=== PATIENT | female | born 1990 | race African-American/Black ===

== ENCOUNTER 2016-10-11 14:56 | Emergency (ER) | payer OTHER ==
--- NOTE | 2016-10-11 15:13 | PDOC ---
History of Present Illness - History of Present Illness Initial Comments: 10/11/16 16:39 The patient is a 26 year old female with a significant past medical history of diabetes, CVA, and asthma who presents to the ED complaining of diffuse abdominal pain and nausea. The patient was last seen for DKA, admitted to the ICU and then discharged on 10/03. The patient reports her abdominal pain and nausea have worsened since she was discharged from the hospital. She typically takes zofran for nausea but she ran out. She is also complaining of a dry mouth. The patient endorses having several loose dark watery stools today, denies any bpr, melena. The patient reports she has been measuring her blood sugar daily and her machine reports it is high. She states she is compliant with her insulin. She is concerned she is in DKA. She reports two episodes of diarrhea today. Pt notes the abdominal pain is sharp, diffuse and simialr to what she has felt int he past that was attributed to 'gastric erosions' for which she is on carafate, she states it typically helps but not recently. She denies vomiting, hematochezia, melena. She denies chest pain, palpitations, SOB She denies sore throat, dysuria, vaginal bleeding Allergies: ibuprofen, acetaminophen, morphine Social: No toxic habits reported Surgical: Appendectomy PCP: Dr. Zeng <Nilsa Arrieta - Last Filed: 10/11/16 16:40> - General History Source: Patient Exam Limitations: No Limitations - History of Present Illness Initial Comments: 10/11/16 16:10 10/11/16 16:10 <Margarito Vergara - Last Filed: 10/12/16 08:58> - General Stated Complaint: HIGH Sugar Problem Time Seen by Provider: 10/11/16 15:12 Past History <Nilsa Arrieta - Last Filed: 10/11/16 16:40> - Past Medical History Anemia: Yes Asthma: Yes Cancer: No Cardiac Disorders: Yes (heart murmur) CVA: Yes ("rt side weakness") COPD: No CHF: No Dementia: No Diabetes: Yes (since she was 8 years of age) GI Disorders: Yes (gastritis, H pylori,) Disorders: No HTN: No Hypercholesterolemia: No Liver Disease: No Suicide Attempt (Hx): No (DENIES) Seizures: No Thyroid Disease: No - Surgical History Abdominal Surgery: Yes Appendectomy: Yes (2008) Cardiac Surgery: No Cholecystectomy: No Lung Surgery: No Neurologic Surgery: No Orthopedic Surgery: No - Reproductive History (#): 3 Para: 0 Cervical CA: No Dysfunctional Uterine Bleeding: No Ectopic : No Endometrial CA: No Polycystic Ovaries: No Therapeutic (s) & number: No Tubal Ligation: No Spontaneous : 3 - Immunization History Immunization Up to Date: Yes - Psycho/Social/Smoking Cessation Hx Anxiety: No Suicidal Ideation: No Smoking Status: No Smoking History: Never smoked Have you smoked in the past 12 months: No Number of Cigarettes Smoked Daily: 0 Cigars Per Day: 0 Hx Alcohol Use: No Drug/Substance Use Hx: No Substance Use Type: None Hx Substance Use Treatment: No <Margarito Vergara - Last Filed: 10/12/16 08:58> - Past Medical History Allergies/Adverse Reactions: Allergies Allergy/AdvReac Type Severity Reaction Status Date / Time acetaminophen [From Tylenol] Allergy Swelling Verified 10/11/16 15:22 heparin Allergy Verified 10/11/16 15:22 hydromorphone HCl Allergy Verified 10/11/16 15:22 [From Dilaudid] ibuprofen [From Motrin] Allergy Swelling Verified 10/11/16 15:22 morphine Allergy Verified 10/11/16 15:22 Home Medications: Ambulatory Orders Insulin Lispro [Humalog] 0 unit SQ DAILY 09/28/16 Insulin (Levemir) [Levemir Vial] 14 units SQ BIDI ml 10/02/16 Ondansetron HCl [Zofran] 4 mg PO TID PRN #30 tablet 10/11/16 Review of Systems - Review of Systems Able to Perform ROS?: Yes Comments:: 10/11/16 16:40 CONSTITUTIONAL: No reported: Fever, Chills, Diaphoresis, Generalized Weakness, Malaise, Loss of Appetite HEENT: No reported: Rhinorrhea, Nasal Congestion, Throat Pain, Throat Swelling, Difficulty Swallowing, Mouth Swelling, Ear Pain, Eye Pain, Visual Changes CARDIOVASCULAR: No reported: Chest Pain, Syncope, Palpitations, Irregular Heart Rate, Lightheadedness, Peripheral Edema RESPIRATORY: No reported: Cough, Shortness of Breath, SOB with Exertion, Orthopnea, Wheezing , Stridor, Hemoptysis GASTROINTESTINAL: +Abdominal pain, nausea, diarrhea. No reported: Abdominal Distension, Vomiting, Constipation, Melena, Hematochezia GENITOURINARY: No reported: Dysuria, Frequency, Urgency, Hesitancy, Flank Pain, Genital Pain MUSCULOSKELETAL: No reported: Myalgia, Arthralgia, Joint Swelling, Back pain, Neck Pain SKIN: No reported: Rash, Itching, Pallor HEMATOLOGIC/IMMUNOLOGIC: No reported: Easy Bleeding, Easy Bruising, Lymphadenopathy, Frequent infections ENDOCRINE: No reported: Unexplained Weight Gain, Unexplained Weight Loss, Heat Intolerance , Cold Intolerance NEUROLOGIC: No reported: Headache, Focal Weakness, Paresthesias, Vertigo, Lightheadedness, Unsteady Gait, Seizure, Mental Status Changes, Incontinence PSYCHIATRIC: No reported: Anxiety, Depression <Nilsa Arrieta - Last Filed: 10/11/16 16:40> *Physical Exam - Vital Signs Last Vital Signs Temp Pulse Resp BP Pulse Ox 98.4 F 110 H 18 112/80 98 10/11/16 14:56 10/11/16 14:56 10/11/16 14:56 10/11/16 14:56 10/11/16 15:43 - Physical Exam Comments: 10/11/16 16:40 GENERAL: The patient is awake, alert, and fully oriented, Nontoxic - in no acute distress. HEAD: Normocephalic, atraumatic. EYES: extraocular movements intact, sclera anicteric, conjunctiva clear. ENT: Normal voice, dry mucous membranes. NECK: Normal range of motion, supple LUNGS: Breath sounds equal, clear to auscultation bilaterally. No wheezes, no rhonchi, no rales. HEART: tachycardic ABDOMEN: Soft, mild diffuse tenderness No guarding, no rebound. . No CVA tenderness EXTREMITIES: Normal range of motion, no edema. No clubbing or cyanosis. No cords, erythema, or tenderness. NEUROLOGICAL: No facial assymetry, Normal speech, moving all 4 extremities spontaneously and symmetrically PSYCH: Normal mood, normal affect. SKIN: Warm, Dry, normal turgor, <Nilsa Arrieta - Last Filed: 10/11/16 16:40> ED Treatment Course - LABORATORY CBC & Chemistry Diagram: 10/11/16 15:43 - ADDITIONAL ORDERS Additional order review: Laboratory Results 10/11/16 10/11/16 15:43 15:40 VBG pH 7.36 POC VBG pCO2 40.6 L D POC VBG pO2 46.5 H Phosphorus 4.6 Magnesium 3.1 H D 10/11/16 15:43 RBC 3.99 D MCV 93.3 MCHC 34.5 RDW 13.1 MPV 8.1 Neutrophils % 54.2 D Lymphocytes % 37.7 D Monocytes % 6.7 Eosinophils % 0.8 Basophils % 0.6 - Medications Given in the ED: ED Medications Discontinued Medications Generic Name Dose Route Start Last Admin Trade Name Manishq PRN Reason Stop Dose Admin Al Hydroxide/Mg Hydroxide 30 ml 10/11/16 16:09 10/11/16 16:26 Mylanta Suspension - PO 10/11/16 16:10 30 ml ONCE ONE Administration Sodium Chloride 1,000 mls @ 1,000 mls/hr 10/11/16 15:16 10/11/16 15:47 Normal Saline - IV 10/11/16 16:15 1,000 mls/hr .Q1H ONE Administration Famotidine/Sodium Chloride 20 50 mls @ 100 mls/hr 10/11/16 16:09 10/11/16 16:26 mg/ Miscellaneous IVPB 10/11/16 16:38 100 mls/hr ONCE ONE Administration Ondansetron HCl 4 mg 10/11/16 15:21 10/11/16 15:47 Zofran Injection IVPB 10/11/16 15:22 4 mg ONCE ONE Administration <Nilsa Arrieta - Last Filed: 10/11/16 16:40> - LABORATORY CBC & Chemistry Diagram: 10/11/16 15:43 10/11/16 15:43 <Margarito Vergara - Last Filed: 10/12/16 08:58> Medical Decision Making - Medical Decision Making 10/11/16 16:10 26y F hx of IDDM with ultiple episode of DKA (recently admitted and d/marty 10/02, since discharge pt has been feeling nauseus, and today has been ahving crampy abd pain associated with watery stool w/o fever/chills> pt also notes her BGM was elevated to 500+. on exam pt noted to be slightly tachycardic with HR of 110 , abd is soft but diffuse tenderness, pt states pain is simialr to her prior gastritis/ulcers that she takes carafate for but has not improved like it typically does. suspect possible age vs gastritis vs dka will ck labs, vbg, acetones will ck ua to r.o uti will r/o (s/p miscarrage during recent adission) will give fluids for hydration zofran for nausea, pepcid/maalox for abd pain 10/11/16 18:18 The patient's blood work was reviewed the patient's blood glucose was in the 500s, no suggestion of DKA. We'll control the patient's blood sugar with insulin and fluids. The patient's nausea and abdominal cramping or improved in the patient is currently hungry and requesting food. 10/11/16 19:08 Pt signed out to dr. Aiyana garcia with the pts blood sugar and to disposition the patient. <Margarito Vergara - Last Filed: 10/12/16 08:58> *DC/Admit/Observation/Transfer - Attestations Scribe Attestion: 10/11/16 16:40 Documentation prepared by Nilsa Arrieta, acting as medical registrar for Margarito Vergara MD. <Nilsa Arrieta - Last Filed: 10/11/16 16:40> <Margarito Vergara - Last Filed: 10/12/16 08:58> Diagnosis at time of Disposition: IDDM (insulin dependent diabetes mellitus) - Discharge Dispostion Disposition: HOME Condition at time of disposition: Stable - Prescriptions Prescriptions: Ondansetron HCl [Zofran] 4 mg PO TID PRN #30 tablet PRN Reason: Nausea - Referrals Referrals: Yancy Zeng MD [Primary Care Provider] - - Patient Instructions Printed Discharge Instructions: DI for Diabetes Type 1 -- Adult
[2016-10-11] MEDS ORDERED: SODIUM CHLORIDE 1,000 ML IV ONE (15:16)
[2016-10-11] MEDS ORDERED: ONDANSETRON 4 MG/2 ML VIAL IVPB ONE (15:21)
[2016-10-11 15:22] VITALS: TEMP 98.4; BMI 24.7
[2016-10-11 15:45] LABS: VENOUS PH 7.36 (7.31-7.41)
[2016-10-11 15:46] LABS: VENOUS BLOOD GAS HCO3 22.3 meq/L (22-29)
[2016-10-11] MEDS ORDERED: ONDANSETRON 4 MG/2 ML VIAL ONE (15:48)
[2016-10-11] MEDS ORDERED: MAG HYDROX/AL HYDROX/SIMETH 355 ML ORAL.SUSP PO ONE (16:09)
[2016-10-11] MEDS ORDERED: FAMOTIDINE 20 MG/50 ML IVPB 20 MG in PREMIX 50 IVPB ONE (16:09)
[2016-10-11] MEDS ORDERED: MAG HYDROX/AL HYDROX/SIMETH 30 ML UNIT-DOSE CUP ONE (16:12)
[2016-10-11] MEDS ORDERED: FAMOTIDINE 20 MG/50 ML IVPB 50 ML IVPB ONE (16:12)
[2016-10-11 16:13] LABS: BASOPHIL 0.6 % (0-2.0); EOSINOPHIL 0.8 % (0-4.5); MCH 32.2 pg (25.7-33.7); MCHC 34.5 g/dl (32.0-36.0); MEAN CELL VOLUME 93.3 fl (80-96); MEAN PLT VOLUME 8.1 fl (7.5-11.1); NEUTROPHILS 54.2 % (42.8-82.8); PLATELET COUNT 488 K/MM3 (134-434); RDW 13.1 % (11.6-15.6); WHITE BLOOD COUNT 7.2 K/mm3 (4.0-10.0)
[2016-10-11 16:29] LABS: MAGNESIUM 3.1 mg/dL (1.8-2.4); PHOSPHOROUS 4.6 mg/dL (2.5-4.9)
[2016-10-11 16:38] LABS: INR 0.99 (0.82-1.09); PROTHROMBIN TIME (PATIENT) 10.9 SEC (9.98-11.88)
[2016-10-11] MEDS ORDERED: HYDROmorphone HCL CARPU-JECT 1 MG/1 ML DISP.SYRIN IVPUSH ONE (17:12)
[2016-10-11] MEDS ORDERED: HYDROmorphone HCL CARPU-JECT 1 MG/1 ML DISP.SYRIN ONE (17:14)
[2016-10-11 17:32] LABS: ALBUMIN 3.8 g/dl (3.4-5.0); BILIRUBIN,TOTAL 0.5 mg/dL (0.2-1.0); CALCIUM 9.9 mg/dL (8.5-10.1); CREATININE 1.2 mg/dL (0.55-1.02); TOT PROT 8.1 g/dl (6.4-8.2)
[2016-10-11 17:47] LABS: URINE APPEARANCE CLEAR; URINE BILIRUBIN NEGATIVE (NEGATIVE); URINE BLOOD NEGATIVE (NEGATIVE); URINE COLOR COLORLESS; URINE GLUCOSE (UA) 3+ (NEGATIVE); URINE KETONE 1+ (NEGATIVE); URINE NITRITE NEGATIVE (NEGATIVE); URINE PROTEIN NEGATIVE (NEGATIVE); URINE UROBILINOGEN NEGATIVE E.U./dl (0.2-1.0)
[2016-10-11] MEDS ORDERED: diphenhydrAMINE HCL 25 MG CAPSULE (FP) PO ONE ×3 (17:54→18:17)
[2016-10-11] MEDS ORDERED: INSULIN REGULAR HUMAN 100 UNITS/ML *VIAL SQ ONE (17:55)
[2016-10-11] MEDS ORDERED: INSULIN REGULAR HUMAN 100 UNITS/ML *VIAL ONE (17:57)
[2016-10-11 18:01] LABS: URINE LEUK ESTERASE TRACE (NEGATIVE)
[2016-10-11 18:49] LABS: URINE RBC 1 /hpf (0-3); URINE WBC 2 /hpf (3-5)
[2016-10-11 19:18] VITALS: BP 127/92; PULSE 92
--- NOTE | 2016-10-11 19:46 | PDOC ---
*Physical Exam - Vital Signs Last Vital Signs Temp Pulse Resp BP Pulse Ox 98.4 F 92 H 16 127/92 99 10/11/16 14:56 10/11/16 19:17 10/11/16 19:17 10/11/16 19:17 10/11/16 19:17 ED Treatment Course - LABORATORY CBC & Chemistry Diagram: 10/11/16 15:43 10/11/16 15:43 - ADDITIONAL ORDERS Additional order review: Laboratory Results 10/11/16 10/11/16 10/11/16 19:13 15:43 15:43 INR VBG pH POC VBG pCO2 POC VBG pO2 Sodium Potassium Chloride Carbon Dioxide Anion Gap BUN Creatinine Creat Clearance w eGFR POC Glucometer [phone] Random Glucose Calcium Phosphorus 4.6 Magnesium 3.1 H D Total Bilirubin AST ALT Alkaline Phosphatase Total Protein Albumin Serum , Qual Negative Urine Color Colorless Urine Appearance Clear Urine pH 6.0 Ur Specific [place] 1.032 Urine Protein Negative Urine Glucose (UA) 3+ H Urine Ketones 1+ H Urine Blood Negative Urine Nitrite Negative Urine Bilirubin Negative Urine Urobilinogen Negative Ur Leukocyte Esterase Trace H Urine RBC 1 Urine WBC 2 Ur Epithelial Cells Rare Acetone, Qual 10/11/16 10/11/16 10/11/16 15:43 15:43 15:40 INR 0.99 VBG pH 7.36 POC VBG pCO2 40.6 L D POC VBG pO2 46.5 H Sodium 132 L Potassium 5.1 D Chloride 96 L Carbon Dioxide 21 Anion Gap 15 BUN 10 D Creatinine 1.2 H Creat Clearance w eGFR 55.19 POC Glucometer Random Glucose 581 H* D Calcium 9.9 D Phosphorus Magnesium Total Bilirubin 0.5 D AST 48 H D ALT 41 D Alkaline Phosphatase 185 H D Total Protein 8.1 D Albumin 3.8 D Serum , Qual Urine Color Urine Appearance Urine pH Ur Specific [place] Urine Protein Urine Glucose (UA) Urine Ketones Urine Blood Urine Nitrite Urine Bilirubin Urine Urobilinogen Ur Leukocyte Esterase Urine RBC Urine WBC Ur Epithelial Cells Acetone, Qual 10/11/16 14:58 INR VBG pH POC VBG pCO2 POC VBG pO2 Sodium Potassium Chloride Carbon Dioxide Anion Gap BUN Creatinine Creat Clearance w eGFR POC Glucometer Random Glucose Calcium Phosphorus Magnesium Total Bilirubin AST ALT Alkaline Phosphatase Total Protein Albumin Serum , Qual Urine Color Urine Appearance Urine pH Ur Specific [place] Urine Protein Urine Glucose (UA) Urine Ketones Urine Blood Urine Nitrite Urine Bilirubin Urine Urobilinogen Ur Leukocyte Esterase Urine RBC Urine WBC Ur Epithelial Cells Acetone, Qual Cancelled 10/11/16 10/11/16 19:13 15:43 RBC 3.99 D MCV 93.3 MCHC 34.5 RDW 13.1 MPV 8.1 Neutrophils % 54.2 D Lymphocytes % 37.7 D Monocytes % 6.7 Eosinophils % 0.8 Basophils % 0.6 POC Glucometer [phone] - Medications Given in the ED: ED Medications Discontinued Medications Generic Name Dose Route Start Last Admin Trade Name Freq PRN Reason Stop Dose Admin Al Hydroxide/Mg Hydroxide 30 ml 10/11/16 16:09 10/11/16 16:26 Mylanta Suspension - PO 10/11/16 16:10 30 ml ONCE ONE Administration Diphenhydramine HCl 50 mg 10/11/16 17:54 10/11/16 18:12 Benadryl - PO 10/11/16 17:55 50 mg ONCE ONE Administration Hydromorphone HCl 1 mg 10/11/16 17:12 10/11/16 17:25 Dilaudid Injection - IVPUSH 10/11/16 17:13 1 mg ONCE ONE Administration Sodium Chloride 1,000 mls @ 1,000 mls/hr 10/11/16 15:16 10/11/16 15:47 Normal Saline - IV 10/11/16 16:15 1,000 mls/hr .Q1H ONE Administration Famotidine/Sodium Chloride 20 50 mls @ 100 mls/hr 10/11/16 16:09 10/11/16 16:26 mg/ Miscellaneous IVPB 10/11/16 16:38 100 mls/hr ONCE ONE Administration Insulin Human Regular 6 units 10/11/16 17:55 10/11/16 18:12 Novolin R Vial *Ivpush / Er / Icu Only* SQ 10/11/16 17:56 6 units ONCE ONE Administration Ondansetron HCl 4 mg 10/11/16 15:21 10/11/16 15:47 Zofran Injection IVPB 10/11/16 15:22 4 mg ONCE ONE Administration Medical Decision Making - Medical Decision Making 10/11/16 19:45 pt glucose is now 347. Pt will be discharged. Pt to follow up with her pcp. *DC/Admit/Observation/Transfer Diagnosis at time of Disposition: IDDM (insulin dependent diabetes mellitus) - Discharge Dispostion Disposition: HOME Condition at time of disposition: Stable Admit: No - Referrals Referrals: Yancy Zeng MD [Primary Care Provider] - - Patient Instructions Printed Discharge Instructions: DI for Diabetes Type 1 -- Adult - Post Discharge Activity
--- NOTE | 2016-10-11 23:11 | EKG ---
Test Reason : Blood Pressure : / mmHG Vent. Rate : 108 BPM Atrial Rate : 108 BPM P-R Int : 132 ms QRS Dur : 090 ms QT Int : 352 ms P-R-T Axes : 062 059 024 degrees QTc Int : 471 ms SINUS TACHYCARDIA OTHERWISE NORMAL ECG WHEN COMPARED WITH ECG OF 28-SEP-2016 10:57, NO SIGNIFICANT CHANGE WAS FOUND Confirmed by LATESHA WALLACE MD ([id number]) on 10/11/2016 11:10:41 PM Referred By: Confirmed By:LATESHA WALLACE MD
== END 2016-10-11 20:00 | disposition home or self-care (01) ==
LOC: JER 14:56
PROC: 3E033GC Introduction of Other Therapeutic Substance into Peripheral Vein, Percutaneous Approach (ICD-10-PCS; principal; 2016-10-11)
PROC: 3E033NZ Introduction of Analgesics, Hypnotics, Sedatives into Peripheral Vein, Percutaneous Approach (ICD-10-PCS; 2016-10-11)
PROC: 3E013VG Introduction of Insulin into Subcutaneous Tissue, Percutaneous Approach (ICD-10-PCS; 2016-10-11)
PROC: 3E0337Z Introduction of Electrolytic and Water Balance Substance into Peripheral Vein, Percutaneous Approach (ICD-10-PCS; 2016-10-11)
DX: E10.65 Type 1 diabetes mellitus with hyperglycemia (principal); J45.909 Unspecified asthma, uncomplicated; D64.9 Anemia, unspecified; R01.1 Cardiac murmur, unspecified
CPT/HCPCS: 36415; 80053; 81003; 81015; 82803; 83735; 84100; 84703; 85025; 85610; 93005; 93010; 96361; 96365; 96372; 96375; 99285-25

== ENCOUNTER → 2017-01-27 | Emergency (ER) | payer OTHER ==
[~2017-01-27] MED LIST: HYDROmorphone HCL 2 MG TABLET ONE; HYDROmorphone HCL 2 MG TABLET PO ONE; diphenhydrAMINE HCL 25 MG CAPSULE (FP) PO ONE
--- NOTE | 2017-01-27 13:28 | PDOC ---
History of Present Illness - General History Source: Patient Exam Limitations: No Limitations - History of Present Illness Initial Comments: CHIEF COMPLAINT: 26 y/o afebrile female with PMH anemia, asthma, gastritis, IDDM with frequent admissions for DKA, DM neuropathy c/o left ankle pain. HISTORY OF PRESENT ILLNESS: The patient is currently wheelchair bound secondary to her neuropathy. She was at physical therapy today when she tried to get back into her wheelchair and twisted her left ankle. She states she can' t put any pressure on it secondary to pain. She denies all complaints. Her sugar was 370 prior to coming here and she took 10 unites of insulin. Vital signs on arrival are REVIEW OF SYSTEMS: GENERAL/CONSTITUTIONAL: No fever/chills. No weakness. No weight change. HEAD, EYES, EARS, NOSE AND THROAT: No change in vision. No ear pain or discharge. No sore throat. CARDIOVASCULAR: No chest pain or shortness of breath. RESPIRATORY: No cough, wheezing, or hemoptysis. GASTROINTESTINAL: No abd pain, nausea, vomiting, diarrhea. GENITOURINARY: No dysuria, frequency, or change in urination. MUSCULOSKELETAL:+left ankle swelling and pain. No neck or back pain. SKIN: No rash or easy bruising. NEUROLOGIC: No headache, vertigo, loss of consciousness, or loss of sensation. PHYSICAL EXAM: GENERAL: The patient is awake, alert, and fully oriented, in no acute distress. HEAD: Normal with no signs of trauma. ENT: Pupils equal, round and reactive to light, extraocular movements intact, sclera anicteric, conjunctiva clear. Neck supple. LUNGS: Clear to auscultation bilaterally. Normal excursion. No respiratory distress or use of accessory muscles. CV: RRR, S1/S2, no MRG. Cap refill < 2 sec. ABDOMEN: Soft, non-distended, non-tender even to deep palpation, no hepatomegaly or splenomegaly, no masses. EXTREMITIES: Left ankle with moderate swelling over lateral malleolus with significant TTP. No obvious deformities. No erythema, warmth or pallor to affected extremity. Pt is refusing to move the affected joint secondary to pain. NEUROLOGICAL: Normal speech. Gait not assessed in the ER. CN II-XII grossly intact. PSYCH: Normal mood, normal affect. SKIN: Warm, dry, normal turgor, no rashes or lesions noted. <Wohltman,Gail - Last Filed: 01/27/17 16:07> <Margarito Vergara - Last Filed: 02/07/17 08:47> - General Stated Complaint: INJURY TO ANKLE Time Seen by Provider: 01/27/17 13:27 Past History - Past Medical History Anemia: Yes Asthma: Yes Cancer: No Cardiac Disorders: Yes (heart murmur) CVA: Yes ("rt side weakness") COPD: No CHF: No Dementia: No Diabetes: Yes (since she was 8 years of age) GI Disorders: Yes (gastritis, H pylori,) Disorders: No HTN: No Hypercholesterolemia: No Liver Disease: No Suicide Attempt (Hx): No (DENIES) Seizures: No Thyroid Disease: No - Surgical History Abdominal Surgery: Yes Appendectomy: Yes (2008) Cardiac Surgery: No Cholecystectomy: No Lung Surgery: No Neurologic Surgery: No Orthopedic Surgery: No - Reproductive History (#): 3 Para: 0 Cervical CA: No Dysfunctional Uterine Bleeding: No Ectopic : No Endometrial CA: No Polycystic Ovaries: No Therapeutic (s) & number: No Tubal Ligation: No Spontaneous : 3 - Immunization History Immunization Up to Date: Yes - Psycho/Social/Smoking Cessation Hx Anxiety: No Suicidal Ideation: No Smoking Status: No Smoking History: Never smoked Have you smoked in the past 12 months: No Number of Cigarettes Smoked Daily: 0 Cigars Per Day: 0 Hx Alcohol Use: No Drug/Substance Use Hx: No Substance Use Type: None Hx Substance Use Treatment: No <Gail Mendenhall - Last Filed: 01/27/17 16:07> <Margarito Vergara - Last Filed: 02/07/17 08:47> - Past Medical History Allergies/Adverse Reactions: Allergies Allergy/AdvReac Type Severity Reaction Status Date / Time acetaminophen [From Tylenol] Allergy Swelling Verified 10/14/16 13:04 heparin Allergy Verified 10/14/16 13:04 hydromorphone HCl Allergy Verified 10/14/16 13:04 [From Dilaudid] ibuprofen [From Motrin] Allergy Swelling Verified 10/14/16 13:04 morphine Allergy Verified 10/14/16 13:04 Home Medications: Ambulatory Orders Insulin Lispro [Humalog] 0 unit SQ DAILY 09/28/16 Ondansetron HCl [Zofran] 4 mg PO TID PRN #30 tablet 10/11/16 Insulin Glargine,Hum.rec.anlog [Lantus (nf)] 10 units SQ BID 01/27/17 Oxycodone HCl/Acetaminophen [Percocet 5-325 mg Tablet] 1 tab PO Q6H #8 tablet MDD 4 01/27/17 *Physical Exam - Vital Signs Last Vital Signs Temp Pulse Resp BP Pulse Ox 98.4 F 68 18 108/64 98 01/27/17 14:17 01/27/17 14:17 01/27/17 14:17 01/27/17 14:17 01/27/17 14:17 <Margarito Vergara - Last Filed: 02/07/17 08:47> Procedures - Splinting Splint Location: Left: Ankle Pre-Proc Neuro Vasc Exam: normal Hand-Made Type: orthoglass Splint Type: Yes: Sugar Tong Post-Proc Neuro Vasc Exam: normal Mauricio Bandage: 3" (2) Sling: No Complications: No <Gail Mendenhall - Last Filed: 01/27/17 16:07> ED Treatment Course - ADDITIONAL ORDERS Additional order review: 01/27/17 15:07 POC Glucometer [phone] - Medications Given in the ED: ED Medications Discontinued Medications Generic Name Dose Route Start Last Admin Trade Name Freq PRN Reason Stop Dose Admin Diphenhydramine HCl 50 mg 01/27/17 13:59 01/27/17 14:08 Benadryl - PO 01/27/17 14:00 Not Given ONCE ONE Diphenhydramine HCl 25 mg 01/27/17 15:01 01/27/17 15:13 Benadryl Injection - IM 01/27/17 15:02 25 mg ONCE ONE Administration Hydromorphone HCl 2 mg 01/27/17 16:06 01/27/17 16:20 Dilaudid - PO 01/27/17 16:07 2 mg ONCE ONE Administration <Margarito Vergara - Last Filed: 02/07/17 08:47> Medical Decision Making - Medical Decision Making A/P: 26 y/o female with left ankle injury. Plan is as follows: 1. Xray left ankle/foot Xray left foot/ankle IMPRESSION: (Wet read) Distal fibula fracture. Gave the patient IM benadryl for pain. Splinted her left foot in a sugar tong splint without difficulty. the patient is non weight bearing already at home in a wheelchair. Instructed her to put no pressure on her left foot. Gave her referral to Dr. Robb and suggested she call on Monday. Instructed her to return to the ER with any worsening or concerning symptoms. The patient verbalizes understanding of all instructions, has no further questions and is awaiting discharge. <Gail Mendenhall - Last Filed: 01/27/17 16:07> - Medical Decision Making The patient was seen and evaluated in conjunction with FLORIDALMA Mendenhall under my direct supervision, ancillary studies were reviewed. I independently interviewed and evaluated the patient and I agree with the plan as outlined by FLORIDALMA Mendenhall . <Margarito Vergara - Last Filed: 02/07/17 08:47> *DC/Admit/Observation/Transfer <Gail Mendenhall - Last Filed: 01/27/17 16:07> <Margarito Vergara - Last Filed: 02/07/17 08:47> Diagnosis at time of Disposition: Fracture of distal fibula Qualifiers: Encounter type: initial encounter Fracture type: closed Fracture morphology: unspecified fracture morphology Laterality: left Qualified Code(s): S82.832A - Other fracture of upper and lower end of left fibula, initial encounter for closed fracture - Discharge Dispostion Disposition: HOME Condition at time of disposition: Improved - Prescriptions Prescriptions: Oxycodone HCl/Acetaminophen [Percocet 5-325 mg Tablet] 1 tab PO Q6H #8 tablet MDD 4 - Referrals Referrals: Brendan Robb MD [Staff Physician] - - Patient Instructions Printed Discharge Instructions: DI for Shinbone Fracture Additional Instructions: Discharge Instructions: -Please follow up with Dr. Robb as soon as possible. -Continue to use wheelchair at home; do not put pressure on your casted foot
[2017-01-27 14:20] VITALS: BP 108/64; PULSE 68; TEMP 98.4; BMI 24.0
== END | disposition home or self-care (01) ==
LOC: JER 13:21
PROC: 3E023GC Introduction of Other Therapeutic Substance into Muscle, Percutaneous Approach (ICD-10-PCS; principal; 2017-01-27)
DX: S82.832A Other fracture of upper and lower end of left fibula, initial encounter for closed fracture (principal); X50.1XXA Overexertion from prolonged static or awkward postures, initial encounter; Y93.89 Activity, other specified; Y92.538 Other ambulatory health services establishments as the place of occurrence of the external cause; Y99.8 Other external cause status; E10.42 Type 1 diabetes mellitus with diabetic polyneuropathy; Z79.4 Long term (current) use of insulin; I69.851 Hemiplegia and hemiparesis following other cerebrovascular disease affecting right dominant side; R26.89 Other abnormalities of gait and mobility; Z99.89 Dependence on other enabling machines and devices; Z99.3 Dependence on wheelchair
CPT/HCPCS: 73610-TC-LT; 73630-TC-LT; 96372; 99281-25

== ENCOUNTER 2017-10-29 03:14 | Inpatient (IN) | payer OTHER ==
--- NOTE | 2017-10-29 03:58 | PDOC ---
History of Present Illness - General History Source: Patient, EMS Exam Limitations: No Limitations - History of Present Illness Initial Comments: 10/29/17 04:18 The patient is a 27 year old female, with a significant past medical history of IDDM, peripheral neuropathy, hyponatremia, normocytic anemia, hyperkalemia, who presents to the emergency department via EMS with, elevated blood sugar, fever and diffuse back pain. As per EMS, the patient had an elevated blood sugar of approx. 500. The patient reports she has not been compliant with her insulin. As per the patient, she reports that beginning this morning she has been having diffuse back pain that radiates down to her legs. She reports numbness and tingling in her legs. However, she reports the numbness and tingling in her legs is a chronic issue. The patient also reports a feeling of shakiness beginning this morning. She denies any recent nausea, vomiting, constipation or diarrhea. She denies any recent dysuria, urgency, frequency or hematuria. She denies any recent chest pain, palpitations or shortness of breath. Allergies: See nursing notes. Past surgical history: (October 14) Primary Care Physician: Dr. Yancy Zeng <Devyn Romero - Last Filed: 10/29/17 04:44> <Rocio Martinez - Last Filed: 10/29/17 19:41> - General Chief Complaint: Blood Sugar Problem Stated Complaint: PAIN Time Seen by Provider: 10/29/17 03:24 Past History <Devyn Romero - Last Filed: 10/29/17 04:44> - Past Medical History Anemia: Yes Asthma: Yes Cancer: No Cardiac Disorders: Yes (heart murmur) CVA: Yes ("rt side weakness") COPD: No CHF: No Dementia: No Diabetes: Yes (since she was 8 years of age) GI Disorders: Yes (gastritis, H pylori,) Disorders: No HTN: No Hypercholesterolemia: No Liver Disease: No Seizures: No Thyroid Disease: No - Surgical History Abdominal Surgery: Yes Appendectomy: Yes (2008) Cardiac Surgery: No Cholecystectomy: No Lung Surgery: No Neurologic Surgery: No Orthopedic Surgery: No - Reproductive History (#): 3 Para: 0 Cervical CA: No Dysfunctional Uterine Bleeding: No Ectopic : No Endometrial CA: No Polycystic Ovaries: No Therapeutic (s) & number: No Tubal Ligation: No Spontaneous : 3 - Immunization History Immunization Up to Date: Yes - Suicide/Smoking/Psychosocial Hx Smoking Status: No Smoking History: Unknown if ever smoked Have you smoked in the past 12 months: No Number of Cigarettes Smoked Daily: 0 Cigars Per Day: 0 Information on smoking cessation initiated: No Hx Alcohol Use: No Drug/Substance Use Hx: No Substance Use Type: None Hx Substance Use Treatment: No <Rocio Martinez - Last Filed: 10/29/17 19:41> - Past Medical History Allergies/Adverse Reactions: Allergies Allergy/AdvReac Type Severity Reaction Status Date / Time acetaminophen [From Tylenol] Allergy Swelling Verified 10/29/17 03:33 gentamicin Allergy Verified 10/29/17 18:42 heparin Allergy Verified 10/29/17 03:33 hydromorphone HCl Allergy Verified 10/29/17 03:33 [From Dilaudid] ibuprofen [From Motrin] Allergy Swelling Verified 10/29/17 03:33 morphine Allergy Verified 10/29/17 03:33 Home Medications: Ambulatory Orders Insulin Lispro [Humalog] 0 unit SQ DAILY 09/28/16 Insulin Glargine,Hum.rec.anlog [Lantus (nf)] 10 units SQ BID 01/27/17 Review of Systems - Review of Systems Comments:: 10/29/17 04:18 GENERAL/CONSTITUTIONAL: +Fever. No chills. No weakness. HEAD, EYES, EARS, NOSE AND THROAT: No change in vision. No ear pain or discharge. No sore throat. CARDIOVASCULAR: No chest pain or shortness of breath. RESPIRATORY: No cough, wheezing, or hemoptysis. GASTROINTESTINAL: No nausea, vomiting, diarrhea or constipation. GENITOURINARY: No dysuria, frequency, or change in urination. MUSCULOSKELETAL: +Diffuse back pain. No joint or muscle swelling or pain. No neck pain. SKIN: No rash NEUROLOGIC: No headache, vertigo, loss of consciousness, or change in strength/ sensation. ENDOCRINE: No increased thirst. No abnormal weight change. HEMATOLOGIC/LYMPHATIC: No anemia, easy bleeding, or history of blood clots. ALLERGIC/IMMUNOLOGIC: No hives or skin allergy. <Devyn Romero - Last Filed: 10/29/17 04:44> *Physical Exam - Vital Signs Last Vital Signs Temp Pulse Resp BP Pulse Ox 103.0 F H 140 H 16 141/98 100 10/29/17 03:30 10/29/17 03:30 10/29/17 03:30 10/29/17 03:30 10/29/17 03:30 - Physical Exam Comments: 10/29/17 04:29 GENERAL: +Febrile. Awake, alert, and fully oriented. HEAD: No signs of trauma EYES: PERRLA, EOMI, sclera anicteric, conjunctiva clear ENT: Auricles normal inspection, hearing grossly normal, nares patent, oropharynx clear without exudates. Moist mucosa NECK: Normal ROM, supple, no lymphadenopathy, JVD, or masses LUNGS: Breath sounds equal, clear to auscultation bilaterally. No wheezes, and no crackles HEART: +Tachycardia. Regular rhythm, normal S1 and S2, no murmurs, rubs or gallops ABDOMEN: +Diffusely tender. scar covered by dressing. No erythema around the dressing. Soft, normoactive bowel sounds. No guarding, no rebound. No masses EXTREMITIES: Normal range of motion, no edema. No clubbing or cyanosis. No cords, erythema, or tenderness NEUROLOGICAL: Cranial nerves II through XII grossly intact. Normal speech, normal gait SKIN: Warm, Dry, normal turgor, no rashes or lesions noted. <Devyn Romero - Last Filed: 10/29/17 04:44> - Vital Signs Last Vital Signs Temp Pulse Resp BP Pulse Ox 103.0 F H 140 H 16 141/98 100 10/29/17 03:30 10/29/17 03:30 10/29/17 03:30 10/29/17 03:30 10/29/17 03:30 <Rocio Martinez - Last Filed: 10/29/17 19:41> ED Treatment Course - LABORATORY CBC & Chemistry Diagram: 10/29/17 04:25 10/29/17 04:25 <Devyn Romero - Last Filed: 10/29/17 04:44> - LABORATORY CBC & Chemistry Diagram: 10/29/17 04:25 10/29/17 04:25 <Rocio Martinez - Last Filed: 10/29/17 19:41> Medical Decision Making - Medical Decision Making 10/29/17 19:36 Pt comes with fever and tachycardia. She gave to her premature baby at [facility] a couple weeks back by (baby is still admitted at the nicu at [facility] , EMS would not take her there unfortunately for the patient) Now with complaint of stomach and back pain. Unclear if this is due to csection/ intraabdominal infection, or if this is due to epidural infection, or if this is a normal winter viral syndrome or if this is influenza (we have no rapid flu here) Pt is being worked up for blood cultures and urine cultures. CXR appears normal. Pt will require admission for Fever and body pains. Pt is a narcotic user in the hospital, she is allergic to tylenol and motrin ( itching and throat swelling) and demands dilaudid and benadryl whenever she is admitted. That is what she received here, as I have nothing else to treat her with. Pt is awaiting CT abd/pelvis and other labs are pending. She has been signed out to the day ER team. <Rocio Martinez - Last Filed: 10/29/17 19:41> *DC/Admit/Observation/Transfer - Attestations Scribe Attestion: 10/29/17 04:19 Documentation prepared by Devyn Romero, acting as medical device sales consultant for Rocio Martinez MD. <Devyn Romero - Last Filed: 10/29/17 04:44> <Rocio Martinez - Last Filed: 10/29/17 19:41> Diagnosis at time of Disposition: IDDM (insulin dependent diabetes mellitus), Hyperglycemia, SIRS (systemic inflammatory response syndrome) - Discharge Dispostion Condition at time of disposition: Stable
[2017-10-29] MEDS ORDERED: SODIUM CHLORIDE 0.9% 1000 ML INFUS.BAG IV STA (04:01)
[2017-10-29] MEDS ORDERED: HYDROmorphone HCL CARPU-JECT 2 MG/1 ML DISP.SYRIN IVPUSH ONE ×3 (04:26→14:48)
[2017-10-29 04:36] LABS: BASO % 0.2 % (0-2.0); EOS % 0.6 % (0-4.5); HEMATOCRIT 35.7 % (32.4-45.2); HEMOGLOBIN 12.1 GM/dL (10.7-15.3); LYMPH % 8.6 % (8-40); MCH 32.2 pg (25.7-33.7); MCHC 33.8 g/dl (32.0-36.0); MEAN CELL VOLUME 95.2 fl (80-96); MEAN PLT VOLUME 7.8 fl (7.5-11.1); MONO % 2.8 % (3.8-10.2); NEUT % 87.8 % (42.8-82.8); PLATELET COUNT 317 K/MM3 (134-434); RBC 3.75 M/mm3 (3.60-5.2); RDW 12.6 % (11.6-15.6); WHITE BLOOD COUNT 10.2 K/mm3 (4.0-10.0)
[2017-10-29 05:01] LABS: URINE APPEARANCE SLCLOUDY; URINE BILIRUBIN NEGATIVE (NEGATIVE); URINE BLOOD NEGATIVE (NEGATIVE); URINE COLOR STRAW; URINE GLUCOSE (UA) 3+ (NEGATIVE); URINE KETONE NEGATIVE (NEGATIVE); URINE LEUK ESTERASE TRACE (NEGATIVE); URINE NITRITE NEGATIVE (NEGATIVE); URINE UROBILINOGEN NEGATIVE mg/dL (0.2-1.0)
[2017-10-29] MEDS ORDERED: HYDROmorphone HCl/Pf 2 MG/ML VIAL - FOR OR PYXIS USE ONE ×2 (05:04→08:18)
[2017-10-29 05:34] LABS: URINE PROTEIN 2+ (NEGATIVE)
[2017-10-29 05:35] LABS: EPI CELLS RARE /HPF (FEW); URINE BACTERIA RARE /hpf (NONE SEEN); URINE MUCUS RARE
[2017-10-29 05:40] LABS: INR 1.04 (0.82-1.09); PROTHROMBIN TIME (PATIENT) 11.7 SEC (9.98-11.88)
[2017-10-29 05:42] LABS: ACTIVATED PTT 26.2 SECONDS (26.9-34.4)
[2017-10-29 06:05] LABS: ALBUMIN 3.1 g/dl (3.4-5.0); ALK PHOS 212 U/L (45-117); ANION GAP 13 (8-16); BILIRUBIN,TOTAL 0.2 mg/dL (0.2-1.0); BLOOD UREA NITROGEN 20 mg/dL (7-18); CALCIUM 8.6 mg/dL (8.5-10.1); CHLORIDE 104 mmol/L (98-107); CO2 22 mmol/L (21-32); CREATININE 1.4 mg/dL (0.55-1.02); POTASSIUM 4.3 mmol/L (3.5-5.1); SGOT/AST 11 U/L (15-37); SGPT/ALT 16 U/L (12-78); SODIUM 139 mmol/L (136-145)
[2017-10-29 06:08] LABS: GLUCOSE,RANDOM 372 mg/dL (74-106)
[2017-10-29] MEDS ORDERED: PIPERACILLIN/TAZOB 3.375 GM 50 ML IVPB ONE (07:34)
[2017-10-29] MEDS ORDERED: VANCOMYCIN 1,250 MG in DEXTROSE 5%-WATER - 250 ML IVPB ONE (07:34)
--- NOTE | 2017-10-29 07:49 | PDOC ---
*Physical Exam - Vital Signs Last Vital Signs Temp Pulse Resp BP Pulse Ox 100.8 F H 125 H 16 135/78 100 10/29/17 06:37 10/29/17 06:37 10/29/17 06:37 10/29/17 06:37 10/29/17 06:37 - Physical Exam Comments: 10/29/17 08:33 General Appearance: Nourished. No Apparent Distress HEENT: EOMI, CHRISTI. No Pharyngeal Erythema, Tonsillar Exudate, Tonsillar Erythema Neck: No Cervical Lymphadenopathy Respiratory/Chest: Lungs Clear, Normal Breath Sounds. No Crackles, Rales, Rhonchi, Wheezing Cardiovascular: Regular Rhythm, Regular Rate. No Murmur, Gallops, Rubs Gastrointestinal/Abdominal: Normal Bowel Sounds, Diffuse tenderness to palpation. Well healing surgical wound. No Guarding, Rebound, Musculoskeletal: No CVA Tenderness Extremity: Normal Capillary Refill Integumentary: Normal Color, Dry, Warm Neurologic: Fully Oriented, Alert, Normal Mood/Affect, Normal Response, ED Treatment Course - LABORATORY CBC & Chemistry Diagram: 10/29/17 04:25 10/29/17 04:25 - ADDITIONAL ORDERS Additional order review: Laboratory Results 10/29/17 10/29/17 10/29/17 06:35 04:40 04:25 PT with INR 11.70 INR 1.04 PTT (Actin FS) 26.2 L Sodium Potassium Chloride Carbon Dioxide Anion Gap BUN Creatinine Creat Clearance w eGFR Random Glucose Lactic Acid 0.7 Calcium Total Bilirubin AST ALT Alkaline Phosphatase Total Protein Albumin Urine Color Straw Urine Appearance Slcloudy Urine pH 6.0 Ur Specific [place] 1.025 Urine Protein 2+ H Urine Glucose (UA) 3+ H Urine Ketones Negative Urine Blood Negative Urine Nitrite Negative Urine Bilirubin Negative Urine Urobilinogen Negative Ur Leukocyte Esterase Trace Urine WBC (Auto) 11 Urine RBC (Auto) 2 Ur Epithelial Cells Rare Urine Bacteria Rare Urine Mucus Rare Acetone, Qual 10/29/17 10/29/17 10/29/17 04:25 04:25 04:25 PT with INR INR PTT (Actin FS) Sodium 139 Potassium 4.3 Chloride 104 Carbon Dioxide 22 Anion Gap 13 BUN 20 H Creatinine 1.4 H Creat Clearance w eGFR 45.82 Random Glucose 372 H* Lactic Acid 3.4 H* Calcium 8.6 Total Bilirubin 0.2 D AST 11 L ALT 16 Alkaline Phosphatase 212 H Total Protein 7.0 Albumin 3.1 L Urine Color Urine Appearance Urine pH Ur Specific [place] Urine Protein Urine Glucose (UA) Urine Ketones Urine Blood Urine Nitrite Urine Bilirubin Urine Urobilinogen Ur Leukocyte Esterase Urine WBC (Auto) Urine RBC (Auto) Ur Epithelial Cells Urine Bacteria Urine Mucus Acetone, Qual Negative L 10/29/17 04:25 RBC 3.75 MCV 95.2 MCHC 33.8 RDW 12.6 MPV 7.8 Neutrophils % 87.8 H D Lymphocytes % 8.6 D Monocytes % 2.8 L Eosinophils % 0.6 Basophils % 0.2 - Medications Given in the ED: ED Medications Discontinued Medications Generic Name Dose Route Start Last Admin Trade Name Freq PRN Reason Stop Dose Admin Diphenhydramine HCl 25 mg 10/29/17 04:26 10/29/17 05:15 Benadryl Injection - IVPB 10/29/17 04:27 25 mg ONCE ONE Administration Hydromorphone HCl 2 mg 10/29/17 04:26 10/29/17 05:15 Dilaudid Injection - IVPUSH 10/29/17 04:27 2 mg ONCE ONE Administration Sodium Chloride 2,041 ml 10/29/17 04:01 10/29/17 04:43 Normal Saline - 30 ml/kg (2041 ml) 10/29/17 04:02 2,041 ml IV Administration ONCE STA Progress Note - Progress Note Progress Note: The patient is a 27 year old female with a history of DDM, peripheral neuropathy , hyponatremia, normocytic anemia, hyperkalemia who presented to the ED for evaluation of elevated blood sugars, fevers, back pain, and abdominal pain. The patient had a recent on 10/14/17. Patient is pending a CT abdomen pelvis. Medical Decision Making - Medical Decision Making 10/29/17 10:47 CT abdomen pelvis does not demonstrate any acute intra-abdominal pathology as read by our radiologist. The patient will require admission for further management of her symptoms. We discussed the case with the hospitalist team who accepted the patient for admission. *DC/Admit/Observation/Transfer Diagnosis at time of Disposition: IDDM (insulin dependent diabetes mellitus), Hyperglycemia, SIRS (systemic inflammatory response syndrome) - Discharge Dispostion Condition at time of disposition: Stable Admit: Yes - Referrals Referrals: Yancy Zeng MD [Primary Care Provider] - - Patient Instructions - Post Discharge Activity
[2017-10-29] MEDS ORDERED: PIPERACILLIN/TAZOB 3.375 GM 3.375 GM/50 ML BAG IVPB ONE (08:18)
--- NOTE | 2017-10-29 10:57 | HP ---
CHIEF COMPLAINT: fever, diffuse back pain PCP: Dr. Yancy Zeng HISTORY OF PRESENT ILLNESS: This is a 27 year old female with recent (on 10/14/17 at 31w4d, baby in NICU at [facility]), recently treated for anemia with IV iron (10/15/17), treated for UTI (10/15/17), IDDM (on insulin pump placed 03/30/17), peripheral neuropathy, who presented to the ED with elevated blood sugar, fever, and diffuse back pain which has been going on since her . The patient reports nausea, but no vomiting or diarrhea. She also states that the back pain is diffuse and that nothing takes the pain away. She denies any chest pain, palpitations, dizziness , headache, urinary symptoms, lower extremity edema. The patient reports she has a dressing to her site and was told by her OB at [facility] that it should not be removed until 11/01/17 at her follow-up appointment. Off note, the patient also complains of a vaginal wart stating it is "very uncomfortable". ER course was notable for: (1) Temp 103, pulse 140, BP 141/98, resp 16, O2 100% on RA (2) WBC 10.2 (3) Lactic acid 3.4->0.7 (4) Cr 1.4 (5) Urine and blood cultures pending (6) Received Vancomycin and Zosyn (7) Chest x-ray with weak inspiration, scoliosis, right PICC line. no acute pathology (8) CTAP: no abscess or pathologic bowel dilatation. Mild hepatomegaly noted. 2cm right ovarian cyst. Pericecal surgical clips suggestive of prior appendectomy. Recent Travel: denies PAST MEDICAL HISTORY: as above PAST SURGICAL HISTORY: Appendectomy Social History: Smoking: denies Alcohol: denies Drugs: denies Family History: Allergies acetaminophen [From Tylenol] Allergy (Verified 10/29/17 03:33) Swelling heparin Allergy (Verified 10/29/17 03:33) hydromorphone HCl [From Dilaudid] Allergy (Verified 10/29/17 03:33) ibuprofen [From Motrin] Allergy (Verified 10/29/17 03:33) Swelling morphine Allergy (Verified 10/29/17 03:33) HOME MEDICATIONS: Home Medications Medication Instructions Recorded Insulin Lispro [Humalog] 0 unit SQ DAILY 09/28/16 Insulin Glargine,Hum.rec.anlog 10 units SQ BID 01/27/17 [Lantus (nf)] REVIEW OF SYSTEMS CONSTITUTIONAL: Fever. Absent: chills, diaphoresis, generalized weakness, malaise, loss of appetite, weight change HEENT: Absent: rhinorrhea, nasal congestion, throat pain, throat swelling, difficulty swallowing, mouth swelling, ear pain, eye pain, visual changes CARDIOVASCULAR: Absent: chest pain, syncope, palpitations, irregular heart rate , lightheadedness, peripheral edema RESPIRATORY: Absent: cough, shortness of breath, dyspnea with exertion, orthopnea, wheezing, stridor, hemoptysis GASTROINTESTINAL: +nausea. Absent: abdominal pain, abdominal distension, vomiting, diarrhea, constipation, melena, hematochezia GENITOURINARY: Absent: dysuria, frequency, urgency, hesitancy, hematuria, flank pain, genital pain MUSCULOSKELETAL: Generalized back pain since on 10/14/17. Absent: myalgia, arthralgia, joint swelling, neck pain SKIN: Absent: rash, itching, pallor HEMATOLOGIC/IMMUNOLOGIC: Absent: easy bleeding, easy bruising, lymphadenopathy, frequent infections ENDOCRINE:Absent: unexplained weight gain, unexplained weight loss, heat intolerance, cold intolerance NEUROLOGIC: Absent: headache, dizziness, unsteady gait, seizure, mental status changes, bladder or bowel incontinence PSYCHIATRIC: Absent: anxiety, depression, suicidal or homicidal ideation, hallucinations. PHYSICAL EXAMINATION Vital Signs - 24 hr 10/29/17 10/29/17 10/29/17 03:30 05:35 06:37 Temperature 103.0 F H 100.8 F H Pulse Rate 140 H Pulse Rate [ 130 H 125 H Apical] Respiratory 16 16 Rate Blood Pressure 141/98 Blood Pressure 135/78 [Right Arm] O2 Sat by Pulse 100 100 100 Oximetry (%) 10/29/17 10/29/17 07:00 10:56 Temperature 100.1 F H Pulse Rate Pulse Rate [ 135 H Apical] Respiratory 20 Rate Blood Pressure Blood Pressure 117/77 [Right Arm] O2 Sat by Pulse 99 95 Oximetry (%) GENERAL: Awake, alert, and fully oriented, tearful HEAD: Normal with no signs of trauma. EYES: Pupils equal, round and reactive to light, extraocular movements intact, sclera anicteric, conjunctiva clear. No lid lag. EARS, NOSE, THROAT: Ears normal, nares patent, oropharynx clear without exudates. Moist mucous membranes. NECK: Normal range of motion LUNGS: Breath sounds equal, clear to auscultation bilaterally. No wheezes, and no crackles. No accessory muscle use. HEART: Regular rate and rhythm, normal S1 and S2 ABDOMEN: Transverse suprapubic dressing, c/d/i. Diffuse abdominal tenderness to light touch MUSCULOSKELETAL: Unable to assess ROM, patient refused. No bony deformities UPPER EXTREMITIES: 2+ pulses, warm, well-perfused. No cyanosis. No clubbing. No peripheral edema. LOWER EXTREMITIES: 2+ pulses, warm, well-perfused. No calf tenderness. No peripheral edema. NEUROLOGICAL: Cranial nerves II-XII intact. Normal speech. Gait not observed PSYCHIATRIC: Cooperative. Good eye contact. SKIN: Warm, dry, normal turgor, no rashes or lesions noted, normal capillary refill. Laboratory Results - last 24 hr 10/29/17 10/29/17 10/29/17 04:25 04:25 04:25 WBC 10.2 H D RBC 3.75 Hgb 12.1 D Hct 35.7 D MCV 95.2 MCH 32.2 MCHC 33.8 RDW 12.6 Plt Count 317 MPV 7.8 Neutrophils % 87.8 H D Lymphocytes % 8.6 D Monocytes % 2.8 L Eosinophils % 0.6 Basophils % 0.2 PT with INR INR PTT (Actin FS) Sodium 139 Potassium 4.3 Chloride 104 Carbon Dioxide 22 Anion Gap 13 BUN 20 H Creatinine 1.4 H Creat Clearance w eGFR 45.82 Random Glucose 372 H* Lactic Acid 3.4 H* Calcium 8.6 Total Bilirubin 0.2 D AST 11 L ALT 16 Alkaline Phosphatase 212 H Total Protein 7.0 Albumin 3.1 L Urine Color Urine Appearance Urine pH Ur Specific [place] Urine Protein Urine Glucose (UA) Urine Ketones Urine Blood Urine Nitrite Urine Bilirubin Urine Urobilinogen Ur Leukocyte Esterase Urine WBC (Auto) Urine RBC (Auto) Ur Epithelial Cells Urine Bacteria Urine Mucus Acetone, Qual 10/29/17 10/29/17 10/29/17 04:25 04:25 04:40 WBC RBC Hgb Hct MCV MCH MCHC RDW Plt Count MPV Neutrophils % Lymphocytes % Monocytes % Eosinophils % Basophils % PT with INR 11.70 INR 1.04 PTT (Actin FS) 26.2 L Sodium Potassium Chloride Carbon Dioxide Anion Gap BUN Creatinine Creat Clearance w eGFR Random Glucose Lactic Acid Calcium Total Bilirubin AST ALT Alkaline Phosphatase Total Protein Albumin Urine Color Straw Urine Appearance Slcloudy Urine pH 6.0 Ur Specific [place] 1.025 Urine Protein 2+ H Urine Glucose (UA) 3+ H Urine Ketones Negative Urine Blood Negative Urine Nitrite Negative Urine Bilirubin Negative Urine Urobilinogen Negative Ur Leukocyte Esterase Trace Urine WBC (Auto) 11 Urine RBC (Auto) 2 Ur Epithelial Cells Rare Urine Bacteria Rare Urine Mucus Rare Acetone, Qual Negative L 10/29/17 06:35 WBC RBC Hgb Hct MCV MCH MCHC RDW Plt Count MPV Neutrophils % Lymphocytes % Monocytes % Eosinophils % Basophils % PT with INR INR PTT (Actin FS) Sodium Potassium Chloride Carbon Dioxide Anion Gap BUN Creatinine Creat Clearance w eGFR Random Glucose Lactic Acid 0.7 Calcium Total Bilirubin AST ALT Alkaline Phosphatase Total Protein Albumin Urine Color Urine Appearance Urine pH Ur Specific [place] Urine Protein Urine Glucose (UA) Urine Ketones Urine Blood Urine Nitrite Urine Bilirubin Urine Urobilinogen Ur Leukocyte Esterase Urine WBC (Auto) Urine RBC (Auto) Ur Epithelial Cells Urine Bacteria Urine Mucus Acetone, Qual Assessment: This is a 27 year old female with recent (on 10/14/17 at 31w4d, baby in NICU at [facility]), recently treated for anemia with IV iron (10/15/17 ), treated for UTI (10/15/17), IDDM (on insulin pump placed 03/30/17), peripheral neuropathy, who presented to the ED with elevated blood sugar, fever , and diffuse back pain which has been going on since her Plan: 1) Sepsis 2/2 post endometritis - Tmax 103 - on 10/14, now with abdominal pain and fevers - Received Vancomycin and Zosyn in the ED - F/u blood cultures and urine culture - Chest X-ray and Abd CTAP with no acute pathology - Continue IV fluids - Patient states allergy to gentamycin, will start Unasyn - Awaiting call back to discuss with ID 2) S/p on 10/14/17 - Patient is refusing to remove dressing stating she would like OB to remove it - F/u OB consult 3) IDDM - Patient has own insulin pump that was placed 03/2017. Refusing to shut it off at this time - Will hold off on giving Levemir as the patient is continuing to use her own pump (if patient agrees to turn pump off, will start Levemir 11u sq bid) - BGM ACHS 4) Drug seeking behavior - Patient is demanding dilaudid and IV benadryl stating po benadryl is not absorbed well because she has a GI disorder - No hx of such GI disorder - Continue po benadryl for now (in patient patient reports it has helped her pain) 5) F/E/N: - Diabetic diet - Monitor electrolytes 6) Prophylaxis: - Heparin allergy - SCDs bilaterally - Encourage ambulation 7) Dispo: - Requires continued inpatient care CODE STATUS: FULL CODE Visit type - Emergency Visit Emergency Visit: Yes ED Registration Date: 10/29/17 Care time: The patient presented to the Emergency Department on the above date and was hospitalized for further evaluation of their emergent condition. - New Patient This patient is new to me today: Yes Date on this admission: 10/29/17 - Critical Care Critical Care patient: No
--- NOTE | 2017-10-29 11:07 | EKG ---
Test Reason : Blood Pressure : / mmHG Vent. Rate : 130 BPM Atrial Rate : 130 BPM P-R Int : 134 ms QRS Dur : 078 ms QT Int : 284 ms P-R-T Axes : 044 067 008 degrees QTc Int : 417 ms SINUS TACHYCARDIA POSSIBLE ANTERIOR INFARCT (CITED ON OR BEFORE 14-OCT-2016) ABNORMAL ECG WHEN COMPARED WITH ECG OF 14-OCT-2016 15:55, NONSPECIFIC T WAVE ABNORMALITY NO LONGER EVIDENT IN ANTERIOR LEADS Confirmed by BAO VALVERDE MD ([id number]) on 10/29/2017 11:06:57 AM Referred By: Confirmed By:BAO VALVERDE MD
[2017-10-29] MEDS ORDERED: diphenhydrAMINE HCL 25 MG CAPSULE (FP) PO PRN (11:26)
[2017-10-29] MEDS ORDERED: diphenhydrAMINE HCL 25 MG CAPSULE (FP) PO ONE (14:00)
[2017-10-29] MEDS: INSULIN SLIDING SCALE (NOVOLOG) 1 VIAL SQ SCH ×2 (16:42→22:56)
[2017-10-29] MEDS: SODIUM CHLORIDE 1,000 ML IV SCH (16:48)
[2017-10-29] MEDS ORDERED: GENTAMICIN INJECTION 100 MG in SODIUM CHLORIDE 97.5 ML IVPB SCH (18:00)
[2017-10-29] MEDS ORDERED: INSULIN DETEMIR 100 UNITS/ML MDV SQ SCH ×2 (22:00)
[2017-10-29] MEDS: AMPICILLIN NA/SULBACTAM NA 1.5 GM in SODIUM CHLORIDE 100 ML IVPB SCH (22:56)
[2017-10-30] MEDS: diphenhydrAMINE HCL 25 MG CAPSULE (FP) PO SCH ×5 (01:07→22:28)
[2017-10-30 01:29] VITALS: BMI 31.1
[2017-10-30] MEDS: AMPICILLIN NA/SULBACTAM NA 1.5 GM in SODIUM CHLORIDE 100 ML IVPB SCH ×2 (03:40→09:33)
[2017-10-30] MEDS: INSULIN SLIDING SCALE (NOVOLOG) 1 VIAL SQ SCH ×5 (06:10→22:29)
[2017-10-30] MEDS: LIDOCAINE 5% TOPICAL PATCH TP SCH (08:59)
--- NOTE | 2017-10-30 09:31 | PN ---
Progress Note, Physician Chief Complaint: ID Full note dictated History reviewed C section Oct 13 [facility] spent 5 days in hospital For last week severe back pains chills fever documented here IDDM has been at [facility] previously - Current Medication List Current Medications: Active Medications Diphenhydramine HCl (Benadryl -) 25 mg PO Q6H [facility] Last Admin: 10/30/17 08:59 Dose: Not Given Sodium Chloride (Normal Saline -) 1,000 mls @ 125 mls/hr IV ASDIR [facility] Last Admin: 10/29/17 16:48 Dose: 125 mls/hr Ampicillin Sodium/Sulbactam (Sodium 1.5 gm/ Sodium Chloride) 100 mls @ 200 mls/ hr IVPB Q6H-IV SAYDA Last Admin: 10/30/17 03:40 Dose: 200 mls/hr Insulin Aspart (Novolog Vial Sliding Scale -) 1 vial SQ ACHS [facility] PRN Reason: Protocol Last Admin: 10/30/17 06:10 Dose: Not Given Lidocaine (Lidoderm Patch -) 1 patch TP DAILY [facility] Last Admin: 10/30/17 08:59 Dose: Not Given Miscellaneous (Lidoderm Patch Removal) 1 each MC DAILY@2200 [facility] - Objective Vital Signs: Vital Signs Temperature 103 F H 10/30/17 08:33 Pulse Rate 110 H 10/30/17 08:33 Respiratory Rate 22 10/30/17 08:33 Blood Pressure 140/77 10/30/17 08:33 O2 Sat by Pulse Oximetry (%) 98 10/30/17 02:03 Constitutional: Yes: No Distress Labs: CBC, BMP 10/29/17 04:25 10/29/17 04:25 INR, PTT INR 1.04 (0.82-1.09) 10/29/17 04:25 Problem List - Problems (1) Gram-negative bacteremia Code(s): R78.81 - BACTEREMIA (2) SIRS (systemic inflammatory response syndrome) Code(s): R65.10 - SIRS OF NON-INFECTIOUS ORIGIN W/O ACUTE ORGAN DYSFUNCTION (3) IDDM (insulin dependent diabetes mellitus) Code(s): E11.9 - TYPE 2 DIABETES MELLITUS WITHOUT COMPLICATIONS; Z79.4 - SHELTER (CURRENT) USE OF INSULIN (4) 5 weeks gestation of Code(s): Z3A.01 - LESS THAN 8 WEEKS GESTATION OF Assessment/Plan Microbiology 10/29/17 04:25 Blood - Peripheral Venous Blood Culture - Preliminary NO GROWTH OBTAINED AFTER 24 HOURS, INCUBATION TO CONTINUE FOR 4 DAYS. 10/29/17 04:25 Blood - Peripheral Venous Blood Culture - Preliminary NO GROWTH OBTAINED AFTER 24 HOURS, INCUBATION TO CONTINUE FOR 4 DAYS. Laboratory Tests 10/29/17 10/29/17 10/29/17 04:25 04:25 04:25 WBC 10.2 H D Plt Count 317 BUN 20 H Creatinine 1.4 H Random Glucose 372 H* Lactic Acid 3.4 H* AST 11 L ALT 16 Alkaline Phosphatase 212 H Ur Leukocyte Esterase Urine WBC (Auto) Urine RBC (Auto) Acetone, Qual 10/29/17 10/29/17 04:25 04:40 WBC Plt Count BUN Creatinine Random Glucose Lactic Acid AST ALT Alkaline Phosphatase Ur Leukocyte Esterase Trace Urine WBC (Auto) 11 Urine RBC (Auto) 2 Acetone, Qual Negative L Assessment Severe sepsis with gram negative neville bacteremia source may be urinary tract or pelvic etiology endometritis Recent hospitalization and change of insulin pump. She really would not let me examine her today. Back pain may be pyelonephritis. IF back pain persistant consider spinal infection Wound looks clean though seen with ACTUARIAL ANALYST Plan Jay pending final cultures alone
--- NOTE | 2017-10-30 09:46 | PN ---
Physical Exam: SUBJECTIVE: Patient seen and examined a the bedside. OBJECTIVE: pt allowed us to remove her lower abdominal bandage No redness, no induration, surgical scar well healed 103F Insulin pump left thigh, not allows us to discontinue, will continue same with BGMs monitoring Vital Signs Period Temp Pulse Resp BP Sys/Quinn Pulse Ox Last 24 Hr 100.1 F-103 F 89-135 19-22 117-140/64-84 95-98 GENERAL: The patient is awake, alert, and fully oriented, in no acute distress. HEAD: Normal with no signs of trauma. EYES: PERRL, extraocular movements intact, sclera anicteric, conjunctiva clear. No ptosis. ENT: Ears normal, nares patent, oropharynx clear without exudates, moist mucous membranes. NECK: Trachea midline, full range of motion, supple. LUNGS: Breath sounds equal, clear to auscultation bilaterally HEART: Regular rate and rhythm, S1, S2 without murmur, rub or gallop. ABDOMEN: Soft, nontender, nondistended, EXTREMITIES: 2+ pulses, warm, well-perfused, no edema. NEUROLOGICAL: Normal speech, gait not observed. PSYCH: Normal mood, normal affect. SKIN: left thigh insulin pump Laboratory Results - last 24 hr 10/29/17 10/30/17 22:54 06:01 POC Glucometer [phone] Active Medications Generic Name Dose Route Start Last Admin Trade Name Freq PRN Reason Stop Dose Admin Diphenhydramine HCl 25 mg 10/29/17 21:15 10/30/17 08:59 Benadryl - PO Not Given Q6H SAYDA Sodium Chloride 1,000 mls @ 125 mls/hr 10/29/17 16:45 10/29/17 16:48 Normal Saline - IV 125 mls/hr ASDIR SAYDA Administration Ampicillin Sodium/Sulbactam 100 mls @ 200 mls/hr 10/29/17 21:00 10/30/17 09: 33 Sodium 1.5 gm/ Sodium Chloride IVPB 200 mls/hr Q6H-IV SAYDA Administration Insulin Aspart 1 vial 10/29/17 16:30 10/30/17 06:10 Novolog Vial Sliding Scale - SQ Not Given ACHS SAYDA Protocol Lidocaine 1 patch 10/30/17 10:00 10/30/17 08:59 Lidoderm Patch - TP Not Given DAILY SAYDA Miscellaneous 1 each 10/30/17 22:00 Lidoderm Patch Removal MC DAILY@2200 [facility] ASSESSMENT/PLAN: Patient is a 27 year old female with a significant past medical history of recent via c section on 10/14/2017. She states her infant is currently at [facility] NICU. Her other medical history includes anemia, diabetes mellitus (on insulin pump placed 2016) located on left thigh, peripheral neuropathy. She presented to the ED with hyperglycemia, fevers, diffused back pain. She also has a dressing to her c section site which was removed by telegraphic typewriter operator chief today to evaluate if this was the source of her fever. Her abdominal wound appeared closed, intact, no drainage, well healed. Site cleared with NS and new sterile dressing placed. ID: Severe Sepsis Gram negative neville bacteremia Abdominal site c/d/i surgical c section scar well healed Source of infection may be UTI source vs. pelvic infection due to recent She also has a PICC line: may need to d/c picc if fevers persist Tachycardia, Fevers, Leukocytosis present on admission On Ampicillin 1.5gm (10/29/2017> ) WBC improving director executive communications consulted NS @ 125cc/hr Endocrine Diabetes Insulin pump on admission Will continue same as per patient wishes BGM monitoring Chronic Back Pain Lidoderm patches Patient back pain difficult to treat secondary to multiple allergies Given Dilaudid with benadryl prn Lidoderm patches F.E.N. Fluids: Tolerating PO Electrolytes: monitor,hypomag repleted Nutrition: regular diet Prophylaxis: DVT: ambulatory GI: Protonix
[2017-10-30] MEDS ORDERED: HYDROmorphone HCL CARPU-JECT 4 MG/1 ML DISP.SYRIN IVPB ONE (10:45)
[2017-10-30] MEDS: PIPERACILLIN/TAZOB 4.5 GM 4.5 GM in DEXTROSE 5%-WATER - 100 ML IVPB SCH ×2 (10:45→17:56)
[2017-10-30 10:58] LABS: BASO % 0.5 % (0-2.0); EOS % 0.4 % (0-4.5); HEMOGLOBIN 10.1 GM/dL (10.7-15.3); LYMPH % 11.5 % (8-40); MCH 32.1 pg (25.7-33.7); MCHC 33.7 g/dl (32.0-36.0); MEAN CELL VOLUME 95.3 fl (80-96); MEAN PLT VOLUME 7.8 fl (7.5-11.1); MONO % 4.6 % (3.8-10.2); PLATELET COUNT 181 K/MM3 (134-434); RBC 3.15 M/mm3 (3.60-5.2); RDW 12.8 % (11.6-15.6); WHITE BLOOD COUNT 5.8 K/mm3 (4.0-10.0)
[2017-10-30] MEDS: SODIUM CHLORIDE 1,000 ML IV SCH ×2 (11:34→17:06)
[2017-10-30 11:50] LABS: ALBUMIN 2.3 g/dl (3.4-5.0); ALK PHOS 137 U/L (45-117); ANION GAP 8 (8-16); BILIRUBIN,TOTAL 0.3 mg/dL (0.2-1.0); BLOOD UREA NITROGEN 11 mg/dL (7-18); CALCIUM 8.2 mg/dL (8.5-10.1); CHLORIDE 107 mmol/L (98-107); CO2 24 mmol/L (21-32); GLUCOSE,RANDOM 252 mg/dL (74-106); MAGNESIUM 1.6 mg/dL (1.8-2.4); POTASSIUM 4.1 mmol/L (3.5-5.1); SGOT/AST 30 U/L (15-37); SGPT/ALT 19 U/L (12-78); SODIUM 139 mmol/L (136-145); TOT PROT 5.9 g/dl (6.4-8.2)
[2017-10-30] MEDS ORDERED: INSULIN (NOVOLOG) ASPART 100 UNITS/ML 10ML VIAL ONE (11:51)
--- NOTE | 2017-10-30 16:42 | CONS ---
INFECTIOUS DISEASE CONSULTATION DATE OF CONSULTATION: DATE OF DICTATION: 10/30/2017 HISTORY OF PRESENT ILLNESS: This is a 27-year-old female with a history of severe diabetes and multiple [facility] admissions for DKA, admitted now for evaluation of fever and chills with severe back pain. She has a history of a recent section at [facility] [place] on October 14, a 31 week and 4-day baby in the NICU at [facility] [place]. Her course was complicated by anemia requiring parenteral iron as well as a recent urinary tract infection. She also had an insulin pump placed in March 2017. Complications from diabetes have included peripheral neuropathy. She spent, according to her, about 5 days in the hospital which was unremarkable. A week prior to her admission now she began to have fever, chills and back pain at home. She is a poor historian, noting that she is in severe, generalized body aches requiring narcotic analgesia. Her temperature here was 103. She reports nausea but no diarrhea or vomiting. Her pain is diffuse, but primarily her back. A CT scan of the abdomen and pelvis failed to show any evidence of pelvic pathology, including intrapelvic or intraabdominal abscess. She was empirically treated with vancomycin and Unasyn. PAST MEDICAL HISTORY: As noted above. MEDICATIONS: Insulin. SOCIAL HISTORY: No history of smoking, alcohol. HIV tested negative in the past. REVIEW OF SYSTEMS: All systems reviewed and noncontributory. PHYSICAL EXAMINATION:Vital Signs: The temperature max was 103. Currently her pulse is 110, blood pressure 140/77, respirations 20. Neck: Supple. Lungs: Within the limits of examination and the review of the written history, her lungs were clear. Heart: S1, S2. Regular rhythm. Tachycardic. Abdomen: Soft. Pelvic: Incision was examined, showed no evidence of induration, cellulitis, with minimal wound drainage. The area was tender to touch. Extremities: With diffuse back pain up and down her spine from her neck to sacral area. DIAGNOSTIC DATA: The white count is 10.2, hemoglobin 12.1, platelets 317. BUN 20, creatinine 1.4. Glucose 372. Lactic acid 3.4. Alkaline phosphatase 212. AST 11. Bilirubin 0.2. Urinalysis: Trace leukocyte esterase, 11 WBCs, 2 RBCs. Acetone negative. ASSESSMENT: A 27-year-old female status post section October 13, history of severe diabetes, presents with fever and sepsis syndrome. This morning they report gram-negative bacteria in her blood cultures, 4/4 bottles. Most likely urinary tract source with pyelonephritis. Additional differential diagnosis would include pelvic infection, including endometritis. PLAN: Would treat with broad spectrum gram-negative with piperacillin and tazobactam pending cultures, 4.5 g of Zosyn q.8 hours. Obtain a CRP. Monitor clinical course. Should back pain persist, spinal imaging may be necessary. The case was discussed with her nurse practitioner. 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 DESIRAE CORLEY M.D. ANIYA/[id number]
[2017-10-30] MEDS ORDERED: MAGNESIUM SULF 50% (8.12 MEQ/2 ML-1 GM VIAL) IVPB ONE (22:00)
[2017-10-30] MEDS: LIDOCAINE PATCH REMOVAL MC SCH (22:28)
[2017-10-31] MEDS: PIPERACILLIN/TAZOB 4.5 GM 4.5 GM in DEXTROSE 5%-WATER - 100 ML IVPB SCH ×3 (01:39→17:05)
[2017-10-31] MEDS: diphenhydrAMINE HCL 25 MG CAPSULE (FP) PO SCH ×4 (03:20→22:03)
[2017-10-31] MEDS: SODIUM CHLORIDE 1,000 ML IV SCH ×4 (06:12→22:00)
[2017-10-31] MEDS: INSULIN SLIDING SCALE (NOVOLOG) 1 VIAL SQ SCH ×4 (06:13→22:04)
[2017-10-31 07:35] LABS: BASO % 0.6 % (0-2.0); EOS % 0.5 % (0-4.5); HEMATOCRIT 30.7 % (32.4-45.2); HEMOGLOBIN 10.4 GM/dL (10.7-15.3); LYMPH % 32.1 % (8-40); MCH 32.1 pg (25.7-33.7); MCHC 33.9 g/dl (32.0-36.0); MEAN CELL VOLUME 94.9 fl (80-96); MEAN PLT VOLUME 8.7 fl (7.5-11.1); MONO % 10.7 % (3.8-10.2); NEUT % 56.1 % (42.8-82.8); PLATELET COUNT 179 K/MM3 (134-434); RBC 3.24 M/mm3 (3.60-5.2); RDW 12.5 % (11.6-15.6); WHITE BLOOD COUNT 5.6 K/mm3 (4.0-10.0)
[2017-10-31 07:53] LABS: ALBUMIN 2.3 g/dl (3.4-5.0); ANION GAP 11 (8-16); BLOOD UREA NITROGEN 8 mg/dL (7-18); CALCIUM 8.4 mg/dL (8.5-10.1); CHLORIDE 105 mmol/L (98-107); CO2 24 mmol/L (21-32); GLUCOSE,RANDOM 214 mg/dL (74-106); POTASSIUM 3.8 mmol/L (3.5-5.1); SGOT/AST 23 U/L (15-37); SGPT/ALT 15 U/L (12-78); SODIUM 140 mmol/L (136-145)
[2017-10-31 07:54] LABS: ALK PHOS 125 U/L (45-117); BILIRUBIN,TOTAL 0.3 mg/dL (0.2-1.0); TOT PROT 6.2 g/dl (6.4-8.2)
--- NOTE | 2017-10-31 09:42 | PN ---
Physical Exam: SUBJECTIVE: Patient seen and examined at the bedside. OBJECTIVE: Patient has double lumen picc that was placed at [facility] on her last admission She states Sunol maintains her PICC line patent She states she gets benadryl via IV line at home Vital Signs Period Temp Pulse Resp BP Sys/Quinn Pulse Ox Last 24 Hr 99.5 F-102.4 F 97-115 20-20 118-148/72-93 96-100 GENERAL: The patient is awake, alert, and fully oriented, in no acute distress. HEAD: Normal with no signs of trauma. EYES: PERRL, extraocular movements intact, sclera anicteric, conjunctiva clear. No ptosis. ENT: Ears normal, nares patent, oropharynx clear without exudates, moist mucous membranes. NECK: Trachea midline, full range of motion, supple. LUNGS: Breath sounds equal, clear to auscultation bilaterally HEART: Regular rate and rhythm, S1, S2 without murmur, rub or gallop. ABDOMEN: Soft, nontender, nondistended, no signs of infection on scar , dressing changed EXTREMITIES: 2+ pulses, warm, well-perfused, no edema. NEUROLOGICAL: Normal speech, gait not observed. PSYCH: Normal mood, normal affect. SKIN: left thigh insulin pump, no signs of infection around site Laboratory Results - last 24 hr 10/30/17 10/30/17 10/30/17 10:30 10:30 10:30 WBC 5.8 D RBC 3.15 L Hgb 10.1 L D Hct 30.0 L D MCV 95.3 MCH 32.1 MCHC 33.7 RDW 12.8 Plt Count 181 D MPV 7.8 Neutrophils % 83.0 H Lymphocytes % 11.5 D Monocytes % 4.6 Eosinophils % 0.4 Basophils % 0.5 Sodium 139 Potassium 4.1 Chloride 107 Carbon Dioxide 24 Anion Gap 8 BUN 11 Creatinine 1.0 Creat Clearance w eGFR > 60 POC Glucometer Random Glucose 252 H Calcium 8.2 L Phosphorus 2.0 L Magnesium 1.6 L Total Bilirubin 0.3 D AST 30 ALT 19 Alkaline Phosphatase 137 H C-Reactive Protein 16.5 H Total Protein 5.9 L Albumin 2.3 L 10/30/17 10/30/17 10/30/17 11:33 16:53 22:18 WBC RBC Hgb Hct MCV MCH MCHC RDW Plt Count MPV Neutrophils % Lymphocytes % Monocytes % Eosinophils % Basophils % Sodium Potassium Chloride Carbon Dioxide Anion Gap BUN Creatinine Creat Clearance w eGFR POC Glucometer 266 257 261 Random Glucose Calcium Phosphorus Magnesium Total Bilirubin AST ALT Alkaline Phosphatase C-Reactive Protein Total Protein Albumin 10/31/17 10/31/17 10/31/17 06:00 06:00 06:01 WBC 5.6 RBC 3.24 L Hgb 10.4 L Hct 30.7 L MCV 94.9 MCH 32.1 MCHC 33.9 RDW 12.5 Plt Count 179 MPV 8.7 D Neutrophils % Lymphocytes % Monocytes % Eosinophils % Basophils % Sodium 140 Potassium 3.8 Chloride 105 Carbon Dioxide 24 Anion Gap 11 BUN 8 Creatinine 1.0 Creat Clearance w eGFR > 60 POC Glucometer 209 Random Glucose 214 H Calcium 8.4 L Phosphorus Magnesium 2.0 Total Bilirubin 0.3 AST 23 ALT 15 Alkaline Phosphatase 125 H C-Reactive Protein Total Protein 6.2 L Albumin 2.3 L Active Medications Generic Name Dose Route Start Last Admin Trade Name Freq PRN Reason Stop Dose Admin Diphenhydramine HCl 25 mg 10/29/17 21:15 10/31/17 03:20 Benadryl - PO Not Given Q6H SAYDA Diphenhydramine HCl 25 mg 10/31/17 08:59 Benadryl Injection - IVPUSH 10/31/17 09:00 ONCE ONE Hydromorphone HCl 2 mg 10/31/17 09:21 Dilaudid - PO 10/31/17 09:22 ONCE ONE Sodium Chloride 1,000 mls @ 125 mls/hr 10/29/17 16:45 10/31/17 06:12 Normal Saline - IV 125 mls/hr ASDIR SAYDA Administration Piperacillin Sod/Tazobactam 100 mls @ 200 mls/hr 10/30/17 10:15 10/31/17 01: 39 Sod 4.5 gm/ Dextrose IVPB 200 mls/hr Q8H-IV SAYDA Administration Protocol Insulin Aspart 1 vial 10/29/17 16:30 10/31/17 06:13 Novolog Vial Sliding Scale - SQ Not Given ACHS SAYDA Protocol Lidocaine 1 patch 10/30/17 10:00 10/30/17 08:59 Lidoderm Patch - TP Not Given DAILY SAYDA Miscellaneous 1 each 10/30/17 22:00 10/30/17 22:28 Lidoderm Patch Removal MC Not Given DAILY@2200 [facility] ASSESSMENT/PLAN: Patient is a 27 year old female with a significant past medical history of recent via c section on 10/14/2017. She states her infant is currently at [facility] NICU. Her other medical history includes anemia, diabetes mellitus (on insulin pump placed 2016) located on left thigh, peripheral neuropathy. She presented to the ED with hyperglycemia, fevers, diffused back pain. She also has a dressing to her c section site which was removed by life underwriter today to evaluate if this was the source of her fever. Her abdominal wound appeared closed, intact, no drainage, well healed. Site cleared with NS and new sterile dressing placed. ID: Severe Sepsis Gram negative neville bacteremia Tachycardia, Fevers, Leukocytosis present on admission On Ampicillin 1.5gm (10/29/2017> ) Abdominal site c/d/i surgical c section scar well healed, no signs of infection Source of infection may be UTI source vs. pelvic infection due to recent vs. Central Line (PICC Line-double lumen right arm) Patient states PICC was placed on her last admission at [facility] and maintained by [facility] WBC improving, fever curve improving document analyst consulted NS @ 125cc/hr Endocrine Diabetes Insulin pump on admission (Humalog) Will continue same as per patient wishes BGM monitoring, no signs of infection Chronic Back Pain Lidoderm patches Patient back pain difficult to treat secondary to multiple allergies Given Dilaudid with benadryl prn Lidoderm patches F.E.N. Fluids: Tolerating PO Electrolytes: monitor,hypomag repleted Nutrition: regular diet Prophylaxis: DVT: ambulatory GI: Protonix Visit type - Emergency Visit Emergency Visit: Yes ED Registration Date: 10/29/17 Care time: The patient presented to the Emergency Department on the above date and was hospitalized for further evaluation of their emergent condition. - New Patient This patient is new to me today: No - Critical Care Critical Care patient: No - Discharge Referral Referred to [facility] Med P.C.: No
[2017-10-31] MEDS ORDERED: HYDROmorphone HCL 2 MG TABLET PO ONE (10:00)
[2017-10-31] MEDS ORDERED: INSULIN (NOVOLOG) ASPART 100 UNITS/ML 10ML VIAL ONE (10:01)
[2017-10-31] MEDS: LIDOCAINE 5% TOPICAL PATCH TP SCH (10:17)
--- NOTE | 2017-10-31 12:20 | PN ---
Progress Note (short form) - Note Progress Note: awake and alert continues to complain of myalgias- diffuse body pain started on zosyn yesterday for gram negative bacteremia Vital Signs Period Temp Pulse Resp BP Sys/Quinn Pulse Ox Last 24 Hr 98.3 F-102.4 F 87-115 16-20 118-148/72-93 96-100 cor-rrr lungs clear complains of pain diffuse back and abdomen- refuses exam csection incision is clean and dry CBC, BMP 10/31/17 06:00 10/31/17 06:00 Microbiology 10/30/17 10:30 Nares - Mrsa Screen - Left MRSA Screen - Final Mr S Aureus 10/30/17 10:30 Nares - Mrsa Screen - Right MRSA Screen - Final Mr S Aureus 10/29/17 04:25 Blood - Peripheral Venous Blood Culture - Preliminary Lactose Fermenting Neg Bacilli 10/29/17 04:40 Urine - Urine Clean Catch Urine Culture - Final Contaminated: Please Repeat 10/29/17 04:25 Blood - Peripheral Venous Blood Culture - Preliminary Lactose Fermenting Neg Bacilli a/p gram negative bacteremia- suspect urine source, ct scan no abscess continue zosyn, wbc now normal, fever curve improving s/p csection 2/3- awaiting gynecology evaluation diabetes
[2017-10-31] MEDS: LIDOCAINE PATCH REMOVAL MC SCH (22:03)
[2017-11-01] MEDS: PIPERACILLIN/TAZOB 4.5 GM 4.5 GM in DEXTROSE 5%-WATER - 100 ML IVPB SCH (01:10)
[2017-11-01] MEDS ORDERED: SODIUM CHLORIDE IVPB ONE (02:45)
[2017-11-01] MEDS ORDERED: TIGECYCLINE 100 MG in DEXTROSE 5%-WATER - 100 ML IVPB ONE (02:45)
[2017-11-01] MEDS ORDERED: TIGECYCLINE IVPB ONE (02:45)
[2017-11-01] MEDS: diphenhydrAMINE HCL 25 MG CAPSULE (FP) PO SCH ×4 (03:22→21:58)
[2017-11-01] MEDS: INSULIN SLIDING SCALE (NOVOLOG) 1 VIAL SQ SCH ×4 (06:41→22:02)
[2017-11-01 07:41] LABS: BASO % 1.2 % (0-2.0); EOS % 1.5 % (0-4.5); HEMATOCRIT 31.3 % (32.4-45.2); HEMOGLOBIN 10.3 GM/dL (10.7-15.3); LYMPH % 42.9 % (8-40); MCH 31.2 pg (25.7-33.7); MCHC 33.1 g/dl (32.0-36.0); MEAN CELL VOLUME 94.2 fl (80-96); MEAN PLT VOLUME 8.3 fl (7.5-11.1); MONO % 10.3 % (3.8-10.2); NEUT % 44.1 % (42.8-82.8); PLATELET COUNT 201 K/MM3 (134-434); RBC 3.32 M/mm3 (3.60-5.2); RDW 12.5 % (11.6-15.6); WHITE BLOOD COUNT 5.9 K/mm3 (4.0-10.0)
[2017-11-01 07:56] LABS: ALBUMIN 2.3 g/dl (3.4-5.0); ANION GAP 14 (8-16); BLOOD UREA NITROGEN 13 mg/dL (7-18); CALCIUM 8.5 mg/dL (8.5-10.1); CHLORIDE 102 mmol/L (98-107); CO2 20 mmol/L (21-32); CREATININE 0.8 mg/dL (0.55-1.02); GLUCOSE,RANDOM 229 mg/dL (74-106); MAGNESIUM 1.7 mg/dL (1.8-2.4); POTASSIUM 3.8 mmol/L (3.5-5.1); SGOT/AST 16 U/L (15-37); SGPT/ALT 15 U/L (12-78); SODIUM 136 mmol/L (136-145)
[2017-11-01 07:58] LABS: ALK PHOS 134 U/L (45-117); BILIRUBIN,TOTAL 0.2 mg/dL (0.2-1.0); TOT PROT 6.3 g/dl (6.4-8.2)
[2017-11-01] MEDS: LIDOCAINE 5% TOPICAL PATCH TP SCH (09:12)
--- NOTE | 2017-11-01 10:13 | PN ---
Progress Note (short form) - Note Progress Note: REFUSING EXAM awake and alert continues to complain of myalgias- diffuse body pain started on tygacil this am for CRE hives to Gentamicin Vital Signs Period Temp Pulse Resp BP Sys/Quinn Pulse Ox Last 24 Hr 98 F-99 F 79-102 18-18 119-147/71-88 100 only permitted exam of picc line site- no erythema or tenderness noted NO OTHER EXAM PERMITTED BY PATIENT CBC, BMP 11/01/17 06:30 11/01/17 06:30 Microbiology 10/30/17 15:30 Urine - Urine Clean Catch Urine Culture - Final NO GROWTH OBTAINED 10/29/17 04:25 Blood - Peripheral Venous Blood Culture - Preliminary Klebsiella Pneumoniae - Esbl 10/30/17 10:30 Nares - Mrsa Screen - Left MRSA Screen - Final Mr S Aureus 10/30/17 10:30 Nares - Mrsa Screen - Right MRSA Screen - Final Mr S Aureus 10/29/17 04:25 Blood - Peripheral Venous Blood Culture - Preliminary Lactose Fermenting Neg Bacilli 10/29/17 04:40 Urine - Urine Clean Catch Urine Culture - Final Contaminated: Please Repeat a/p clinically improved- fevers resolved and wbc normal CRE- ct scan no abscess, ?source currently on tygacil given this am, will add avycaz today d/c picc line if other reliable access can be placed d/w pharmacy d/w microbiology blood cultures repeated today s/p 2/3- awaiting gynecology evaluation diabetes gentamicin allergy d/w hospitalist unable to examine patient she is refusing exam
[2017-11-01] MEDS ORDERED: MAGNESIUM OXIDE 400 MG TABLET (FP) PO ONE (10:30)
--- NOTE | 2017-11-01 12:53 | PN ---
Progress Note (short form) - Note Progress Note: Subjective: The patient was seen and examined at the bedside, she has complaints of pain all over and is requesting IV benadryl CRE bacteremia started on Tygacil this AM Current Medications Generic Name Dose Route Start Last Admin Trade Name Freq PRN Reason Stop Dose Admin Diphenhydramine HCl 25 mg 10/29/17 21:15 11/01/17 09:12 Benadryl - PO Not Given Q6H SAYDA Sodium Chloride 1,000 mls @ 125 mls/hr 10/29/17 16:45 10/31/17 22:00 Normal Saline - IV 125 mls/hr ASDIR SAYDA Administration Tigecycline 50 mg/ Sodium 100 mls @ 100 mls/hr 11/01/17 14:00 Chloride IVPB BID SAYDA Ceftazidime/Avibactam 2.5 gm/ 250 mls @ 125 mls/hr 11/01/17 10:15 Dextrose IVPB Q8H-IV SAYDA Protocol Insulin Aspart 1 vial 10/29/17 16:30 11/01/17 11:18 Novolog Vial Sliding Scale - SQ Not Given ACHS SAYDA Protocol Lidocaine 1 patch 10/30/17 10:00 11/01/17 09:12 Lidoderm Patch - TP Not Given DAILY SAYDA Miscellaneous 1 each 10/30/17 22:00 10/31/17 22:03 Lidoderm Patch Removal MC Not Given DAILY@2200 SAYDA Objective: Vital Signs Period Temp Pulse Resp BP Sys/Quinn Pulse Ox Last 24 Hr 98 F-99.9 F 79-103 18-20 119-147/71-88 97-100 Physical Exam: General: NAD, A&Ox3 Lungs: CTA bilaterally Heart: RRR, S1S2 Abd: Refused Ext: Right arm PICC line CBCD WBC 5.9 K/mm3 (4.0-10.0) 11/01/17 06:30 RBC 3.32 M/mm3 (3.60-5.2) L 11/01/17 06:30 Hgb 10.3 GM/dL (10.7-15.3) L 11/01/17 06:30 Hct 31.3 % (32.4-45.2) L 11/01/17 06:30 MCV 94.2 fl (80-96) 11/01/17 06:30 MCHC 33.1 g/dl (32.0-36.0) 11/01/17 06:30 RDW 12.5 % (11.6-15.6) 11/01/17 06:30 Plt Count 201 K/MM3 (134-434) 11/01/17 06:30 MPV 8.3 fl (7.5-11.1) 11/01/17 06:30 CMP Sodium 136 mmol/L (136-145) 11/01/17 06:30 Potassium 3.8 mmol/L (3.5-5.1) 11/01/17 06:30 Chloride 102 mmol/L (98-107) 11/01/17 06:30 Carbon Dioxide 20 mmol/L (21-32) L 11/01/17 06:30 Anion Gap 14 (8-16) 11/01/17 06:30 BUN 13 mg/dL (7-18) 11/01/17 06:30 Creatinine 0.8 mg/dL (0.55-1.02) 11/01/17 06:30 Creat Clearance w eGFR > 60 (>60) 11/01/17 06:30 Random Glucose 229 mg/dL (74-106) H 11/01/17 06:30 Calcium 8.5 mg/dL (8.5-10.1) 11/01/17 06:30 Total Bilirubin 0.2 mg/dL (0.2-1.0) D 11/01/17 06:30 AST 16 U/L (15-37) 11/01/17 06:30 ALT 15 U/L (12-78) 11/01/17 06:30 Alkaline Phosphatase 134 U/L (45-117) H 11/01/17 06:30 Total Protein 6.3 g/dl (6.4-8.2) L 11/01/17 06:30 Albumin 2.3 g/dl (3.4-5.0) L 11/01/17 06:30 Microbiology 10/29/17 04:25 Blood - Peripheral Venous Blood Culture - Preliminary Klebsiella Pneumoniae - Esbl 10/30/17 15:30 Urine - Urine Clean Catch Urine Culture - Final NO GROWTH OBTAINED 10/30/17 10:30 Nares - Mrsa Screen - Left MRSA Screen - Final Mr S Aureus 10/30/17 10:30 Nares - Mrsa Screen - Right MRSA Screen - Final Mr S Aureus 10/29/17 04:25 Blood - Peripheral Venous Blood Culture - Preliminary Lactose Fermenting Neg Bacilli 10/29/17 04:40 Urine - Urine Clean Catch Urine Culture - Final Contaminated: Please Repeat Assessment: This is a 27 year old female with recent (on 10/14/17 at 31w4d, baby in NICU at [facility]), recently treated for anemia with IV iron (10/15/17 ), treated for UTI (10/15/17), IDDM (on insulin pump placed 03/30/17), peripheral neuropathy, who presented to the ED with elevated blood sugar, fever , and diffuse back pain which has been going on since her Plan: 1) Sepsis 2/2 CRE bacteremia - on 10/14 - CTAP with no evidence of abscess - Allergy to Gentamycin - Started on Tigecycline this AM - Will start Avycaz 2.5g q8h - Awaiting call back from IR to discuss removal of PICC line and getting other IV access - Appreciate ID consult 2) S/p on 10/14/17 - Patient refused exam of site today - Dr. Kuhn consulted but unable to come see the patient, will place consult for Dr. Parikh 3) IDDM - Patient has own insulin pump that was placed 03/2017. Refusing to shut it off at this time - Will hold off on giving Levemir as the patient is continuing to use her own pump (if patient agrees to turn pump off, will start Levemir 11u sq bid) - BGM ACHS - F/u endocrinology consult 4) Drug seeking behavior - Continue po benadryl for now (in patient patient reports it has helped her pain) 5) F/E/N: - Diabetic diet - Monitor electrolytes 6) Prophylaxis: - Heparin allergy - Fondaparinux 2.5mg sq daily - SCDs bilaterally - Encourage ambulation 7) Dispo: - Requires continued inpatient care CODE STATUS: FULL CODE Visit type - Emergency Visit Emergency Visit: Yes ED Registration Date: 10/29/17 Care time: The patient presented to the Emergency Department on the above date and was hospitalized for further evaluation of their emergent condition. - New Patient This patient is new to me today: No - Critical Care Critical Care patient: No
[2017-11-01] MEDS ORDERED: TIGECYCLINE IVPB SCH (14:00)
[2017-11-01] MEDS ORDERED: SODIUM CHLORIDE IVPB SCH (14:00)
[2017-11-01] MEDS ORDERED: PT OWN MED DRAWER 7, Y5N ONE ×3 (15:12→20:50)
[2017-11-01] MEDS ORDERED: CEFTAZIDIME/AVIBACTAM 2.5 GM in DEXTROSE 5%-WATER - 250 ML IVPB SCH ×2 (15:15→17:00)
--- NOTE | 2017-11-01 17:18 | CONSULT ---
Consult Consult Specialty:: Endocrinology Referred by:: Bhakti Castillo - History of Present Illness History of Present Illness: Pt wants to be treated by her Liquor Merchant in [facility] and wants to be transferred there. Doesn't want to be seen by anyone else. Will sign off. 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 Right sided weakness), Migraine, Peripheral Neuropathy Cardio/Vascular: Yes: Murmur Pulmonary: Yes: Asthma (well controlled with ventolin) Gastrointestinal: Yes: Gastritis, Other (H PYLORI, h/o cdificile) Hepatobiliary: Yes: Other (FOCAL NODULAR HYPERPLASIA) ...LMP: 08/25/16 Infectious Disease: Yes: STD's (h/o HPV infection . Condyloma ) Endocrine: Yes: Diabetes Mellitus (with frequent admissions for DKA .h/o diabetes since age 8 yrs) - Past Surgical History Past Surgical History: Yes: Appendectomy (2008), Colonoscopy, Upper Endoscopy - Alcohol/Substance Use Hx Alcohol Use: No History of Substance Use: reports: None - Smoking History Smoking history: Unknown if ever smoked Have you smoked in the past 12 months: No Aproximately how many cigarettes per day: 0 - Social History Usual Living Arrangement: Alone ADL: Independent Occupation: unemployed History of Recent Travel: No Home Medications - Allergies Allergies/Adverse Reactions: Allergies Allergy/AdvReac Type Severity Reaction Status Date / Time acetaminophen [From Tylenol] Allergy Swelling Verified 10/29/17 03:33 chlorhexidine Allergy Verified 11/01/17 12:12 [From Hibiclens] gentamicin Allergy Verified 10/29/17 18:42 heparin Allergy Verified 10/29/17 03:33 hydromorphone HCl Allergy Verified 10/29/17 03:33 [From Dilaudid] ibuprofen [From Motrin] Allergy Swelling Verified 10/29/17 03:33 morphine Allergy Verified 10/29/17 03:33 - Home Medications Home Medications: Ambulatory Orders Insulin Lispro [Humalog] 0 unit SQ DAILY 09/28/16 Insulin Glargine,Hum.rec.anlog [Lantus (nf)] 10 units SQ BID 01/27/17 Family Disease History - Family Disease History Family Disease History: Heart Disease: Father (HTN), Other: Mother (asthma, IBS , pancreatitis) Physical Exam Vital Signs: Vital Signs Temperature 97.5 F L 11/01/17 13:55 Pulse Rate 105 H 11/01/17 13:55 Respiratory Rate 20 11/01/17 13:55 Blood Pressure 124/78 11/01/17 13:55 O2 Sat by Pulse Oximetry (%) 97 11/01/17 09:00 Labs: CBC, BMP 11/01/17 06:30 11/01/17 06:30
[2017-11-01] MEDS: SODIUM CHLORIDE 1,000 ML IV SCH ×2 (17:32→22:30)
--- NOTE | 2017-11-01 19:51 | CON.OBG ---
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 Right sided weakness), Migraine, Peripheral Neuropathy Cardio/Vascular: Yes: Murmur Pulmonary: Yes: Asthma (well controlled with ventolin) Gastrointestinal: Yes: Gastritis, Other (H PYLORI, h/o cdificile) Hepatobiliary: Yes: Other (FOCAL NODULAR HYPERPLASIA) ...LMP: 08/25/16 Infectious Disease: Yes: STD's (h/o HPV infection . Condyloma ) Endocrine: Yes: Diabetes Mellitus (with frequent admissions for DKA .h/o diabetes since age 8 yrs) - Past Surgical History Past Surgical History: Yes: Appendectomy (2008), Colonoscopy, Upper Endoscopy - Alcohol/Substance Use Hx Alcohol Use: No History of Substance Use: reports: None - Smoking History Smoking history: Unknown if ever smoked Have you smoked in the past 12 months: No Aproximately how many cigarettes per day: 0 - Social History Usual Living Arrangement: Alone ADL: Independent Occupation: unemployed History of Recent Travel: No Home Medications - Allergies Allergies/Adverse Reactions: Allergies Allergy/AdvReac Type Severity Reaction Status Date / Time acetaminophen [From Tylenol] Allergy Swelling Verified 10/29/17 03:33 chlorhexidine Allergy Verified 11/01/17 12:12 [From Hibiclens] gentamicin Allergy Verified 10/29/17 18:42 heparin Allergy Verified 10/29/17 03:33 hydromorphone HCl Allergy Verified 10/29/17 03:33 [From Dilaudid] ibuprofen [From Motrin] Allergy Swelling Verified 10/29/17 03:33 morphine Allergy Verified 10/29/17 03:33 - Home Medications Home Medications: Ambulatory Orders Insulin Lispro [Humalog] 0 unit SQ DAILY 09/28/16 Insulin Glargine,Hum.rec.anlog [Lantus (nf)] 10 units SQ BID 01/27/17 Family Disease History - Family Disease History Family Disease History: Heart Disease: Father (HTN), Other: Mother (asthma, IBS , pancreatitis) 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
[2017-11-01] MEDS: LIDOCAINE PATCH REMOVAL MC SCH (21:58)
[2017-11-02] MEDS: CEFTAZIDIME/AVIBACTAM 2.5 GM in DEXTROSE 5%-WATER - 250 ML IVPB SCH ×3 (00:24→16:30)
[2017-11-02] MEDS: diphenhydrAMINE HCL 25 MG CAPSULE (FP) PO SCH ×4 (03:05→21:45)
[2017-11-02] MEDS: INSULIN SLIDING SCALE (NOVOLOG) 1 VIAL SQ SCH ×4 (06:35→21:46)
[2017-11-02 07:21] LABS: EOS % 0.9 % (0-4.5); HEMATOCRIT 31.3 % (32.4-45.2); HEMOGLOBIN 10.5 GM/dL (10.7-15.3); LYMPH % 48.1 % (8-40); MCH 31.5 pg (25.7-33.7); MCHC 33.5 g/dl (32.0-36.0); MEAN CELL VOLUME 93.8 fl (80-96); MEAN PLT VOLUME 8.2 fl (7.5-11.1); MONO % 8.4 % (3.8-10.2); NEUT % 41.6 % (42.8-82.8); PLATELET COUNT 244 K/MM3 (134-434); RBC 3.33 M/mm3 (3.60-5.2); RDW 12.5 % (11.6-15.6); WHITE BLOOD COUNT 6.2 K/mm3 (4.0-10.0)
[2017-11-02 07:43] LABS: ALBUMIN 2.3 g/dl (3.4-5.0); ALK PHOS 142 U/L (45-117); ANION GAP 12 (8-16); BILIRUBIN,TOTAL 0.3 mg/dL (0.2-1.0); BLOOD UREA NITROGEN 17 mg/dL (7-18); CALCIUM 8.2 mg/dL (8.5-10.1); CHLORIDE 104 mmol/L (98-107); CO2 22 mmol/L (21-32); CREATININE 0.9 mg/dL (0.55-1.02); GLUCOSE,RANDOM 188 mg/dL (74-106); MAGNESIUM 1.8 mg/dL (1.8-2.4); POTASSIUM 3.7 mmol/L (3.5-5.1); SGOT/AST 14 U/L (15-37); SGPT/ALT 13 U/L (12-78); SODIUM 138 mmol/L (136-145); TOT PROT 6.2 g/dl (6.4-8.2)
[2017-11-02] MEDS: LIDOCAINE 5% TOPICAL PATCH TP SCH (09:13)
[2017-11-02] MEDS: FONDAPARINUX SODIUM 2.5 MG/0.5 ML DISP.SYRIN SQ SCH (09:13)
--- NOTE | 2017-11-02 11:58 | PN ---
Progress Note, Physician Chief Complaint: ID Javicamehreen day 1 for bacteremia - Current Medication List Current Medications: Active Medications Diphenhydramine HCl (Benadryl -) 25 mg PO Q6H [facility] Last Admin: 11/02/17 09:13 Dose: Not Given Fondaparinux (Arixtra (Restricted) -) 2.5 mg SQ DAILY [facility] Last Admin: 11/02/17 09:13 Dose: Not Given Sodium Chloride (Normal Saline -) 1,000 mls @ 125 mls/hr IV ASDIR [facility] Last Admin: 11/01/17 22:30 Dose: 125 mls/hr Ceftazidime/Avibactam 2.5 gm/ (Dextrose) 250 mls @ 125 mls/hr IVPB Q8H [facility] PRN Reason: Protocol Last Admin: 11/02/17 09:00 Dose: 125 mls/hr Insulin Aspart (Novolog Vial Sliding Scale -) 1 vial SQ ACHS [facility] PRN Reason: Protocol Last Admin: 11/02/17 06:35 Dose: Not Given Lidocaine (Lidoderm Patch -) 1 patch TP DAILY [facility] Last Admin: 11/02/17 09:13 Dose: Not Given Miscellaneous (Lidoderm Patch Removal) 1 each MC DAILY@2200 [facility] Last Admin: 11/01/17 21:58 Dose: Not Given - Objective Vital Signs: Vital Signs Temperature 99.3 F 11/02/17 09:00 Pulse Rate 107 H 11/02/17 09:00 Respiratory Rate 20 11/02/17 09:00 Blood Pressure 103/57 11/02/17 09:00 O2 Sat by Pulse Oximetry (%) 97 11/01/17 21:00 Labs: CBC, BMP 11/02/17 06:00 11/02/17 06:00 INR, PTT INR 1.04 (0.82-1.09) 10/29/17 04:25 Problem List - Problems (1) SIRS (systemic inflammatory response syndrome) Code(s): R65.10 - SIRS OF NON-INFECTIOUS ORIGIN W/O ACUTE ORGAN DYSFUNCTION (2) IDDM (insulin dependent diabetes mellitus) Code(s): E11.9 - TYPE 2 DIABETES MELLITUS WITHOUT COMPLICATIONS; Z79.4 - SENIOR CARE (CURRENT) USE OF INSULIN (3) 5 weeks gestation of Code(s): Z3A.01 - LESS THAN 8 WEEKS GESTATION OF Assessment/Plan Microbiology 10/30/17 10:30 Nares - Mrsa Screen - Right MRSA Screen - Final Mr S Aureus 10/30/17 10:30 Nares - Mrsa Screen - Left MRSA Screen - Final Mr S Aureus 11/01/17 06:40 Blood - Picc Line Blood Culture - Preliminary Lactose Fermenting Neg Bacilli 11/01/17 06:30 Blood - Picc Line Blood Culture - Preliminary Lactose Fermenting Neg Bacilli 10/29/17 04:25 Blood - Peripheral Venous Blood Culture - Preliminary Lactose Fermenting Neg Bacilli 10/29/17 04:25 Blood - Peripheral Venous Blood Culture - Preliminary Klebsiella Pneumoniae - Esbl Laboratory Tests 11/02/17 06:00 WBC 6.2 Hgb 10.5 L Hct 31.3 L Plt Count 244 D Assessment MDRO bacteremia [facility] ? Urinary source vs PICC line Plan Continue antibiotics Remove PICC line today Will get CVC plumber pipe fitting pending
[2017-11-02] MEDS: SODIUM CHLORIDE 1,000 ML IV SCH (16:45)
--- NOTE | 2017-11-02 16:45 | PN ---
Progress Note (short form) - Note Progress Note: Subjective: The patient was seen and examined at the bedside, spoke to the patient for about 45 minutes regarding her daughter, Current Medications Generic Name Dose Route Start Last Admin Trade Name Dayanara PRN Reason Stop Dose Admin Diphenhydramine HCl 25 mg 10/29/17 21:15 11/02/17 09:13 Benadryl - PO Not Given Q6H SAYDA Fondaparinux 2.5 mg 11/02/17 10:00 11/02/17 09:13 Arixtra (Restricted) - SQ Not Given DAILY [facility] Sodium Chloride 1,000 mls @ 125 mls/hr 10/29/17 16:45 11/01/17 22:30 Normal Saline - IV 125 mls/hr ASDIR SAYDA Administration Ceftazidime/Avibactam 2.5 gm/ 250 mls @ 125 mls/hr 11/02/17 00:00 11/02/17 09 :00 Dextrose IVPB 125 mls/hr Q8H SAYDA Administration Protocol Insulin Aspart 1 vial 10/29/17 16:30 11/02/17 12:38 Novolog Vial Sliding Scale - SQ Not Given ACHS [facility] Protocol Lidocaine 1 patch 10/30/17 10:00 11/02/17 09:13 Lidoderm Patch - TP Not Given DAILY SAYDA Miscellaneous 1 each 10/30/17 22:00 11/01/17 21:58 Lidoderm Patch Removal MC Not Given DAILY@2200 SAYDA Objective: Vital Signs Period Temp Pulse Resp BP Sys/Quinn Pulse Ox Last 24 Hr 97.8 F-100.4 F 87-107 16-20 103-142/57-91 97-97 Physical Exam: General: NAD, A&Ox3 Lungs: CTA bilaterally Heart: RRR, S1S2 Abd: Mild suprapubic tenderness, healed transverse suprapubic incision Ext: Right arm PICC line CBCD WBC 6.2 K/mm3 (4.0-10.0) 11/02/17 06:00 RBC 3.33 M/mm3 (3.60-5.2) L 11/02/17 06:00 Hgb 10.5 GM/dL (10.7-15.3) L 11/02/17 06:00 Hct 31.3 % (32.4-45.2) L 11/02/17 06:00 MCV 93.8 fl (80-96) 11/02/17 06:00 MCHC 33.5 g/dl (32.0-36.0) 11/02/17 06:00 RDW 12.5 % (11.6-15.6) 11/02/17 06:00 Plt Count 244 K/MM3 (134-434) D 11/02/17 06:00 MPV 8.2 fl (7.5-11.1) 11/02/17 06:00 CMP Sodium 138 mmol/L (136-145) 11/02/17 06:00 Potassium 3.7 mmol/L (3.5-5.1) 11/02/17 06:00 Chloride 104 mmol/L (98-107) 11/02/17 06:00 Carbon Dioxide 22 mmol/L (21-32) 11/02/17 06:00 Anion Gap 12 (8-16) 11/02/17 06:00 BUN 17 mg/dL (7-18) 11/02/17 06:00 Creatinine 0.9 mg/dL (0.55-1.02) 11/02/17 06:00 Creat Clearance w eGFR > 60 (>60) 11/02/17 06:00 Random Glucose 188 mg/dL (74-106) H 11/02/17 06:00 Calcium 8.2 mg/dL (8.5-10.1) L 11/02/17 06:00 Total Bilirubin 0.3 mg/dL (0.2-1.0) D 11/02/17 06:00 AST 14 U/L (15-37) L 11/02/17 06:00 ALT 13 U/L (12-78) 11/02/17 06:00 Alkaline Phosphatase 142 U/L (45-117) H 11/02/17 06:00 Total Protein 6.2 g/dl (6.4-8.2) L 11/02/17 06:00 Albumin 2.3 g/dl (3.4-5.0) L 11/02/17 06:00 Microbiology 11/01/17 06:40 Blood - Picc Line Blood Culture - Preliminary Lactose Fermenting Neg Bacilli 11/01/17 06:30 Blood - Picc Line Blood Culture - Preliminary Lactose Fermenting Neg Bacilli 10/29/17 04:25 Blood - Peripheral Venous Blood Culture - Preliminary Klebsiella Pneumoniae - Esbl 10/30/17 15:30 Urine - Urine Clean Catch Urine Culture - Final NO GROWTH OBTAINED 10/30/17 10:30 Nares - Mrsa Screen - Left MRSA Screen - Final S Aureus 10/30/17 10:30 Nares - Mrsa Screen - Right MRSA Screen - Final Mr Love Aureus 10/29/17 04:25 Blood - Peripheral Venous Blood Culture - Preliminary Lactose Fermenting Neg Bacilli 10/29/17 04:40 Urine - Urine Clean Catch Urine Culture - Final Contaminated: Please Repeat Assessment: This is a 27 year old female with recent (on 10/14/17 at 31w4d, baby in NICU at [facility]), recently treated for anemia with IV iron (10/15/17 ), treated for UTI (10/15/17), IDDM (on insulin pump placed 03/30/17), peripheral neuropathy, who presented to the ED with elevated blood sugar, fever , and diffuse back pain which has been going on since her Plan: 1) 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 Good today. Is now agreeable to speak to him. Will reconsult - Patient has own insulin pump that was placed 03/2017. Refusing to shut it off at this time - Will hold off on giving Levemir as the patient is continuing to use her own pump (if patient agrees to turn pump off, will start Levemir 11u sq bid) - BGM ACHS - Appreciate Endocrinology consult: called back today to come and reevaluate the patient 4) Drug seeking behavior - Continue po benadryl 5) F/E/N: - Diabetic diet - Monitor electrolytes 6) Prophylaxis: - Heparin allergy - Fondaparinux 2.5mg sq daily (patient refusing) - SCDs bilaterally - Encourage ambulation 7) Dispo: - Waiting for medical records from [facility] - Requires continued inpatient care CODE STATUS: FULL CODE Visit type - Emergency Visit Emergency Visit: Yes ED Registration Date: 10/29/17 Care time: The patient presented to the Emergency Department on the above date and was hospitalized for further evaluation of their emergent condition. - New Patient This patient is new to me today: No - Critical Care Critical Care patient: No
[2017-11-02] MEDS: LIDOCAINE PATCH REMOVAL MC SCH (21:45)
[2017-11-03] MEDS: CEFTAZIDIME/AVIBACTAM 2.5 GM in DEXTROSE 5%-WATER - 250 ML IVPB SCH ×3 (00:14→16:16)
[2017-11-03] MEDS: diphenhydrAMINE HCL 25 MG CAPSULE (FP) PO SCH ×4 (03:30→21:35)
[2017-11-03] MEDS: INSULIN SLIDING SCALE (NOVOLOG) 1 VIAL SQ SCH ×4 (06:26→21:36)
[2017-11-03 07:53] LABS: ALBUMIN 2.2 g/dl (3.4-5.0); ANION GAP 7 (8-16); BLOOD UREA NITROGEN 6 mg/dL (7-18); CALCIUM 7.7 mg/dL (8.5-10.1); CHLORIDE 109 mmol/L (98-107); CO2 25 mmol/L (21-32); GLUCOSE,RANDOM 141 mg/dL (74-106); POTASSIUM 3.6 mmol/L (3.5-5.1); SODIUM 141 mmol/L (136-145)
[2017-11-03 07:57] LABS: ALK PHOS 134 U/L (45-117); BILIRUBIN,TOTAL 0.4 mg/dL (0.2-1.0); CREATININE 0.8 mg/dL (0.55-1.02); SGOT/AST 13 U/L (15-37); SGPT/ALT 11 U/L (12-78); TOT PROT 5.8 g/dl (6.4-8.2)
[2017-11-03 08:02] LABS: HEMATOCRIT 29.6 % (32.4-45.2); MCH 31.7 pg (25.7-33.7); MCHC 33.8 g/dl (32.0-36.0); MEAN CELL VOLUME 93.8 fl (80-96); PLATELET COUNT 237 K/MM3 (134-434); RBC 3.15 M/mm3 (3.60-5.2); RDW 12.5 % (11.6-15.6); WHITE BLOOD COUNT 8.2 K/mm3 (4.0-10.0)
--- NOTE | 2017-11-03 09:24 | PN ---
Progress Note (short form) - Note Progress Note: ID Ceftazidime Avibactam day 2 OB note seen Afebrile PICC line out Selected Entries 11/03/17 06:10 Temperature 98.3 F Pulse Rate 84 Respiratory 20 Rate Blood Pressure 122/81 Microbiology 10/30/17 10:30 Nares - Mrsa Screen - Right MRSA Screen - Final S Aureus 10/30/17 10:30 Nares - Mrsa Screen - Left MRSA Screen - Final S Aureus 11/01/17 06:40 Blood - Picc Line Blood Culture - Preliminary Lactose Fermenting Neg Bacilli 11/01/17 06:30 Blood - Picc Line Blood Culture - Preliminary Lactose Fermenting Neg Bacilli 10/29/17 04:25 Blood - Peripheral Venous Blood Culture - Preliminary Lactose Fermenting Neg Bacilli 10/29/17 04:25 Blood - Peripheral Venous Blood Culture - Preliminary Klebsiella Pneumoniae - Esbl Laboratory Tests 11/03/17 11/03/17 06:30 06:30 WBC 8.2 D Hgb 10.0 L Hct 29.6 L Plt Count 237 BUN 6 L Creatinine 0.8 Laboratory Tests 10/30/17 10:30 C-Reactive Protein 16.5 H Assessment Post Cesarian section IDDM CRE bacteremia source PICC line considered Elevated CRP PICC line removed Plan Continue Avitacaz Repeat the blood cultures now that PICC out ECHO rule out vegetation Repeat CRP Zainab BUSH Problem List - Problems (1) SIRS (systemic inflammatory response syndrome) Code(s): R65.10 - SIRS OF NON-INFECTIOUS ORIGIN W/O ACUTE ORGAN DYSFUNCTION (2) IDDM (insulin dependent diabetes mellitus) Code(s): E11.9 - TYPE 2 DIABETES MELLITUS WITHOUT COMPLICATIONS; Z79.4 - OPEN SOURCE DEVELOPER (CURRENT) USE OF INSULIN (3) 5 weeks gestation of Code(s): Z3A.01 - LESS THAN 8 WEEKS GESTATION OF
[2017-11-03] MEDS: LIDOCAINE 5% TOPICAL PATCH TP SCH (10:48)
[2017-11-03] MEDS ORDERED: PT OWN MED DRAWER 7, Y5N ONE ×2 (11:06→15:36)
[2017-11-03] MEDS: FONDAPARINUX SODIUM 2.5 MG/0.5 ML DISP.SYRIN SQ SCH (11:09)
--- NOTE | 2017-11-03 13:24 | PN ---
Physical Exam: SUBJECTIVE: Patient seen and examined OBJECTIVE: Vital Signs Period Temp Pulse Resp BP Sys/Quinn Pulse Ox Last 24 Hr 98.2 F-99.3 F 84-100 20-20 122-133/78-92 97-97 GENERAL: The patient is awake, alert, and fully oriented, in no acute distress. HEAD: Normal with no signs of trauma. EYES: PERRL, extraocular movements intact, sclera anicteric, conjunctiva clear. No ptosis. ENT: Ears normal, nares patent, oropharynx clear without exudates, moist mucous membranes. NECK: Trachea midline, full range of motion, supple. LUNGS: Breath sounds equal, clear to auscultation bilaterally, no wheezes, no crackles, no accessory muscle use. HEART: Regular rate and rhythm, S1, S2 without murmur, rub or gallop. ABDOMEN: Soft, nontender, nondistended, normoactive bowel sounds, no guarding, no rebound, no hepatosplenomegaly, no masses. EXTREMITIES: 2+ pulses, warm, well-perfused, no edema. NEUROLOGICAL: Cranial nerves II through XII grossly intact. Normal speech, gait not observed. PSYCH: Normal mood, normal affect. SKIN: Warm, dry, normal turgor, no rashes or lesions noted Laboratory Results - last 24 hr 11/02/17 11/02/17 11/03/17 16:42 21:39 06:15 WBC RBC Hgb Hct MCV MCH MCHC RDW Plt Count MPV Sodium Potassium Chloride Carbon Dioxide Anion Gap BUN Creatinine Creat Clearance w eGFR POC Glucometer 261 223 129 Random Glucose Calcium Total Bilirubin AST ALT Alkaline Phosphatase Total Protein Albumin 11/03/17 11/03/17 11/03/17 06:30 06:30 11:11 WBC 8.2 D RBC 3.15 L Hgb 10.0 L Hct 29.6 L MCV 93.8 MCH 31.7 MCHC 33.8 RDW 12.5 Plt Count 237 MPV 8.0 Sodium 141 Potassium 3.6 Chloride 109 H Carbon Dioxide 25 Anion Gap 7 L BUN 6 L Creatinine 0.8 Creat Clearance w eGFR > 60 POC Glucometer 233 Random Glucose 141 H Calcium 7.7 L Total Bilirubin 0.4 D AST 13 L ALT 11 L Alkaline Phosphatase 134 H Total Protein 5.8 L Albumin 2.2 L Active Medications Generic Name Dose Route Start Last Admin Trade Name Freq PRN Reason Stop Dose Admin Diphenhydramine HCl 25 mg 10/29/17 21:15 11/03/17 10:47 Benadryl - PO Not Given Q6H SAYDA Diphenhydramine HCl 50 mg 11/03/17 13:23 Benadryl Injection - IVPUSH 11/03/17 13:24 ONCE ONE Fondaparinux 2.5 mg 11/02/17 10:00 11/03/17 11:09 Arixtra (Restricted) - SQ 2.5 mg DAILY SAYDA Administration Sodium Chloride 1,000 mls @ 125 mls/hr 10/29/17 16:45 11/02/17 16:45 Normal Saline - IV Not Given ASDIR SAYDA Ceftazidime/Avibactam 2.5 gm/ 250 mls @ 125 mls/hr 11/02/17 00:00 11/03/17 08 :08 Dextrose IVPB 125 mls/hr Q8H SAYDA Administration Protocol Insulin Aspart 1 vial 10/29/17 16:30 11/03/17 11:14 Novolog Vial Sliding Scale - SQ Not Given ACHS [facility] Protocol Lidocaine 1 patch 10/30/17 10:00 11/03/17 10:48 Lidoderm Patch - TP Not Given DAILY [facility] Miscellaneous 1 each 10/30/17 22:00 11/02/17 21:45 Lidoderm Patch Removal MC Not Given DAILY@2200 [facility] ASSESSMENT/PLAN: Patient is a 27 year old female with a significant past medical history of recent via c section on 10/14/2017. She states her is currently at [facility] NICU. Her other medical history includes anemia, diabetes mellitus (on insulin pump placed 2016) located on left thigh, peripheral neuropathy. She presented to the ED with hyperglycemia, fevers, diffused back pain. She also has a dressing to her c section site which was removed by newswriter today to evaluate if this was the source of her fever. Her abdominal wound appeared closed, intact, no drainage, well healed. Site cleared with NS and new sterile dressing placed. ID: Severe Sepsis Gram negative [place] bacteremia Tachycardia, Fevers, Leukocytosis present on admission Source of infection may be UTI source vs. pelvic infection due to recent vs. 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 Fluids: Tolerating PO Electrolytes: monitor,hypomag repleted Nutrition: regular diet Prophylaxis: DVT: ambulatory GI: Protonix
[2017-11-03] MEDS: SODIUM CHLORIDE 1,000 ML IV SCH ×2 (13:56→17:56)
--- NOTE | 2017-11-03 14:57 | PN ---
Progress Note (short form) - Note Progress Note: Came to see pt because nursing staff called me saying that pt is willing to get Insulin Pump adjusted. Talked to pt. She refuses to do any adjustment.
[2017-11-03] MEDS: LIDOCAINE PATCH REMOVAL MC SCH (21:19)
--- NOTE | 2017-11-03 22:00 | HOSP ---
Subjective - Review of Symptoms Subjective: Pt refusing sliding scale insulin and demanding IV Benadryl. Pt states Novolog "does not work with my pancreas." Pt currently on insulin pump which she refused titration by endo today. Physical Examination Vital Signs: Vital Signs Temperature 97.7 F 11/03/17 15:09 Pulse Rate 93 H 11/03/17 15:09 Respiratory Rate 20 11/03/17 20:12 Blood Pressure 136/84 11/03/17 15:09 O2 Sat by Pulse Oximetry (%) 97 11/03/17 20:12 Findings/Remarks: Patient is refusing exam at this time. Constitutional: Yes: No Distress Respiratory: Yes: Regular. No: Accessory Muscle Use Labs: CBC, BMP 11/03/17 06:30 11/03/17 06:30 Hospitalist Encounter Assessment: A/P: 27yo woman with IDDM with infection with BGM-400's. Refusing ISS. Discussion had with patient regarding need to control her blood sugars. Patient not receptive to teaching. Demanding IV Benadryl at present. Will not attempt to tolerate PO benadryl- stating "It will make me vomit." Patient tolerating sandwich without difficulty. Patient requested that I leave the room. Will report to day team to adjust basal insulin.
[2017-11-04] MEDS: SODIUM CHLORIDE 1,000 ML IV SCH ×4 (00:48→23:55)
[2017-11-04] MEDS: CEFTAZIDIME/AVIBACTAM 2.5 GM in DEXTROSE 5%-WATER - 250 ML IVPB SCH ×3 (00:48→16:00)
[2017-11-04] MEDS: diphenhydrAMINE HCL 25 MG CAPSULE (FP) PO SCH ×4 (03:30→22:05)
[2017-11-04] MEDS: INSULIN SLIDING SCALE (NOVOLOG) 1 VIAL SQ SCH ×4 (06:05→22:06)
[2017-11-04 08:05] LABS: HEMOGLOBIN 10.4 GM/dL (10.7-15.3)
[2017-11-04 08:06] LABS: HEMATOCRIT 31.2 % (32.4-45.2); MCH 31.4 pg (25.7-33.7); MCHC 33.3 g/dl (32.0-36.0); MEAN CELL VOLUME 94.3 fl (80-96); MEAN PLT VOLUME 8.5 fl (7.5-11.1); PLATELET COUNT 305 K/MM3 (134-434); RBC 3.31 M/mm3 (3.60-5.2); RDW 13.1 % (11.6-15.6); WHITE BLOOD COUNT 7.8 K/mm3 (4.0-10.0)
[2017-11-04 09:13] LABS: ALBUMIN 2.4 g/dl (3.4-5.0); ALK PHOS 152 U/L (45-117); ANION GAP 9 (8-16); BILIRUBIN,TOTAL 0.2 mg/dL (0.2-1.0); BLOOD UREA NITROGEN 7 mg/dL (7-18); CALCIUM 7.9 mg/dL (8.5-10.1); CHLORIDE 103 mmol/L (98-107); CO2 25 mmol/L (21-32); CREATININE 0.9 mg/dL (0.55-1.02); POTASSIUM 3.9 mmol/L (3.5-5.1); SGOT/AST 15 U/L (15-37); SGPT/ALT 13 U/L (12-78); SODIUM 137 mmol/L (136-145); TOT PROT 6.3 g/dl (6.4-8.2)
[2017-11-04 09:26] LABS: GLUCOSE,RANDOM 307 mg/dL (74-106)
--- NOTE | 2017-11-04 09:59 | PN ---
Progress Note (short form) - Note Progress Note: ID Ceftazidime Avibactam day 4 therapy Selected Entries 11/04/17 01:16 Temperature 98.1 F Pulse Rate 75 Respiratory 20 Rate Blood Pressure 132/63 Microbiology 11/01/17 06:40 Blood - Picc Line Blood Culture - Final Klebsiella Pneumoniae - Esbl 11/01/17 06:30 Blood - Picc Line Blood Culture - Final Klebsiella Pneumoniae - Esbl 10/29/17 04:25 Blood - Peripheral Venous Blood Culture - Preliminary Lactose Fermenting Neg Bacilli 10/29/17 04:25 Blood - Peripheral Venous Blood Culture - Preliminary Klebsiella Pneumoniae - Esbl Laboratory Tests 11/04/17 11/04/17 06:30 06:30 WBC 7.8 Hgb 10.4 L Hct 31.2 L Plt Count 305 D Creat Clearance w eGFR > 60 Assessment CRE bacteremia PICC line considered and removed Plan She decline ECHO appaently saying done before [facility] See if she will allow blood cultures from the CVC today Zainab BUSH Problem List - Problems (1) SIRS (systemic inflammatory response syndrome) Code(s): R65.10 - SIRS OF NON-INFECTIOUS ORIGIN W/O ACUTE ORGAN DYSFUNCTION (2) IDDM (insulin dependent diabetes mellitus) Code(s): E11.9 - TYPE 2 DIABETES MELLITUS WITHOUT COMPLICATIONS; Z79.4 - LONGTERM (CURRENT) USE OF INSULIN (3) 5 weeks gestation of Code(s): Z3A.01 - LESS THAN 8 WEEKS GESTATION OF
[2017-11-04] MEDS: FONDAPARINUX SODIUM 2.5 MG/0.5 ML DISP.SYRIN SQ SCH (10:00)
[2017-11-04] MEDS: LIDOCAINE 5% TOPICAL PATCH TP SCH (10:45)
[2017-11-04 11:28] LABS: PLATELET ESTIMATE NORMAL
--- NOTE | 2017-11-04 11:31 | PN ---
Physical Exam: SUBJECTIVE: Patient seen and examined at the bedside. Again feels overwhelmed with her hospitalization, wants to be home with her . I reassured her we are helping to get her home. OBJECTIVE: Patient has an insulin pump that she has been using while in the hospital. She has not allowed us to shut it off or remove it. Her insulin pump is now almost empty and she states that no one that can bring her the vial of Humalog that she has at home. She is adamantly stating that she does not want to take Novolog that we use in the hospital, only wants Humalog. I called her pharmacy ([facility]) and confirmed that patient feels her prescription of Humalog there. They provide her with a vial and patient fill the insulin pump with the vial. Pharmacy to provide us with Humalog vials on Monday as they are currently out of stock. I called [facility] pharmacy across the [address] from [place] and they only have 1 vial left for $290 as pt insurance does not cover. Patient is in now agreement to use the Novolog we have in the hospital once her pump is removed. She would have to disconnect her insulin pump before we administer any insulin. Will order Levemir for tonight. Novolog SS. BGMs q4 Vital Signs Period Temp Pulse Resp BP Sys/Quinn Pulse Ox Last 24 Hr 97.7 F-98.3 F 75-93 20-20 132-136/63-90 97 GENERAL: The patient is awake, alert, and fully oriented, in no acute distress. HEAD: Normal with no signs of trauma. EYES: PERRL, extraocular movements intact, sclera anicteric, conjunctiva clear. No ptosis. ENT: Ears normal, nares patent, oropharynx clear without exudates, moist mucous membranes. NECK: Trachea midline, full range of motion, supple. LUNGS: Breath sounds equal, clear to auscultation bilaterally, no wheezes, no crackles, no accessory muscle use. HEART: Regular rate and rhythm, S1, S2 without murmur, rub or gallop. ABDOMEN: Soft, nontender, nondistended, normoactive bowel sounds, no guarding, no rebound, no hepatosplenomegaly, no masses. EXTREMITIES: 2+ pulses, warm, well-perfused, no edema. NEUROLOGICAL: Normal speech, gait not observed. PSYCH: Normal mood, normal affect. SKIN: Warm, dry, normal turgor, no rashes or lesions noted Laboratory Results - last 24 hr 11/03/17 11/04/17 11/04/17 16:46 05:16 06:30 WBC 7.8 RBC 3.31 L Hgb 10.4 L Hct 31.2 L MCV 94.3 MCH 31.4 MCHC 33.3 RDW 13.1 Plt Count 305 D MPV 8.5 Neutrophils % Information Systems Supervisor Neutrophils % (Manual) 55.7 Band Neutrophils % 0.0 Lymphocytes % Information Systems Supervisor Lymphocytes % (Manual) 33.0 Monocytes % Information Systems Supervisor Monocytes % (Manual) 5 Eosinophils % Information Systems Supervisor Eosinophils % (Manual) 2.1 Basophils % Information Systems Supervisor Basophils % (Manual) 0.0 Myelocytes % (Man) 0 Promyelocytes % (Man) 0 Nucleated RBC % 1 H Metamyelocytes 0 Platelet Estimate Normal Sodium Potassium Chloride Carbon Dioxide Anion Gap BUN Creatinine Creat Clearance w eGFR POC Glucometer 271 293 Random Glucose Calcium Total Bilirubin AST ALT Alkaline Phosphatase Total Protein Albumin 11/04/17 06:30 WBC RBC Hgb Hct MCV MCH MCHC RDW Plt Count MPV Neutrophils % Neutrophils % (Manual) Band Neutrophils % Lymphocytes % Lymphocytes % (Manual) Monocytes % Monocytes % (Manual) Eosinophils % Eosinophils % (Manual) Basophils % Basophils % (Manual) Myelocytes % (Man) Promyelocytes % (Man) Nucleated RBC % Metamyelocytes Platelet Estimate Sodium 137 Potassium 3.9 Chloride 103 Carbon Dioxide 25 Anion Gap 9 BUN 7 Creatinine 0.9 Creat Clearance w eGFR > 60 POC Glucometer Random Glucose 307 H* Calcium 7.9 L Total Bilirubin 0.2 D AST 15 ALT 13 Alkaline Phosphatase 152 H Total Protein 6.3 L Albumin 2.4 L Active Medications Generic Name Dose Route Start Last Admin Trade Name Freq PRN Reason Stop Dose Admin Diphenhydramine HCl 25 mg 10/29/17 21:15 11/04/17 10:45 Benadryl - PO Not Given Q6H SAYDA Fondaparinux 2.5 mg 11/02/17 10:00 11/03/17 11:09 Arixtra (Restricted) - SQ 2.5 mg DAILY SAYDA Administration Sodium Chloride 1,000 mls @ 125 mls/hr 10/29/17 16:45 11/04/17 00:48 Normal Saline - IV 125 mls/hr ASDIR SAYDA Administration Ceftazidime/Avibactam 2.5 gm/ 250 mls @ 125 mls/hr 11/02/17 00:00 11/04/17 08 :00 Dextrose IVPB 125 mls/hr Q8H [facility] Administration Protocol Insulin Aspart 1 vial 11/04/17 14:00 Novolog Vial Sliding Scale - SQ Q4HPO [facility] Protocol Lidocaine 1 patch 10/30/17 10:00 11/04/17 10:45 Lidoderm Patch - TP Not Given DAILY [facility] Miscellaneous 1 each 10/30/17 22:00 11/03/17 21:19 Lidoderm Patch Removal MC Not Given DAILY@2200 [facility] ASSESSMENT/PLAN: Patient is a 27 year old female with a significant past medical history of recent via c section on 10/14/2017. She states her infant is currently at [facility] NICU. Her other medical history includes anemia, diabetes mellitus (on insulin pump placed 2016) located on left thigh, peripheral neuropathy. She presented to the ED with hyperglycemia, fevers, diffused back pain. Her abdominal wound s/p c section with no drainage, well healed. ID: Severe Sepsis/Gram negative neville bacteremia Tachycardia, Fevers, Leukocytosis present on admission Source of infection may be UTI source vs. pelvic infection due to recent vs. Central Line (PICC Line-double lumen right arm) Patient states PICC was placed on her last admission at [facility] and maintained by [facility] services, picc removed and replaced by TLC WBC improving, fever curve improving On Ceftazidime/Avibactam 2.5mg maintenance department technician consulted NS @ 125cc/hr Endocrine Diabetes Insulin pump on admission (Humalog), insulin pump now empty Novolog SS q4 and Levemir tonight We are attempting to get patient Humalog vials from [facility] BGM monitoring Chronic Back Pain Lidoderm patches Patient back pain difficult to treat secondary to multiple allergies Will give benadry iv prn once daily Lidoderm patches F.E.N. Fluids: Tolerating PO Electrolytes: monitor,hypomag repleted Nutrition: regular diet Prophylaxis: DVT: ambulatory GI: Protonix Disposition: full code Visit type - Emergency Visit Emergency Visit: Yes ED Registration Date: 10/29/17 Care time: The patient presented to the Emergency Department on the above date and was hospitalized for further evaluation of their emergent condition. - New Patient This patient is new to me today: No - Critical Care Critical Care patient: No - Discharge Referral Referred to [facility] Med P.C.: No
[2017-11-04] MEDS ORDERED: INSULIN (NOVOLOG) ASPART 100 UNITS/ML 10ML VIAL ONE (16:48)
[2017-11-04] MEDS ORDERED: INSULIN DETEMIR 100 UNITS/ML MDV SQ SCH ×2 (22:00)
[2017-11-04] MEDS: LIDOCAINE PATCH REMOVAL MC SCH (22:06)
[2017-11-04] MEDS ORDERED: PT OWN MED DRAWER 7, Y5N ONE (23:53)
[2017-11-04] MEDS: CEFTAZIDIME/AVIBACTAM 2.5 GM in SODIUM CHLORIDE 250 ML IVPB SCH (23:55)
[2017-11-05] MEDS: INSULIN SLIDING SCALE (NOVOLOG) 1 VIAL SQ SCH ×6 (02:03→22:03)
[2017-11-05] MEDS: diphenhydrAMINE HCL 25 MG CAPSULE (FP) PO SCH ×4 (03:15→22:02)
[2017-11-05] MEDS ORDERED: INSULIN (NOVOLOG) ASPART 100 UNITS/ML 10ML VIAL ONE (06:32)
[2017-11-05 07:43] LABS: BASO % 0.7 % (0-2.0); HEMATOCRIT 31.9 % (32.4-45.2); HEMOGLOBIN 10.5 GM/dL (10.7-15.3); MCH 31.2 pg (25.7-33.7); MCHC 32.9 g/dl (32.0-36.0); MEAN CELL VOLUME 94.6 fl (80-96); MEAN PLT VOLUME 7.9 fl (7.5-11.1); MONO % 6.5 % (3.8-10.2); NEUT % 51.8 % (42.8-82.8); PLATELET COUNT 366 K/MM3 (134-434); RBC 3.37 M/mm3 (3.60-5.2); RDW 12.6 % (11.6-15.6); WHITE BLOOD COUNT 8.2 K/mm3 (4.0-10.0)
[2017-11-05] MEDS: CEFTAZIDIME/AVIBACTAM 2.5 GM in SODIUM CHLORIDE 250 ML IVPB SCH ×2 (08:11→15:58)
--- NOTE | 2017-11-05 08:15 | PN ---
Progress Note (short form) - Note Progress Note: ID Ceftrazidime Avibactam actually day 4 therapy Remains afebrile Selected Entries 11/04/17 22:00 Temperature 98 F Pulse Rate 88 Respiratory 18 Rate Blood Pressure 140/94 Microbiology Laboratory Tests 11/05/17 06:00 WBC 8.2 Hgb 10.5 L Hct 31.9 L Plt Count 366 Assessment CRE bacteremia day 4 therapy Thus far blood culture this am neg sohopefully remians so in which case would treat another 72 hours then stop Zainab BUSH Problem List - Problems (1) SIRS (systemic inflammatory response syndrome) Code(s): R65.10 - SIRS OF NON-INFECTIOUS ORIGIN W/O ACUTE ORGAN DYSFUNCTION (2) IDDM (insulin dependent diabetes mellitus) Code(s): E11.9 - TYPE 2 DIABETES MELLITUS WITHOUT COMPLICATIONS; Z79.4 - ORACLE HYPERION CONSULTANT (CURRENT) USE OF INSULIN (3) 5 weeks gestation of Code(s): Z3A.01 - LESS THAN 8 WEEKS GESTATION OF
[2017-11-05 08:17] LABS: ALBUMIN 2.4 g/dl (3.4-5.0); ANION GAP 9 (8-16); BILIRUBIN,TOTAL 0.4 mg/dL (0.2-1.0); BLOOD UREA NITROGEN 8 mg/dL (7-18); CALCIUM 8.1 mg/dL (8.5-10.1); CHLORIDE 99 mmol/L (98-107); CO2 26 mmol/L (21-32); CREATININE 0.9 mg/dL (0.55-1.02); MAGNESIUM 1.7 mg/dL (1.8-2.4); POTASSIUM 4.9 mmol/L (3.5-5.1); SGOT/AST 14 U/L (15-37); SGPT/ALT 11 U/L (12-78); SODIUM 134 mmol/L (136-145); TOT PROT 6.4 g/dl (6.4-8.2)
[2017-11-05 08:18] LABS: ALK PHOS 153 U/L (45-117)
[2017-11-05 08:27] LABS: GLUCOSE,RANDOM 458 mg/dL (74-106)
[2017-11-05] MEDS: LIDOCAINE 5% TOPICAL PATCH TP SCH (10:09)
[2017-11-05] MEDS: FONDAPARINUX SODIUM 2.5 MG/0.5 ML DISP.SYRIN SQ SCH (10:17)
--- NOTE | 2017-11-05 10:50 | PN ---
Physical Exam: SUBJECTIVE: Patient seen and examined. Feels better, in no acute distress. OBJECTIVE: blood sugars elevated in the 400s, refusing levemir will start novolog standing 2 units with each meal with sliding scale use will monitor bgms q4 Patient to use her own insulin pump (pump is currently empty and has been disconnected) humalog vials to retrieved by her pharmacy tomorrow and then she can begin to use her own pump. Vital Signs Period Temp Pulse Resp BP Sys/Quinn Pulse Ox Last 24 Hr 98 F-98.3 F 88-99 18-20 117-140/71-94 99 GENERAL: The patient is awake, alert, and fully oriented, in no acute distress. HEAD: Normal with no signs of trauma. EYES: PERRL, extraocular movements intact, sclera anicteric, conjunctiva clear. No ptosis. ENT: Ears normal, nares patent, oropharynx clear without exudates, moist mucous membranes. NECK: Trachea midline, full range of motion, supple. LUNGS: Breath sounds equal, clear to auscultation bilaterally, no wheezes, no crackles, no accessory muscle use. HEART: Regular rate and rhythm, S1, S2 without murmur, rub or gallop. ABDOMEN: Soft, nontender, nondistended, normoactive bowel sounds, no guarding, no rebound, no hepatosplenomegaly, no masses. EXTREMITIES: 2+ pulses, warm, well-perfused, no edema. NEUROLOGICAL: Normal speech, gait not observed. PSYCH: Normal mood, normal affect. SKIN: Warm, dry, normal turgor, no rashes or lesions noted Laboratory Results - last 24 hr 11/04/17 11/04/17 11/04/17 06:30 12:17 16:54 WBC RBC Hgb Hct MCV MCH MCHC RDW Plt Count MPV Neutrophils % Neutrophils % (Manual) 55.7 Band Neutrophils % 0.0 Lymphocytes % Lymphocytes % (Manual) 33.0 Monocytes % Monocytes % (Manual) 5 Eosinophils % Eosinophils % (Manual) 2.1 Basophils % Basophils % (Manual) 0.0 Myelocytes % (Man) 0 Promyelocytes % (Man) 0 Nucleated RBC % 1 H Metamyelocytes 0 Platelet Estimate Normal Sodium Potassium Chloride Carbon Dioxide Anion Gap BUN Creatinine Creat Clearance w eGFR POC Glucometer 273 306 Random Glucose Calcium Magnesium Total Bilirubin AST ALT Alkaline Phosphatase Total Protein Albumin 11/04/17 11/05/17 11/05/17 22:01 02:02 06:00 WBC 8.2 RBC 3.37 L Hgb 10.5 L Hct 31.9 L MCV 94.6 MCH 31.2 MCHC 32.9 RDW 12.6 Plt Count 366 MPV 7.9 Neutrophils % 51.8 D Neutrophils % (Manual) Band Neutrophils % Lymphocytes % 40.0 Lymphocytes % (Manual) Monocytes % 6.5 Monocytes % (Manual) Eosinophils % 1.0 Eosinophils % (Manual) Basophils % 0.7 Basophils % (Manual) Myelocytes % (Man) Promyelocytes % (Man) Nucleated RBC % Metamyelocytes Platelet Estimate Sodium Potassium Chloride Carbon Dioxide Anion Gap BUN Creatinine Creat Clearance w eGFR POC Glucometer 369 187 Random Glucose Calcium Magnesium Total Bilirubin AST ALT Alkaline Phosphatase Total Protein Albumin 11/05/17 06:00 WBC RBC Hgb Hct MCV MCH MCHC RDW Plt Count MPV Neutrophils % Neutrophils % (Manual) Band Neutrophils % Lymphocytes % Lymphocytes % (Manual) Monocytes % Monocytes % (Manual) Eosinophils % Eosinophils % (Manual) Basophils % Basophils % (Manual) Myelocytes % (Man) Promyelocytes % (Man) Nucleated RBC % Metamyelocytes Platelet Estimate Sodium 134 L Potassium 4.9 Chloride 99 Carbon Dioxide 26 Anion Gap 9 BUN 8 Creatinine 0.9 Creat Clearance w eGFR > 60 POC Glucometer Random Glucose 458 H* Calcium 8.1 L Magnesium 1.7 L Total Bilirubin 0.4 D AST 14 L ALT 11 L Alkaline Phosphatase 153 H Total Protein 6.4 Albumin 2.4 L Active Medications Generic Name Dose Route Start Last Admin Trade Name Freq PRN Reason Stop Dose Admin Diphenhydramine HCl 25 mg 10/29/17 21:15 11/05/17 10:09 Benadryl - PO Not Given Q6H SAYDA Fondaparinux 2.5 mg 11/02/17 10:00 11/05/17 10:17 Arixtra (Restricted) - SQ 2.5 mg DAILY SAYDA Administration Sodium Chloride 1,000 mls @ 125 mls/hr 10/29/17 16:45 11/04/17 23:55 Normal Saline - IV 125 mls/hr ASDIR SAYDA Administration Ceftazidime/Avibactam 2.5 gm/ 250 mls @ 125 mls/hr 11/05/17 00:00 11/05/17 08 :11 Sodium Chloride IVPB 125 mls/hr Q8H [facility] Administration Insulin Aspart 1 vial 11/05/17 10:47 Novolog Vial Sliding Scale - SQ Q4HPO [facility] Protocol Insulin Aspart 4 units 11/05/17 17:00 Novolog SQ BID@0700,1700 [facility] Lidocaine 1 patch 10/30/17 10:00 11/05/17 10:09 Lidoderm Patch - TP Not Given DAILY [facility] Miscellaneous 1 each 10/30/17 22:00 11/04/17 22:06 Lidoderm Patch Removal MC Not Given DAILY@2200 [facility] ASSESSMENT/PLAN: Patient is a 27 year old female with a significant past medical history of recent via c section on 10/14/2017. She states her infant is currently at [facility] NICU. Her other medical history includes anemia, diabetes mellitus (on insulin pump placed 2016), peripheral neuropathy. She presented to the ED with hyperglycemia, fevers, diffused back pain. Her abdominal wound s/p c section with no drainage, well healed. ID: Severe Sepsis/Gram negative neville bacteremia, resolved Tachycardia, Fevers, Leukocytosis present on admission, now resolved Source of infection likely Central Line (PICC Line-double lumen right arm) which has been removed Patient states PICC was placed on her last admission at [facility] and maintained by [facility] services, picc removed and replaced by TLC WBC improving, fever curve improving Blood cultures negative, as per ID, will treat for another 72 hours and likely stop antbx therapy On Ceftazidime/Avibactam 2.5mg jewelry consultant consulted, notes reviewed NS @ 125cc/hr Endocrine Diabetes Insulin pump on admission (Humalog), insulin pump now empty Novolog SS q4 and Levemir tonight We are attempting to get patient Humalog vials from [facility] BGM monitoring q4 Chronic Back Pain Lidoderm patches Patient back pain difficult to treat secondary to multiple allergies Will give benadry iv prn once daily Lidoderm patches refused by patient, will cancel F.E.N. Fluids: Tolerating PO Electrolytes: monitor,hypomag repleted Nutrition: regular diet Prophylaxis: DVT: ambulatory GI: Protonix Disposition: full code. Blood cultures negative, as per ID, will treat for another 72 hours and likely stop antbx therapy Visit type - Emergency Visit Emergency Visit: Yes ED Registration Date: 10/29/17 Care time: The patient presented to the Emergency Department on the above date and was hospitalized for further evaluation of their emergent condition. - New Patient This patient is new to me today: No - Critical Care Critical Care patient: No - Discharge Referral Referred to [facility] Med P.C.: No
[2017-11-05] MEDS ORDERED: Insulin (LOG) Aspart 100 UNITS/ML VIAL SQ SCH ×2 (12:00→17:00)
[2017-11-05] MEDS: SODIUM CHLORIDE 1,000 ML IV SCH (15:00)
[2017-11-05] MEDS: INSULIN (NOVOLOG) ASPART 100 UNITS/ML 10ML VIAL SQ SCH (17:28)
[2017-11-05] MEDS ORDERED: MAGNESIUM SULF 50% (8.12 MEQ/2 ML-1 GM VIAL) IVPB ONE ×2 (19:59→20:15)
[2017-11-05] MEDS ORDERED: MAGNESIUM 1GM/D5W - 1 GM/100 ML IVPB IVPB ONE (20:15)
[2017-11-06] MEDS: CEFTAZIDIME/AVIBACTAM 2.5 GM in SODIUM CHLORIDE 250 ML IVPB SCH ×3 (00:12→15:52)
[2017-11-06] MEDS: INSULIN SLIDING SCALE (NOVOLOG) 1 VIAL SQ SCH ×6 (02:08→22:31)
[2017-11-06] MEDS: diphenhydrAMINE HCL 25 MG CAPSULE (FP) PO SCH ×4 (02:57→22:30)
[2017-11-06] MEDS: INSULIN (NOVOLOG) ASPART 100 UNITS/ML 10ML VIAL SQ SCH ×2 (06:41→16:28)
[2017-11-06] MEDS ORDERED: INSULIN (NOVOLOG) ASPART 100 UNITS/ML 10ML VIAL ONE (06:59)
[2017-11-06 08:02] LABS: BASO % 0.5 % (0-2.0); EOS % 1.2 % (0-4.5); HEMATOCRIT 31.4 % (32.4-45.2); HEMOGLOBIN 10.5 GM/dL (10.7-15.3); LYMPH % 40.5 % (8-40); MCH 31.1 pg (25.7-33.7); MCHC 33.3 g/dl (32.0-36.0); MEAN CELL VOLUME 93.6 fl (80-96); MEAN PLT VOLUME 7.6 fl (7.5-11.1); MONO % 6.7 % (3.8-10.2); NEUT % 51.1 % (42.8-82.8); PLATELET COUNT 462 K/MM3 (134-434); RBC 3.36 M/mm3 (3.60-5.2); RDW 12.8 % (11.6-15.6); WHITE BLOOD COUNT 7.9 K/mm3 (4.0-10.0)
[2017-11-06 08:48] LABS: ALBUMIN 2.4 g/dl (3.4-5.0); ANION GAP 7 (8-16); BLOOD UREA NITROGEN 10 mg/dL (7-18); CALCIUM 8.3 mg/dL (8.5-10.1); CHLORIDE 101 mmol/L (98-107); CO2 27 mmol/L (21-32); MAGNESIUM 1.9 mg/dL (1.8-2.4); POTASSIUM 4.4 mmol/L (3.5-5.1); SODIUM 135 mmol/L (136-145)
[2017-11-06 08:51] LABS: ALK PHOS 159 U/L (45-117); BILIRUBIN,TOTAL 0.3 mg/dL (0.2-1.0); CREATININE 0.9 mg/dL (0.55-1.02); SGOT/AST 10 U/L (15-37); SGPT/ALT 11 U/L (12-78); TOT PROT 6.3 g/dl (6.4-8.2)
[2017-11-06 09:30] LABS: GLUCOSE,RANDOM 323 mg/dL (74-106)
[2017-11-06] MEDS: FONDAPARINUX SODIUM 2.5 MG/0.5 ML DISP.SYRIN SQ SCH (10:30)
--- NOTE | 2017-11-06 10:46 | PN ---
Progress Note, Physician Chief Complaint: ID Avicaz day 5 therapy No fever - Current Medication List Current Medications: Active Medications Diphenhydramine HCl (Benadryl -) 25 mg PO Q6H [facility] Last Admin: 11/06/17 10:30 Dose: Not Given Fondaparinux (Arixtra (Restricted) -) 2.5 mg SQ DAILY [facility] Last Admin: 11/06/17 10:30 Dose: 2.5 mg Ceftazidime/Avibactam 2.5 gm/ (Sodium Chloride) 250 mls @ 125 mls/hr IVPB Q8H [facility] Last Admin: 11/06/17 09:00 Dose: 125 mls/hr Insulin Aspart (Novolog Vial) 2 units SQ 1200 SAYDA Insulin Aspart (Novolog Vial) 2 units SQ BID@0700,1700 [facility] Last Admin: 11/06/17 06:41 Dose: 2 units Insulin Aspart (Novolog Vial Sliding Scale -) 1 vial SQ Q4HPO [facility] PRN Reason: Protocol Last Admin: 11/06/17 10:30 Dose: 4 units - Objective Vital Signs: Vital Signs Temperature 98 F 11/05/17 20:43 Pulse Rate 98 H 11/05/17 20:43 Respiratory Rate 18 11/05/17 21:00 Blood Pressure 140/85 11/05/17 20:43 O2 Sat by Pulse Oximetry (%) 100 11/05/17 21:00 Constitutional: Yes: No Distress Cardiovascular: Yes: S1, S2 Respiratory: Yes: WNL, Regular, CTA Bilaterally Gastrointestinal: Yes: Soft. No: Tenderness Labs: CBC, BMP 11/06/17 06:30 11/06/17 06:30 INR, PTT INR 1.04 (0.82-1.09) 10/29/17 04:25 Problem List - Problems (1) SIRS (systemic inflammatory response syndrome) Code(s): R65.10 - SIRS OF NON-INFECTIOUS ORIGIN W/O ACUTE ORGAN DYSFUNCTION (2) IDDM (insulin dependent diabetes mellitus) Code(s): E11.9 - TYPE 2 DIABETES MELLITUS WITHOUT COMPLICATIONS; Z79.4 - TRAFFIC CONTROL OPERATOR (CURRENT) USE OF INSULIN (3) 5 weeks gestation of Code(s): Z3A.01 - LESS THAN 8 WEEKS GESTATION OF Assessment/Plan Microbiology 11/04/17 12:30 Blood - Central Line Blood Culture - Preliminary NO GROWTH OBTAINED AFTER 24 HOURS, INCUBATION TO CONTINUE FOR 4 DAYS. 11/04/17 10:30 Blood - Central Line Blood Culture - Preliminary NO GROWTH OBTAINED AFTER 24 HOURS, INCUBATION TO CONTINUE FOR 4 DAYS. Laboratory Tests 11/06/17 11/06/17 06:30 06:30 WBC 7.9 Hgb 10.5 L Hct 31.4 L Plt Count 462 H D BUN 10 Assessment CRE bacteremia on therapy Repeat blood cultures no growth [facility]i still pending PLan Would finish another 24-48 hours of treatment antibiotic
[2017-11-06] MEDS ORDERED: INSULIN (NOVOLOG) ASPART 100 UNITS/ML 10ML VIAL SQ SCH (12:00)
--- NOTE | 2017-11-06 12:59 | PN ---
Physical Exam: SUBJECTIVE: Patient seen and examined at the bedside. Asking to go home, in no acute distress. Denies nausea, denies shortness of breath. OBJECTIVE: Received 2 humalog vials from patient's home pharmacy, [facility] Humalog re-filled on her home insulin pump witnessed by primary RN 2 vials are in patient's personal belongings to be given to pt on discharge Vital Signs Period Temp Pulse Resp BP Sys/Quinn Pulse Ox Last 24 Hr 98 F-98.2 F 82-100 18-20 118-147/62-86 100 GENERAL: The patient is awake, alert, and fully oriented, in no acute distress. HEAD: Normal with no signs of trauma. EYES: PERRL, extraocular movements intact, sclera anicteric, conjunctiva clear. No ptosis. ENT: Ears normal, nares patent, oropharynx clear without exudates, moist mucous membranes. NECK: Trachea midline, full range of motion, supple. LUNGS: Breath sounds equal, clear to auscultation bilaterally, no wheezes, no crackles, no accessory muscle use. HEART: Regular rate and rhythm, S1, S2 without murmur, rub or gallop. ABDOMEN: Soft, nontender, nondistended, normoactive bowel sounds, no guarding, no rebound, no hepatosplenomegaly, no masses. EXTREMITIES: 2+ pulses, warm, well-perfused, no edema. NEUROLOGICAL: Normal speech, gait not observed. PSYCH: Normal mood, normal affect. SKIN: Warm, dry, normal turgor, no rashes or lesions noted 11/03/17 11/05/17 11/05/17 21:22 06:13 14:53 WBC RBC Hgb Hct MCV MCH MCHC RDW Plt Count MPV Neutrophils % Lymphocytes % Monocytes % Eosinophils % Basophils % Sodium Potassium Chloride Carbon Dioxide Anion Gap BUN Creatinine Creat Clearance w eGFR POC Glucometer 478 415 47 Random Glucose Calcium Magnesium Total Bilirubin AST ALT Alkaline Phosphatase Total Protein Albumin 11/05/17 11/05/17 11/05/17 15:37 17:47 22:02 WBC RBC Hgb Hct MCV MCH MCHC RDW Plt Count MPV Neutrophils % Lymphocytes % Monocytes % Eosinophils % Basophils % Sodium Potassium Chloride Carbon Dioxide Anion Gap BUN Creatinine Creat Clearance w eGFR POC Glucometer 143 370 331 Random Glucose Calcium Magnesium Total Bilirubin AST ALT Alkaline Phosphatase Total Protein Albumin 0211/06/17 11/06/17 02:07 06:30 06:30 WBC 7.9 RBC 3.36 L Hgb 10.5 L Hct 31.4 L MCV 93.6 MCH 31.1 MCHC 33.3 RDW 12.8 Plt Count 462 H D MPV 7.6 Neutrophils % 51.1 Lymphocytes % 40.5 H Monocytes % 6.7 Eosinophils % 1.2 Basophils % 0.5 Sodium 135 L Potassium 4.4 Chloride 101 Carbon Dioxide 27 Anion Gap 7 L BUN 10 Creatinine 0.9 Creat Clearance w eGFR > 60 POC Glucometer 308 Random Glucose 323 H* Calcium 8.3 L Magnesium 1.9 Total Bilirubin 0.3 D AST 10 L ALT 11 L Alkaline Phosphatase 159 H Total Protein 6.3 L Albumin 2.4 L 11/06/17 11/06/17 06:36 10:24 WBC RBC Hgb Hct MCV MCH MCHC RDW Plt Count MPV Neutrophils % Lymphocytes % Monocytes % Eosinophils % Basophils % Sodium Potassium Chloride Carbon Dioxide Anion Gap BUN Creatinine Creat Clearance w eGFR POC Glucometer 315 215 Random Glucose Calcium Magnesium Total Bilirubin AST ALT Alkaline Phosphatase Total Protein Albumin Active Medications Generic Name Dose Route Start Last Admin Trade Name Freq PRN Reason Stop Dose Admin Diphenhydramine HCl 25 mg 10/29/17 21:15 11/06/17 10:30 Benadryl - PO Not Given Q6H SAYDA Fondaparinux 2.5 mg 11/02/17 10:00 11/06/17 10:30 Arixtra (Restricted) - SQ 2.5 mg DAILY [facility]AYDA Administration Ceftazidime/Avibactam 2.5 gm/ 250 mls @ 125 mls/hr 11/05/17 00:00 11/06/17 09 :00 Sodium Chloride IVPB 125 mls/hr Q8H SAYDA Administration Insulin Aspart 2 units 11/06/17 12:00 Novolog Vial SQ 1200 SAYDA Insulin Aspart 2 units 11/05/17 17:00 11/06/17 06:41 Novolog Vial SQ 2 units BID@0700,1700 SAYDA Administration Insulin Aspart 1 vial 11/06/17 05:02 11/06/17 10:30 Novolog Vial Sliding Scale - SQ 4 units Q4HPO [facility]DA Administration Protocol ASSESSMENT/PLAN: Patient is a 27 year old female with a significant past medical history of recent via c section on 10/14/2017. She states her infant is currently at [facility] NICU. Her other medical history includes anemia, diabetes mellitus (on insulin pump placed 2017), peripheral neuropathy. She presented to the ED with hyperglycemia, fevers, diffused back pain. Her abdominal wound s/p c section with no drainage, well healed. ID: Severe Sepsis/Gram negative neville bacteremia, resolved Tachycardia, Fevers, Leukocytosis present on admission, now resolved Source of infection likely Central Line (PICC Line-double lumen right arm) which has been removed WBC wnl, no fevers Blood cultures negative, as per ID, will treat for another 72 hours and likely stop antbx therapy On Ceftazidime/Avibactam 2.5mg per ID Cleared for discharge today by ID, no further antibiotics Patient to follow up with her PCP Endocrine Diabetes, chronic Insulin pump on admission (Humalog), pump filled today as pt pharmacy delivered humlog, to continue insulin pump Chronic Back Pain, resolved Disposition: full code. Cleared by ID for discharge. Visit type - Emergency Visit Emergency Visit: Yes ED Registration Date: 10/29/17 Care time: The patient presented to the Emergency Department on the above date and was hospitalized for further evaluation of their emergent condition. - New Patient This patient is new to me today: No - Critical Care Critical Care patient: No - Discharge Referral Referred to [facility] Med P.C.: No
[2017-11-06] MEDS: SODIUM CHLORIDE 1,000 ML IV SCH (13:42)
[2017-11-07] MEDS: CEFTAZIDIME/AVIBACTAM 2.5 GM in SODIUM CHLORIDE 250 ML IVPB SCH ×2 (00:36→07:58)
[2017-11-07] MEDS: INSULIN SLIDING SCALE (NOVOLOG) 1 VIAL SQ SCH ×4 (02:10→14:16)
[2017-11-07] MEDS: diphenhydrAMINE HCL 25 MG CAPSULE (FP) PO SCH ×3 (03:20→15:01)
[2017-11-07 07:33] LABS: BASO % 0.4 % (0-2.0); EOS % 1.1 % (0-4.5); HEMATOCRIT 31.9 % (32.4-45.2); HEMOGLOBIN 10.7 GM/dL (10.7-15.3); LYMPH % 42.6 % (8-40); MCH 31.6 pg (25.7-33.7); MCHC 33.7 g/dl (32.0-36.0); MEAN CELL VOLUME 93.8 fl (80-96); MEAN PLT VOLUME 7.2 fl (7.5-11.1); MONO % 6.7 % (3.8-10.2); NEUT % 49.2 % (42.8-82.8); PLATELET COUNT 510 K/MM3 (134-434); RDW 12.7 % (11.6-15.6); WHITE BLOOD COUNT 8.7 K/mm3 (4.0-10.0)
[2017-11-07] MEDS ORDERED: PT OWN MED DRAWER 7, Y5N ONE ×2 (07:56→13:05)
[2017-11-07 08:34] LABS: ALBUMIN 2.5 g/dl (3.4-5.0); ANION GAP 11 (8-16); BILIRUBIN,TOTAL 0.2 mg/dL (0.2-1.0); BLOOD UREA NITROGEN 8 mg/dL (7-18); CALCIUM 9.1 mg/dL (8.5-10.1); CHLORIDE 100 mmol/L (98-107); CO2 27 mmol/L (21-32); CREATININE 0.8 mg/dL (0.55-1.02); GLUCOSE,RANDOM 189 mg/dL (74-106); MAGNESIUM 1.8 mg/dL (1.8-2.4); POTASSIUM 4.2 mmol/L (3.5-5.1); SGOT/AST 14 U/L (15-37); SGPT/ALT 12 U/L (12-78); SODIUM 138 mmol/L (136-145)
[2017-11-07 08:35] LABS: ALK PHOS 158 U/L (45-117); TOT PROT 6.8 g/dl (6.4-8.2)
[2017-11-07] MEDS: FONDAPARINUX SODIUM 2.5 MG/0.5 ML DISP.SYRIN SQ SCH (10:04)
[2017-11-07 11:05] VITALS: TEMP 97.8
--- NOTE | 2017-11-07 12:02 | DS ---
Physical Exam: SUBJECTIVE: Patient seen and examined at the bedside. Feels well, denies any pain or shortness of breath. OBJECTIVE: Received 2 humalog vials from patient's home pharmacy, [facility] Humalog re-filled on her home insulin pump witnessed by primary RN 2 vials are in patient's personal belongings to be given to pt on discharge Vital Signs Period Temp Pulse Resp BP Sys/Quinn Pulse Ox Last 24 Hr 97.8 F-98.8 F 60-100 18-20 124-160/76-94 98-100 PHYSICAL EXAM GENERAL: The patient is awake, alert, and fully oriented, in no acute distress. HEAD: Normal with no signs of trauma. EYES: PERRL, extraocular movements intact, sclera anicteric, conjunctiva clear. No ptosis. ENT: Ears normal, nares patent, oropharynx clear without exudates, moist mucous membranes. NECK: Trachea midline, full range of motion, supple. LUNGS: Breath sounds equal, clear to auscultation bilaterally, no wheezes, no crackles, no accessory muscle use. HEART: Regular rate and rhythm, S1, S2 without murmur, rub or gallop. ABDOMEN: Soft, nontender, nondistended, normoactive bowel sounds, no guarding, no rebound, no hepatosplenomegaly, no masses. EXTREMITIES: 2+ pulses, warm, well-perfused, no edema. NEUROLOGICAL: Normal speech, gait not observed. PSYCH: Normal mood, normal affect. SKIN: Warm, dry, normal turgor, no rashes or lesions noted LABS Laboratory Results - last 24 hr 11/06/17 11/06/17 11/06/17 13:36 16:24 22:07 WBC RBC Hgb Hct MCV MCH MCHC RDW Plt Count MPV Neutrophils % Lymphocytes % Monocytes % Eosinophils % Basophils % Sodium Potassium Chloride Carbon Dioxide Anion Gap BUN Creatinine Creat Clearance w eGFR POC Glucometer 272 217 393 Random Glucose Calcium Magnesium Total Bilirubin AST ALT Alkaline Phosphatase Total Protein Albumin 11/07/17 11/07/17 11/07/17 06:00 06:00 06:03 WBC 8.7 RBC 3.40 L Hgb 10.7 Hct 31.9 L MCV 93.8 MCH 31.6 MCHC 33.7 RDW 12.7 Plt Count 510 H MPV 7.2 L Neutrophils % 49.2 Lymphocytes % 42.6 H Monocytes % 6.7 Eosinophils % 1.1 Basophils % 0.4 Sodium 138 Potassium 4.2 Chloride 100 Carbon Dioxide 27 Anion Gap 11 BUN 8 Creatinine 0.8 Creat Clearance w eGFR > 60 POC Glucometer 194 Random Glucose 189 H Calcium 9.1 Magnesium 1.8 Total Bilirubin 0.2 D AST 14 L ALT 12 Alkaline Phosphatase 158 H Total Protein 6.8 Albumin 2.5 L 11/07/17 10:06 WBC RBC Hgb Hct MCV MCH MCHC RDW Plt Count MPV Neutrophils % Lymphocytes % Monocytes % Eosinophils % Basophils % Sodium Potassium Chloride Carbon Dioxide Anion Gap BUN Creatinine Creat Clearance w eGFR POC Glucometer 434 Random Glucose Calcium Magnesium Total Bilirubin AST ALT Alkaline Phosphatase Total Protein Albumin HOSPITAL COURSE: Date of Admission:10/29/17 Date of Discharge: 11/07/17 ASSESSMENT/PLAN: Patient is a 27 year old female with a significant past medical history of recent via c section on 10/14/2017. She states her is currently at [facility] NICU. Her other medical history includes anemia, diabetes mellitus (on insulin pump placed 2016), peripheral neuropathy. She presented to the ED with hyperglycemia, fevers, diffused back pain. Her abdominal wound s/p c section with no drainage, well healed. ID: Severe Sepsis/Gram negative neville bacteremia, resolved Tachycardia, Fevers, Leukocytosis present on admission, now resolved Source of infection likely Central Line (PICC Line-double lumen right arm) which has been removed WBC wnl, no fevers Blood cultures negative, as per ID, will treat for another 72 hours and likely stop antbx therapy On Ceftazidime/Avibactam 2.5mg per ID Cleared for discharge today by ID, no further antibiotics Patient to follow up with her PCP Endocrine Diabetes, chronic Insulin pump on admission (Humalog), pump filled today as pt pharmacy delivered humlog, to continue insulin pump Chronic Back Pain, resolved Disposition: full code. Cleared by ID for discharge. Minutes to complete discharge: 60 Discharge Summary Reason For Visit: INSULIN DEPENDENT DM/HYPERGLYCEMIA/SIRS Current Active Problems Hyperglycemia (Acute) SIRS (systemic inflammatory response syndrome) (Acute) IDDM (insulin dependent diabetes mellitus) (Chronic) Condition: Stable - Instructions Diet, Activity, Other Instructions: Mrs Cooper: You were admitted to [facility] on 10/29/2017 for an infection and you were treated with a full course of IV antibiotics. No further antibiotics needed. Please see your primary care doctor within 3-5 days after discharge. Please let me know if we can assist you further. Thank you for allowing us to care for you. Good luck with your new daughter. PEPE Lennon Alexi @ [facility] [phone] Referrals: Yancy Zeng MD [Primary Care Provider] - Disposition: HOME - Home Medications Comprehensive Discharge Medication List: Ambulatory Orders Insulin Lispro [Humalog] 0 unit SQ DAILY 09/28/16 Insulin Glargine,Hum.rec.anlog [Lantus (10mL VIAL) -] 10 units SQ BID 01/27/17 Insulin Lispro [Humalog] 100 unit SQ ACHS #1 vial 11/04/17 Insulin Lispro [Humalog] 200 unit SQ ACHS #2 vial 11/04/17 This patient is new to me today: No Emergency Visit: Yes ED Registration Date: 10/29/17 Care time: The patient presented to the Emergency Department on the above date and was hospitalized for further evaluation of their emergent condition. Critical Care patient: No - Discharge Referral Referred to [facility] Med P.C.: No
[2017-11-07 14:11] VITALS: BP 129/91; PULSE 101
== END 2017-11-07 16:34 | disposition home or self-care (01) | DRG 561 ==
LOC: JER 03:14 → JERBED 10:41 → OBSVTOIN 17:43 → J7W 23:50
PROVIDERS: ADMIT Internal Medicine; ATTEND Nurse Practitioner Family
PROC: 02PYX3Z Removal of Infusion Device from Great Vessel, External Approach (ICD-10-PCS; principal; 2017-11-02)
DX: O86.12 Endometritis following delivery (principal); O85 Puerperal sepsis; N17.9 Acute kidney failure, unspecified; E87.2 Acidosis; R00.0 Tachycardia, unspecified; O86.0 Infection of obstetric surgical wound; R65.20 Severe sepsis without septic shock; O86.21 Infection of kidney following delivery; E11.9 Type 2 diabetes mellitus without complications; Z79.4 Long term (current) use of insulin; N83.201 Unspecified ovarian cyst, right side; R16.0 Hepatomegaly, not elsewhere classified; E83.42 Hypomagnesemia
CPT/HCPCS: 36415; 36556; 71045-TC-FY; 74177-TC; 77001-TC-FY; 80053; 81003; 81015; 82009; 82962; 83605; 83735; 84100; 85025; 85027; 85610; 85730; 86140; 87040; 87070; 87075; 87081; 87086; 87186; 87205; 93005; 93010; 93306-TC; 99285-25; C1751; G0378; J3243

== ENCOUNTER 2018-04-05 19:50 | Emergency (ER) | payer OTHER ==
[2018-04-05 19:59] VITALS: BMI 25.7
--- NOTE | 2018-04-05 20:22 | PDOC ---
Attending Attestation - Resident Resident Name: Rocky Walden - ED Attending Attestation I have performed the following: I have examined & evaluated the patient, The case was reviewed & discussed with the resident, I agree w/resident's findings & plan, Exceptions are as noted - HPI HPI: 04/05/18 20:21 Pt c/o leg soreness for one day. Requesting Benadryl - Physicial Exam PE: 04/05/18 20:22 *Physical Exam General Appearance: Yes: Appropriately Dressed. No: Apparent Distress, Intoxicated HEENT: positive: EOMI, CHRISTI, Normal ENT Inspection, Normal Voice, TMs Normal, Pharynx Normal. negative: Pale Conjunctivae, Photophobia, Scleral Icterus (R), Scleral Icterus (L) Neck: positive: Trachea midline, Normal Thyroid, Supple. negative: Tender, Rigid, Carotid bruit, Stridor, Lymphadenopathy (R), Lymphadenopathy (L), Thyromegaly Respiratory/Chest: positive: Lungs Clear, Normal Breath Sounds. negative: Chest Tender, Respiratory Distress, Accessory Muscle Use, Labored Respiration, RES, Crackles, Rales, Rhonchi, Stridor, Wheezing, Dullness Cardiovascular: positive: Regular Rhythm, Regular Rate, S1, S2. negative: Edema , JVD, Murmur, Bradycardia, Tachycardia Vascular Pulses: Dorsalis-Pedis (R): 2+, Doralis-Pedis (L): 2+ Gastrointestinal/Abdominal: positive: Normal Bowel Sounds, Flat, Soft. negative : Tender, Organomegaly, Pulsatile Mass, Increased Bowel Sounds, Decreased BS, Distended, Guarding, Rebound, Hernia, Hepatomegaly, Spleenomegaly Lymphatic: negative: Adenopathy, Tenderness Musculoskeletal: positive: Normal Inspection. negative: CVA Tenderness, Decreased Range of Motion Extremity: positive: Normal Capillary Refill, Normal Inspection, Normal Range of Motion, Pelvis Stable. negative: Tender, Pedal Edema, Swelling, Erythema Integumentary: positive: Normal Color, Dry, Warm. negative: Cyanotic, Erythema , Jaundice, Rash Neurologic: positive: night worker II-XII NML intact, Fully Oriented, Alert, Normal Mood/ Affect, Motor Strength 5/5. negative: EOM Palsy, Facial Droop, Sensory Deficit - Medical Decision Making 04/05/18 20:22 Pt treated and released <Ruddy Barrios - Last Filed: 04/05/18 20:46> - HPI HPI: The patient is a 27 year old female, with a significant past medical history of DMTI (insulin pump in place), peripheral neuropathy (wheelchair bound in the past currently undergoing PT complicated with chronic pain, CVA (a year ago) , and anemia, who presents to the emergency department with, bilateral leg pain after working out. She describes her pain as localized to her hamstring and quadriceps. The patient reports she is allergic to Ibuprofen, Tylenol, Morphine , and Dilaudid. She reports taking Gabapentin in the past, without relief. She states the only thing which works for her pain is Benadryl. She reports that she had a DVT ultrasound at [facility]. Her last negative ultrasound at this facility was 03/16. She denies recent nausea, vomit, diarrhea or constipation. She denies recent chest pain or shortness of breath. Social history: Nonsmoker. Denies EtOH use and recreational drug use. Primary Care Physician: Dr. Zeng <Aries Mcpherson - Last Filed: 04/05/18 21:05> Attestations - Attestations 04/05/18 20:58 Documentation prepared by Aries Mcpherson, acting as biomedical engineering professor for Ruddy Barrios DO. <Aries Mcpherson - Last Filed: 04/05/18 21:05>
--- NOTE | 2018-04-05 20:23 | PDOC ---
History of Present Illness - General Stated Complaint: LEG PAIN Time Seen by Provider: 04/05/18 20:00 History Source: Patient Exam Limitations: No Limitations - History of Present Illness Initial Comments: 04/05/18 20:22 Patient is a 27F with a history of T1DM (on insulin pump), neuropathy, stroke 5 years ago, asthma, and chronic leg pain where she requests benadryl here today complaining of bilateral leg pain that she describes in her quadriceps and posterior leg as a tight. The patient thinks that she has pulled a muscle. The patient states that she's allergic to ibuprofen, tylenol, morphine and dilaudid. She states that she tried gabapentin, but it does not work. The patient states that the only thing that works for her pain is benadryl. Patient states that she's had a negative dvt ultrasound at [facility]. Patient had negative US here at 03/16. Patient states that her sugar has been under control with her pump. Denies chest pain, shortness of breath, fevers and chills. Patient does complain of rhinorrhea and is asking for a prescription for her cold. Past History - Past Medical History Allergies/Adverse Reactions: Allergies Allergy/AdvReac Type Severity Reaction Status Date / Time acetaminophen [From Tylenol] Allergy Swelling Verified 04/05/18 19:58 chlorhexidine Allergy Verified 04/05/18 19:58 [From Hibiclens] gentamicin Allergy Verified 04/05/18 19:58 heparin Allergy Verified 04/05/18 19:58 ibuprofen [From Motrin] Allergy Swelling Verified 04/05/18 19:58 morphine Allergy Verified 04/05/18 19:58 Home Medications: Ambulatory Orders Insulin Lispro [Humalog] 0 unit SQ DAILY 09/28/16 Anemia: Yes Asthma: Yes Cancer: No Cardiac Disorders: Yes (heart murmur) CVA: Yes (2012) COPD: No CHF: No Dementia: No Diabetes: Yes GI Disorders: Yes Disorders: No HTN: Yes Hypercholesterolemia: No Liver Disease: Yes (Hepatomegaly) Seizures: No Thyroid Disease: No - Surgical History Abdominal Surgery: Yes () Appendectomy: Yes (2008) Cardiac Surgery: No Cholecystectomy: No Lung Surgery: No Neurologic Surgery: No Orthopedic Surgery: No - Reproductive History (#): 3 Para: 0 Cervical CA: No Dysfunctional Uterine Bleeding: No Ectopic : No Endometrial CA: No Polycystic Ovaries: No Therapeutic (s) & number: No Tubal Ligation: No Spontaneous : 3 - Immunization History Immunization Up to Date: Yes - Suicide/Smoking/Psychosocial Hx Smoking Status: No Smoking History: Never smoked Have you smoked in the past 12 months: No Number of Cigarettes Smoked Daily: 0 Cigars Per Day: 0 Information on smoking cessation initiated: No Hx Alcohol Use: No Drug/Substance Use Hx: No Substance Use Type: None Hx Substance Use Treatment: No Review of Systems - Review of Systems Comments:: 04/05/18 20:30 GENERAL/CONSTITUTIONAL: No fever or chills. No weakness. HEAD, EYES, EARS, NOSE AND THROAT: No change in vision. No sore throat. CARDIOVASCULAR: No chest pain or shortness of breath RESPIRATORY: No cough, wheezing, or hemoptysis. GASTROINTESTINAL: No nausea, vomiting, diarrhea or constipation. GENITOURINARY: No dysuria, frequency, or change in urination. MUSCULOSKELETAL: No joint pain. +leg muscle pain. No neck or back pain. SKIN: No rash NEUROLOGIC: No headache, vertigo, loss of consciousness, or change in strength/ sensation. ENDOCRINE: No increased thirst. No abnormal weight change HEMATOLOGIC/LYMPHATIC: No anemia, easy bleeding, or history of blood clots. ALLERGIC/IMMUNOLOGIC: No hives or skin allergy. *Physical Exam - Vital Signs Last Vital Signs Temp Pulse Resp BP Pulse Ox 98.8 F 104 H 20 128/86 99 04/05/18 19:58 04/05/18 19:58 04/05/18 19:58 04/05/18 19:58 04/05/18 19:58 - Physical Exam Comments: 04/05/18 20:30 GENERAL: Awake, alert, and fully oriented, in no acute distress HEAD: No signs of trauma, normocephalic, atraumatic EYES: PERRLA, EOMI, sclera anicteric, conjunctiva clear ENT: Auricles normal inspection, hearing grossly normal, nares patent, oropharynx clear without exudates. Moist mucosa NECK: Normal ROM, supple, no lymphadenopathy, JVD, or masses LUNGS: No distress, speaks full sentences, clear to auscultation bilaterally HEART: Regular rate and rhythm, normal S1 and S2, no murmurs, rubs or gallops, peripheral pulses normal and equal bilaterally. ABDOMEN: Soft, nontender, normoactive bowel sounds. No guarding, no rebound. No masses EXTREMITIES: Normal inspection, Normal range of motion, no edema. No clubbing or cyanosis. Tender in thigh and calve muscles. NEUROLOGICAL: Cranial nerves II through XII grossly intact. Normal speech, no focal sensorimotor deficits SKIN: Warm, Dry, normal turgor, no rashes or lesions noted. Medical Decision Making - Medical Decision Making 04/05/18 20:31 Patient is 27F with history of T1DM, neuropathy, stroke, asthma and leg pain here today with leg pain. Exam unremarkable. Patient tachycardic in triage but not during my exam. Legs mildly tender, patient requesting benadryl. Given IM due to patient stating that the patient cannot take PO. Will give benadryl and discharge. 04/05/18 20:55 Leg pain improved, pain around injection site. Will discharge home. *DC/Admit/Observation/Transfer Diagnosis at time of Disposition: Leg pain, bilateral - Discharge Dispostion Disposition: HOME Condition at time of disposition: Good Decision to Admit order: No - Referrals Referrals: Yancy Zeng MD [Primary Care Provider] - - Patient Instructions Printed Discharge Instructions: DI for Leg Pain Additional Instructions: Please return if you have any new, worsening or concerning symptoms. Please follow up with your primary care provider regarding your leg pain. - Post Discharge Activity
[2018-04-05 21:52] VITALS: BP 126/72; PULSE 87; TEMP 98.4
== END 2018-04-05 21:45 | disposition home or self-care (01) ==
LOC: JER 19:50
DX: M79.604 Pain in right leg (principal); M79.605 Pain in left leg; G62.9 Polyneuropathy, unspecified; E10.9 Type 1 diabetes mellitus without complications; Z79.4 Long term (current) use of insulin; Z96.41 Presence of insulin pump (external) (internal); I10 Essential (primary) hypertension; R16.0 Hepatomegaly, not elsewhere classified; Z99.3 Dependence on wheelchair; Z86.73 Personal history of transient ischemic attack (TIA), and cerebral infarction without residual deficits; Z86.2 Personal history of diseases of the blood and blood-forming organs and certain disorders involving the immune mechanism; Z88.8 Allergy status to other drugs, medicaments and biological substances
CPT/HCPCS: 99282-25

== ENCOUNTER 2018-11-06 14:24 | Emergency (ER) | payer OTHER ==
[2018-11-06 14:39] VITALS: BP 170/65; PULSE 78; TEMP 97; BMI 31.1
--- NOTE | 2018-11-06 14:48 | PDOC ---
History of Present Illness - History of Present Illness Initial Comments: 11/06/18 14:47 25 yo F IDDM, DKA, who chest pain. Patient reports 3-4 days of sharp, pleuritic right sided chest pain, occurring intermittently, and resolving spontaneously.Now unremitting x 1 day. Worse with deep inhalation, movement, lifting, and touch. Denies recent repetitive movement, or trauma to right sided chest. Also endorses 2 days of nausea without vomiting. + Dry non productive cough x 2 days. Reports h/o similar pain. Recent sick contacts include spouse with URI type illness. Patient denies CALVILLO, vision change, F,C, Palpitations, leg pain/swelling, urinary complaints, abdominal pain, diarrhea, constipation, BPR, hematuria, lightheadedness, weakness, sensory changes. PMHx: as noted above. Denies h/o ACS/OH, PE/DVT. Does not f/w GI or cardiology ROS: as noted SHx: Denies Etoh, IVDA, tobacco use Allergies: Tylenol, Heparin, Morphine, Ibuprofen <Paul Avina - Last Filed: 11/06/18 19:31> <David Mendez - Last Filed: 11/06/18 20:35> - General Chief Complaint: Chest Pain Stated Complaint: CHEST PAIN Time Seen by Provider: 11/06/18 14:44 Past History - Past Medical History Anemia: Yes Asthma: Yes Cancer: No Cardiac Disorders: Yes (heart murmur) CVA: Yes (2012) COPD: No CHF: No Dementia: No Diabetes: Yes GI Disorders: Yes Disorders: No HTN: Yes Hypercholesterolemia: No Liver Disease: Yes (Hepatomegaly) Seizures: No Thyroid Disease: No - Surgical History Abdominal Surgery: Yes () Appendectomy: Yes (2008) Cardiac Surgery: No Cholecystectomy: No Lung Surgery: No Neurologic Surgery: No Orthopedic Surgery: No - Reproductive History (#): 3 Para: 0 Cervical CA: No Dysfunctional Uterine Bleeding: No Ectopic : No Endometrial CA: No Polycystic Ovaries: No Therapeutic (s) & number: No Tubal Ligation: No Spontaneous : 3 - Immunization History Immunization Up to Date: Yes - Suicide/Smoking/Psychosocial Hx Smoking Status: No Smoking History: Never smoked Have you smoked in the past 12 months: No Number of Cigarettes Smoked Daily: 0 Cigars Per Day: 0 Information on smoking cessation initiated: No Hx Alcohol Use: No Drug/Substance Use Hx: No Substance Use Type: None Hx Substance Use Treatment: No <Paul Avina - Last Filed: 11/06/18 19:31> <David Mendez - Last Filed: 11/06/18 20:35> - Past Medical History Allergies/Adverse Reactions: Allergies Allergy/AdvReac Type Severity Reaction Status Date / Time acetaminophen [From Tylenol] Allergy Swelling Verified 11/06/18 18:50 chlorhexidine Allergy Verified 11/06/18 18:50 [From Hibiclens] gentamicin Allergy Verified 11/06/18 18:50 heparin Allergy Verified 11/06/18 18:50 ibuprofen [From Motrin] Allergy Swelling Verified 11/06/18 18:50 morphine Allergy Verified 11/06/18 18:50 Home Medications: Ambulatory Orders Insulin Lispro [Humalog] 0 unit SQ DAILY 09/28/16 Review of Systems - Review of Systems Comments:: 11/06/18 14:48 GENERAL/CONSTITUTIONAL: No fever or chills. No weakness. HEAD, EYES, EARS, NOSE AND THROAT: No change in vision. No ear pain or discharge. No sore throat. CARDIOVASCULAR: + chest pain. No shortness of breath RESPIRATORY: No cough, wheezing, or hemoptysis. GASTROINTESTINAL: +nausea. No vomiting, diarrhea or constipation. GENITOURINARY: No dysuria, frequency, or change in urination. MUSCULOSKELETAL: No joint or muscle swelling or pain. No neck or back pain. SKIN: No rash NEUROLOGIC: No headache, vertigo, loss of consciousness, or change in strength/ sensation. ENDOCRINE: No increased thirst. No abnormal weight change HEMATOLOGIC/LYMPHATIC: No anemia, easy bleeding, or history of blood clots. ALLERGIC/IMMUNOLOGIC: No hives or skin allergy. <Paul Avina - Last Filed: 11/06/18 19:31> *Physical Exam - Vital Signs Last Vital Signs Temp Pulse Resp BP Pulse Ox 97 F L 78 16 170/65 100 11/06/18 14:25 11/06/18 14:25 11/06/18 14:25 11/06/18 14:25 11/06/18 14:25 - Physical Exam Comments: 11/06/18 14:48 GENERAL: Awake, alert, and fully oriented, in no acute distress HEAD: No signs of trauma, normocephalic, atraumatic EYES: PERRLA, EOMI, sclera anicteric, conjunctiva clear ENT: Auricles normal inspection, hearing grossly normal, nares patent, oropharynx clear without exudates. Moist mucosa NECK: Normal ROM, supple, no lymphadenopathy, JVD, or masses LUNGS: No distress, speaks full sentences, clear to auscultation bilaterally HEART: + Reproducible right sided chest wall ttp. Regular rate and rhythm, normal S1 and S2, no murmurs, rubs or gallops, peripheral pulses normal and equal bilaterally. ABDOMEN: + Epigastria ttp. Soft, NDS, normoactive bowel sounds. No guarding, no rebound. No masses EXTREMITIES : Normal inspection, Normal range of motion, no edema. No clubbing or cyanosis. NEUROLOGICAL: Cranial nerves II through XII grossly intact. Normal speech, normal gait, no focal sensorimotor deficits SKIN: Warm, Dry, normal turgor, no rashes or lesions noted <Paul Avina - Last Filed: 11/06/18 19:31> - Vital Signs Last Vital Signs Temp Pulse Resp BP Pulse Ox 97 F L 78 16 170/65 100 11/06/18 14:25 11/06/18 14:25 11/06/18 14:25 11/06/18 14:25 11/06/18 14:25 <David Mendez - Last Filed: 11/06/18 20:35> Moderate Sedation - Procedure Monitoring Vital Signs: Procedure Monitoring Vital Signs Temperature 97 F L 11/06/18 14:25 Pulse Rate 78 11/06/18 14:25 Respiratory Rate 16 11/06/18 14:25 Blood Pressure 170/65 11/06/18 14:25 O2 Sat by Pulse Oximetry (%) 100 11/06/18 14:25 <Paul Avina - Last Filed: 11/06/18 19:31> - Procedure Monitoring Vital Signs: Procedure Monitoring Vital Signs Temperature 97 F L 11/06/18 14:25 Pulse Rate 78 11/06/18 14:25 Respiratory Rate 16 11/06/18 14:25 Blood Pressure 170/65 11/06/18 14:25 O2 Sat by Pulse Oximetry (%) 100 11/06/18 14:25 <David Mendez - Last Filed: 11/06/18 20:35> ED Treatment Course - LABORATORY CBC & Chemistry Diagram: 11/06/18 15:45 11/06/18 16:43 <Paul Avina - Last Filed: 11/06/18 19:31> - LABORATORY CBC & Chemistry Diagram: 11/06/18 15:45 11/06/18 16:43 - ADDITIONAL ORDERS Additional order review: Laboratory Results 11/06/18 11/06/18 11/06/18 17:23 16:43 16:43 Sodium 138 Potassium 4.1 Chloride 107 Carbon Dioxide 24 Anion Gap 8 BUN 13 Creatinine 1.1 Creat Clearance w eGFR > 60 Random Glucose 198 H Calcium 8.4 L Total Bilirubin 0.2 AST 12 L ALT 18 Alkaline Phosphatase 157 H Creatine Kinase Cancelled 80 Troponin I Cancelled < 0.02 Total Protein 7.7 Albumin 3.6 Lipase 49 L Beta HCG, Quant 3148.2 Serum , Qual 11/06/18 11/06/18 11/06/18 16:43 15:45 15:45 Sodium Cancelled Potassium Cancelled Chloride Cancelled Carbon Dioxide Cancelled Anion Gap Cancelled BUN Cancelled Creatinine Cancelled Creat Clearance w eGFR Cancelled Random Glucose Cancelled Calcium Cancelled Total Bilirubin Cancelled AST Cancelled ALT Cancelled Alkaline Phosphatase Cancelled Creatine Kinase Cancelled Troponin I Cancelled Total Protein Cancelled Albumin Cancelled Lipase Cancelled Cancelled Beta HCG, Quant Serum , Qual Positive 11/06/18 11/06/18 15:45 15:45 Sodium Potassium Chloride Carbon Dioxide Anion Gap BUN Creatinine Creat Clearance w eGFR Random Glucose Calcium Total Bilirubin AST ALT Alkaline Phosphatase Creatine Kinase Cancelled Troponin I Cancelled Total Protein Albumin Lipase Beta HCG, Quant Serum , Qual Cancelled 11/06/18 15:45 RBC 4.36 MCV 92.5 MCHC 35.1 RDW 13.0 MPV 9.4 D Neutrophils % 56.4 Lymphocytes % 35.6 Monocytes % 5.0 Eosinophils % 2.3 D Basophils % 0.7 - Medications Given in the ED: ED Medications Discontinued Medications Generic Name Dose Route Start Last Admin Trade Name Freq PRN Reason Stop Dose Admin Diphenhydramine HCl 25 mg 11/06/18 15:04 11/06/18 16:00 Benadryl Injection - IVPUSH 11/06/18 15:05 25 mg ONCE ONE Administration Ondansetron HCl 4 mg 11/06/18 15:04 11/06/18 16:00 Zofran Injection IVPUSH 11/06/18 15:05 4 mg ONCE ONE Administration Ondansetron HCl 4 mg 11/06/18 18:16 11/06/18 18:53 Zofran Injection IVPB 11/06/18 18:17 4 mg ONCE ONE Administration <David Mendez - Last Filed: 11/06/18 20:35> Medical Decision Making - Medical Decision Making 11/06/18 15:06 25 yo F with no significant pmh who p/w 3-4 days of sharp, pleuritic right sided chest pain. BP 170/65, vitals otherwise wnl, AF, A&Ox3. Epigastria and R sided chest wall ttp. ACS/OH r/o. PERC Neg PE. Will consider URI, PNA. Possible costochondirits. Ddx also includes gastiritis, pacnreatitis, biliary dz., pericardial effusion, pleural effusion. Provide antiemetic and pain control. Reasses Ed Course: Diphenhydramine 25, Zofran 4 11/06/18 17:20 EKG: NSR with absent OTTONIEL, STD. Normal interval duration and axis CBC: Unremarkable 11/06/18 18:14 CMP: Unremarkable Serum preg + 11/06/18 19:31 Patient endorsed to night team Dr. Mendez. Pending TVUS, BHCG, Trop Pain imrpoved. Tolerating PO intake If labs and U/S nml, patient stable for d/c with return precautions <Paul Avina - Last Filed: 11/06/18 19:31> *DC/Admit/Observation/Transfer - Discharge Dispostion Decision to Admit order: No - Attestations Physician Attestion: 11/06/18 14:48 I attest to the information provided in this note. <Paul Avina - Last Filed: 11/06/18 19:31> - Discharge Dispostion Decision to Admit order: No <David Mendez - Last Filed: 11/06/18 20:35> Diagnosis at time of Disposition: Chest pain Qualifiers: Chest pain type: unspecified Qualified Code(s): R07.9 - Chest pain, unspecified - Discharge Dispostion Disposition: HOME Condition at time of disposition: Stable - Referrals Referrals: Narendra Bhat MD [Staff Physician] - - Patient Instructions Printed Discharge Instructions: DI for Atypical Chest Pain Additional Instructions: Please return to the emergency department with any new or worsening symptoms or concerns. Please follow up with your primary care physician within 72 hours. Please follow up with cardiology within one week.
[2018-11-06] MEDS ORDERED: ONDANSETRON 4 MG/2 ML VIAL IVPUSH ONE (15:04)
[2018-11-06] MEDS ORDERED: ONDANSETRON 4 MG/2 ML VIAL ONE ×2 (15:30→18:49)
--- NOTE | 2018-11-06 15:58 | PDOC ---
Attending Attestation - Resident Resident Name: Paul Avina - ED Attending Attestation I have performed the following: I have examined & evaluated the patient, The case was reviewed & discussed with the resident, I agree w/resident's findings & plan - HPI HPI: 11/06/18 15:56 28-year-old female with history of insulin-dependent diabetes on insulin pump, well known to this institution with history of frequent DKA now presents with 2- 3 days of constant chest pain, sharp and right-sided radiating to the back, worse with any positional change or deep breath. Mild associated dry cough without fevers or chills, no other URI or GI symptoms. She has limited exercise tolerance at baseline from long-standing deconditioning, but denies any exacerbation of her chest pain or dyspnea on exertion. Had chest pain admission about a year ago with normal echo, had nuclear stress about 2 years ago that was normal. No recent DVT or PE risk factors. - Physicial Exam PE: 11/06/18 15:58 Afebrile, vital signs normal, O2 sat normal Well-appearing seated comfortably in stretcher speaking full sentences No JVD Heart is regular without murmur, lungs are clear Abdomen benign No edema or calf tenderness - Medical Decision Making 11/06/18 16:12 placed 28-year-old female with history of insulin-dependent diabetes presents with atypical chest pain that has been persistent for 2 days, diabetes as risk factor otherwise no red flags for ACS, clinically not consistent with PE, less likely infectious. Appears mostly musculoskeletal. Check labs including troponin 2 Chest x-ray, EKG Limited options for pain control We'll reassess, has well-established outpatient care and could consider for prompt outpatient stress testing if initial workup negative Heart Score/ECG Review #1 ECG reviewed & interpreted by me at: 14:41 General ECG Interpretation: Sinus Rhythm, Normal Rate (93), Normal Intervals ( qtc 430), No acute ischemic changes Compared to previous ECG there are: No significant change (/ (tachycardia resolved))
[2018-11-06 16:14] LABS: BASO % 0.7 % (0-2.0); EOS % 2.3 % (0-4.5); HEMATOCRIT 40.4 % (32.4-45.2); HEMOGLOBIN 14.2 GM/dL (10.7-15.3); LYMPH % 35.6 % (8-40); MCH 32.5 pg (25.7-33.7); MCHC 35.1 g/dl (32.0-36.0); MEAN CELL VOLUME 92.5 fl (80-96); NEUT % 56.4 % (42.8-82.8); RBC 4.36 M/mm3 (3.60-5.2); WHITE BLOOD COUNT 11.9 K/mm3 (4.0-10.0)
[2018-11-06 17:58] LABS: ALBUMIN 3.6 g/dl (3.4-5.0); ALK PHOS 157 U/L (45-117); ANION GAP 8 MMOL/L (8-16); BILIRUBIN,TOTAL 0.2 mg/dL (0.2-1); BLOOD UREA NITROGEN 13 mg/dL (7-18); CALCIUM 8.4 mg/dL (8.5-10.1); CHLORIDE 107 mmol/L (98-107); CO2 24 mmol/L (21-32); CREATININE 1.1 mg/dL (0.55-1.3); GLUCOSE,RANDOM 198 mg/dL (74-106); POTASSIUM 4.1 mmol/L (3.5-5.1); SGOT/AST 12 U/L (15-37); SGPT/ALT 18 U/L (13-61); SODIUM 138 mmol/L (136-145); TOT PROT 7.7 g/dl (6.4-8.2)
[2018-11-06 18:14] LABS: MEAN PLT VOLUME 9.4 fl (7.5-11.1); PLATELET COUNT 383 K/MM3 (134-434)
[2018-11-06 18:15] LABS: PLATELET ESTIMATE ADEQUATE
[2018-11-06] MEDS ORDERED: ONDANSETRON 4 MG/2 ML VIAL IVPB ONE (18:16)
--- NOTE | 2018-11-06 19:57 | PDOC ---
*Physical Exam - Vital Signs Last Vital Signs Temp Pulse Resp BP Pulse Ox 97 F L 78 16 170/65 100 11/06/18 14:25 11/06/18 14:25 11/06/18 14:25 11/06/18 14:25 11/06/18 14:25 ED Treatment Course - LABORATORY CBC & Chemistry Diagram: 11/06/18 15:45 11/06/18 16:43 - ADDITIONAL ORDERS Additional order review: Laboratory Results 11/06/18 11/06/18 11/06/18 17:23 16:43 16:43 Sodium 138 Potassium 4.1 Chloride 107 Carbon Dioxide 24 Anion Gap 8 BUN 13 Creatinine 1.1 Creat Clearance w eGFR > 60 Random Glucose 198 H Calcium 8.4 L Total Bilirubin 0.2 AST 12 L ALT 18 Alkaline Phosphatase 157 H Creatine Kinase Cancelled 80 Troponin I Cancelled < 0.02 Total Protein 7.7 Albumin 3.6 Lipase 49 L Beta HCG, Quant 3148.2 Serum , Qual 11/06/18 11/06/18 11/06/18 16:43 15:45 15:45 Sodium Cancelled Potassium Cancelled Chloride Cancelled Carbon Dioxide Cancelled Anion Gap Cancelled BUN Cancelled Creatinine Cancelled Creat Clearance w eGFR Cancelled Random Glucose Cancelled Calcium Cancelled Total Bilirubin Cancelled AST Cancelled ALT Cancelled Alkaline Phosphatase Cancelled Creatine Kinase Cancelled Troponin I Cancelled Total Protein Cancelled Albumin Cancelled Lipase Cancelled Cancelled Beta HCG, Quant Serum , Qual Positive 11/06/18 11/06/18 15:45 15:45 Sodium Potassium Chloride Carbon Dioxide Anion Gap BUN Creatinine Creat Clearance w eGFR Random Glucose Calcium Total Bilirubin AST ALT Alkaline Phosphatase Creatine Kinase Cancelled Troponin I Cancelled Total Protein Albumin Lipase Beta HCG, Quant Serum , Qual Cancelled 11/06/18 15:45 RBC 4.36 MCV 92.5 MCHC 35.1 RDW 13.0 MPV 9.4 D Neutrophils % 56.4 Lymphocytes % 35.6 Monocytes % 5.0 Eosinophils % 2.3 D Basophils % 0.7 - Medications Given in the ED: ED Medications Discontinued Medications Generic Name Dose Route Start Last Admin Trade Name Freq PRN Reason Stop Dose Admin Diphenhydramine HCl 25 mg 11/06/18 15:04 11/06/18 16:00 Benadryl Injection - IVPUSH 11/06/18 15:05 25 mg ONCE ONE Administration Ondansetron HCl 4 mg 11/06/18 15:04 11/06/18 16:00 Zofran Injection IVPUSH 11/06/18 15:05 4 mg ONCE ONE Administration Ondansetron HCl 4 mg 11/06/18 18:16 11/06/18 18:53 Zofran Injection IVPB 11/06/18 18:17 4 mg ONCE ONE Administration Medical Decision Making - Medical Decision Making 11/06/18 19:56 positive preg test, bhcg >3000 [id number] troponin is negative *DC/Admit/Observation/Transfer Diagnosis at time of Disposition: Chest pain Qualifiers: Chest pain type: unspecified Qualified Code(s): R07.9 - Chest pain, unspecified - Discharge Dispostion Condition at time of disposition: Stable - Referrals Referrals: Narendra Bhat MD [Staff Physician] - - Patient Instructions Printed Discharge Instructions: DI for Atypical Chest Pain Additional Instructions: Please return to the emergency department with any new or worsening symptoms or concerns. Please follow up with your primary care physician within 72 hours. Please follow up with cardiology within one week. - Post Discharge Activity
--- NOTE | 2018-11-07 10:44 | EKG ---
Test Reason : Blood Pressure : / mmHG Vent. Rate : 093 BPM Atrial Rate : 093 BPM P-R Int : 142 ms QRS Dur : 088 ms QT Int : 346 ms P-R-T Axes : 044 040 015 degrees QTc Int : 430 ms NORMAL SINUS RHYTHM NORMAL ECG WHEN COMPARED WITH ECG OF 29-OCT-2017 05:32, NO SIGNIFICANT CHANGE WAS FOUND Confirmed by PRISCILLA NARVAEZ MD ([id number]) on 11/07/2018 10:43:59 AM Referred By: Confirmed By:PRISCILLA NARVAEZ MD
== END 2018-11-06 21:41 | disposition home or self-care (01) ==
LOC: JER 14:24
DX: O99.89 Other specified diseases and conditions complicating pregnancy, childbirth and the puerperium (principal); R07.9 Chest pain, unspecified; O24.011 Pre-existing type 1 diabetes mellitus, in pregnancy, first trimester; E10.9 Type 1 diabetes mellitus without complications; Z79.4 Long term (current) use of insulin; O10.911 Unspecified pre-existing hypertension complicating pregnancy, first trimester; Z3A.00 Weeks of gestation of pregnancy not specified
CPT/HCPCS: 36415; 76817-TC; 80053; 82550; 83690; 84484; 84702; 84703; 85025; 93005; 93010; 99282-25

== ENCOUNTER 2018-11-08 21:02 | Emergency (ER) | payer OTHER ==
[2018-11-08 21:22] VITALS: BMI 29.2
--- NOTE | 2018-11-08 22:04 | PDOC ---
History of Present Illness - General Chief Complaint: Pain Stated Complaint: ABD PAIN Time Seen by Provider: 11/08/18 21:55 - History of Present Illness Initial Comments: 11/08/18 22:03 25 yo F IDDM, DKA, who p/w epigastria pain and vomitting. Patient reports 2 days of unremitting, worsening, crampy, epigastria pain and 3 episodes of non bilious, non bloody emesis, with no identifiable alleviators ( gely gonzalez, angelika). Pain worse with PO intake. Denies abdominal trauma. Recently evaluated at [facility] (11/06/18) with + serum preg, TVUS with small gestational sac within endomentrial cavity 5w2d. Patient denies CALVILLO, vision change, F/C, Palpitations, leg pain/swelling, urinary complaints, hematuria, vaginal bleeding/, pelvic pain, diarrhea, constipation, BPR, hematuria, lightheadedness, weakness, sensory changes. PMHx: as noted above. Denies h/o ACS/VT, PE/DVT. Denies chronic NSAID use. Does not f/w GI or cardiology Surgical: H/o appendectomy ROS: as noted SHx: Denies Etoh, IVDA, tobacco use Allergies: Tylenol, Heparin, Morphine, Ibuprofen Past History - Past Medical History Allergies/Adverse Reactions: Allergies Allergy/AdvReac Type Severity Reaction Status Date / Time acetaminophen [From Tylenol] Allergy Swelling Verified 11/08/18 21:22 chlorhexidine Allergy Verified 11/08/18 21:22 [From Hibiclens] gentamicin Allergy Verified 11/08/18 21:22 heparin Allergy Verified 11/08/18 21:22 ibuprofen [From Motrin] Allergy Swelling Verified 11/08/18 21:22 morphine Allergy Verified 11/08/18 21:22 Home Medications: Ambulatory Orders Insulin Lispro [Humalog] 0 unit SQ DAILY 09/28/16 Cephalexin [Keflex Suspension] 10 ml PO BID #70 ml MDD 20 ml 11/09/18 Anemia: Yes Asthma: Yes Cancer: No Cardiac Disorders: Yes (heart murmur) CVA: Yes (2012) COPD: No CHF: No Dementia: No Diabetes: Yes GI Disorders: Yes Disorders: No HTN: Yes Hypercholesterolemia: No Liver Disease: Yes (Hepatomegaly) Seizures: No Thyroid Disease: No - Surgical History Abdominal Surgery: Yes () Appendectomy: Yes (2008) Cardiac Surgery: No Cholecystectomy: No Lung Surgery: No Neurologic Surgery: No Orthopedic Surgery: No - Reproductive History (#): 3 Para: 0 Cervical CA: No Dysfunctional Uterine Bleeding: No Ectopic : No Endometrial CA: No Polycystic Ovaries: No Therapeutic (s) & number: No Tubal Ligation: No Spontaneous : 3 - Immunization History Immunization Up to Date: Yes - Suicide/Smoking/Psychosocial Hx Smoking Status: No Smoking History: Never smoked Have you smoked in the past 12 months: No Number of Cigarettes Smoked Daily: 0 Cigars Per Day: 0 Information on smoking cessation initiated: No Hx Alcohol Use: No Drug/Substance Use Hx: No Substance Use Type: None Hx Substance Use Treatment: No Review of Systems - Review of Systems Comments:: 11/08/18 22:05 GENERAL/CONSTITUTIONAL: No fever or chills. No weakness. HEAD, EYES, EARS, NOSE AND THROAT: No change in vision. No ear pain or discharge. No sore throat. CARDIOVASCULAR: No chest pain or shortness of breath RESPIRATORY: No cough, wheezing, or hemoptysis. GASTROINTESTINAL: + Abdominal pain, nausea, vomiting. No diarrhea or constipation. GENITOURINARY: No dysuria, frequency, or change in urination. MUSCULOSKELETAL: No joint or muscle swelling or pain. No neck or back pain. SKIN: No rash NEUROLOGIC: No headache, vertigo, loss of consciousness, or change in strength/ sensation. ENDOCRINE: No increased thirst. No abnormal weight change HEMATOLOGIC/LYMPHATIC: No anemia, easy bleeding, or history of blood clots. ALLERGIC/IMMUNOLOGIC: No hives or skin allergy. *Physical Exam - Vital Signs Last Vital Signs Temp Pulse Resp BP Pulse Ox 98.5 F 105 H 18 132/80 99 11/08/18 21:20 11/08/18 21:20 11/08/18 21:20 11/08/18 21:20 11/08/18 21:20 - Physical Exam Comments: 11/08/18 22:05 GENERAL: Awake, alert, and fully oriented, in no acute distress HEAD: No signs of trauma, normocephalic, atraumatic EYES: PERRLA, EOMI, sclera anicteric, conjunctiva clear ENT: Hearing grossly normal, nares patent, oropharynx clear without exudates. Moist mucosa NECK: Normal ROM, supple, no lymphadenopathy, JVD, or masses LUNGS: No distress, speaks full sentences, clear to auscultation bilaterally HEART: Regular rate and rhythm, normal S1 and S2, no murmurs, rubs or gallops, peripheral pulses normal and equal bilaterally. ABDOMEN: + epigastria ttp. Soft, NDS, normoactive bowel sounds. No guarding, no rebound. No masses. Neg CVA ttp. EXTREMITIES : Normal inspection, Normal range of motion, no edema. No clubbing or cyanosis. NEUROLOGICAL: Cranial nerves II through XII grossly intact. Normal speech, normal gait, no focal sensorimotor deficits SKIN: Warm, Dry, normal turgor, no rashes or lesions noted Moderate Sedation - Procedure Monitoring Vital Signs: Procedure Monitoring Vital Signs Temperature 98.5 F 11/08/18 21:20 Pulse Rate 105 H 11/08/18 21:20 Respiratory Rate 18 11/08/18 21:20 Blood Pressure 132/80 11/08/18 21:20 O2 Sat by Pulse Oximetry (%) 99 11/08/18 21:20 ED Treatment Course - LABORATORY CBC & Chemistry Diagram: 11/08/18 23:20 11/09/18 01:44 - ADDITIONAL ORDERS Additional order review: 11/09/18 02:11 Referring Physician: YURIDIA YEN Comments: Jordan Zimmer MD wrote on Nov 09, 2018 at 01:56 AM: Referring Physician: YURIDIA YEN Patient Name: MICHAEL ARAGON THIS IS A PRELIMINARY REPORT FROM [facility] DATE OF SERVICE: 2018-11-09 00:58:49 IMAGES: 34 EXAM: Ultrasound first trimester and pelvic duplex HISTORY: Abdominal pain COMPARISON: None. FINDINGS: Ultrasound :Uterus is retroverted and measures 8.6centimeters in length. There is a single intrauterine gestational sac a definite sac or pole. There is a 0.5 x 1.1 cm proximal subchorionic bleed. The right ovary measures 2.4centimeters in length and appears normal. The left ovary measures 3.6centimeters in length and contains a 2.1 cm echogenic thick walled cyst, possibly a corpus luteum. There is no significant free fluid. Pelvic duplex: There is normal arterial and venous flow in both ovaries. CONFIDENTIALITY NOTICE: This information is intended only for the use of the recipient(s) named above. If you are not the intended recipient, or a person responsible for delivering it to the intended recipient, you are hereby notified that any disclosure, copying, distribution or use of any of the information contained in or attached to this transmission is STRICTLY PROHIBITED. If you have received this transmission in error, please immediately notify [facility] and destroy the original transmission and its attachments without saving them in any manner [address] [place] [address] Phone: [phone] Fax: Email: [email or web address]: [email or web address] Patient Information: : 1990 Order Type: Preliminary Name: MARGO RODRIGUEZ Sex: F Study Description: US OBSTETRIC LIMITED Modality: US Location: [facility] Referring Physician: YURIDIA YEN IMPRESSION: Intrauterine gestational sac without yolk sac or pole. Small subchorionic bleed. Recommend followup sonography to ensure viability. Probable left ovarian corpus luteum without torsion or free fluid. THIS DOCUMENT HAS BEEN ELECTRONICALLY SIGNED Julio Zimmer MD 11/09/2018 01:55 EST Mason. Please call [facility] [phone] with questions. Jordan Zimmer MD - RADIOLOGY Radiology Studies Ordered: 11/09/18 02:17 Jordan Zimmer MD wrote on Nov 09, 2018 at 01:42 AM: Referring Physician: YURIDIA YEN Patient Name: MICHAEL ARAGON THIS IS A PRELIMINARY REPORT FROM [facility] DATE OF SERVICE: 2018-11-09 01:06:14 IMAGES: 36 EXAM: Ultrasound abdomen limited, right upper quadrant and limited abdominal duplex HISTORY: Right upper quadrant pain COMPARISON: None. FINDINGS: Right upper quadrant ultrasound:The liver is normal, without mass or biliary duct dilation. The gallbladder is normal. The CBD is not dilated and measures4 millimeters in diameter. Right kidney measures 9.9centimeters in length and is unremarkable. The visualized aorta and IVC are normal. Pancreas is partially obscured, but appears grossly normal. Abdominal duplex: The main portal vein demonstrates normal hepatopedal flow. IMPRESSION: Normal exam CONFIDENTIALITY NOTICE: This information is intended only for the use of the recipient(s) named above. If you are not the intended recipient, or a person responsible for delivering it to the intended recipient, you are hereby notified that any disclosure, copying, distribution or use of any of the information contained in or attached to this transmission is STRICTLY PROHIBITED. If you have received this transmission in error, please immediately notify [facility] and destroy the original transmission and its attachments without saving them in any manner [address] [place] [address] Phone: [phone] Fax: Email: [email or web address]: [email or web address] Patient Information: : 1990 Order Type: Preliminary Name: MARGO RODRIGUEZ Sex: F Study Description: US ABDOMEN LIMITED Modality: US Location: [facility] Referring Physician: YURIDIA YEN THIS DOCUMENT HAS BEEN ELECTRONICALLY SIGNED Julio Zimmer MD 11/09/2018 01:40 [facility] [place]. Please call [facility] [phone] with questions. Jordan Zimmer MD Clinicians - Please contact [facility] with further questions at [phone] Patients - Please contact your Ordering Provider with questions. Medical Decision Making - Medical Decision Making 11/08/18 22:06 25 yo F IDDM, DKA, who p/w epigastria pain and vomiting. Vitals wnl, AF, A& Ox3. + epigastria ttp. Will consider gastritis, esophagitis, biliary dz. pancreatitis, gastroenteritis, colitis.Although absent lower abdominal pain, and vaginal bleeding, will consider 1st trimester, related causes of abdominal pain including threatened and assess for viable IUP. Ed course: 11/08/18 22:29 NS, Zofran, Diphenhydramine TVUS, RUQ U/S 11/09/18 00:39 EKG: NSR with absent OTTONIEL, STD. Normal interval axis and duration. HCG 6722 ( 3148 - 11/06/18) RUQ U/S: Unremarkable 11/09/18 02:05 TVUS: Ultrasound :Uterus is retroverted and measures 8.6centimeters in length. There is a single intrauterine gestational sac a definite sac or pole. There is a 0.5 x 1.1 cm proximal subchorionic bleed. The right ovary measures 2.4centimeters in length and appears normal. The left ovary measures 3.6centimeters in length and contains a 2.1 cm echogenic thick walled cyst, possibly a corpus luteum. There is no significant free fluid. IMPRESSION: Intrauterine gestational sac without yolk sac or pole. Small subchorionic bleed. Recommend followup sonography to ensure viability. Probable left ovarian corpus luteum without torsion or free fluid. 11/09/18 02:06 UA: + Nitritie, 11 Wbc CMP: Unremarkable Ceftriaxone Keflex sent to pharmacy Patient advised to f/u with [facility] *DC/Admit/Observation/Transfer Diagnosis at time of Disposition: Epigastric abdominal pain UTI (urinary tract infection) Qualifiers: Urinary tract infection type: acute cystitis Hematuria presence: without hematuria Qualified Code(s): N30.00 - Acute cystitis without hematuria - Discharge Dispostion Condition at time of disposition: Stable Decision to Admit order: No - Prescriptions Prescriptions: Cephalexin [Keflex Suspension] 10 ml PO BID #70 ml MDD 20 ml - Referrals Referrals: Richelle Parikh MD [Staff Physician] - Pily Moore MD [Staff Physician] - - Patient Instructions Printed Discharge Instructions: DI for Epigastric Pain Additional Instructions: Please return to the emergency department with any new or worsening symptoms or concerns. Please follow up with your primary care physician within 72 hours. Please follow up with [facility] physician within 48-72 hours. Please take Keflex two times per day. - Post Discharge Activity - Attestations Physician Attestion: 11/08/18 22:06 I attest to the information provided in this note.
[2018-11-08] MEDS ORDERED: ONDANSETRON 4 MG/2 ML VIAL IVPUSH ONE (22:19)
[2018-11-08] MEDS ORDERED: SODIUM CHLORIDE 0.9% 500 ML INFUS.BAG IV ONE (22:19)
--- NOTE | 2018-11-08 23:07 | PDOC ---
Attending Attestation - Resident Resident Name: Paul Avina - ED Attending Attestation I have performed the following: I have examined & evaluated the patient, The case was reviewed & discussed with the resident, I agree w/resident's findings & plan - HPI HPI: 11/08/18 23:02 28y/o F well known to this institution with history of insulin-dependent diabetes on insulin pump, history of recurring DKA but much better controlled lately, seen here a few days ago for atypical chest pain and discharged, found out during that visit that she was and an ultrasound revealed a gestational sac with a corpus luteal cyst but no IUP, presents now with epigastric pain since discharge from the ED with 3 episodes of nausea/vomiting over the last 3 days. The pain is constant, across her upper abdomen, worse with food, associated with these 3 episodes of nonbloody nonbilious emesis. Chills but no fever, decreased appetite, glucose has been well controlled, presents for evaluation. - Physicial Exam PE: 11/08/18 23:04 Vital signs are within normal limits Well-appearing and ambulating, slight discomfort secondary to abdominal pain No jaundice or pallor Dry mucosa Heart is regular, lungs are clear Abdomen is soft/nondistended, tenderness with some guarding in the epigastric and right upper quadrant region, no rebound. No lower abdominal tenderness, no CVA tenderness - Medical Decision Making 11/08/18 23:05 28-year-old female with insulin-dependent diabetes, first trimester gestation presents with epigastric pain/nausea/vomiting. Rule out biliary versus pancreatic etiology, question nausea/vomiting of , question gastritis, glucose has been well controlled so lower suspicion for diabetic gastroparesis exacerbation. Given inconclusive documentation of intrauterine on last visit, will repeat ultrasound to rule out ectopic. Labs, EKG IV fluids, antacids, pain control Bedside right upper quadrant ultrasound, ultrasound Reassess 11/09/18 02:38 labs wnl, including chem with no evidence of DKA hcg rising appropriately but u/s still with gestational sac and no yolk sac, corpeus luteal cyst and no evidence of ectopic/rupture. gallbladder wnl ua with evidence of UTI, cx sent. received ceftriaxone here, will rx cephalexin. feels better, understands return criteria Heart Score/ECG Review #1 ECG reviewed & interpreted by me at: 00:40 General ECG Interpretation: Sinus Rhythm, Normal Rate (92), Normal Intervals ( qtc 422), No acute ischemic changes
[2018-11-08 23:28] LABS: URINE APPEARANCE CLEAR; URINE BILIRUBIN NEGATIVE (<2.0 mg/dL); URINE COLOR YELLOW; URINE GLUCOSE (UA) 3+ (NEGATIVE); URINE KETONE TRACE (NEGATIVE); URINE LEUK ESTERASE NEGATIVE (NEGATIVE); URINE NITRITE POSITIVE (NEGATIVE); URINE PROTEIN 1+ (NEGATIVE)
[2018-11-08 23:38] LABS: BASO % 0.4 % (0-2.0); EOS % 1.6 % (0-4.5); HEMOGLOBIN 11.7 GM/dL (10.7-15.3); LYMPH % 37.7 % (8-40); MCH 31.9 pg (25.7-33.7); MCHC 34.6 g/dl (32.0-36.0); MEAN CELL VOLUME 92.2 fl (80-96); MONO % 6.2 % (3.8-10.2); NEUT % 54.1 % (42.8-82.8); PLATELET COUNT 342 K/MM3 (134-434); RBC 3.68 M/mm3 (3.60-5.2); RDW 13.7 % (11.6-15.6)
[2018-11-08 23:43] LABS: URINE BACTERIA MANY /hpf (NONE SEEN); URINE MUCUS RARE
[2018-11-09] MEDS ORDERED: ONDANSETRON 4 MG/2 ML VIAL ONE ×2 (00:03→01:58)
[2018-11-09] MEDS ORDERED: CEFTRIAXONE 1 GM/50 ML BAG ONE (01:46)
[2018-11-09] MEDS ORDERED: ONDANSETRON 4 MG/2 ML VIAL IVPUSH ONE (01:48)
[2018-11-09 02:19] LABS: ALBUMIN 3.3 g/dl (3.4-5.0); ALK PHOS 125 U/L (45-117); ANION GAP 6 MMOL/L (8-16); BILIRUBIN,TOTAL 0.2 mg/dL (0.2-1); BLOOD UREA NITROGEN 13 mg/dL (7-18); CALCIUM 8.4 mg/dL (8.5-10.1); CHLORIDE 111 mmol/L (98-107); CO2 21 mmol/L (21-32); CREATININE 0.8 mg/dL (0.55-1.3); GLUCOSE,RANDOM 206 mg/dL (74-106); POTASSIUM 4.1 mmol/L (3.5-5.1); SGOT/AST 10 U/L (15-37); SGPT/ALT 16 U/L (13-61); SODIUM 139 mmol/L (136-145); TOT PROT 7.1 g/dl (6.4-8.2)
[2018-11-09 02:57] VITALS: BP 130/93; PULSE 93; TEMP 98.3
--- NOTE | 2018-11-09 10:18 | EKG ---
Test Reason : Blood Pressure : / mmHG Vent. Rate : 092 BPM Atrial Rate : 092 BPM P-R Int : 146 ms QRS Dur : 086 ms QT Int : 342 ms P-R-T Axes : 043 046 012 degrees QTc Int : 422 ms NORMAL SINUS RHYTHM NONSPECIFIC T WAVE ABNORMALITY ABNORMAL ECG WHEN COMPARED WITH ECG OF 06-NOV-2018 14:41, NO SIGNIFICANT CHANGE WAS FOUND Confirmed by KAILEY IRAHETA MD ([id number]) on 11/09/2018 10:18:15 AM Referred By: Confirmed By:KAILEY IRAHETA MD
== END 2018-11-09 02:58 | disposition home or self-care (01) ==
LOC: JER 21:02
PROC: 3E033GC Introduction of Other Therapeutic Substance into Peripheral Vein, Percutaneous Approach (ICD-10-PCS; principal; 2018-11-08)
PROC: 3E033GC Introduction of Other Therapeutic Substance into Peripheral Vein, Percutaneous Approach (ICD-10-PCS; 2018-11-08)
PROC: 3E033GC Introduction of Other Therapeutic Substance into Peripheral Vein, Percutaneous Approach (ICD-10-PCS; 2018-11-08)
PROC: 3E033GC Introduction of Other Therapeutic Substance into Peripheral Vein, Percutaneous Approach (ICD-10-PCS; 2018-11-08)
PROC: 3E03329 Introduction of Other Anti-infective into Peripheral Vein, Percutaneous Approach (ICD-10-PCS; 2018-11-08)
DX: O26.891 Other specified pregnancy related conditions, first trimester (principal); O23.11 Infections of bladder in pregnancy, first trimester; N30.90 Cystitis, unspecified without hematuria; O34.81 Maternal care for other abnormalities of pelvic organs, first trimester; N83.12 Corpus luteum cyst of left ovary; O99.411 Diseases of the circulatory system complicating pregnancy, first trimester; O24.011 Pre-existing type 1 diabetes mellitus, in pregnancy, first trimester; E10.9 Type 1 diabetes mellitus without complications; O16.1 Unspecified maternal hypertension, first trimester; O99.011 Anemia complicating pregnancy, first trimester; Z79.4 Long term (current) use of insulin; Z86.73 Personal history of transient ischemic attack (TIA), and cerebral infarction without residual deficits; Z3A.01 Less than 8 weeks gestation of pregnancy
CPT/HCPCS: 36415; 76705-TC; 76817-TC; 80053; 81003; 81015; 83690; 84702; 85025; 87086; 87186; 93005; 93010; 99282-25

== ENCOUNTER 2018-12-13 21:25 | Emergency (ER) | payer OTHER ==
[2018-12-13 21:38] VITALS: BP 128/90; PULSE 93; TEMP 98.6; BMI 29.8
--- NOTE | 2018-12-13 21:41 | PDOC ---
Rapid Medical Evaluation Chief Complaint: Nausea Time Seen by Provider: 12/13/18 21:35 Medical Evaluation: Allergies Allergy/AdvReac Type Severity Reaction Status Date / Time acetaminophen [From Tylenol] Allergy Swelling Verified 11/08/18 21:22 chlorhexidine Allergy Verified 11/08/18 21:22 [From Hibiclens] gentamicin Allergy Verified 11/08/18 21:22 heparin Allergy Verified 11/08/18 21:22 ibuprofen [From Motrin] Allergy Swelling Verified 11/08/18 21:22 morphine Allergy Verified 11/08/18 21:22 12/13/18 21:35 I have performed a brief in-person evaluation of this patient. The patient presents with a chief complaint of: pain and nausea- 10 weeks preg/ no vag d/c, no one at home sick., Pertinent physical exam findings: VSS - no fever abd round/ winces with palp. no rebound. I have ordered the following: UA/ Bhcg, CbC,CMP, Amylase/lipase/ ACEtone The patient will proceed to the ED for further evaluation. 12/13/18 21:41 12/13/18 21:42
[2018-12-13 23:03] LABS: PH,URINE 6.5 (5.0-8.0); URINE APPEARANCE CLEAR; URINE BILIRUBIN NEGATIVE (NEGATIVE); URINE COLOR YELLOW; URINE GLUCOSE (UA) 3+ (NEGATIVE); URINE KETONE 1+ (NEGATIVE); URINE LEUK ESTERASE NEGATIVE (NEGATIVE); URINE NITRITE NEGATIVE (NEGATIVE); URINE PROTEIN NEGATIVE (NEGATIVE)
--- NOTE | 2018-12-13 23:21 | PDOC ---
Attending Attestation - HPI HPI: 12/13/18 23:33 The patient is a 28 year old female, currently 10 weeks , with past medical history significant for Type I DM (on Insulin pump), multiple hx of DKA , neuropathy, nephropathy, HTN (not on medication), CVA (w/o residual deficit) presents to the emergency department with myalgia. The patient presents with generalized myalgia, thats constant in severity throughout the body. The patient reports an additional symptom of nausea, which she attributes to the . Denies fever, chills, chest pain, shortness of breath, vaginal bleeding/discharge, urinary symptoms. Allergies: acetaminophen, chlorhexidine, gentamicin, heparin, ibuprofen, morphine - Medical Decision Making 12/13/18 23:33 Documentation prepared by Sara Bach, acting as medical file clerk for Bernard Barlow MD. <Sara Bach - Last Filed: 12/13/18 23:33> - Resident Resident Name: Nannette Frey - ED Attending Attestation I have performed the following: I have examined & evaluated the patient, The case was reviewed & discussed with the resident, I agree w/resident's findings & plan, Exceptions are as noted - Physicial Exam PE: 12/14/18 05:32 Subdued, NAD, AOx3 Neck supple LCTAB Abd soft, nt, nd, no guarding - Medical Decision Making 12/14/18 05:32 28F has had dka several times here with nausea, abd px and diffused body ache will eval for dka f/u labs re-eval labs inconsistent with dka Pt states that her symptoms as she is experiencing them currently resolve with benadryl Pt reports symptom resolution after treatment <Bernard Barlow - Last Filed: 12/14/18 05:35>
[2018-12-13 23:23] LABS: BASO % 0.5 % (0-2.0); HEMATOCRIT 36.4 % (32.4-45.2); HEMOGLOBIN 12.4 GM/dL (10.7-15.3); LYMPH % 30.7 % (8-40); MCH 31.2 pg (25.7-33.7); MCHC 34.1 g/dl (32.0-36.0); MEAN CELL VOLUME 91.6 fl (80-96); MEAN PLT VOLUME 7.6 fl (7.5-11.1); MONO % 4.4 % (3.8-10.2); NEUT % 62.4 % (42.8-82.8); PLATELET COUNT 396 K/MM3 (134-434); RBC 3.98 M/mm3 (3.60-5.2); RDW 12.9 % (11.6-15.6); WHITE BLOOD COUNT 11.5 K/mm3 (4.0-10.0)
[2018-12-14 00:04] LABS: ALBUMIN 3.8 g/dl (3.4-5.0); ALK PHOS 158 U/L (45-117); ANION GAP 6 MMOL/L (8-16); BILIRUBIN,TOTAL 0.2 mg/dL (0.2-1); BLOOD UREA NITROGEN 13 mg/dL (7-18); CALCIUM 9.5 mg/dL (8.5-10.1); CHLORIDE 104 mmol/L (98-107); CO2 23 mmol/L (21-32); CREATININE 0.8 mg/dL (0.55-1.3); GLUCOSE,RANDOM 289 mg/dL (74-106); LIPASE 116 U/L (73-393); POTASSIUM 4.5 mmol/L (3.5-5.1); SGOT/AST 12 U/L (15-37); SGPT/ALT 12 U/L (13-61); SODIUM 133 mmol/L (136-145); TOT PROT 8.5 g/dl (6.4-8.2)
[2018-12-14 00:12] LABS: ACETONE SERUM NEGATIVE (NEGATIVE)
[2018-12-14] MEDS ORDERED: SODIUM CHLORIDE 0.9% 500 ML INFUS.BAG IV ONE (00:26)
[2018-12-14] MEDS ORDERED: FAMOTIDINE 20 MG/50 ML IVPB 20 MG/50 ML MG IVPB ONE ×2 (00:26→00:47)
--- NOTE | 2018-12-14 00:26 | PDOC ---
History of Present Illness - General Chief Complaint: Nausea Stated Complaint: PAIN AND WEAKNESS Time Seen by Provider: 12/13/18 21:35 - History of Present Illness Initial Comments: Jignesh Cooper is a 28yo woman with a PMH of IDDM, several previous episodes of DKA, neuropathy, nephropathy, HTN, prior CVA, asthma, currently 10wks who presents with nausea, epigastric pain, and generalized body aches. She states that she has had the nausea and several episodes of vomiting over the past few weeks. She was seen by OB and prescribed a medication for nausea at [place]. She attributes the nausea to her and states that it has been fairly mild. She additionally reports full body aches. She states that it feels like a muscle ache but is located over her entire body. There is no part of the body that is worse than any other, and there is no part that does not hurt. She says that she mentioned it to her OB at her last appoitnment and was told to monitor the pain. She states that she was told if the pain worsened that she needed to go to whatever ED was closest. Ms Cooper has not tried any medication at home because she says that she is allergic to every pain medication, which she reports all cause throat swelling. She additionally says that she is unable to take either liquid or tablet medications as they all make her immediately vomit. In addition to the pain and nausea, Ms Cooper has not had any symptoms including no fevers, chills, change in bowel habits, rash, headache, cough, or recent asthma symptoms. Past History - Past Medical History Allergies/Adverse Reactions: Allergies Allergy/AdvReac Type Severity Reaction Status Date / Time hydromorphone [From Dilaudid] Allergy Unknown Verified 12/13/18 23:51 acetaminophen [From Tylenol] Allergy Swelling Verified 12/13/18 21:38 chlorhexidine Allergy Verified 12/13/18 21:38 [From Hibiclens] gentamicin Allergy Verified 12/13/18 21:38 heparin Allergy Verified 12/13/18 21:38 ibuprofen [From Motrin] Allergy Swelling Verified 12/13/18 21:38 morphine Allergy Verified 12/13/18 21:38 Home Medications: Ambulatory Orders Insulin Lispro [Humalog] 0 unit SQ DAILY 09/28/16 Anemia: Yes Asthma: Yes Cancer: No Cardiac Disorders: Yes (heart murmur) CVA: Yes (2012) COPD: No CHF: No Dementia: No Diabetes: Yes GI Disorders: Yes Disorders: No HTN: Yes Hypercholesterolemia: No Liver Disease: Yes (Hepatomegaly) Seizures: No Thyroid Disease: No - Surgical History Abdominal Surgery: Yes () Appendectomy: Yes (2008) Cardiac Surgery: No Cholecystectomy: No Lung Surgery: No Neurologic Surgery: No Orthopedic Surgery: No - Reproductive History (#): 3 Para: 0 Cervical CA: No Dysfunctional Uterine Bleeding: No Ectopic : No Endometrial CA: No Polycystic Ovaries: No Therapeutic (s) & number: No Tubal Ligation: No Spontaneous : 3 - Immunization History Td Vaccination: Yes TDAP Vaccination: Yes Immunization Up to Date: Yes - Suicide/Smoking/Psychosocial Hx Smoking Status: No Smoking History: Never smoked Have you smoked in the past 12 months: No Number of Cigarettes Smoked Daily: 0 Cigars Per Day: 0 Information on smoking cessation initiated: No Hx Alcohol Use: No Drug/Substance Use Hx: No Substance Use Type: None Hx Substance Use Treatment: No Review of Systems - Review of Systems Comments:: General: No fevers, no chills, no weight or appetite change, no malaise HEENT: No changes in vision, no changes in hearing, no congestion, no sore throat CV: No chest pain, no palpitations, no LE edema Pulm: No SOB, no cough, no wheezing GI:+nausea/vomiting, no change in bowel habits, no melena : No frequency, no urgency, no dysuria Musc: No back pain, no joint swelling, no recent injury. See HPI Skin: No rash, no lesions, no erythema Endo: No excessive thirst, no heat/cold intolerance Heme: No unusual bruising or bleeding, no swollen glands Neuro: No syncope, no numbness/tingling, no focal weakness Vasc: No claudication Psych: No recent change in mood, no SI or HI *Physical Exam - Vital Signs Last Vital Signs Temp Pulse Resp BP Pulse Ox 98.6 F 93 H 18 128/90 100 12/13/18 21:35 12/13/18 21:35 12/13/18 21:35 12/13/18 21:35 12/13/18 21:35 - Physical Exam Comments: General: Comfortable, no acute distress HEENT: PERRL, EOMI, MMM, voice normal Cards: RRR, no murmur appreciated Pulm: Comfortable on room air, clear to auscultation bilaterally Abd: Soft, nondistended. Mild epigastric discomfort Back: Generalized TTP, no focal tenderness : No CVA tenderness Ext: Atraumatic. No LE edema. ROM intact. TTP over entire BLE and BUE. No obvious injury. Insulin pump in place on L upper arm Vasc: Extremities WWP. Skin: Normal color, no rashes or lesions Neuro: A&Ox3, CN grossly intact, normal speech, motor/sensory grossly intact and symmetric Psych: Mood appropriate to situation ED Treatment Course - LABORATORY CBC & Chemistry Diagram: 12/13/18 23:13 12/13/18 23:13 - ADDITIONAL ORDERS Additional order review: Laboratory Results 12/13/18 12/13/18 12/13/18 23:13 23:13 22:30 Sodium 133 L Potassium 4.5 Chloride 104 Carbon Dioxide 23 Anion Gap 6 L BUN 13 Creatinine 0.8 Creat Clearance w eGFR 86.70 Random Glucose 289 H Calcium 9.5 Total Bilirubin 0.2 AST 12 L ALT 12 L Alkaline Phosphatase 158 H Total Protein 8.5 H Albumin 3.8 Lipase 116 Urine Color Yellow Urine Appearance Clear Urine pH 6.5 Ur Specific [place] 1.020 Urine Protein Negative Urine Glucose (UA) 3+ H Urine Ketones 1+ H Urine Blood Negative Urine Nitrite Negative Urine Bilirubin Negative Urine Urobilinogen 1.0 Ur Leukocyte Esterase Negative Acetone, Qual Negative L 12/13/18 23:13 RBC 3.98 MCV 91.6 MCHC 34.1 RDW 12.9 MPV 7.6 Neutrophils % 62.4 Lymphocytes % 30.7 Monocytes % 4.4 Eosinophils % 2.0 Basophils % 0.5 Medical Decision Making - Medical Decision Making 12/13/18 11:41 Jignesh Cooper is a 28yo woman with a PMH of IDDM, several previous episodes of DKA, neuropathy, nephropathy, HTN, prior CVA, currently 10wks who presents with mild nausea and epigastric pain that she attributes to the as well as generalized body aches over her entire body that have worsened over the past 2 weeks. - Ddx for generalized body aches includes flu-like illness, dehydration, discomforts associated with . No focal symptoms, fever/chills, or other indication of any specific illness - Seen in RME. CBC, chemistry, UA, acetone, bHCG ordered for evaluation. - Will give IVF, famotidine, reassess 12/14/18 00:27 - Labs reviewed. No concerning abnormalities - Acetone negative - Will sign out to Dr Mata for remainder of ED care. Discussed with Dr Barlow. Nannette Frey PGY1 *DC/Admit/Observation/Transfer Diagnosis at time of Disposition: Generalized body aches - Referrals - Patient Instructions - Post Discharge Activity
[2018-12-14 01:17] LABS: AMYLASE 87 U/L (25-115)
--- NOTE | 2018-12-14 03:38 | PDOC ---
*Physical Exam - Vital Signs Last Vital Signs Temp Pulse Resp BP Pulse Ox 98.6 F 93 H 18 128/90 100 12/13/18 21:35 12/13/18 21:35 12/13/18 21:35 12/13/18 21:35 12/13/18 21:35 - Physical Exam Comments: 12/14/18 00:05 Patient's care endorsed to me by Dr. Frey at the end of her shift. Patient is a 28 YOF with h/o IDDM on insulin pump, with multiple prior complications, who p/ w head-to-toe body aches, nausea, 10 wks . States cannot take any pills , DAVON Crawford has never worked for her. Pending remaining w/u and re-assessment. ED Treatment Course - LABORATORY CBC & Chemistry Diagram: 12/13/18 23:13 12/13/18 23:13 - ADDITIONAL ORDERS Additional order review: Laboratory Results 12/13/18 12/13/18 12/13/18 23:13 23:13 22:30 Sodium 133 L Potassium 4.5 Chloride 104 Carbon Dioxide 23 Anion Gap 6 L BUN 13 Creatinine 0.8 Creat Clearance w eGFR 86.70 Random Glucose 289 H Calcium 9.5 Total Bilirubin 0.2 AST 12 L ALT 12 L Alkaline Phosphatase 158 H Total Protein 8.5 H Albumin 3.8 Total Amylase 87 Lipase 116 Beta HCG, Quant 975425.9 Urine Color Yellow Urine Appearance Clear Urine pH 6.5 Ur Specific [place] 1.020 Urine Protein Negative Urine Glucose (UA) 3+ H Urine Ketones 1+ H Urine Blood Negative Urine Nitrite Negative Urine Bilirubin Negative Urine Urobilinogen 1.0 Ur Leukocyte Esterase Negative Acetone, Qual Negative L 12/13/18 23:13 RBC 3.98 MCV 91.6 MCHC 34.1 RDW 12.9 MPV 7.6 Neutrophils % 62.4 Lymphocytes % 30.7 Monocytes % 4.4 Eosinophils % 2.0 Basophils % 0.5 - Medications Given in the ED: ED Medications Discontinued Medications Generic Name Dose Route Start Last Admin Trade Name Freq PRN Reason Stop Dose Admin Diphenhydramine HCl 25 mg 12/14/18 00:26 12/14/18 01:05 Benadryl Injection - IVPUSH 12/14/18 00:27 25 mg ONCE ONE Administration Famotidine/Sodium Chloride 20 mg in 50 mls @ 100 mls/hr 12/14/18 00:26 01:06 Pepcid 20 Mg Premixed Ivpb - IVPB 12/14/18 00:55 100 mls/hr ONCE ONE Administration Sodium Chloride 1,000 ml 12/14/18 00:26 12/14/18 01:05 Normal Saline - IV 12/14/18 00:27 1,000 ml ONCE ONE Administration Medical Decision Making - Medical Decision Making 12/14/18 03:39 Patient states feels mostly better, requests one more dose Benadryl. She notes she usually takes medical transport home after ED visits. I have placed order for second 25 mg dose Benadryl IVPB. Repeat exam is benign. This patient has gotten significant relief of symptoms while in the ED. Workup is not concerning for emergency-level pathology at this time. This patient is appropriate for discharge with close outpatient follow up. She has an PUBLIC [facility] appointment later today and will discuss the ED visit with them. They agree to return to the ED with any new/worsening symptoms. Specific return precautions are discussed and they will come back to the ER if necessary. *DC/Admit/Observation/Transfer Diagnosis at time of Disposition: Generalized body aches, Nausea Qualifiers: Weeks of gestation: 10 weeks Qualified Code(s): Z3A.10 - 10 weeks gestation of - Discharge Dispostion Disposition: HOME Condition at time of disposition: Stable Decision to Admit order: No - Referrals Referrals: [facility] [place] [Provider Group] - Patient Instructions Additional Instructions: You were seen in the ER for body aches and nausea. We did an exam, and laboratories, and there were no new concerning abnormalities. We gave you medications and fluids in the department which did seem to help. After our assessment, we do not believe you are having a medical emergency at this time, and we believe you are safe to go home. Please follow up with your primary care provider in 1-3 days. Call their clinic, tell them you were seen in the ER, and tell them you need a follow-up. If you have any new or worsening symptoms, please come back to the ER at any time (24 hours a day). If you are having severe or life threatening symptoms, or symptoms that make it unsafe to drive or have someone drive you, please call 911. - Post Discharge Activity
== END 2018-12-14 04:52 | disposition home or self-care (01) ==
LOC: JER 21:25
DX: E10.10 Type 1 diabetes mellitus with ketoacidosis without coma (principal); O24.011 Pre-existing type 1 diabetes mellitus, in pregnancy, first trimester; O26.831 Pregnancy related renal disease, first trimester; N28.9 Disorder of kidney and ureter, unspecified; O99.351 Diseases of the nervous system complicating pregnancy, first trimester; Z79.4 Long term (current) use of insulin; Z96.41 Presence of insulin pump (external) (internal); Z3A.10 10 weeks gestation of pregnancy; O16.1 Unspecified maternal hypertension, first trimester; Z86.73 Personal history of transient ischemic attack (TIA), and cerebral infarction without residual deficits
CPT/HCPCS: 36415; 80053; 81003; 82009; 82150; 83690; 84702; 85025; 99282-25

== ENCOUNTER 2019-01-07 21:48 | Observation (INO) | payer OTHER ==
[2019-01-07 22:18] VITALS: BMI 28.7
--- NOTE | 2019-01-08 00:03 | PDOC ---
History of Present Illness - General Chief Complaint: Nausea/Vomiting Stated Complaint: 13 WEEKS ABD PAIN Time Seen by Provider: 01/07/19 23:52 History Source: Patient Exam Limitations: No Limitations - History of Present Illness Initial Comments: 28 yo F w a pmh of IDDM on an insulin pump and frequent admissions for DKA , gastroparesis, peripheral neuropathy, nephropathy, CVA with left arm residual weakness and asthma who presents to the ER 14 weeks with nausea and 14 episodes of green vomiting which isn't bloody. She states she is simply not able to keep anything down. She did not experience hyperemesis gravidarum during her first viable . The patient states she was seen at [facility] on Monday, diagnosed with a UTI and is currently receiving Macrobid. PCP: Dr. Yancy Jackson PSH: multiple D&Cs, appendectomy. Social Hx: Denies current smoking, drinking, or other substance usage. Allergies: Hydromorphone, acetaminophen, chlorhexidine, gentamycin, heparin, ibuprofen, morphine Past History - Past Medical History Allergies/Adverse Reactions: Allergies Allergy/AdvReac Type Severity Reaction Status Date / Time hydromorphone [From Dilaudid] Allergy Unknown Verified 01/07/19 22:18 acetaminophen [From Tylenol] Allergy Swelling Verified 01/07/19 22:18 chlorhexidine Allergy Verified 01/07/19 22:18 [From Hibiclens] gentamicin Allergy Verified 01/07/19 22:18 heparin Allergy Verified 01/07/19 22:18 ibuprofen [From Motrin] Allergy Swelling Verified 01/07/19 22:18 morphine Allergy Verified 01/07/19 22:18 Home Medications: Ambulatory Orders Insulin Lispro [Humalog] 0 unit SQ DAILY 09/28/16 Anemia: Yes Asthma: Yes Cancer: No Cardiac Disorders: Yes (heart murmur) CVA: Yes (2012) COPD: No CHF: No Dementia: No Diabetes: Yes GI Disorders: Yes Disorders: No HTN: Yes Hypercholesterolemia: No Liver Disease: Yes (Hepatomegaly) Seizures: No Thyroid Disease: No - Surgical History Abdominal Surgery: Yes () Appendectomy: Yes (2008) Cardiac Surgery: No Cholecystectomy: No Lung Surgery: No Neurologic Surgery: No Orthopedic Surgery: No - Reproductive History (#): 3 Para: 0 Cervical CA: No Dysfunctional Uterine Bleeding: No Ectopic : No Endometrial CA: No Polycystic Ovaries: No Therapeutic (s) & number: No Tubal Ligation: No Spontaneous : 3 - Immunization History Td Vaccination: Yes TDAP Vaccination: Yes Immunization Up to Date: Yes - Suicide/Smoking/Psychosocial Hx Smoking Status: No Smoking History: Never smoked Have you smoked in the past 12 months: No Number of Cigarettes Smoked Daily: 0 Cigars Per Day: 0 Information on smoking cessation initiated: No Hx Alcohol Use: No Drug/Substance Use Hx: No Substance Use Type: None Hx Substance Use Treatment: No Review of Systems - Review of Systems Comments:: CONSTITUTIONAL: Present: chills, fatigue Absent: fever EYES: Absent: visual changes ENT: Absent: ear pain, no sore throat CARDIOVASCULAR: Absent: chest pain, no palpitations RESPIRATORY: Absent: cough, no SOB GI: Present: Abdominal pain, nausea, vomiting Absent: no constipation, no diarrhea GENITOURINARY: Present: frequency Absent: dysuria, no hematuria MUSKULOSKELETAL: Absent: back pain, no arthralgia, no myalgia SKIN: Absent: rash NEURO: Absent: headache *Physical Exam - Vital Signs Last Vital Signs Temp Pulse Resp BP Pulse Ox 98.1 F 99 H 18 109/79 100 01/07/19 22:15 01/07/19 22:15 01/07/19 22:15 01/07/19 22:15 01/07/19 22:15 - Physical Exam Comments: GENERAL: Well-appearing, well-nourished. Mild distress. HEENT: Normocephalic, atraumatic. PERRL, EOM intact. CARDIOVASCULAR: Tachycardic rate. Normal S1, S2. Regular rhythm. PULMONARY: No evidence of respiratory distress. Lungs clear to auscultation bilaterally. No wheezing, rales or rhonchi. ABDOMEN: There is TTP in the epigastric region. The patient has discomfort with palpation all over her abdomen. The abdomen is still soft and non-distended with normal bowel sounds. EXTREMITIES: Normal ROM in all four extremities. No gross deformities. SKIN: Warm, dry. No rash NEUROLOGICAL: Left arm weakness from prior CVA. ED Treatment Course - LABORATORY CBC & Chemistry Diagram: 01/08/19 00:43 01/08/19 00:43 Medical Decision Making - Medical Decision Making 28 yo F w a pmh of IDDM on an insulin pump and frequent admissions for DKA , gastroparesis, peripheral neuropathy, nephropathy, CVA with left arm residual weakness and asthma who presents to the ER 14 weeks with nausea and 14 episodes of green vomiting which isn't bloody. She states she is simply not able to keep anything down. She did not experience hyperemesis gravidarum during her first viable . Patient had a normal bowel movement 1 hour prior to arrival. VS: Tachycardic, otherwise WNL - POC glusoce - 50 at bedside. - Giving patient shot of D50 and some juice. DDx IBNLT: Hyperemesis gravidarum, gastric reflux, SBO, DKA, electrolyte/ metabolic disturbance Plan: Labs, Urine, IV hydration, supportive treatment, re-assess. Urine shows ketonuria and small UTI. She is already receiving treatment with Macrobid. - This is likely hyperemesis gravidarum but patient might require an MRI to r/o other abdominal pathology including obstruction despite it's unlikelihood given patient had a normal bowel movement 1 hour prior to arrival. - Will admit patient for hyperemesis, fluids and anti-emetics. *DC/Admit/Observation/Transfer Diagnosis at time of Disposition: IDDM (insulin dependent diabetes mellitus), Leukocytosis, Epigastric pain, , Cystitis, UTI (urinary tract infection), Nausea, Vomiting, 13 weeks gestation of - Discharge Dispostion Condition at time of disposition: Stable Decision to Admit order: Yes - Referrals - Patient Instructions - Post Discharge Activity
[2019-01-08] MEDS ORDERED: SODIUM CHLORIDE 1,000 ML IV STA (00:04)
[2019-01-08] MEDS ORDERED: ONDANSETRON 4 MG/2 ML VIAL IVPUSH ONE (00:05)
[2019-01-08] MEDS ORDERED: ONDANSETRON 4 MG/2 ML VIAL ONE (00:25)
[2019-01-08] MEDS ORDERED: DEXTROSE 50%-WATER - 25 GM/50 ML VIAL IVPUSH ONE (00:51)
[2019-01-08] MEDS ORDERED: DEXTROSE 50%-WATER - 25 GM/50 ML VIAL ONE (00:59)
--- NOTE | 2019-01-08 01:03 | PDOC ---
Attending Attestation - Resident Resident Name: Devyn Mcnair - ED Attending Attestation I have performed the following: I have examined & evaluated the patient, The case was reviewed & discussed with the resident, I agree w/resident's findings & plan, Exceptions are as noted - HPI HPI: 01/08/19 01:00 this 28 yo female reports being 13 weeks 3 days last Monday when she saw her sanitation truck driver at [facility] -she has had nausea and vomiting daily for weeks with this - Physicial Exam PE: 01/08/19 01:05 wnwd 28 yo female reports being almost 14 weeks with nausea and vomiting head ncat neck supple lungs cta b/l cvs [id number] abd no rebound skin warm and dry no cva tenderness neuro axox3,ambulatory - Medical Decision Making 01/08/19 01:32 pt is IDDM but she is NOT in dka ,her acetone is negative diff diag includes hyperemesis,gastritis.sbo pt receiving IVf, will reassess
[2019-01-08 01:05] LABS: BASO % 0.6 % (0-2.0); EOS % 2.3 % (0-4.5); HEMATOCRIT 34.5 % (32.4-45.2); HEMOGLOBIN 11.9 GM/dL (10.7-15.3); MCH 31.3 pg (25.7-33.7); MCHC 34.4 g/dl (32.0-36.0); MEAN CELL VOLUME 90.7 fl (80-96); MEAN PLT VOLUME 7.5 fl (7.5-11.1); MONO % 4.8 % (3.8-10.2); NEUT % 57.3 % (42.8-82.8); PLATELET COUNT 466 K/MM3 (134-434); RDW 12.7 % (11.6-15.6); WHITE BLOOD COUNT 14.5 K/mm3 (4.0-10.0)
[2019-01-08 01:17] LABS: EPI CELLS 9.8 /HPF (0-5/HPF); URINE APPEARANCE CLOUDY; URINE BACTERIA 321.5 /hpf (NEGATIVE); URINE BILIRUBIN NEGATIVE (NEGATIVE); URINE CASTS 18 /lpf (0-8); URINE COLOR YELLOW; URINE GLUCOSE (UA) TRACE (NEGATIVE); URINE KETONE TRACE (NEGATIVE); URINE LEUK ESTERASE TRACE (NEGATIVE); URINE NITRITE NEGATIVE (NEGATIVE); URINE PROTEIN 2+ (NEGATIVE); URINE RBC 3 /hpf (0-4); URINE WBC 28 /hpf (0-5)
[2019-01-08 01:21] LABS: INR 1.06 (0.83-1.09); PROTHROMBIN TIME (PATIENT) 12.5 SEC (9.7-13.0)
[2019-01-08] MEDS ORDERED: FAMOTIDINE 20 MG/50 ML IVPB 20 MG/50 ML MG IVPB ONE ×2 (01:29→01:49)
[2019-01-08 01:36] LABS: ALBUMIN 3.5 g/dl (3.4-5.0); ALK PHOS 110 U/L (45-117); ANION GAP 8 MMOL/L (8-16); BILIRUBIN,TOTAL 0.4 mg/dL (0.2-1); BLOOD UREA NITROGEN 12 mg/dL (7-18); CALCIUM 9.5 mg/dL (8.5-10.1); CHLORIDE 105 mmol/L (98-107); CO2 23 mmol/L (21-32); CREATININE 0.7 mg/dL (0.55-1.3); LIPASE 47 U/L (73-393); POTASSIUM 3.8 mmol/L (3.5-5.1); SGOT/AST 14 U/L (15-37); SGPT/ALT 13 U/L (13-61); SODIUM 136 mmol/L (136-145); TOT PROT 8.5 g/dl (6.4-8.2)
[2019-01-08 01:37] LABS: GLUCOSE,RANDOM 46 mg/dL (74-106)
[2019-01-08] MEDS ORDERED: SODIUM CHLORIDE 0.9% 500 ML INFUS.BAG IV ONE (03:15)
[2019-01-08] MEDS ORDERED: METOCLOPRAMIDE HCL INJECTION 10 MG/2 ML VIAL IVPUSH ONE (03:15)
[2019-01-08] MEDS ORDERED: METOCLOPRAMIDE HCL INJECTION 10 MG/2 ML VIAL ONE (03:38)
[2019-01-08] MEDS ORDERED: SODIUM CHLORIDE 1,000 ML IV SCH (05:15)
--- NOTE | 2019-01-08 05:26 | HP ---
CHIEF COMPLAINT: nausea, vomiting x 1 day PCP: HISTORY OF PRESENT ILLNESS: 28 y/o F with (w/abortions, 3 d+c), IDDM on pump, freq DKA, gastroparesis, CVA with residual L sided weakness, who presents to the ED d/t nausea, vomiting x 1 day. States that she vomited 11 times, all times were NBNB. Has been unable to tolerate PO intake. No exacerbating fx. States that she feels better after receiving benadryl in the ED; currently not vomiting. Pt is 14 weeks , with generalized epigastric abdominal discomfort. Follows with Dr. Caldwell (greeting card editor ) at [facility]. Recently, also endorses migraines. Has been taking prenatals and has had adequate greeting card editor f/u. Denies [place], fever, chills, SOB, chest pain or pressure, or changes in urinary or bowel function. Denies alcohol, cigarette or drug use currently or before . Of note, pt was seen at [facility] recently for the same sx and discharged. However, this time her sx recurred. ER course was notable for: (1) d50 d/t hypoglycemia (2) ivf, benadryl (3) zofran, reglan Recent Travel: denies PAST MEDICAL HISTORY: as above PAST SURGICAL HISTORY: appendectomy, 3 d+c's Social History: lives with fiancee Smoking: denies Alcohol: denies Drugs: denies Family History: denies Allergies hydromorphone [From Dilaudid] Allergy (Unknown, Verified 01/07/19 22:18) acetaminophen [From Tylenol] Allergy (Verified 01/07/19 22:18) Swelling chlorhexidine [From Hibiclens] Allergy (Verified 01/07/19 22:18) gentamicin Allergy (Verified 01/07/19 22:18) heparin Allergy (Verified 01/07/19 22:18) ibuprofen [From Motrin] Allergy (Verified 01/07/19 22:18) Swelling morphine Allergy (Verified 01/07/19 22:18) HOME MEDICATIONS: Home Medications on insulin pump takes prenatals REVIEW OF SYSTEMS CONSTITUTIONAL: Absent: fever, chills, diaphoresis, generalized weakness, malaise, loss of appetite, weight change HEENT: Absent: rhinorrhea, nasal congestion, throat pain, throat swelling, difficulty swallowing, mouth swelling, ear pain, eye pain, visual changes CARDIOVASCULAR: Absent: chest pain, syncope, palpitations, irregular heart rate, lightheadedness , peripheral edema RESPIRATORY: Absent: cough, shortness of breath, dyspnea with exertion, orthopnea, wheezing, stridor, hemoptysis GASTROINTESTINAL: +abdominal pain, nausea, vomiting Absent: abdominal pain, abdominal distension, nausea, vomiting, diarrhea, constipation, melena, hematochezia GENITOURINARY: Absent: dysuria, frequency, urgency, hesitancy, hematuria, flank pain, genital pain MUSCULOSKELETAL: Absent: myalgia, arthralgia, joint swelling, back pain, neck pain SKIN: Absent: rash, itching, pallor HEMATOLOGIC/IMMUNOLOGIC: Absent: easy bleeding, easy bruising, lymphadenopathy, frequent infections ENDOCRINE: Absent: unexplained weight gain, unexplained weight loss, heat intolerance, cold intolerance NEUROLOGIC: Absent: headache, focal weakness or paresthesias, dizziness, unsteady gait, seizure, mental status changes, bladder or bowel incontinence PSYCHIATRIC: Absent: anxiety, depression, suicidal or homicidal ideation, hallucinations. PHYSICAL EXAMINATION Vital Signs - 24 hr 01/07/19 22:15 Temperature 98.1 F Pulse Rate 99 H Respiratory 18 Rate Blood Pressure 109/79 O2 Sat by Pulse 100 Oximetry (%) GENERAL: Awake, alert, and fully oriented, in no acute distress. HEAD: Normal with no signs of trauma. EYES: Pupils equal, round and reactive to light, extraocular movements intact, sclera anicteric, conjunctiva clear. No lid lag. EARS, NOSE, THROAT: Ears normal, nares patent, oropharynx clear without exudates. Moist mucous membranes. NECK: Normal range of motion, supple without lymphadenopathy, JVD, or masses. LUNGS: Breath sounds equal, clear to auscultation bilaterally. No wheezes, and no crackles. No accessory muscle use. HEART: Regular rate and rhythm, normal S1 and S2 without murmur, rub or gallop. ABDOMEN: Soft, +mild epigastric discomfort, not distended, normoactive bowel sounds, no guarding LOWER EXTREMITIES: 2+ pt pulses, warm, well-perfused. No calf tenderness. No peripheral edema. NEUROLOGICAL: Cranial nerves II-XII intact. PSYCHIATRIC: Cooperative. Good eye contact. Laboratory Results - last 24 hr 01/08/19 01/08/19 01/08/19 00:43 00:43 00:43 WBC 14.5 H RBC 3.80 Hgb 11.9 Hct 34.5 MCV 90.7 MCH 31.3 MCHC 34.4 RDW 12.7 Plt Count 466 H MPV 7.5 Absolute Neuts (auto) 8.3 H Neutrophils % 57.3 Lymphocytes % 35.0 Monocytes % 4.8 Eosinophils % 2.3 Basophils % 0.6 Nucleated RBC % 0 PT with INR INR Sodium 136 Potassium 3.8 Chloride 105 Carbon Dioxide 23 Anion Gap 8 BUN 12 Creatinine 0.7 Creat Clearance w eGFR 101.15 POC Glucometer Random Glucose 46 L* Calcium 9.5 Total Bilirubin 0.4 AST 14 L ALT 13 Alkaline Phosphatase 110 Total Protein 8.5 H Albumin 3.5 Lipase 47 L Beta HCG, Quant Urine Color Yellow Urine Appearance Cloudy Urine pH 6.0 Ur Specific [place] 1.029 Urine Protein 2+ H Urine Glucose (UA) Trace Urine Ketones Trace H Urine Blood Negative Urine Nitrite Negative Urine Bilirubin Negative Urine Urobilinogen 1.0 Ur Leukocyte Esterase Trace Urine WBC (Auto) 28 Urine RBC (Auto) 3 Urine Casts (Auto) 18 U Epithel Cells (Auto) 9.8 Urine Bacteria (Auto) 321.5 Urine HCG, Qual Acetone, Qual Blood Type Antibody Screen ASSESSMENT/PLAN: 28 y/o F with , IDDM on pump, freq DKA, gastroparesis, CVA with residual L sided weakness, who presents to the ED d/t nausea, vomiting x 1 day. #Hyperemesis gravidarum -pt 14 weeks gestation, follow with greeting card editor as outpt -cont w/ivf hydration -slowly advance diet; will start on clears -responded well to benadryl. will give IV b6 to aid -if vomiting continues, can start meclizine, reglan, or phenergan as per pharmacy -c/w prenatals #UTI -w/ abdominal discomfort -will tx with rocephin 1g IVPB qd. d/w pt, expressed verbal understanding category B -f/u ucx #IDDM -c/w insulin pump #F/E/N IV NS 100 cc/hr continue to follow lytes clear liquid diet. advance as tolerated #ppx SCD's, early ambulation #dispo med-surg obs anticipate d/c if tolerates PO today and vom subsides can change to PO abx as well then Visit type - Emergency Visit Emergency Visit: Yes ED Registration Date: 01/08/19 Care time: The patient presented to the Emergency Department on the above date and was hospitalized for further evaluation of their emergent condition. - New Patient This patient is new to me today: Yes Date on this admission: 01/08/19 - Critical Care Critical Care patient: No
[2019-01-08] MEDS ORDERED: CEFTRIAXONE 1 GM in DEXTROSE 5%-WATER - 50 ML IVPB SCH (05:45)
[2019-01-08] MEDS ORDERED: CEFTRIAXONE 1 GM/50 ML BAG ONE (06:00)
[2019-01-08] MEDS: PYRIDOXINE HCL 100 MG/1 ML VIAL IM SCH ×2 (06:31→09:44)
--- NOTE | 2019-01-08 06:36 | PN ---
Teaching Attending Note Name of Resident: Olivia Atkins ATTENDING PHYSICIAN STATEMENT I saw and evaluated the patient. I reviewed the resident's note and discussed the case with the resident. I agree with the resident's findings and plan as documented. SUBJECTIVE: Seen and examined; please refer to resident note for further historical information. Briefly, this is a 28 y/o female presenting to the ER with a CC of nausea and vomitting; she was seen at [facility] last week for similar sx and was dicharged after getting a dose of macrobid and she tells me she wasn't sent home with abx. No cx results, etc. available from that stay. Nausea returned last night and had several episodes of NBNB vomiting. She does have urinary frequency. She is 13 weeks and plans to carry to term. Never had hyperemesis, etc. +UA in the ER with some ketones in urine; hypoglycemia noted. She remains on her insulin pump. ER events noted and she is not nauseous at this juncture when I saw her 10 sys ROS done and negative aside from HPI PMH, PSH, FH, SH reviewed Home Medications Medication Instructions Recorded Insulin Lispro [Humalog] 0 unit SQ DAILY 09/28/16 OBJECTIVE: VS, labs, imaging reviewed NAD, AAO, resting comfortably in bed NC AT EOMI PERRLA RRR s1/2 no mgr Lungs CTAB, w/ sym exp NT ND +BS CN2-12 wnl, no fnd Normal mood, appropriate behavior ASSESSMENT AND PLAN: Patient presents with nausea and nbnb vomiting. She is 13 weeks and has a vaguely +UA and was told she had a UTI tomorrow 1) Nausea/Vomiting -Ddx appears to be hyperemesis from her vs. referred sx from her UTI -Will treat hyperemesis (thiamine, phenergan if needed) and consult OBGYN for final management should this be the case -Treat underlying UTI -Advance diet as tolerated; isotonic fluids for maintenance. 2) Acute Cystitis -Would be helpful to obtain old cultures -Confirmed drug safety with patient; IV empiric ceftriaxone and monitor for culture. Not septic 3) Type 1 DM -Continue insulin pump; I spoke with her about adjusting the basal insulin on her pump. She agreed she will allow for SSI coverage should hyper/hypo- glycemic episodes happen. Will check q4h fsg 4) Hypoglycemia -Asymptomatic now; due to insulin pump use in a Type 1 diabetic who was unable to tolerate PO
[2019-01-08 08:50] LABS: BASO % 0.2 % (0-2.0); EOS % 2.3 % (0-4.5); HEMATOCRIT 27.3 % (32.4-45.2); HEMOGLOBIN 9.5 GM/dL (10.7-15.3); LYMPH % 37.5 % (8-40); MCH 31.3 pg (25.7-33.7); MCHC 34.8 g/dl (32.0-36.0); MEAN CELL VOLUME 90.1 fl (80-96); MEAN PLT VOLUME 7.3 fl (7.5-11.1); MONO % 5.7 % (3.8-10.2); NEUT % 54.3 % (42.8-82.8); PLATELET COUNT 349 K/MM3 (134-434); RBC 3.03 M/mm3 (3.60-5.2); RDW 12.3 % (11.6-15.6); WHITE BLOOD COUNT 10.7 K/mm3 (4.0-10.0)
[2019-01-08 09:29] LABS: ALBUMIN 2.4 g/dl (3.4-5.0); ALK PHOS 79 U/L (45-117); ANION GAP 8 MMOL/L (8-16); BILIRUBIN,TOTAL 0.2 mg/dL (0.2-1); BLOOD UREA NITROGEN 8 mg/dL (7-18); CALCIUM 7.7 mg/dL (8.5-10.1); CHLORIDE 111 mmol/L (98-107); CO2 19 mmol/L (21-32); CREATININE 0.5 mg/dL (0.55-1.3); GLUCOSE,RANDOM 77 mg/dL (74-106); MAGNESIUM 1.9 mg/dL (1.8-2.4); PHOSPHOROUS 2.7 mg/dL (2.5-4.9); POTASSIUM 3.7 mmol/L (3.5-5.1); SGOT/AST 9 U/L (15-37); SGPT/ALT 8 U/L (13-61); SODIUM 138 mmol/L (136-145); TOT PROT 6.1 g/dl (6.4-8.2)
[2019-01-08] MEDS ORDERED: PRENATAL VITAMINS W/ FOLIC ACID TABLET (FP) PO SCH (10:00)
--- NOTE | 2019-01-08 13:24 | DS ---
Physical Exam: SUBJECTIVE: Patient seen and examined at bedside. She endorses improving abdominal pain, and is tolerating clear liquids, with an egg sandwich. She denies subjective fevers, chills, shortness of breath, chest pain, palpitations. OBJECTIVE: Vital Signs Period Temp Pulse Resp BP Sys/Quinn Pulse Ox Last 24 Hr 98.1 F-98.6 F 82-99 18-18 109-122/79-82 99-100 PHYSICAL EXAM GENERAL: The patient is awake, alert, and fully oriented, in no acute distress. HEAD: Normal with no signs of trauma. EYES: PERRL, extraocular movements intact, sclera anicteric, conjunctiva clear. ENT: Ears normal, nares patent, oropharynx clear without exudates, moist mucous membranes. NECK: Trachea midline, full range of motion, supple. LUNGS: Breath sounds equal, clear to auscultation bilaterally, no wheezes, no crackles, no accessory muscle use. HEART: Regular rate and rhythm, S1, S2 without murmur, rub or gallop. ABDOMEN: Soft, nontender, nondistended, normoactive bowel sounds, no guarding, no rebound, no hepatosplenomegaly, no masses. EXTREMITIES: 2+ pulses, warm, well-perfused, no edema. NEUROLOGICAL: Cranial nerves II through XII grossly intact. Normal speech, gait not observed. PSYCH: Normal mood, normal affect. SKIN: Warm, dry, normal turgor, no rashes or lesions noted. LABS Laboratory Results - last 24 hr 01/08/19 01/08/19 01/08/19 00:43 00:43 00:43 WBC 14.5 H RBC 3.80 Hgb 11.9 Hct 34.5 MCV 90.7 MCH 31.3 MCHC 34.4 RDW 12.7 Plt Count 466 H MPV 7.5 Absolute Neuts (auto) 8.3 H Neutrophils % 57.3 Lymphocytes % 35.0 Monocytes % 4.8 Eosinophils % 2.3 Basophils % 0.6 Nucleated RBC % 0 PT with INR INR Sodium 136 Potassium 3.8 Chloride 105 Carbon Dioxide 23 Anion Gap 8 BUN 12 Creatinine 0.7 Creat Clearance w eGFR 101.15 POC Glucometer Random Glucose 46 L* Calcium 9.5 Phosphorus Magnesium Total Bilirubin 0.4 AST 14 L ALT 13 Alkaline Phosphatase 110 Total Protein 8.5 H Albumin 3.5 Lipase 47 L Beta HCG, Quant Urine Color Yellow Urine Appearance Cloudy Urine pH 6.0 Ur Specific [place] 1.029 Urine Protein 2+ H Urine Glucose (UA) Trace Urine Ketones Trace H Urine Blood Negative Urine Nitrite Negative Urine Bilirubin Negative Urine Urobilinogen 1.0 Ur Leukocyte Esterase Trace Urine WBC (Auto) 28 Urine RBC (Auto) 3 Urine Casts (Auto) 18 U Epithel Cells (Auto) 9.8 Urine Bacteria (Auto) 321.5 Urine HCG, Qual Acetone, Qual Blood Type Antibody Screen 01/08/19 01/08/19 01/08/19 00:43 00:43 00:43 WBC RBC Hgb Hct MCV MCH MCHC RDW Plt Count MPV Absolute Neuts (auto) Neutrophils % Lymphocytes % Monocytes % Eosinophils % Basophils % Nucleated RBC % PT with INR INR Sodium Potassium Chloride Carbon Dioxide Anion Gap BUN Creatinine Creat Clearance w eGFR POC Glucometer Random Glucose Calcium Phosphorus Magnesium Total Bilirubin AST ALT Alkaline Phosphatase Total Protein Albumin Lipase Beta HCG, Quant > 028450.0 Urine Color Urine Appearance Urine pH Ur Specific [place] Urine Protein Urine Glucose (UA) Urine Ketones Urine Blood Urine Nitrite Urine Bilirubin Urine Urobilinogen Ur Leukocyte Esterase Urine WBC (Auto) Urine RBC (Auto) Urine Casts (Auto) U Epithel Cells (Auto) Urine Bacteria (Auto) Urine HCG, Qual Positive Acetone, Qual Negative L Blood Type Antibody Screen 01/08/19 01/08/19 01/08/19 00:43 00:43 01:55 WBC RBC Hgb Hct MCV MCH MCHC RDW Plt Count MPV Absolute Neuts (auto) Neutrophils % Lymphocytes % Monocytes % Eosinophils % Basophils % Nucleated RBC % PT with INR 12.50 INR 1.06 Sodium Potassium Chloride Carbon Dioxide Anion Gap BUN Creatinine Creat Clearance w eGFR POC Glucometer 145 Random Glucose Calcium Phosphorus Magnesium Total Bilirubin AST ALT Alkaline Phosphatase Total Protein Albumin Lipase Beta HCG, Quant Urine Color Urine Appearance Urine pH Ur Specific [place] Urine Protein Urine Glucose (UA) Urine Ketones Urine Blood Urine Nitrite Urine Bilirubin Urine Urobilinogen Ur Leukocyte Esterase Urine WBC (Auto) Urine RBC (Auto) Urine Casts (Auto) U Epithel Cells (Auto) Urine Bacteria (Auto) Urine HCG, Qual Acetone, Qual Blood Type O POSITIVE Antibody Screen Negative 01/08/19 01/08/19 01/08/19 08:15 08:25 08:25 WBC 10.7 H RBC 3.03 L Hgb 9.5 L Hct 27.3 L D MCV 90.1 MCH 31.3 MCHC 34.8 RDW 12.3 Plt Count 349 D MPV 7.3 L Absolute Neuts (auto) 5.8 Neutrophils % 54.3 Lymphocytes % 37.5 Monocytes % 5.7 Eosinophils % 2.3 Basophils % 0.2 Nucleated RBC % 0 PT with INR INR Sodium 138 Potassium 3.7 Chloride 111 H Carbon Dioxide 19 L Anion Gap 8 BUN 8 Creatinine 0.5 L Creat Clearance w eGFR 149.14 POC Glucometer 72 Random Glucose 77 Calcium 7.7 L Phosphorus 2.7 Magnesium 1.9 Total Bilirubin 0.2 AST 9 L ALT 8 L Alkaline Phosphatase 79 Total Protein 6.1 L Albumin 2.4 L Lipase Beta HCG, Quant Urine Color Urine Appearance Urine pH Ur Specific [place] Urine Protein Urine Glucose (UA) Urine Ketones Urine Blood Urine Nitrite Urine Bilirubin Urine Urobilinogen Ur Leukocyte Esterase Urine WBC (Auto) Urine RBC (Auto) Urine Casts (Auto) U Epithel Cells (Auto) Urine Bacteria (Auto) Urine HCG, Qual Acetone, Qual Blood Type Antibody Screen HOSPITAL COURSE: Date of Admission:01/08/19 Date of Discharge: 01/08/19 Patient is a 28 year old female at 13 weeks , with history of insulin dependent diabetes mellitus, frequent diabetic ketoacidosis, gastroparesis, prior CVA with residual left sided weakness, presented with complain of abdominal pain, recurrent nausea, and vomiting. Patient was placed NPO, and hydrated with IV fluids. In the ED she was given Diphenhydramine, with palliative effect. Patient was noted to have urinary tract infection on UA. She was treated with IV Ceftriaxone. Patient tolerated clear liquids, full breakfast and lunch without abdominal pain, nausea, vomiting. She was discharged home with Cefpodoxime for three days for UTI. To follow up with primary care physician, and OBGYN within two- three days after discharge. She was counselled to eat smaller frequent meals, and remain well hydrated to diminish worsening nausea. Minutes to complete discharge: 35 Discharge Summary Reason For Visit: INSULIN DEPENDENT DIABETES MELLITUS/13WKS GESTATIO Current Active Problems 13 weeks gestation of (Acute) Cystitis (Acute) Epigastric pain (Acute) Leukocytosis (Acute) Nausea (Acute) (Acute) UTI (urinary tract infection) (Acute) Vomiting (Acute) IDDM (insulin dependent diabetes mellitus) (Chronic) Condition: Stable - Instructions Diet, Activity, Other Instructions: You were admitted to the hospital with recurrent nausea, and vomiting. You were placed on bowel rest, given IV fluids. You tolerated re-introduction of clear liquids, and solid food and are being discharged home. We recommend that you eat smaller, frequent meals, and remain hydrated with plenty of water. You were found to have a urinary tract infection. You will take antibiotic Cefpodoxime 100mg twice daily (every 12 hours) for three days. Continue taking your home medications, as directed. Follow up with your primary care physician within two- three days of discharge. Follow up with your OB-[facility] within two- three days of discharge. Return to the nearest Emergency Department if you experience any worsening symptoms, subjective fevers, chills, shortness of breath, chest pain, palpitations, abdominal pain, nausea, vomiting, pain or bleeding with urination. Referrals: Jeannine Wiggins [Non Staff, Medical] - Disposition: HOME - Home Medications Comprehensive Discharge Medication List: Ambulatory Orders Insulin Lispro [Humalog] 0 unit SQ DAILY 09/28/16 Cefpodoxime Proxetil [Vantin -] 100 mg PO BID 3 Days #6 tablet 01/08/19 This patient is new to me today: Yes Date on this admission: 01/08/19 Emergency Visit: Yes ED Registration Date: 01/08/19 Care time: The patient presented to the Emergency Department on the above date and was hospitalized for further evaluation of their emergent condition. Critical Care patient: No - Discharge Referral Referred to [facility] No
--- NOTE | 2019-01-08 13:33 | PN ---
Teaching Attending Note Name of Resident: Mckinley Greer ATTENDING PHYSICIAN STATEMENT I saw and evaluated the patient. I reviewed the resident's note and discussed the case with the resident. I agree with the resident's findings and plan as documented. SUBJECTIVE:continues to have intermittent nausea but was able to tolerate a large breakfast after not eating for several days. denies Cp, SOB, fever, chills , V/C/D. sugars have been controlled with insulin pump in 70-80's OBJECTIVE: Last Vital Signs Temp Pulse Resp BP Pulse Ox 98.6 F 82 18 122/82 99 01/08/19 07:35 01/08/19 07:35 01/08/19 07:35 01/08/19 07:35 01/08/19 07:35 General NAD CV S1 S2 RRR no wheezing/rales/rhonchi Abdomen soft NT/ND Extremities no pedal edema ASSESSMENT AND PLAN: 28yo F wtih PMH DM1 currently 13 weeks with persistent nausea and vomiting and found to have UTI 1. Hyperemesis gravidarium- tolerated large breakfast and lunch. encouraged pt to eat small more frequent meals, not to anything high in fat, spicy or fried. to drink plenty of fluids and to monitor sugars closely during this time. 2. Hypoglycemia- possibly due to low po intake during this time. has resolved. 3. UTI-was supposedly given macrobid x1 dose. and not given anything on discharge. received ceftraxone x1. will transition to cefpodixime x3 days as safe in . expressed concern about swallowing pills. told her it can be crushed and taken. refused liquid antibiotics as well. stressed importance of taking medication 4. 13weeks - has appt with OB on 01/11. encouraged to keep appt. vitamins 5. d/c home
[2019-01-08 13:38] VITALS: BP 125/82; PULSE 83; TEMP 98.1
== END 2019-01-08 14:30 | disposition home or self-care (01) ==
LOC: JER 21:48 → JERBED 01-08 04:31
PROVIDERS: ADMIT Internal Medicine; ATTEND Internal Medicine
PROC: 3E03329 Introduction of Other Anti-infective into Peripheral Vein, Percutaneous Approach (ICD-10-PCS; principal; 2019-01-08)
PROC: 3E033GC Introduction of Other Therapeutic Substance into Peripheral Vein, Percutaneous Approach (ICD-10-PCS; 2019-01-08)
PROC: 3E0337Z Introduction of Electrolytic and Water Balance Substance into Peripheral Vein, Percutaneous Approach (ICD-10-PCS; 2019-01-08)
PROC: 3E023GC Introduction of Other Therapeutic Substance into Muscle, Percutaneous Approach (ICD-10-PCS; 2019-01-08)
DX: O21.0 Mild hyperemesis gravidarum (principal); O24.111 Pre-existing type 2 diabetes mellitus, in pregnancy, first trimester; O23.11 Infections of bladder in pregnancy, first trimester; O99.011 Anemia complicating pregnancy, first trimester; Z3A.13 13 weeks gestation of pregnancy; E10.65 Type 1 diabetes mellitus with hyperglycemia; Z96.41 Presence of insulin pump (external) (internal); D72.829 Elevated white blood cell count, unspecified; I69.334 Monoplegia of upper limb following cerebral infarction affecting left non-dominant side; R16.0 Hepatomegaly, not elsewhere classified; I10 Essential (primary) hypertension
CPT/HCPCS: 36415; 80053; 81003; 82009; 82962; 83690; 83735; 84100; 84702; 84703; 85025; 85610; 86850; 86900; 86901; 87086; 96361; 96365; 96372; 96375; 96376; 99284-25; G0378; J7030

== ENCOUNTER 2019-04-02 09:54 | Emergency (ER) | payer OTHER ==
[2019-04-02 10:04] VITALS: BMI 29.8
[2019-04-02] MEDS ORDERED: SODIUM CHLORIDE 1,000 ML IV STA (10:30)
--- NOTE | 2019-04-02 10:45 | PDOC ---
History of Present Illness - General Chief Complaint: Back Pain Stated Complaint: LOWER BACK PAIN Time Seen by Provider: 04/02/19 10:16 - History of Present Illness Initial Comments: 04/02/19 10:39 28f hx IDDM on insulin pump, diabetic neuropathy, prior CVA in 2012, migraines, @ 20 weeks presents with back pain and headache x 1 week. Pt states she has had back pain throughout her entire back beginning last week, intense shooting pains throughout her entire back and then developed a headache 3 days ago, generalized intense pressure like, similar in distribution but more intense than her prior headaches, photophobia, nausea. No vomiting. No fevers, dysuria, polyuria. No rashes. No recent changes to her insulin pump. Has not tried anything for the pain because she has trouble taking pills. She is requesting IV benadryl for her pain as she says this usually helps. No vaginal bleeding or fluid, follows @ [facility] was seen there yesterday for the pain, states she had an ultrasound there to check on the baby and he was fine. Unremarkable course of to date. Real time glucose monitor that pt wears states current FSG is 157. 04/02/19 10:46 04/02/19 12:21 Past History - Past Medical History Allergies/Adverse Reactions: Allergies Allergy/AdvReac Type Severity Reaction Status Date / Time hydromorphone [From Dilaudid] Allergy Unknown Verified 04/02/19 10:02 acetaminophen [From Tylenol] Allergy Swelling Verified 04/02/19 10:02 chlorhexidine Allergy Verified 04/02/19 10:02 [From Hibiclens] gentamicin Allergy Verified 04/02/19 10:02 heparin Allergy Verified 04/02/19 10:02 ibuprofen [From Motrin] Allergy Swelling Verified 04/02/19 10:02 morphine Allergy Verified 04/02/19 10:02 Home Medications: Ambulatory Orders Insulin Lispro [Humalog] 0 unit SQ DAILY 09/28/16 Cefpodoxime Proxetil [Vantin -] 100 mg PO BID 3 Days #6 tablet 01/08/19 Anemia: Yes Asthma: Yes Cancer: No Cardiac Disorders: Yes (heart murmur) CVA: Yes (2012) COPD: No CHF: No Dementia: No Diabetes: Yes GI Disorders: Yes Disorders: No HTN: Yes Hypercholesterolemia: No Liver Disease: Yes (Hepatomegaly) Seizures: No Thyroid Disease: No - Surgical History Abdominal Surgery: Yes () Appendectomy: Yes (2008) Cardiac Surgery: No Cholecystectomy: No Lung Surgery: No Neurologic Surgery: No Orthopedic Surgery: No - Reproductive History (#): 8 Para: 1 Cervical CA: No Dysfunctional Uterine Bleeding: No Ectopic : No Endometrial CA: No Polycystic Ovaries: No Therapeutic (s) & number: No Tubal Ligation: No Spontaneous : 3 - Immunization History Td Vaccination: Yes TDAP Vaccination: Yes Immunization Up to Date: Yes - Suicide/Smoking/Psychosocial Hx Smoking Status: No Smoking History: Never smoked Have you smoked in the past 12 months: No Number of Cigarettes Smoked Daily: 0 Cigars Per Day: 0 Hx Alcohol Use: No Drug/Substance Use Hx: No Substance Use Type: None Hx Substance Use Treatment: No *Physical Exam - Vital Signs Last Vital Signs Temp Pulse Resp BP Pulse Ox 98.4 F 94 H 22 H 115/86 99 04/02/19 10:02 04/02/19 10:02 04/02/19 10:02 04/02/19 10:02 04/02/19 10:02 - Physical Exam Comments: 04/02/19 10:43 Gen: Sitting in wheelchair, extremely uncomfortable, crying during exam, not diaphoretic, able to speak in full sentences HEENT: Atraumatic perrl supple neck no midline c spine tenderness moist mucous membranes CV: RRR s1 s2 no mrg Lung: CTAB Abd: Soft non tender gravid, no CVAT 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 Benadryl given 25mg IVP. Pt states she feels better, tolerating PO. Pt able to urinate. Labs unremarkable, awaiting UA. However since pt states no dysuria, polyuria, no WBC and afebrile will put culture to f/u. Pt will f/u with PMD, [employer]. Stable for discharge. *DC/Admit/Observation/Transfer Diagnosis at time of Disposition: Headache, Back pain - Discharge Dispostion Disposition: HOME Condition at time of disposition: Good Decision to Admit order: No - Referrals Referrals: Yancy Zeng MD [Primary Care Provider] - - Patient Instructions Printed Discharge Instructions: DI for Headache Additional Instructions: You were seen in the ED For a headache and back pain. Return to the ED if your symptoms worsen. Follow up with your primary care physician and your OB-[employer]. - Post Discharge Activity
[2019-04-02 11:31] VITALS: BP 121/93; PULSE 95; TEMP 98.2
[2019-04-02 11:38] LABS: VENOUS PH 7.34 (7.31-7.41); VENOUS PO2 33.6 mmHg (30-40)
[2019-04-02] MEDS ORDERED: ONDANSETRON 4 MG/2 ML VIAL IVPB ONE (12:04)
[2019-04-02 12:20] LABS: BILIRUBIN,TOTAL 0.3 mg/dL (0.2-1); BLOOD UREA NITROGEN 13.5 mg/dL (7-18); CREATININE 0.8 mg/dL (0.55-1.3); POTASSIUM 4.5 mmol/L (3.5-5.1); TOT PROT 7.8 g/dl (6.4-8.2)
[2019-04-02] MEDS ORDERED: ONDANSETRON 4 MG/2 ML VIAL ONE (12:24)
[2019-04-02 12:52] LABS: BASO % 0.5 % (0-2.0); EOS % 1.3 % (0-4.5); HEMATOCRIT 32.8 % (32.4-45.2); HEMOGLOBIN 11.4 GM/dL (10.7-15.3); LYMPH % 27.9 % (8-40); MCH 32.5 pg (25.7-33.7); MCHC 34.6 g/dl (32.0-36.0); MEAN CELL VOLUME 93.8 fl (80-96); MONO % 5.8 % (3.8-10.2); NEUT % 64.5 % (42.8-82.8); PLATELET COUNT 328 K/MM3 (134-434); RDW 13.4 % (11.6-15.6); WHITE BLOOD COUNT 9.7 K/mm3 (4.0-10.0)
[2019-04-02 14:48] LABS: EPI CELLS 4.2 /HPF (0-5/HPF); HYALINE CASTS 2 /lpf (0-8); PH,URINE 6.5 (5.0-8.0); URINE APPEARANCE CLEAR; URINE BACTERIA 107.9 /hpf (NEGATIVE); URINE BILIRUBIN NEGATIVE (NEGATIVE); URINE COLOR YELLOW; URINE GLUCOSE (UA) TRACE (NEGATIVE); URINE KETONE 1+ (NEGATIVE); URINE LEUK ESTERASE TRACE (NEGATIVE); URINE NITRITE NEGATIVE (NEGATIVE); URINE PROTEIN 1+ (NEGATIVE); URINE RBC 0 /hpf (0-4); URINE UROBILINOGEN 0.2 mg/dL (0.2-1.0); URINE WBC 7 /hpf (0-5)
== END 2019-04-02 15:05 | disposition home or self-care (01) ==
LOC: JER 09:54 → JERFT 09:54 → JER 15:05
PROC: 3E033GC Introduction of Other Therapeutic Substance into Peripheral Vein, Percutaneous Approach (ICD-10-PCS; principal; 2019-04-02)
PROC: 3E0337Z Introduction of Electrolytic and Water Balance Substance into Peripheral Vein, Percutaneous Approach (ICD-10-PCS; 2019-04-02)
DX: O26.892 Other specified pregnancy related conditions, second trimester (principal); Z3A.20 20 weeks gestation of pregnancy; R51 Headache; M54.9 Dorsalgia, unspecified; I10 Essential (primary) hypertension; E11.42 Type 2 diabetes mellitus with diabetic polyneuropathy; Z96.41 Presence of insulin pump (external) (internal); J45.909 Unspecified asthma, uncomplicated; R16.0 Hepatomegaly, not elsewhere classified; Z86.73 Personal history of transient ischemic attack (TIA), and cerebral infarction without residual deficits; Z88.8 Allergy status to other drugs, medicaments and biological substances
CPT/HCPCS: 36415; 80048; 80053; 81003; 82550; 82803; 82962; 84703; 85025; 87077; 87086; 96361; 96374; 96375; 96376; 99283-25; J7030

== ENCOUNTER 2019-06-09 05:45 | Emergency (ER) | payer OTHER ==
[2019-06-09 05:50] VITALS: TEMP 98.3; BMI 29.6
--- NOTE | 2019-06-09 07:29 | PDOC ---
Attending Attestation - Resident Resident Name: Ellie Mata - HPI HPI: 06/09/19 08:10 Pt presents to the ED complaining of a two week history of constant L shoulder pain. Patient states that she has seen her PMD for this complaint and been given lidocaine patches without relief. Denies trauma. Denies chest pain or shortness of breath. Pain is worse with movement of her arm or shoulder. Denies fever. - Physicial Exam PE: 06/09/19 08:14 Agree with resident exam. patient has diffuse tenderness and pain limited ROM of her shoulder without bony deformity. No erythema or swelling. - Medical Decision Making 06/09/19 08:16 Pt presents to the ED complaining of a two week history of constant L shoulder pain. Symptoms are consistent with tendonitis. Patient offered PO pain medication, which she refused because "I'm allergic to everything". Requested dilaudid and benadryl by name. Offered lidocaine patch, which she refused. Will check EKG to screen for cardiac disease, discharge home if negative.
--- NOTE | 2019-06-09 08:05 | PDOC ---
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 She cannot trace this back to any injury or heavy lifting. She notes the pain is all around the top, front, back, and deltoid portions of the left shoulder. It also shoots up to her left neck occasionally for the past few days. She notes limited ROM to the shoulder d/t the pain. She denies n/t/w focally, chest pain, back pain, abdominal pain, new CALVILLO, or any other new symptoms. States her LTCS scar is healing well. Past History - Past Medical History Allergies/Adverse Reactions: Allergies Allergy/AdvReac Type Severity Reaction Status Date / Time hydromorphone [From Dilaudid] Allergy Unknown Verified 06/09/19 05:46 acetaminophen [From Tylenol] Allergy Swelling Verified 06/09/19 05:46 chlorhexidine Allergy Verified 06/09/19 05:46 [From Hibiclens] gentamicin Allergy Verified 06/09/19 05:46 heparin Allergy Verified 06/09/19 05:46 ibuprofen [From Motrin] Allergy Swelling Verified 06/09/19 05:46 morphine Allergy Verified 06/09/19 05:46 Home Medications: Ambulatory Orders Insulin Lispro [Humalog] SQ ASDIR 04/02/19 Anemia: Yes Asthma: Yes Cancer: No Cardiac Disorders: Yes (heart murmur) CVA: Yes (2012) COPD: No CHF: No Dementia: No Diabetes: Yes GI Disorders: Yes Disorders: No HTN: Yes Hypercholesterolemia: No Liver Disease: Yes (Hepatomegaly) Seizures: No Thyroid Disease: No - Surgical History Abdominal Surgery: Yes () Appendectomy: Yes (2008) Cardiac Surgery: No Cholecystectomy: No Lung Surgery: No Neurologic Surgery: No Orthopedic Surgery: No - Reproductive History (#): 8 Para: 1 Cervical CA: No Dysfunctional Uterine Bleeding: No Ectopic : No Endometrial CA: No Polycystic Ovaries: No Therapeutic (s) & number: No Tubal Ligation: No Spontaneous : 3 - Immunization History Td Vaccination: Yes TDAP Vaccination: Yes Immunization Up to Date: Yes - Psycho Social/Smoking Cessation Hx Smoking Status: No Smoking History: Never smoked Have you smoked in the past 12 months: No Number of Cigarettes Smoked Daily: 0 Cigars Per Day: 0 Information on smoking cessation initiated: No Hx Alcohol Use: No Drug/Substance Use Hx: No Substance Use Type: None Hx Substance Use Treatment: No Review of Systems - Review of Systems Able to Perform ROS?: Yes Comments:: GEN: no fever, chills, malaise, generalized weakness, or weight change HEENT: no ear pain, sore throat, vision change, or eye pain CV: no chest pain, palpitations, lightheadedness, syncope, or edema RESP: no cough, wheezing, or SOB GI: no abdominal pain, nausea, vomiting, diarrhea, constipation, or white/black/ bloody stool : no dysuria, hematuria, incontinence, retention, bleeding, or discharge MSK: left shoulder pain NEURO: no headache, seizure, vertigo, numbness, tingling, or focal weakness PSYCH: no substance use, no behavior change SKIN: no jaundice, no rash ROS otherwise negative except as noted in HPI *Physical Exam - Vital Signs Last Vital Signs Temp Pulse Resp BP Pulse Ox 98.3 F 89 20 135/89 99 06/09/19 05:46 06/09/19 05:46 06/09/19 05:46 06/09/19 05:46 06/09/19 05:46 - Physical Exam Comments: GENERAL: well-appearing, nontoxic, A/Ox4, no distress, answers questions appropriately, sitting up on hospital bed HEENT: PERRLA, EOMI, moist mucous membranes NECK/BACK: no midline ttp, no paraspinous ttp, no spinal stepoff or deformity, no hematoma, full ROM, neck supple CARDIOVASCULAR: regular rate/rhythm, normal S1S2, no MGR, strong peripheral pulses, capillary refill <2 seconds, extremities wwp, no edema LUNGS/RESPIRATORY: no respiratory distress, CTAB GI/ABDOMEN: symmetric [id number], normoactive BS, soft, no ttp, no midline pulsatile masses : no CVA tenderness EXTREMITIES: left superior mild trapezius tenderness, mild diffuse anterior> posterior shoulder and deltoid tenderness, neurovascularly intact distally, able to range LUE normally at shoulder but this exacerbated pain, otherwise no muscle atrophy, no acute deformity SKIN: warm and dry, no pallor, no jaundice, no rash, no bruising, no skin breakdown, no cuts, no lesions NEUROLOGICAL: GCS 15, CN II-XII grossly intact, 5/5 strength proximally and distally, no facial droop Heart Score/ECG Review #1 Sinus rhythm, rate of 96, normal axis and intervals, no ischemic ST-T changes Medical Decision Making - Medical Decision Making 06/09/19 08:10 29YOF with complex medical history and recent LTCS p/w left shoulder pain and tenderness. Initial Vital Signs Temp Pulse Resp BP Pulse Ox 98.3 F 89 20 135/89 99 06/09/19 05:46 06/09/19 05:46 06/09/19 05:46 06/09/19 05:46 06/09/19 05:46 Exam consistent with musculoskeletal pain, she appears comfortable in general with intermittent periods of discomfort. DDX IBNLT tendinitis, adhesive capsulitis, muscle strain/sprain, etc. Very unlikely to by any bony injury without mechanism for injury. Very unlikely to be referred pain or any other more serious etiology. EKG: WNL The patient has many medication allergies and this limits our ability to offer analgesia. We do offer Toradol, which she states she has had before and is not allergic to but it did not work at all. She is offered a lidocaine patch, which she states she tried using at home and which did not work. She notes significant allergy to Tylenol and Motrin. She requests IV Dilaudid and Benadryl push, which I tell her we cannot offer to her for shoulder pain. She states that she wants to leave at this time and I offer her orthopedist followup. She is given referral information is given and she will follow up this week. She will do light stretching exercises and ROM exercises to avoid adhesive capsulitis. On last reassessment, vitals are wnl, pain is reasonably controlled, and exam is benign. Workup is not concerning for emergency-level pathology at this time. This patient is appropriate for discharge with close outpatient follow up. The family is comfortable with this plan and will follow up with their PCP and Ortho in 1-3 days. They agree to return to the ED with any new/worsening symptoms. Specific return precautions are discussed and they will come back to the ER if necessary. Discharge - Discharge Information Problems reviewed: Yes Clinical Impression/Diagnosis: Shoulder pain Qualifiers: Chronicity: unspecified Laterality: left Qualified Code(s): M25.512 - Pain in left shoulder Condition: Stable Disposition: HOME - Admission No - Follow up/Referral Referrals: Yancy Zeng MD [Primary Care Provider] - Thai Clayton MD [Staff Physician] - - Patient Discharge Instructions Patient Printed Discharge Instructions: DI for Shoulder Pain Additional Instructions: You were seen in the ER for shoulder pain for two weeks. We offered you a lidocaine patch but you did not want this. Please take your normal over-the- counter pain medications or other regimens. Do light stretching of the shoulder so that you don't develop "frozen shoulder" and be sure to follow up with the orthopedist group. We are giving you referral information, and you should call them and your primary care provider tomorrow to make appointments. Please return to the ER for any chest pain, passing out, strange headaches that are not the same as your normal headaches, or new numbness/tingling/weakness. - Post Discharge Activity
[2019-06-09 08:28] VITALS: BP 137/98; PULSE 100
--- NOTE | 2019-06-09 16:47 | EKG ---
Test Reason : Blood Pressure : / mmHG Vent. Rate : 096 BPM Atrial Rate : 096 BPM P-R Int : 134 ms QRS Dur : 084 ms QT Int : 338 ms P-R-T Axes : 049 038 014 degrees QTc Int : 427 ms NORMAL SINUS RHYTHM NORMAL ECG WHEN COMPARED WITH ECG OF 09-NOV-2018 00:40, T WAVE VARIATION Confirmed by LATESHA WALLACE MD ([id number]) on 06/09/2019 4:46:47 PM Referred By: Confirmed By:LATESHA WALLACE MD
== END 2019-06-09 08:28 | disposition home or self-care (01) ==
LOC: JER 05:45
DX: M25.512 Pain in left shoulder (principal); I10 Essential (primary) hypertension; E10.9 Type 1 diabetes mellitus without complications; Z79.4 Long term (current) use of insulin; Z96.41 Presence of insulin pump (external) (internal); D64.9 Anemia, unspecified; J45.909 Unspecified asthma, uncomplicated; R16.0 Hepatomegaly, not elsewhere classified; I69.851 Hemiplegia and hemiparesis following other cerebrovascular disease affecting right dominant side; R01.1 Cardiac murmur, unspecified; Z88.0 Allergy status to penicillin; Z88.5 Allergy status to narcotic agent
CPT/HCPCS: 93005; 93010; 99282-25

== ENCOUNTER 2020-05-17 09:51 | Inpatient (IN) | payer OTHER ==
[2020-05-17] MEDS ORDERED: SODIUM CHLORIDE 1,000 ML IV STA ×2 (10:25→11:32)
[2020-05-17 11:13] LABS: ALK PHOS 179 U/L (45-117); BILIRUBIN,TOTAL 0.6 mg/dL (0.2-1); BLOOD UREA NITROGEN 36.6 mg/dL (7-18); CALCIUM 8.9 mg/dL (8.5-10.1); CHLORIDE 104 mmol/L (98-107); CO2 3 mmol/L (21-32); SGOT/AST 31 U/L (15-37); SGPT/ALT 21 U/L (13-61); SODIUM 135 mmol/L (136-145); TOT PROT 8.8 g/dl (6.4-8.2)
[2020-05-17 11:16] LABS: ANION GAP 28 MMOL/L (8-16)
--- NOTE | 2020-05-17 11:16 | PDOC ---
History of Present Illness - General Chief Complaint: Blood Sugar Problem Stated Complaint: BLOOD SUGAR PROBLEM Time Seen by Provider: 05/17/20 10:22 History Source: Patient, EMS Exam Limitations: No Limitations - History of Present Illness Initial Comments: 05/17/20 11:14 30F with PMH of T1DM, CVA (residual right-sided weakness), multiple admissions for DKA, and peripheral neuropathy brought to ED by EMS. Pt was not able to provide much history, only states that she "ran out" of her insulin. She requested IV Benadryl multiple times and pain control medication for pain that is "all over". PMH: as in HPI SH: see below Meds: see med list Allergies: acetaminophen, NSAIDs, morphine Tob/Etoh/Rec drugs: denies ROS GENERAL/CONSTITUTIONAL: No fever or chills. No weakness. HEENT: No change in vision. No ear pain or discharge. No sore throat. CARDIOVASCULAR: No chest pain or shortness of breath RESPIRATORY: No cough, wheezing, or hemoptysis. GASTROINTESTINAL: +nausea, vomiting; no diarrhea or constipation. GENITOURINARY: No dysuria, frequency, or change in urination. MUSCULOSKELETAL: No joint or muscle swelling or pain. No neck or back pain. SKIN: No rash NEUROLOGIC: No headache, vertigo, loss of consciousness, or change in strength/sensation. ENDOCRINE: No increased thirst. No abnormal weight change HEMATOLOGIC/LYMPHATIC: No anemia, easy bleeding, or history of blood clots. ALLERGIC/IMMUNOLOGIC: No hives or skin allergy. PE GENERAL: Awake, alert, and fully oriented; pt appears fatigued and in respiratory distress HEAD: No signs of trauma, normocephalic, atraumatic EYES: PERRLA, EOMI, sclera anicteric, conjunctiva clear ENT: Auricles normal inspection, hearing grossly normal, nares patent, moist mucosa, oropharynx clear without exudates. NECK: Normal ROM, supple, no LAD, JVD, or masses HEART: Tachycardia, regular rhythm, normal S1/S2, no murmurs, rubs or gallops, peripheral pulses normal and equal bilaterally. LUNGS: Tachypnic, Kussmaul breathing ABDOMEN: Soft, nontender. No guarding, no rebound. No masses EXTREMITIES: Normal inspection, Normal range of motion, no edema. No clubbing or cyanosis. NEUROLOGICAL: Normal speech, no focal sensorimotor deficits SKIN: Warm, Dry, normal turgor, no rashes or lesions noted Assessment and Plan 1. MARISSA Valencia, PGY1 Emergency Medicine Past History - Medical History Allergies/Adverse Reactions: Allergies Allergy/AdvReac Type Severity Reaction Status Date / Time hydromorphone [From Dilaudid] Allergy Unknown Verified 05/17/20 09:53 acetaminophen [From Tylenol] Allergy Swelling Verified 05/17/20 09:53 chlorhexidine Allergy Verified 05/17/20 09:53 [From Hibiclens] gentamicin Allergy Verified 05/17/20 09:53 heparin Allergy Verified 05/17/20 09:53 ibuprofen [From Motrin] Allergy Swelling Verified 05/17/20 09:53 morphine Allergy Verified 05/17/20 09:53 Home Medications: Ambulatory Orders Lancets 1 each MC DAILY #1 box 11/20/19 Amlodipine Besylate [Norvasc -] 5 mg PO DAILY #30 tablet 01/10/20 Insulin Pump [Insulin Pump - (Nf)] 0 units SQ ASDIR 01/10/20 Insulin Lispro [Humalog] 100 unit SQ DAILY #1 ml 01/11/20 Anemia: Yes Asthma: Yes Cancer: No Cardiac Disorders: Yes (heart murmur) CVA: Yes (2012) COPD: No CHF: No Dementia: No Diabetes: Yes GI Disorders: Yes Disorders: No HTN: Yes Hypercholesterolemia: No Liver Disease: Yes (Hepatomegaly) Seizures: No Thyroid Disease: No - Surgical History Abdominal Surgery: Yes () Appendectomy: Yes (2008) Cardiac Surgery: No Cholecystectomy: No Lung Surgery: No Neurologic Surgery: No Orthopedic Surgery: No - Reproductive History Is Patient Now?: No (#): 8 Para: 1 Cervical CA: No Dysfunctional Uterine Bleeding: No Ectopic : No Endometrial CA: No Polycystic Ovaries: No Therapeutic (s) & number: No Tubal Ligation: No Spontaneous : 3 - Immunization History Td Vaccination: Yes TDAP Vaccination: Yes Immunization Up to Date: Yes - Psycho-Social/Smoking History Smoking Status: No Smoking History: Never smoked Have you smoked in the past 12 months: No Number of Cigarettes Smoked Daily: 0 Cigars Per Day: 0 - Substance Abuse Hx (Audit-C & DAST Scrn) How often the patient has a drink containing alcohol: Never Score: In Men: 4 or > Positive; In Women: 3 or > Positive: 0 Screen Result (Pos requires Nsg. Audit-10AR): Negative In the last yr the pt used illegal drug/Rx for NonMed reason: No Score: Yes response is considered Positive: 0 Screen Result (Positive result requires Nsg. DAST-10): Negative *Physical Exam - Vital Signs Last Vital Signs Temp Pulse Resp BP Pulse Ox 98.9 F 140 H 20 147/51 L 100 05/17/20 09:53 05/17/20 09:53 05/17/20 09:53 05/17/20 09:53 05/17/20 09:53 ED Treatment Course - LABORATORY CBC & Chemistry Diagram: 05/17/20 13:04 05/17/20 13:04 - ADDITIONAL ORDERS Additional order review: Laboratory Results 05/17/20 05/17/20 10:40 10:40 Sodium 135 L Chloride 104 Carbon Dioxide 3 L BUN 36.6 H Creatinine 3.0 H Est GFR (CKD-EPI)AfAm 23.52 Est GFR (CKD-EPI)NonAf 20.30 Calcium 8.9 Total Bilirubin 0.6 AST 31 ALT 21 Alkaline Phosphatase 179 H Total Protein 8.8 H Albumin 4.0 Serum , Qual Negative Medical Decision Making - Medical Decision Making 05/17/20 13:48 30F with PMH of T1DM, CVA (residual right-sided weakness), multiple admissions for DKA, and peripheral neuropathy brought to ED by EMS. Pt was not able to provide much history, only states that she "ran out" of her insulin. She requested IV Benadryl multiple times and pain control medication for pain that is "all over". - Given IV NS x2 and pepcid 20mg IV. -Labs notable for: - ABG 6.77, ABG CO2 16.7 - CMP: Na 135, K 2.6, CO2 3, 28 Anion gap, BUN 36.6, Creatinine 3.0 -- repeat K 6.3 - fingerstick glucose >600 - Lactate 5.6 - Repeat glucose 867 - beta-hydroxybutyrate 122 - Given 5 units regular insulin IV, 150mEq sodium bicarb in D5W - Difficult to get IV access on pt after multiple attempts - Requires admission for management of DKA
[2020-05-17 11:21] LABS: ARTERIAL BLOOD GAS PCO2 < 16.70 mmHg (35-45); ARTERIAL BLOOD GAS PO2 104.2 mmHg (80-100)
[2020-05-17] MEDS ORDERED: FAMOTIDINE 20 MG/50 ML IVPB 20 MG/50 ML MG IVPB ONE ×2 (11:25→11:28)
[2020-05-17 11:35] LABS: ARTERIAL BLOOD GAS pH 6.775 (7.350-7.450)
--- NOTE | 2020-05-17 11:48 | PDOC ---
Documentation entered by Ramos Fry SCRIBE, acting as scribe for Germaine Abdalla MD. Germaine Abdalla MD: This documentation has been prepared by the rafyibe, Ramos Fry SCRIBE, under my direction and personally reviewed by me in its entirety. I confirm that the documentation accurately reflects all work, treatment, procedures, and medical decision making performed by me. Attending Attestation - Resident Resident Name: Arvind Valencia - ED Attending Attestation I have performed the following: I have examined & evaluated the patient, The case was reviewed & discussed with the resident, I agree w/resident's findings & plan, Exceptions are as noted - HPI HPI: 05/17/20 10:22 The patient is a 30 year old female with a significant past medical history of heart murmur, CVA 2012, HTN, hepatomegaly, poorly controlled DM, multiple admissions for DKA, and previously drug seeking (prior requests for IV pain medications and IV Benadryl) who presents to the emergency department, [facility], for evaluation of shortness of breath that began last night. The patient reports associated cough, nausea, and vomiting that began last night. EMS reports one episode of vomiting last night and another episode this morning. The patient denies chest/abdominal/back pain,fever, chills, and/or any other GI symptoms. Denies any symptoms. Denies any other symptoms. Allergies: hydromorphone, acetaminophen, chlorhexidine, gentamicin, heparin, ibuprofen, morphine Social Hx: None reported Surgical Hx: appendectomy, - Physicial Exam PE: 05/17/20 11:43 General: non-toxic appearing Chest: CTAB, good air entry, no wheezes rales or rhonchi, +tachypnea, +kussmaul breathing CVS: + s1 s2, tachy - Medical Decision Making 05/17/20 11:44 30 yo F well known to this hospital and provider, multiple episodes of DKA here with likely DKA likely 2/2 running out of insulin (pt reports she has been using her pump but she ran out of insulin). Plan: -labs -urine -EKG -IVF -cxr -anticipate insulin drip once labs resulted and replete k as indicated -critical care consult for possible ICU admission for DKA This clinical encounter is taking place during a federal and state health care emergency attributable to the novel [place] Virus pandemic. The [employer] of the Department of Health and Human Services has declared, pursuant to the Public Health Service Act 319F-3 (42 U.S.C. 247d-6d), that a covered persons activities related to medical countermeasures against COVID-19 will be immune from liability under Federal and State law. Discharge - Discharge Information Problems reviewed: Yes Clinical Impression/Diagnosis: DKA (diabetic ketoacidoses) Qualifiers: Diabetes mellitus type: type 1 Diabetes mellitus complication detail: without coma Qualified Code(s): E10.10 - Type 1 diabetes mellitus with ketoacidosis without coma - Follow up/Referral - Patient Discharge Instructions - Post Discharge Activity
[2020-05-17 11:49] LABS: POTASSIUM 7.6 mmol/L (3.5-5.1)
[2020-05-17] MEDS ORDERED: INSULIN REGULAR HUMAN 100 UNITS/ML *VIAL* (FOR IVP) IVPUSH ONE (12:20)
[2020-05-17] MEDS ORDERED: INSULIN REGULAR 100 UNITS in SODIUM CHLORIDE 99 ML IVPB SCH (12:30)
--- NOTE | 2020-05-17 12:40 | EKG ---
Test Reason : Blood Pressure : / mmHG Vent. Rate : 135 BPM Atrial Rate : 135 BPM P-R Int : 132 ms QRS Dur : 082 ms QT Int : 314 ms P-R-T Axes : 071 082 027 degrees QTc Int : 471 ms SINUS TACHYCARDIA POSSIBLE LEFT ATRIAL ENLARGEMENT BORDERLINE ECG WHEN COMPARED WITH ECG OF 06-JAN-2020 10:34, T WAVE AMPLITUDE HAS INCREASED IN LATERAL LEADS Confirmed by Alexis Camacho ([id number]) on 05/17/2020 12:39:58 PM Referred By: Confirmed By:Alexis Camacho
[2020-05-17] MEDS ORDERED: SODIUM BICARBONATE IV SCH (13:00)
[2020-05-17] MEDS ORDERED: DEXTROSE IV SCH (13:00)
[2020-05-17] MEDS ORDERED: WATER IV SCH (13:00)
[2020-05-17 13:26] LABS: BASO % 0.7 % (0-2.0); HEMATOCRIT 46.9 % (32.4-45.2); HEMOGLOBIN 13.7 GM/dL (10.7-15.3); LYMPH % 13.8 % (8-40); MCH 31.6 pg (25.7-33.7); MCHC 29.1 g/dl (32.0-36.0); MEAN CELL VOLUME 108.6 fl (80-96); MEAN PLT VOLUME 9.2 fl (7.5-11.1); MONO % 3.4 % (3.8-10.2); NEUT % 82.1 % (42.8-82.8); PLATELET COUNT 534 K/MM3 (134-434); RBC 4.32 M/mm3 (3.60-5.2)
[2020-05-17 13:33] LABS: INR 0.91 (0.83-1.09); PROTHROMBIN TIME (PATIENT) 10.7 SEC (9.7-13.0)
[2020-05-17 13:36] LABS: ACTIVATED PTT 33.8 SECONDS (25.2-36.5)
[2020-05-17 13:42] LABS: CALCIUM 8.8 mg/dL (8.5-10.1); CHLORIDE 108 mmol/L (98-107); CO2 4 mmol/L (21-32); CREATININE 2.9 mg/dL (0.55-1.3); SODIUM 140 mmol/L (136-145); WHITE BLOOD COUNT 30.9 K/mm3 (4.0-10.0)
[2020-05-17] MEDS ORDERED: DEXTROSE 5%-WATER - 1,000 ML with SODIUM BICARBONATE 8.4% - 150 MEQ IV SCH (13:45)
[2020-05-17] MEDS ORDERED: SODIUM BICARBONATE 8.4% - 150 MEQ in DEXTROSE 5%-WATER - 1,000 ML IV SCH (13:45)
[2020-05-17 13:51] LABS: ANION GAP 28 MMOL/L (8-16)
[2020-05-17 13:52] LABS: GLUCOSE,RANDOM 867 mg/dL (74-106); POTASSIUM 6.3 mmol/L (3.5-5.1)
[2020-05-17 14:52] LABS: EPI CELLS 28 /uL (0-25.1); HYALINE CASTS 0 /uL (0-3.1); URINE APPEARANCE CLEAR; URINE BACTERIA 662 /uL (0-1359); URINE BILIRUBIN NEGATIVE (NEGATIVE); URINE COLOR YELLOW; URINE GLUCOSE (UA) 3+ (NEGATIVE); URINE KETONE 3+ (NEGATIVE); URINE LEUK ESTERASE NEGATIVE (NEGATIVE); URINE NITRITE NEGATIVE (NEGATIVE); URINE PROTEIN 2+ (NEGATIVE); URINE RBC 4 /uL (0-23.9); URINE UROBILINOGEN 0.2 mg/dL (0.2-1.0); URINE WBC 38 /uL (0-25.8)
[2020-05-17 14:56] LABS: ANISOCYTOSIS 1+; MACROCYTOSIS 0; OVALOCYTE 1+; PLATELET ESTIMATE INCREASED
[2020-05-17] MEDS ORDERED: LACTATED RINGERS SOLUTION 1,000 ML/1,000 ML INFUS.BAG IV STA ×4 (16:18→23:52)
--- NOTE | 2020-05-17 16:44 | CONSULT ---
Consult Consult Specialty:: PULM/CCM Referred by:: Dr. Germaine Abdalla Reason for Consultation:: DKA - History of Present Illness Chief Complaint: N/V History of Present Illness: Ms. Cooper is a 30 y/o woman w/ poorly controlled DM c/b recurrent admits for DKA, HTN, CVA (2012), hx/o heart murmur, & hepatomegaly BIBA for SOB. The patient reports N/V that began last night. The patient denies chest/abdominal/back pain,fever, chills, and/or any other GI symptoms. Denies any symptoms. Denies any other symptoms. W/u in ED reveals a BGL > 600mg/dl, an AGAP of 28, & a beta-hydroxybutyrate @ 122 --> all most c/w DKA. Pt endorses running out of insulin. 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 Right sided weakness), Migraine, Peripheral Neuropathy Cardio/Vascular: Yes: HTN (has been on meds in past, not currently), Murmur Pulmonary: Yes: Asthma (well controlled with ventolin) Gastrointestinal: Yes: Gastritis, Other (H PYLORI, h/o c difficile) Hepatobiliary: Yes: Other (FOCAL NODULAR HYPERPLASIA) Renal/: Yes: UTI ...LMP: 04/30/20 ...: No Infectious Disease: Yes: STD's (h/o HPV infection . Condyloma ) Musculoskeletal: Yes: Other (scoliosis) Endocrine: Yes: Diabetes Mellitus (type 1 with frequent admissions for DKA .h/o diabetes since age 8 yrs) - Past Surgical History Past Surgical History: Yes: Appendectomy (2009 laparoscopic), Colonoscopy, (x2, last 6 months ago), Upper Endoscopy - Alcohol/Substance Use Hx Alcohol Use: No History of Substance Use: reports: None - Smoking History Smoking history: Never smoked Have you smoked in the past 12 months: No Aproximately how many cigarettes per day: 0 - Social History Usual Living Arrangement: Alone ADL: Independent Occupation: unemployed History of Recent Travel: No Home Medications - Allergies Allergies/Adverse Reactions: Allergies Allergy/AdvReac Type Severity Reaction Status Date / Time hydromorphone [From Dilaudid] Allergy Unknown Verified 05/17/20 09:53 acetaminophen [From Tylenol] Allergy Swelling Verified 05/17/20 09:53 chlorhexidine Allergy Verified 05/17/20 09:53 [From Hibiclens] gentamicin Allergy Verified 05/17/20 09:53 heparin Allergy Verified 05/17/20 09:53 ibuprofen [From Motrin] Allergy Swelling Verified 05/17/20 09:53 morphine Allergy Verified 05/17/20 09:53 - Home Medications Home Medications: Ambulatory Orders Lancets 1 each MC DAILY #1 box 11/20/19 Amlodipine Besylate [Norvasc -] 5 mg PO DAILY #30 tablet 01/10/20 Insulin Pump [Insulin Pump - (Nf)] 0 units SQ ASDIR 01/10/20 Insulin Lispro [Humalog] 100 unit SQ DAILY #1 ml 01/11/20 Family Medical History Family Hx Respiratory Disorders: Mother (asthma), Brother (asthma/bronchitis) Review of Systems - Review of Systems Constitutional: reports: Weakness Eyes: reports: No Symptoms HENT: reports: No Symptoms Neck: reports: No Symptoms Cardiovascular: denies: Chest Pain Respiratory: reports: Cough Gastrointestinal: reports: Nausea, Vomiting Genitourinary: denies: Burning, Discharge, Dysuria, Flank Pain, Frequency, Hematuria, Incontinence Breasts: reports: No Symptoms Reported Musculoskeletal: reports: No Symptoms Integumentary: reports: No Symptoms Neurological: reports: No Symptoms Endocrine: reports: No Symptoms Hematology/Lymphatic: reports: No Symptoms Psychiatric: reports: No Symptoms Pain Intensity: 10 Physical Exam Vital Signs: Vital Signs Temperature 98.9 F 05/17/20 09:53 Pulse Rate 140 H 05/17/20 15:00 Respiratory Rate 42 H 05/17/20 15:00 Blood Pressure 140/104 H 05/17/20 15:00 O2 Sat by Pulse Oximetry (%) 100 05/17/20 15:00 Constitutional: Yes: Well Nourished, Anxious Eyes: Yes: WNL, Conjunctiva Clear, EOM Intact HENT: Yes: WNL, Atraumatic, Normocephalic Neck: Yes: WNL, Supple, Trachea Midline Cardiovascular: Yes: Regular Rate and Rhythm, Tachycardia Respiratory: Yes: Kussmaul, Tachypnea Renal/: No: CVA Tenderness - Left, CVA Tenderness - Right Breast(s): Yes: WNL Musculoskeletal: Yes: Muscle Pain Extremities: Yes: WNL Edema: No Peripheral Pulses WNL: Yes Neurological: Yes: WNL, Alert, Oriented ...Motor Strength: WNL Psychiatric: Yes: WNL, Alert, Oriented Labs: CBC, BMP 05/17/20 13:04 05/17/20 13:04 Imaging - Results Chest X-ray: Report Reviewed (05/17: Single view the chest reveals no significant change since 01/06/2020. There is a weak inspiration with clear lungs, sharp angles, normal mediastinum and intact soft tissues. There is a slight scoliosis with convexity to the left. Impression: No acute chest pathology. No change of an adverse nature since 01/06/2020.) EKG: Image Reviewed (S-Tach @ 135 w/o ectopy, possible L atrial enlargement, no ST or T-wave aberration, QTc = 471ms, no acute process (My Read).) Problem List - Problems (1) DKA (diabetic ketoacidosis) Code(s): E13.10 - OTH DIABETES MELLITUS WITH KETOACIDOSIS WITHOUT COMA Qualifiers: Diabetes mellitus type: type 1 Diabetes mellitus complication detail: without coma Qualified Code(s): E10.10 - Type 1 diabetes mellitus with ketoacidosis without coma Assessment/Plan ASSESS: -DKA PLAN: (DKA PROTOCOL) -NPO -IVFs -Insulin gtt -BGL qhr -Strict I's & O's -Replet e-ltyes prn -Endo Consult -SQH -SCDs -GI PPX KARLA Cedeno-[facility] PULM/CCM [id number]
[2020-05-17 16:50] LABS: YEAST PRESENT (NEGATIVE)
[2020-05-17 17:35] VITALS: BMI 21.6
[2020-05-18] MEDS ORDERED: POTASSIUM CHLORIDE 10 MEQ in DEXTROSE 5%-NORMAL SALINE 1,000 ML IVPB SCH ×2 (05:30→08:30)
[2020-05-18 07:53] LABS: BLOOD UREA NITROGEN 14.9 mg/dL (7-18); CALCIUM 7.9 mg/dL (8.5-10.1); CREATININE 1.2 mg/dL (0.55-1.3); POTASSIUM 3.5 mmol/L (3.5-5.1)
[2020-05-18 09:38] LABS: BASO % 0.7 % (0-2.0); EOS % 0.1 % (0-4.5); HEMATOCRIT 31.3 % (32.4-45.2); HEMOGLOBIN 10.7 GM/dL (10.7-15.3); LYMPH % 20.9 % (8-40); MCH 31.5 pg (25.7-33.7); MCHC 34.2 g/dl (32.0-36.0); MEAN CELL VOLUME 92.1 fl (80-96); MEAN PLT VOLUME 8.2 fl (7.5-11.1); MONO % 7.2 % (3.8-10.2); NEUT % 71.1 % (42.8-82.8); PLATELET COUNT 295 K/MM3 (134-434); RDW 13.4 % (11.6-15.6); WHITE BLOOD COUNT 13.5 K/mm3 (4.0-10.0)
[2020-05-18 11:03] LABS: BLOOD UREA NITROGEN 16.9 mg/dL (7-18); CALCIUM 8.1 mg/dL (8.5-10.1); CREATININE 1.6 mg/dL (0.55-1.3); POTASSIUM 3.6 mmol/L (3.5-5.1)
[2020-05-18] MEDS ORDERED: INSULIN REGULAR HUMAN 100 UNITS/ML *VIAL IVPUSH ONE (11:50)
[2020-05-18] MEDS ORDERED: POTASSIUM CHLORIDE ORAL LIQUID 20 MEQ/15 ML PO ONE (11:50)
[2020-05-18] MEDS ORDERED: LACTATED RINGERS SOLUTION 1000 ML INFUS.BAG IV ONE (11:51)
--- NOTE | 2020-05-18 11:56 | PN ---
Physical Exam: SUBJECTIVE: Patient seen and examined OBJECTIVE: Vital Signs Period Temp Pulse Resp BP Sys/Quinn Pulse Ox Last 24 Hr 97.5 F-98.2 F 99-145 20-50 111-156/71-111 93-100 GENERAL: The patient is awake, alert, and fully oriented, in no acute distress. HEAD: Normal with no signs of trauma. EYES: PERRL, extraocular movements intact, sclera anicteric, conjunctiva clear. No ptosis. ENT: Ears normal, nares patent, oropharynx clear without exudates, moist mucous membranes. NECK: Trachea midline, full range of motion, supple. LUNGS: Breath sounds equal, clear to auscultation bilaterally, no wheezes, no crackles, no accessory muscle use. HEART: Regular rate and rhythm, S1, S2 without murmur, rub or gallop. ABDOMEN: Soft, nontender, nondistended, normoactive bowel sounds, no guarding, no rebound, no hepatosplenomegaly, no masses. EXTREMITIES: 2+ pulses, warm, well-perfused, no edema. NEUROLOGICAL: Cranial nerves II through XII grossly intact. Normal speech, gait not observed. PSYCH: Normal mood, normal affect. SKIN: Warm, dry, normal turgor, no rashes or lesions noted Laboratory Results - last 24 hr 05/17/20 05/17/20 05/17/20 11:05 13:04 13:04 WBC Cancelled 30.9 H* Corrected WBC (auto) Cancelled RBC Cancelled 4.32 Hgb Cancelled 13.7 Hct Cancelled 46.9 H D MCV Cancelled 108.6 H MCH Cancelled 31.6 MCHC Cancelled 29.1 L RDW Cancelled 15.0 Plt Count Cancelled 534 H D MPV Cancelled 9.2 D Absolute Neuts (auto) Cancelled 25.4 H Neutrophils % Cancelled 82.1 D Neutrophils % (Manual) 80.8 Band Neutrophils % 3.2 Lymphocytes % Cancelled 13.8 D Lymphocytes % (Manual) 9.6 Monocytes % Cancelled 3.4 L Monocytes % (Manual) 5 Eosinophils % Cancelled 0.0 D Eosinophils % (Manual) 0.0 Basophils % Cancelled 0.7 Basophils % (Manual) 0.0 Myelocytes % (Man) 0 Promyelocytes % (Man) 0 Blast Cells % (Manual) 0 Nucleated RBC % Cancelled 0 Metamyelocytes 0 Hypochromia 0 Platelet Estimate Cancelled Increased Platelet Comment Cancelled Polychromasia 1+ Poikilocytosis 1+ Anisocytosis 1+ Microcytosis 1+ Macrocytosis 0 Ovalocytes 1+ [place] Cells 1+ PT with INR 10.70 INR 0.91 PTT (Actin FS) 33.8 Sodium Potassium Chloride Carbon Dioxide Anion Gap BUN Creatinine Est GFR (CKD-EPI)AfAm Est GFR (CKD-EPI)NonAf POC Glucometer Random Glucose Lactic Acid Calcium Troponin I Beta-Hydroxybutyrate Urine Color Urine Appearance Urine pH Ur Specific [place] Urine Protein Urine Glucose (UA) Urine Ketones Urine Blood Urine Nitrite Urine Bilirubin Urine Urobilinogen Ur Leukocyte Esterase Urine WBC (Auto) Urine RBC (Auto) Urine Casts (Auto) U Epithel Cells (Auto) Urine Bacteria (Auto) Urine Yeast (Auto) 05/17/20 05/17/20 05/17/20 13:04 13:04 14:14 WBC Corrected WBC (auto) RBC Hgb Hct MCV MCH MCHC RDW Plt Count MPV Absolute Neuts (auto) Neutrophils % Neutrophils % (Manual) Band Neutrophils % Lymphocytes % Lymphocytes % (Manual) Monocytes % Monocytes % (Manual) Eosinophils % Eosinophils % (Manual) Basophils % Basophils % (Manual) Myelocytes % (Man) Promyelocytes % (Man) Blast Cells % (Manual) Nucleated RBC % Metamyelocytes Hypochromia Platelet Estimate Platelet Comment Polychromasia Poikilocytosis Anisocytosis Microcytosis Macrocytosis Ovalocytes [place] Cells PT with INR INR PTT (Actin FS) Sodium 140 Potassium 6.3 H* Chloride 108 H Carbon Dioxide 4 L Anion Gap 28 H BUN 36.0 H Creatinine 2.9 H Est GFR (CKD-EPI)AfAm 24.51 Est GFR (CKD-EPI)NonAf 21.15 POC Glucometer > 600 Random Glucose 867 H* Lactic Acid 5.6 H* Calcium 8.8 Troponin I < 0.02 Beta-Hydroxybutyrate 122.9 H Urine Color Urine Appearance Urine pH Ur Specific [place] Urine Protein Urine Glucose (UA) Urine Ketones Urine Blood Urine Nitrite Urine Bilirubin Urine Urobilinogen Ur Leukocyte Esterase Urine WBC (Auto) Urine RBC (Auto) Urine Casts (Auto) U Epithel Cells (Auto) Urine Bacteria (Auto) Urine Yeast (Auto) 05/17/20 05/17/20 05/17/20 14:20 16:07 17:03 WBC Corrected WBC (auto) RBC Hgb Hct MCV MCH MCHC RDW Plt Count MPV Absolute Neuts (auto) Neutrophils % Neutrophils % (Manual) Band Neutrophils % Lymphocytes % Lymphocytes % (Manual) Monocytes % Monocytes % (Manual) Eosinophils % Eosinophils % (Manual) Basophils % Basophils % (Manual) Myelocytes % (Man) Promyelocytes % (Man) Blast Cells % (Manual) Nucleated RBC % Metamyelocytes Hypochromia Platelet Estimate Platelet Comment Polychromasia Poikilocytosis Anisocytosis Microcytosis Macrocytosis Ovalocytes [place] Cells PT with INR INR PTT (Actin FS) Sodium Potassium Chloride Carbon Dioxide Anion Gap BUN Creatinine Est GFR (CKD-EPI)AfAm Est GFR (CKD-EPI)NonAf POC Glucometer 568 498 Random Glucose Lactic Acid Calcium Troponin I Beta-Hydroxybutyrate Urine Color Yellow Urine Appearance Clear Urine pH 5.0 Ur Specific [place] 1.024 Urine Protein 2+ H Urine Glucose (UA) 3+ H Urine Ketones 3+ H Urine Blood 3+ H Urine Nitrite Negative Urine Bilirubin Negative Urine Urobilinogen 0.2 Ur Leukocyte Esterase Negative Urine WBC (Auto) 38 Urine RBC (Auto) 4 Urine Casts (Auto) 0 U Epithel Cells (Auto) 28 Urine Bacteria (Auto) 662 Urine Yeast (Auto) Present 05/17/20 05/17/20 05/17/20 18:21 20:04 21:50 WBC Corrected WBC (auto) RBC Hgb Hct MCV MCH MCHC RDW Plt Count MPV Absolute Neuts (auto) Neutrophils % Neutrophils % (Manual) Band Neutrophils % Lymphocytes % Lymphocytes % (Manual) Monocytes % Monocytes % (Manual) Eosinophils % Eosinophils % (Manual) Basophils % Basophils % (Manual) Myelocytes % (Man) Promyelocytes % (Man) Blast Cells % (Manual) Nucleated RBC % Metamyelocytes Hypochromia Platelet Estimate Platelet Comment Polychromasia Poikilocytosis Anisocytosis Microcytosis Macrocytosis Ovalocytes [place] Cells PT with INR INR PTT (Actin FS) Sodium Potassium Chloride Carbon Dioxide Anion Gap BUN Creatinine Est GFR (CKD-EPI)AfAm Est GFR (CKD-EPI)NonAf POC Glucometer 369 236 144 Random Glucose Lactic Acid Calcium Troponin I Beta-Hydroxybutyrate Urine Color Urine Appearance Urine pH Ur Specific [place] Urine Protein Urine Glucose (UA) Urine Ketones Urine Blood Urine Nitrite Urine Bilirubin Urine Urobilinogen Ur Leukocyte Esterase Urine WBC (Auto) Urine RBC (Auto) Urine Casts (Auto) U Epithel Cells (Auto) Urine Bacteria (Auto) Urine Yeast (Auto) 05/18/20 05/18/20 05/18/20 00:04 01:38 02:37 WBC Corrected WBC (auto) RBC Hgb Hct MCV MCH MCHC RDW Plt Count MPV Absolute Neuts (auto) Neutrophils % Neutrophils % (Manual) Band Neutrophils % Lymphocytes % Lymphocytes % (Manual) Monocytes % Monocytes % (Manual) Eosinophils % Eosinophils % (Manual) Basophils % Basophils % (Manual) Myelocytes % (Man) Promyelocytes % (Man) Blast Cells % (Manual) Nucleated RBC % Metamyelocytes Hypochromia Platelet Estimate Platelet Comment Polychromasia Poikilocytosis Anisocytosis Microcytosis Macrocytosis Ovalocytes [place] Cells PT with INR INR PTT (Actin FS) Sodium Potassium Chloride Carbon Dioxide Anion Gap BUN Creatinine Est GFR (CKD-EPI)AfAm Est GFR (CKD-EPI)NonAf POC Glucometer 133 127 137 Random Glucose Lactic Acid Calcium Troponin I Beta-Hydroxybutyrate Urine Color Urine Appearance Urine pH Ur Specific [place] Urine Protein Urine Glucose (UA) Urine Ketones Urine Blood Urine Nitrite Urine Bilirubin Urine Urobilinogen Ur Leukocyte Esterase Urine WBC (Auto) Urine RBC (Auto) Urine Casts (Auto) U Epithel Cells (Auto) Urine Bacteria (Auto) Urine Yeast (Auto) 05/18/20 05/18/20 05/18/20 04:07 05:00 05:00 WBC 13.5 H Corrected WBC (auto) RBC 3.40 L Hgb 10.7 Hct 31.3 L D MCV 92.1 D MCH 31.5 MCHC 34.2 RDW 13.4 D Plt Count 295 D MPV 8.2 D Absolute Neuts (auto) 9.6 H Neutrophils % 71.1 Neutrophils % (Manual) Band Neutrophils % Lymphocytes % 20.9 D Lymphocytes % (Manual) Monocytes % 7.2 D Monocytes % (Manual) Eosinophils % 0.1 D Eosinophils % (Manual) Basophils % 0.7 Basophils % (Manual) Myelocytes % (Man) Promyelocytes % (Man) Blast Cells % (Manual) Nucleated RBC % 0 Metamyelocytes Hypochromia Platelet Estimate Platelet Comment Polychromasia Poikilocytosis Anisocytosis Microcytosis Macrocytosis Ovalocytes [place] Cells PT with INR INR PTT (Actin FS) Sodium 147 H Potassium 3.5 Chloride 116 H Carbon Dioxide 18 L Anion Gap 13 BUN 14.9 Creatinine 1.2 Est GFR (CKD-EPI)AfAm 71.22 Est GFR (CKD-EPI)NonAf 61.45 POC Glucometer 120 Random Glucose 60 L Lactic Acid Calcium 7.9 L Troponin I Beta-Hydroxybutyrate 15.0 H Urine Color Urine Appearance Urine pH Ur Specific [place] Urine Protein Urine Glucose (UA) Urine Ketones Urine Blood Urine Nitrite Urine Bilirubin Urine Urobilinogen Ur Leukocyte Esterase Urine WBC (Auto) Urine RBC (Auto) Urine Casts (Auto) U Epithel Cells (Auto) Urine Bacteria (Auto) Urine Yeast (Auto) 05/18/20 05/18/20 05/18/20 06:34 08:44 09:21 WBC Corrected WBC (auto) RBC Hgb Hct MCV MCH MCHC RDW Plt Count MPV Absolute Neuts (auto) Neutrophils % Neutrophils % (Manual) Band Neutrophils % Lymphocytes % Lymphocytes % (Manual) Monocytes % Monocytes % (Manual) Eosinophils % Eosinophils % (Manual) Basophils % Basophils % (Manual) Myelocytes % (Man) Promyelocytes % (Man) Blast Cells % (Manual) Nucleated RBC % Metamyelocytes Hypochromia Platelet Estimate Platelet Comment Polychromasia Poikilocytosis Anisocytosis Microcytosis Macrocytosis Ovalocytes [place] Cells PT with INR INR PTT (Actin FS) Sodium 145 Potassium 3.6 Chloride 115 H Carbon Dioxide 17 L Anion Gap 14 BUN 16.9 Creatinine 1.6 H Est GFR (CKD-EPI)AfAm 50.30 Est GFR (CKD-EPI)NonAf 43.40 POC Glucometer 52 251 Random Glucose 306 H Lactic Acid Calcium 8.1 L Troponin I Beta-Hydroxybutyrate Urine Color Urine Appearance Urine pH Ur Specific [place] Urine Protein Urine Glucose (UA) Urine Ketones Urine Blood Urine Nitrite Urine Bilirubin Urine Urobilinogen Ur Leukocyte Esterase Urine WBC (Auto) Urine RBC (Auto) Urine Casts (Auto) U Epithel Cells (Auto) Urine Bacteria (Auto) Urine Yeast (Auto) 05/18/20 11:09 WBC Corrected WBC (auto) RBC Hgb Hct MCV MCH MCHC RDW Plt Count MPV Absolute Neuts (auto) Neutrophils % Neutrophils % (Manual) Band Neutrophils % Lymphocytes % Lymphocytes % (Manual) Monocytes % Monocytes % (Manual) Eosinophils % Eosinophils % (Manual) Basophils % Basophils % (Manual) Myelocytes % (Man) Promyelocytes % (Man) Blast Cells % (Manual) Nucleated RBC % Metamyelocytes Hypochromia Platelet Estimate Platelet Comment Polychromasia Poikilocytosis Anisocytosis Microcytosis Macrocytosis Ovalocytes [place] Cells PT with INR INR PTT (Actin FS) Sodium Potassium Chloride Carbon Dioxide Anion Gap BUN Creatinine Est GFR (CKD-EPI)AfAm Est GFR (CKD-EPI)NonAf POC Glucometer 342 Random Glucose Lactic Acid Calcium Troponin I Beta-Hydroxybutyrate Urine Color Urine Appearance Urine pH Ur Specific [place] Urine Protein Urine Glucose (UA) Urine Ketones Urine Blood Urine Nitrite Urine Bilirubin Urine Urobilinogen Ur Leukocyte Esterase Urine WBC (Auto) Urine RBC (Auto) Urine Casts (Auto) U Epithel Cells (Auto) Urine Bacteria (Auto) Urine Yeast (Auto) Active Medications Generic Name Dose Route Start Last Admin Trade Name Freq PRN Reason Stop Dose Admin Potassium Chloride 10 meq/ 1,005 mls @ 75 mls/hr 05/18/20 08:30 05/18/20 09:30 Dextrose/Sodium Chloride IVPB 75 mls/hr Q13H SAYDA Administration Insulin Human Regular 5 units 05/18/20 11:50 Novolin R Vial *For Ivpush Or Iv Drip Only* IVPUSH 05/18/20 11:51 ONCE ONE Lactated Ringer's 1,000 ml 05/18/20 11:51 Lactated Ringers Solution IV 05/18/20 11:52 ONCE ONE Potassium Chloride 40 meq 05/18/20 11:50 Potassium Chloride Oral Liquid PO 05/18/20 11:51 ONCE ONE ASSESSMENT/PLAN: dka patient's gap closed will need insulin adjustment: 10 units of lantus BID with sliding scale diabetic order will downgrade to tele Visit type - Emergency Visit Emergency Visit: Yes ED Registration Date: 05/17/20 Care time: The patient presented to the Emergency Department on the above date and was hospitalized for further evaluation of their emergent condition. - New Patient This patient is new to me today: Yes Date on this admission: 05/18/20 - Critical Care Critical Care patient: Yes Total Critical Care Time (in minutes): 36 Critical Care Statement: The care of this patient involved high complexity decision making to prevent further life threatening deterioration of the patient's condition and/or to evaluate & treat vital organ system(s) failure or risk of failure. ATTENDING PHYSICIAN STATEMENT I saw and evaluated the patient. I reviewed the resident's note and discussed the case with the resident. I agree with the resident's findings and plan as documented. SUBJECTIVE: OBJECTIVE: ASSESSMENT AND PLAN:
--- NOTE | 2020-05-18 12:13 | PN ---
Teaching Attending Note Name of Resident: Amandeep Brown ATTENDING PHYSICIAN STATEMENT I saw and evaluated the patient. I reviewed the resident's note and discussed the case with the resident. I agree with the resident's findings and plan as documented. SUBJECTIVE: Patient seen and examined in the ICU. Awake and alert. Generalized pain. Nausea and vomiting. AG closed. Intake & Output 05/15/20 05/16/20 05/17/20 05/18/20 23:59 23:59 23:59 23:59 Intake Total 2410 Output Total 2350 Balance 60 Weight 122 lb Last Vital Signs Temp Pulse Resp BP Pulse Ox 98.2 F 117 H 26 H 118/87 100 05/18/20 10:00 05/18/20 10:00 05/18/20 10:00 05/18/20 10:00 05/18/20 10:00 Active Medications Potassium Chloride 10 meq/ (Dextrose/Sodium Chloride) 1,005 mls @ 75 mls/hr IVPB Q13H SAYDA Last Admin: 05/18/20 09:30 Dose: 75 mls/hr Documented by: Insulin Aspart (Novolog Vial Sliding Scale -) 1 vial SQ ACHS [facility]; Protocol Insulin Detemir (Levemir Vial) 10 units SQ BID@0700,2200 SAYDA Insulin Human Regular (Novolin R Vial *For Ivpush Or Iv Drip Only*) 5 units IVPUSH ONCE ONE Stop: 05/18/20 11:51 Constitutional: Yes: Well Nourished, Anxious Eyes: Yes: WNL, Conjunctiva Clear, EOM Intact HENT: Yes: WNL, Atraumatic, Normocephalic Neck: Yes: WNL, Supple, Trachea Midline Cardiovascular: Yes: Regular Rate and Rhythm, Tachycardia Respiratory: Yes: Clear Renal/: No: CVA Tenderness - Left, CVA Tenderness - Right Breast(s): Yes: WNL Musculoskeletal: Yes: Muscle Pain Extremities: Yes: WNL Edema: No Peripheral Pulses WNL: Yes Neurological: Yes: WNL, Alert, Oriented ...Motor Strength: WNL Psychiatric: Yes: WNL, Alert, Oriented Labs: Laboratory Results - last 24 hr 05/17/20 05/17/20 05/17/20 13:04 13:04 13:04 WBC 30.9 H* RBC 4.32 Hgb 13.7 Hct 46.9 H D MCV 108.6 H MCH 31.6 MCHC 29.1 L RDW 15.0 Plt Count 534 H D MPV 9.2 D Absolute Neuts (auto) 25.4 H Neutrophils % 82.1 D Neutrophils % (Manual) 80.8 Band Neutrophils % 3.2 Lymphocytes % 13.8 D Lymphocytes % (Manual) 9.6 Monocytes % 3.4 L Monocytes % (Manual) 5 Eosinophils % 0.0 D Eosinophils % (Manual) 0.0 Basophils % 0.7 Basophils % (Manual) 0.0 Myelocytes % (Man) 0 Promyelocytes % (Man) 0 Blast Cells % (Manual) 0 Nucleated RBC % 0 Metamyelocytes 0 Hypochromia 0 Platelet Estimate Increased Polychromasia 1+ Poikilocytosis 1+ Anisocytosis 1+ Microcytosis 1+ Macrocytosis 0 Ovalocytes 1+ [place] Cells 1+ PT with INR 10.70 INR 0.91 PTT (Actin FS) 33.8 Sodium 140 Potassium 6.3 H* Chloride 108 H Carbon Dioxide 4 L Anion Gap 28 H BUN 36.0 H Creatinine 2.9 H Est GFR (CKD-EPI)AfAm 24.51 Est GFR (CKD-EPI)NonAf 21.15 POC Glucometer Random Glucose 867 H* Lactic Acid Calcium 8.8 Troponin I < 0.02 Beta-Hydroxybutyrate 122.9 H Urine Color Urine Appearance Urine pH Ur Specific [place] Urine Protein Urine Glucose (UA) Urine Ketones Urine Blood Urine Nitrite Urine Bilirubin Urine Urobilinogen Ur Leukocyte Esterase Urine WBC (Auto) Urine RBC (Auto) Urine Casts (Auto) U Epithel Cells (Auto) Urine Bacteria (Auto) Urine Yeast (Auto) 05/17/20 05/17/20 05/17/20 13:04 14:14 14:20 WBC RBC Hgb Hct MCV MCH MCHC RDW Plt Count MPV Absolute Neuts (auto) Neutrophils % Neutrophils % (Manual) Band Neutrophils % Lymphocytes % Lymphocytes % (Manual) Monocytes % Monocytes % (Manual) Eosinophils % Eosinophils % (Manual) Basophils % Basophils % (Manual) Myelocytes % (Man) Promyelocytes % (Man) Blast Cells % (Manual) Nucleated RBC % Metamyelocytes Hypochromia Platelet Estimate Polychromasia Poikilocytosis Anisocytosis Microcytosis Macrocytosis Ovalocytes [place] Cells PT with INR INR PTT (Actin FS) Sodium Potassium Chloride Carbon Dioxide Anion Gap BUN Creatinine Est GFR (CKD-EPI)AfAm Est GFR (CKD-EPI)NonAf POC Glucometer > 600 Random Glucose Lactic Acid 5.6 H* Calcium Troponin I Beta-Hydroxybutyrate Urine Color Yellow Urine Appearance Clear Urine pH 5.0 Ur Specific [place] 1.024 Urine Protein 2+ H Urine Glucose (UA) 3+ H Urine Ketones 3+ H Urine Blood 3+ H Urine Nitrite Negative Urine Bilirubin Negative Urine Urobilinogen 0.2 Ur Leukocyte Esterase Negative Urine WBC (Auto) 38 Urine RBC (Auto) 4 Urine Casts (Auto) 0 U Epithel Cells (Auto) 28 Urine Bacteria (Auto) 662 Urine Yeast (Auto) Present 05/17/20 05/17/20 05/17/20 16:07 17:03 18:21 WBC RBC Hgb Hct MCV MCH MCHC RDW Plt Count MPV Absolute Neuts (auto) Neutrophils % Neutrophils % (Manual) Band Neutrophils % Lymphocytes % Lymphocytes % (Manual) Monocytes % Monocytes % (Manual) Eosinophils % Eosinophils % (Manual) Basophils % Basophils % (Manual) Myelocytes % (Man) Promyelocytes % (Man) Blast Cells % (Manual) Nucleated RBC % Metamyelocytes Hypochromia Platelet Estimate Polychromasia Poikilocytosis Anisocytosis Microcytosis Macrocytosis Ovalocytes [place] Cells PT with INR INR PTT (Actin FS) Sodium Potassium Chloride Carbon Dioxide Anion Gap BUN Creatinine Est GFR (CKD-EPI)AfAm Est GFR (CKD-EPI)NonAf POC Glucometer [phone] Random Glucose Lactic Acid Calcium Troponin I Beta-Hydroxybutyrate Urine Color Urine Appearance Urine pH Ur Specific [place] Urine Protein Urine Glucose (UA) Urine Ketones Urine Blood Urine Nitrite Urine Bilirubin Urine Urobilinogen Ur Leukocyte Esterase Urine WBC (Auto) Urine RBC (Auto) Urine Casts (Auto) U Epithel Cells (Auto) Urine Bacteria (Auto) Urine Yeast (Auto) 05/17/20 05/17/20 05/18/20 20:04 21:50 00:04 WBC RBC Hgb Hct MCV MCH MCHC RDW Plt Count MPV Absolute Neuts (auto) Neutrophils % Neutrophils % (Manual) Band Neutrophils % Lymphocytes % Lymphocytes % (Manual) Monocytes % Monocytes % (Manual) Eosinophils % Eosinophils % (Manual) Basophils % Basophils % (Manual) Myelocytes % (Man) Promyelocytes % (Man) Blast Cells % (Manual) Nucleated RBC % Metamyelocytes Hypochromia Platelet Estimate Polychromasia Poikilocytosis Anisocytosis Microcytosis Macrocytosis Ovalocytes [place] Cells PT with INR INR PTT (Actin FS) Sodium Potassium Chloride Carbon Dioxide Anion Gap BUN Creatinine Est GFR (CKD-EPI)AfAm Est GFR (CKD-EPI)NonAf POC Glucometer 236 144 133 Random Glucose Lactic Acid Calcium Troponin I Beta-Hydroxybutyrate Urine Color Urine Appearance Urine pH Ur Specific [place] Urine Protein Urine Glucose (UA) Urine Ketones Urine Blood Urine Nitrite Urine Bilirubin Urine Urobilinogen Ur Leukocyte Esterase Urine WBC (Auto) Urine RBC (Auto) Urine Casts (Auto) U Epithel Cells (Auto) Urine Bacteria (Auto) Urine Yeast (Auto) 05/18/20 05/18/20 05/18/20 01:38 02:37 04:07 WBC RBC Hgb Hct MCV MCH MCHC RDW Plt Count MPV Absolute Neuts (auto) Neutrophils % Neutrophils % (Manual) Band Neutrophils % Lymphocytes % Lymphocytes % (Manual) Monocytes % Monocytes % (Manual) Eosinophils % Eosinophils % (Manual) Basophils % Basophils % (Manual) Myelocytes % (Man) Promyelocytes % (Man) Blast Cells % (Manual) Nucleated RBC % Metamyelocytes Hypochromia Platelet Estimate Polychromasia Poikilocytosis Anisocytosis Microcytosis Macrocytosis Ovalocytes [place] Cells PT with INR INR PTT (Actin FS) Sodium Potassium Chloride Carbon Dioxide Anion Gap BUN Creatinine Est GFR (CKD-EPI)AfAm Est GFR (CKD-EPI)NonAf POC Glucometer 127 137 120 Random Glucose Lactic Acid Calcium Troponin I Beta-Hydroxybutyrate Urine Color Urine Appearance Urine pH Ur Specific [place] Urine Protein Urine Glucose (UA) Urine Ketones Urine Blood Urine Nitrite Urine Bilirubin Urine Urobilinogen Ur Leukocyte Esterase Urine WBC (Auto) Urine RBC (Auto) Urine Casts (Auto) U Epithel Cells (Auto) Urine Bacteria (Auto) Urine Yeast (Auto) 05/18/20 05/18/20 05/18/20 05:00 05:00 06:34 WBC 13.5 H RBC 3.40 L Hgb 10.7 Hct 31.3 L D MCV 92.1 D MCH 31.5 MCHC 34.2 RDW 13.4 D Plt Count 295 D MPV 8.2 D Absolute Neuts (auto) 9.6 H Neutrophils % 71.1 Neutrophils % (Manual) Band Neutrophils % Lymphocytes % 20.9 D Lymphocytes % (Manual) Monocytes % 7.2 D Monocytes % (Manual) Eosinophils % 0.1 D Eosinophils % (Manual) Basophils % 0.7 Basophils % (Manual) Myelocytes % (Man) Promyelocytes % (Man) Blast Cells % (Manual) Nucleated RBC % 0 Metamyelocytes Hypochromia Platelet Estimate Polychromasia Poikilocytosis Anisocytosis Microcytosis Macrocytosis Ovalocytes [place] Cells PT with INR INR PTT (Actin FS) Sodium 147 H Potassium 3.5 Chloride 116 H Carbon Dioxide 18 L Anion Gap 13 BUN 14.9 Creatinine 1.2 Est GFR (CKD-EPI)AfAm 71.22 Est GFR (CKD-EPI)NonAf 61.45 POC Glucometer 52 Random Glucose 60 L Lactic Acid Calcium 7.9 L Troponin I Beta-Hydroxybutyrate 15.0 H Urine Color Urine Appearance Urine pH Ur Specific [place] Urine Protein Urine Glucose (UA) Urine Ketones Urine Blood Urine Nitrite Urine Bilirubin Urine Urobilinogen Ur Leukocyte Esterase Urine WBC (Auto) Urine RBC (Auto) Urine Casts (Auto) U Epithel Cells (Auto) Urine Bacteria (Auto) Urine Yeast (Auto) 05/18/20 05/18/20 05/18/20 08:44 09:21 11:09 WBC RBC Hgb Hct MCV MCH MCHC RDW Plt Count MPV Absolute Neuts (auto) Neutrophils % Neutrophils % (Manual) Band Neutrophils % Lymphocytes % Lymphocytes % (Manual) Monocytes % Monocytes % (Manual) Eosinophils % Eosinophils % (Manual) Basophils % Basophils % (Manual) Myelocytes % (Man) Promyelocytes % (Man) Blast Cells % (Manual) Nucleated RBC % Metamyelocytes Hypochromia Platelet Estimate Polychromasia Poikilocytosis Anisocytosis Microcytosis Macrocytosis Ovalocytes [place] Cells PT with INR INR PTT (Actin FS) Sodium 145 Potassium 3.6 Chloride 115 H Carbon Dioxide 17 L Anion Gap 14 BUN 16.9 Creatinine 1.6 H Est GFR (CKD-EPI)AfAm 50.30 Est GFR (CKD-EPI)NonAf 43.40 POC Glucometer 251 342 Random Glucose 306 H Lactic Acid Calcium 8.1 L Troponin I Beta-Hydroxybutyrate Urine Color Urine Appearance Urine pH Ur Specific [place] Urine Protein Urine Glucose (UA) Urine Ketones Urine Blood Urine Nitrite Urine Bilirubin Urine Urobilinogen Ur Leukocyte Esterase Urine WBC (Auto) Urine RBC (Auto) Urine Casts (Auto) U Epithel Cells (Auto) Urine Bacteria (Auto) Urine Yeast (Auto) Problem List - Problems (1) DKA (diabetic ketoacidosis) Code(s): E13.10 - OTH DIABETES MELLITUS WITH KETOACIDOSIS WITHOUT COMA Qualifiers: Diabetes mellitus type: type 1 Diabetes mellitus complication detail: without coma Qualified Code(s): E10.10 - Type 1 diabetes mellitus with ketoacidosis without coma Assessment/Plan ASSESS: -DKA PLAN: -IVF -SQ Insulin : Long acting coverage and sliding scale -Follow BGM -Strict I's & O's -Replet e-ltyes -Endo Consult -SQH -SCDs -GI PPX -Floor Dr Stock
[2020-05-18] MEDS ORDERED: INSULIN REGULAR HUMAN 100 UNITS/ML *VIAL SQ ONE (14:11)
--- NOTE | 2020-05-18 15:02 | PN ---
Physical Exam: SUBJECTIVE: Patient seen and examined at bedside, admitted for DKA 2/2 med-non adherence, gap closed x2, bridged w/ Levemir, for transfer to [facility]. OBJECTIVE: GA tired appearance, lethargic, AAox3 HEENT NC/AT, no oral thrush, dry MM, neck supple Chest CTAB CVs s1, S2+, Sinus tachycardia Abd Soft, mildly tender in epigastrum, no guarding, BS+ Ext no LE edema Vital Signs Period Temp Pulse Resp BP Sys/Quinn Pulse Ox Last 24 Hr 97.5 F-98.2 F 99-145 20-50 111-150/71-104 93-100 Laboratory Results - last 24 hr 05/17/20 05/17/20 05/17/20 13:04 14:20 16:07 WBC RBC Hgb Hct MCV MCH MCHC RDW Plt Count MPV Absolute Neuts (auto) Neutrophils % Lymphocytes % Monocytes % Eosinophils % Basophils % Nucleated RBC % Sodium 140 Potassium 6.3 H* Chloride 108 H Carbon Dioxide 4 L Anion Gap 28 H BUN 36.0 H Creatinine 2.9 H Est GFR (CKD-EPI)AfAm 24.51 Est GFR (CKD-EPI)NonAf 21.15 POC Glucometer 568 Random Glucose 867 H* Calcium 8.8 Troponin I < 0.02 Beta-Hydroxybutyrate 122.9 H Urine Yeast (Auto) Present 05/17/20 05/17/20 05/17/20 17:03 18:21 20:04 WBC RBC Hgb Hct MCV MCH MCHC RDW Plt Count MPV Absolute Neuts (auto) Neutrophils % Lymphocytes % Monocytes % Eosinophils % Basophils % Nucleated RBC % Sodium Potassium Chloride Carbon Dioxide Anion Gap BUN Creatinine Est GFR (CKD-EPI)AfAm Est GFR (CKD-EPI)NonAf POC Glucometer 498 369 236 Random Glucose Calcium Troponin I Beta-Hydroxybutyrate Urine Yeast (Auto) 05/17/20 05/18/20 05/18/20 21:50 00:04 01:38 WBC RBC Hgb Hct MCV MCH MCHC RDW Plt Count MPV Absolute Neuts (auto) Neutrophils % Lymphocytes % Monocytes % Eosinophils % Basophils % Nucleated RBC % Sodium Potassium Chloride Carbon Dioxide Anion Gap BUN Creatinine Est GFR (CKD-EPI)AfAm Est GFR (CKD-EPI)NonAf POC Glucometer 144 133 127 Random Glucose Calcium Troponin I Beta-Hydroxybutyrate Urine Yeast (Auto) 05/18/20 05/18/20 05/18/20 02:37 04:07 05:00 WBC RBC Hgb Hct MCV MCH MCHC RDW Plt Count MPV Absolute Neuts (auto) Neutrophils % Lymphocytes % Monocytes % Eosinophils % Basophils % Nucleated RBC % Sodium 147 H Potassium 3.5 Chloride 116 H Carbon Dioxide 18 L Anion Gap 13 BUN 14.9 Creatinine 1.2 Est GFR (CKD-EPI)AfAm 71.22 Est GFR (CKD-EPI)NonAf 61.45 POC Glucometer 137 120 Random Glucose 60 L Calcium 7.9 L Troponin I Beta-Hydroxybutyrate 15.0 H Urine Yeast (Auto) 05/18/20 05/18/20 05/18/20 05:00 06:34 08:44 WBC 13.5 H RBC 3.40 L Hgb 10.7 Hct 31.3 L D MCV 92.1 D MCH 31.5 MCHC 34.2 RDW 13.4 D Plt Count 295 D MPV 8.2 D Absolute Neuts (auto) 9.6 H Neutrophils % 71.1 Lymphocytes % 20.9 D Monocytes % 7.2 D Eosinophils % 0.1 D Basophils % 0.7 Nucleated RBC % 0 Sodium Potassium Chloride Carbon Dioxide Anion Gap BUN Creatinine Est GFR (CKD-EPI)AfAm Est GFR (CKD-EPI)NonAf POC Glucometer 52 251 Random Glucose Calcium Troponin I Beta-Hydroxybutyrate Urine Yeast (Auto) 05/18/20 05/18/20 05/18/20 09:21 11:09 13:41 WBC RBC Hgb Hct MCV MCH MCHC RDW Plt Count MPV Absolute Neuts (auto) Neutrophils % Lymphocytes % Monocytes % Eosinophils % Basophils % Nucleated RBC % Sodium 145 Potassium 3.6 Chloride 115 H Carbon Dioxide 17 L Anion Gap 14 BUN 16.9 Creatinine 1.6 H Est GFR (CKD-EPI)AfAm 50.30 Est GFR (CKD-EPI)NonAf 43.40 POC Glucometer 342 227 Random Glucose 306 H Calcium 8.1 L Troponin I Beta-Hydroxybutyrate Urine Yeast (Auto) Active Medications Generic Name Dose Route Start Last Admin Trade Name Freq PRN Reason Stop Dose Admin Amlodipine Besylate 5 mg 05/19/20 10:00 Norvasc - PO DAILY SAYDA Potassium Chloride 10 meq/ 1,005 mls @ 75 mls/hr 05/18/20 08:30 05/18/20 09:30 Dextrose/Sodium Chloride IVPB 75 mls/hr Q13H SAYDA Administration Lactated Ringer's 1,000 ml in 1,000 mls @ 100 mls/hr 05/18/20 15:00 Lactated Ringers Solution IV ASDIR SAYDA Insulin Aspart 1 vial 05/18/20 16:30 Novolog Vial Sliding Scale - SQ ACHS SAYDA Protocol Insulin Detemir 10 units 05/18/20 22:00 Levemir Vial SQ BID@0700,2200 SAYDA Pantoprazole Sodium 40 mg 05/19/20 10:00 Protonix Iv IVPUSH DAILY SAYDA ASSESSMENT/PLAN: 30 F T1DM with DKA Tachycardia HTN DM nephropathy Multiple allergies Bipolar disorder H/o medication non-adherence Plan: GAP closed x2, electrolytes stable, patient bridged with Levemir SQ Monitor CMP BID, patient low threshold for DKA (sometimes within just hours of not receiving insulin) Re-inforce compliance in medications Endo evaluation Very high WBC count, no focal areas of infection, trending down w/ fluids, if WBC count not continually dropping send fever workup and start Zosyn Transfer to telemetry unless tachycardia resolves DVT ppx: allergic to Heparin products, SCD Visit type - Emergency Visit Emergency Visit: No - New Patient This patient is new to me today: Yes Date on this admission: 05/18/20 - Critical Care Critical Care patient: No - Discharge Referral Referred to [facility] Med P.C.: No
[2020-05-18] MEDS: LACTATED RINGERS SOLUTION 1,000 ML/1,000 ML INFUS.BAG IV SCH (16:32)
[2020-05-18] MEDS: INSULIN SLIDING SCALE (NOVOLOG) 1 VIAL SQ SCH ×2 (16:33→22:13)
[2020-05-18 17:05] LABS: BLOOD UREA NITROGEN 13.6 mg/dL (7-18); CREATININE 1.5 mg/dL (0.55-1.3); POTASSIUM 4.2 mmol/L (3.5-5.1)
[2020-05-18] MEDS ORDERED: Insulin (LOG) Aspart 100 UNITS/ML VIAL SQ ONE (17:15)
[2020-05-18 20:53] LABS: METHADONE, UR NEGATIVE ng/ml (CUTOFF=300); OPIATES, URI NEGATIVE ng/ml (CUTOFF=300); PHENCYCLIDINE,URINE NEGATIVE ng/ml (CUTOFF=25); URINE BARBITURATES NEGATIVE ng/ml (CUTOFF=200); URINE BENZODIAZEPINES NEGATIVE ng/ml (CUTOFF=200)
[2020-05-18 21:03] LABS: COCAINE, UR NEGATIVE ng/ml (CUTOFF=300); URINE AMPHETAMINES NEGATIVE ng/ml (CUTOFF=500)
[2020-05-18] MEDS: INSULIN (LEVEMIR) 100 UNITS/ML UNITS SQ SCH (22:42)
[2020-05-19] MEDS: INSULIN SLIDING SCALE (NOVOLOG) 1 VIAL SQ SCH ×4 (06:43→22:10)
[2020-05-19] MEDS ORDERED: SODIUM CHLORIDE 0.9% 500 ML INFUS.BAG IV ONE ×2 (07:43)
[2020-05-19 09:08] LABS: ARTERIAL BLOOD GAS PCO2 < 16.70 mmHg (35-45); ARTERIAL BLOOD GAS PO2 121.3 mmHg (80-100)
[2020-05-19 09:17] LABS: BASO % 0.6 % (0-2.0); EOS % 0.1 % (0-4.5); HEMATOCRIT 35.9 % (32.4-45.2); HEMOGLOBIN 11.4 GM/dL (10.7-15.3); LYMPH % 8.8 % (8-40); MCH 30.7 pg (25.7-33.7); MCHC 31.7 g/dl (32.0-36.0); MEAN CELL VOLUME 96.6 fl (80-96); MEAN PLT VOLUME 9.6 fl (7.5-11.1); MONO % 2.9 % (3.8-10.2); NEUT % 87.6 % (42.8-82.8); PLATELET COUNT 313 K/MM3 (134-434); RBC 3.71 M/mm3 (3.60-5.2); RDW 15.2 % (11.6-15.6); WHITE BLOOD COUNT 14.4 K/mm3 (4.0-10.0)
[2020-05-19 09:21] LABS: ARTERIAL BLOOD GAS pH 7.107 (7.350-7.450)
[2020-05-19 09:34] LABS: CHOLESTEROL 242 mg/dL (50-200); HDL CHOLESTEROL 55 mg/dL (40-60); LDL CHOLESTEROL (ONLY SJRH) 161 mg/dL (5-100); TRIGLYCERIDES 149 mg/dL (0-150)
[2020-05-19 09:39] LABS: ALBUMIN 3.1 g/dl (3.4-5.0); BILIRUBIN,TOTAL 0.6 mg/dL (0.2-1); BLOOD UREA NITROGEN 16.7 mg/dL (7-18); CALCIUM 8.4 mg/dL (8.5-10.1); POTASSIUM 5.2 mmol/L (3.5-5.1)
[2020-05-19] MEDS: amLODIPine BESYLATE 5 MG TABLET (FP) PO SCH ×2 (09:42→09:49)
[2020-05-19] MEDS: PANTOPRAZOLE SODIUM 40 MG VIAL IVPUSH SCH (09:42)
[2020-05-19 09:53] LABS: TOT PROT 6.7 g/dl (6.4-8.2)
[2020-05-19] MEDS ORDERED: INSULIN DRIP - PLEASE ORDER UNDER SETS NR ONE (10:33)
[2020-05-19] MEDS ORDERED: LACTATED RINGERS SOLUTION 1000 ML INFUS.BAG IV ONE (10:36)
[2020-05-19] MEDS ORDERED: DEXTROSE 5%-LACTATED RINGERS 1,000 ML IV SCH ×2 (11:30→14:45)
[2020-05-19] MEDS: INSULIN REGULAR 100 UNITS in SODIUM CHLORIDE 99 ML IVPB SCH (11:34)
--- NOTE | 2020-05-19 14:54 | PN ---
Teaching Attending Note Name of Resident: Andrews Sanders ATTENDING PHYSICIAN STATEMENT I saw and evaluated the patient. I reviewed the resident's note and discussed the case with the resident. I agree with the resident's findings and plan as documented. SUBJECTIVE: Patient seen and examined in the ICU. Awake and alert. Still with generalized pain. Nausea and vomiting. Unable to tolerate PO intake. Labs indicate DKA: apparently she refused IV insulin and IVF last night (?). Insulin drip restarted. Intake & Output 05/16/20 05/17/20 05/18/20 05/19/20 23:59 23:59 23:59 23:59 Intake Total 2410 1500 Output Total 2350 2700 Balance 60 -1200 Weight 122 lb Last Vital Signs Temp Pulse Resp BP Pulse Ox 98.3 F 113 H 32 H 112/93 100 05/19/20 11:37 05/19/20 13:00 05/19/20 13:00 05/19/20 13:00 05/19/20 13:00 Active Medications Amlodipine Besylate (Norvasc -) 5 mg PO DAILY [facility] Last Admin: 05/19/20 09:49 Dose: Not Given Documented by: Lactated Ringer's (Lactated Ringers Solution) 1,000 ml in 1,000 mls @ 100 mls/hr IV ASDIR [facility] Last Admin: 05/18/20 16:32 Dose: 100 mls/hr Documented by: Insulin Human Regular 100 (units/ Sodium Chloride) 100 mls @ 5.534 mls/hr IVPB TITR [facility]; Protocol Last Titration: 05/19/20 14:37 Dose: 0.05 units/kg/hr, 2.767 mls/hr Documented by: Dextrose/Lactated Ringer's (D5-Lr -) 1,000 mls @ 150 mls/hr IV ASDIR SAYDA Insulin Aspart (Novolog Vial Sliding Scale -) 1 vial SQ ACHS [facility]; Protocol Last Admin: 05/19/20 11:06 Dose: Not Given Documented by: Insulin Detemir (Levemir Vial) 10 units SQ BID@0700,2200 [facility] Last Admin: 05/18/20 22:42 Dose: Not Given Documented by: Pantoprazole Sodium (Protonix Iv) 40 mg IVPUSH DAILY [facility] Last Admin: 05/19/20 09:42 Dose: 40 mg Documented by: Constitutional: Yes: Well Nourished, Anxious Eyes: Yes: WNL, Conjunctiva Clear, EOM Intact HENT: Yes: WNL, Atraumatic, Normocephalic Neck: Yes: WNL, Supple, Trachea Midline Cardiovascular: Yes: Regular Rate and Rhythm, Tachycardia Respiratory: Yes: Clear Renal/: No: CVA Tenderness - Left, CVA Tenderness - Right Breast(s): Yes: WNL Musculoskeletal: Yes: Muscle Pain Extremities: Yes: WNL Edema: No Peripheral Pulses WNL: Yes Neurological: Yes: WNL, Alert, Oriented ...Motor Strength: WNL Psychiatric: Yes: WNL, Alert, Oriented Labs: Laboratory Results - last 24 hr 05/17/20 05/18/20 05/18/20 15:50 14:00 15:44 WBC RBC Hgb Hct MCV MCH MCHC RDW Plt Count MPV Absolute Neuts (auto) Neutrophils % Lymphocytes % Monocytes % Eosinophils % Basophils % Nucleated RBC % Anticoagulation Therapy Puncture Site Patient Temperature ABG pH ABG pCO2 ABG pO2 ABG HCO3 ABG O2 Sat (Measured) ABG O2 Content ABG Base Excess Ronny Test Patient On Oxygen O2 Delivery Device Oxygen Flow Rate Vent Mode Vent Rate Mechanical Rate PEEP Pressure Support Vent Sodium 144 Potassium 4.2 Chloride 115 H Carbon Dioxide 16 L Anion Gap 12 BUN 13.6 Creatinine 1.5 H Est GFR (CKD-EPI)AfAm 54.38 Est GFR (CKD-EPI)NonAf 46.92 POC Glucometer Random Glucose 259 H Calcium 8.0 L Total Bilirubin AST ALT Alkaline Phosphatase Total Protein Albumin Triglycerides Cholesterol Total LDL Cholesterol HDL Cholesterol Beta-Hydroxybutyrate TSH Opiates Screen Negative Methadone Screen Negative Barbiturate Screen Negative Phencyclidine Screen Negative Ur Amphetamines Screen Negative MDMA (Ecstasy) Screen Negative Benzodiazepines Screen Negative Cocaine Screen Negative U Marijuana (THC) Screen Negative COVID-19 (SHAD) Not detected 05/18/20 05/18/20 05/19/20 16:16 21:49 06:39 WBC RBC Hgb Hct MCV MCH MCHC RDW Plt Count MPV Absolute Neuts (auto) Neutrophils % Lymphocytes % Monocytes % Eosinophils % Basophils % Nucleated RBC % Anticoagulation Therapy Puncture Site Patient Temperature ABG pH ABG pCO2 ABG pO2 ABG HCO3 ABG O2 Sat (Measured) ABG O2 Content ABG Base Excess Ronny Test Patient On Oxygen O2 Delivery Device Oxygen Flow Rate Vent Mode Vent Rate Mechanical Rate PEEP Pressure Support Vent Sodium Potassium Chloride Carbon Dioxide Anion Gap BUN Creatinine Est GFR (CKD-EPI)AfAm Est GFR (CKD-EPI)NonAf POC Glucometer 280 132 502 Random Glucose Calcium Total Bilirubin AST ALT Alkaline Phosphatase Total Protein Albumin Triglycerides Cholesterol Total LDL Cholesterol HDL Cholesterol Beta-Hydroxybutyrate TSH Opiates Screen Methadone Screen Barbiturate Screen Phencyclidine Screen Ur Amphetamines Screen MDMA (Ecstasy) Screen Benzodiazepines Screen Cocaine Screen U Marijuana (THC) Screen COVID-19 (SHAD) 05/19/20 05/19/20 05/19/20 07:30 07:30 07:30 WBC RBC Hgb Hct MCV MCH MCHC RDW Plt Count MPV Absolute Neuts (auto) Neutrophils % Lymphocytes % Monocytes % Eosinophils % Basophils % Nucleated RBC % Anticoagulation Therapy No Result Required. Puncture Site No Result Required. Patient Temperature No Result Required. ABG pH 7.107 L* ABG pCO2 < 16.70 L ABG pO2 121.3 H ABG HCO3 No Result Required. ABG O2 Sat (Measured) No Result Required. ABG O2 Content No Result Required. ABG Base Excess No Result Required. Ronny Test No Result Required. Patient On Oxygen No Result Required. O2 Delivery Device No Result Required. Oxygen Flow Rate No Result Required. Vent Mode No Result Required. Vent Rate No Result Required. Mechanical Rate No Result Required. PEEP No Result Required. Pressure Support Vent No Result Required. Sodium 138 Potassium 5.2 H Chloride 107 Carbon Dioxide 5 L Anion Gap 26 H BUN 16.7 Creatinine 2.0 H Est GFR (CKD-EPI)AfAm 38.41 Est GFR (CKD-EPI)NonAf 33.14 POC Glucometer Random Glucose 513 H* Calcium 8.4 L Total Bilirubin 0.6 AST 37 ALT 18 Alkaline Phosphatase 133 H Total Protein 6.7 Albumin 3.1 L Triglycerides 149 Cholesterol 242 H Total LDL Cholesterol 161 H HDL Cholesterol 55 Beta-Hydroxybutyrate 126.6 H TSH 0.77 Opiates Screen Methadone Screen Barbiturate Screen Phencyclidine Screen Ur Amphetamines Screen MDMA (Ecstasy) Screen Benzodiazepines Screen Cocaine Screen U Marijuana (THC) Screen COVID-19 (SHAD) 05/19/20 05/19/20 05/19/20 07:30 10:30 11:09 WBC 14.4 H RBC 3.71 Hgb 11.4 Hct 35.9 MCV 96.6 H MCH 30.7 MCHC 31.7 L RDW 15.2 D Plt Count 313 MPV 9.6 D Absolute Neuts (auto) 12.6 H Neutrophils % 87.6 H D Lymphocytes % 8.8 D Monocytes % 2.9 L Eosinophils % 0.1 Basophils % 0.6 Nucleated RBC % 0 Anticoagulation Therapy Puncture Site Patient Temperature ABG pH ABG pCO2 ABG pO2 ABG HCO3 ABG O2 Sat (Measured) ABG O2 Content ABG Base Excess Ronny Test Patient On Oxygen O2 Delivery Device Oxygen Flow Rate Vent Mode Vent Rate Mechanical Rate PEEP Pressure Support Vent Sodium Potassium Chloride Carbon Dioxide Anion Gap BUN Creatinine Est GFR (CKD-EPI)AfAm Est GFR (CKD-EPI)NonAf POC Glucometer 254 217 Random Glucose Calcium Total Bilirubin AST ALT Alkaline Phosphatase Total Protein Albumin Triglycerides Cholesterol Total LDL Cholesterol HDL Cholesterol Beta-Hydroxybutyrate TSH Opiates Screen Methadone Screen Barbiturate Screen Phencyclidine Screen Ur Amphetamines Screen MDMA (Ecstasy) Screen Benzodiazepines Screen Cocaine Screen U Marijuana (THC) Screen COVID-19 (SHAD) 05/19/20 05/19/20 05/19/20 12:03 13:01 14:06 WBC RBC Hgb Hct MCV MCH MCHC RDW Plt Count MPV Absolute Neuts (auto) Neutrophils % Lymphocytes % Monocytes % Eosinophils % Basophils % Nucleated RBC % Anticoagulation Therapy Puncture Site Patient Temperature ABG pH ABG pCO2 ABG pO2 ABG HCO3 ABG O2 Sat (Measured) ABG O2 Content ABG Base Excess Ronny Test Patient On Oxygen O2 Delivery Device Oxygen Flow Rate Vent Mode Vent Rate Mechanical Rate PEEP Pressure Support Vent Sodium Potassium Chloride Carbon Dioxide Anion Gap BUN Creatinine Est GFR (CKD-EPI)AfAm Est GFR (CKD-EPI)NonAf POC Glucometer 232 256 213 Random Glucose Calcium Total Bilirubin AST ALT Alkaline Phosphatase Total Protein Albumin Triglycerides Cholesterol Total LDL Cholesterol HDL Cholesterol Beta-Hydroxybutyrate TSH Opiates Screen Methadone Screen Barbiturate Screen Phencyclidine Screen Ur Amphetamines Screen MDMA (Ecstasy) Screen Benzodiazepines Screen Cocaine Screen U Marijuana (THC) Screen COVID-19 (SHAD) Problem List - Problems (1) DKA (diabetic ketoacidosis) Code(s): E13.10 - OTH DIABETES MELLITUS WITH KETOACIDOSIS WITHOUT COMA Qualifiers: Diabetes mellitus type: type 1 Diabetes mellitus complication detail: without coma Qualified Code(s): E10.10 - Type 1 diabetes mellitus with ketoacidosis without coma Assessment/Plan ASSESS: -DKA -JOSE ANGEL PLAN: -Increase IVF resuscitation -IV Insulin per protocol -Follow BGM -Strict I's & O's -SQH -SCDs -GI PPX -Requires ICU monitoring Dr Stock Critical care time spent in reviewing chart, evaluating patient and formulating plan - 36 minutes.
--- NOTE | 2020-05-19 15:19 | CONSULT ---
Consult Consult Specialty:: Nephrology Reason for Consultation:: jose angel - History of Present Illness Chief Complaint: shortness of breath History of Present Illness: Pt is a 30 year old female with pmhx of uncontrolled DM, DKA, htn, cva, valvular heart disease, and non compliance who was brought in for shortness of breath. She was found to be in jose angel and I was called to evaluate her. She is known to me from previous admissions. She was also found to be in dka. She is admitted to the ICU and is on an insulin drip. She feels that her breathing is improved however she complains of generalized pain. She says that she ran out of her insulin. SHe denies fevers or chills. She denies dysuria. SHe denies nsaid use. - History Source History Provided By: Patient - Past Medical History [employer]MENT[employer]: Yes: CVA (last year as per pt, but not on any anticoagulants. Right sided weakness), Migraine, Peripheral Neuropathy Cardio/Vascular: Yes: HTN (has been on meds in past, not currently), Murmur Pulmonary: Yes: Asthma (well controlled with ventolin) Gastrointestinal: Yes: Gastritis, Other (H PYLORI, h/o c difficile) Hepatobiliary: Yes: Other (FOCAL NODULAR HYPERPLASIA) Renal/: Yes: UTI ...LMP: 04/30/20 ...: No Infectious Disease: Yes: STD's (h/o HPV infection . Condyloma ) Musculoskeletal: Yes: Other (scoliosis) Endocrine: Yes: Diabetes Mellitus (type 1 with frequent admissions for DKA .h/o diabetes since age 8 yrs) - Past Surgical History Past Surgical History: Yes: Appendectomy (2009 laparoscopic), Colonoscopy, C- Section (x2, last 6 months ago), Upper Endoscopy - Alcohol/Substance Use Hx Alcohol Use: No History of Substance Use: reports: None - Smoking History Smoking history: Never smoked Have you smoked in the past 12 months: No Aproximately how many cigarettes per day: 0 - Social History Usual Living Arrangement: Alone ADL: Independent Occupation: unemployed History of Recent Travel: No Home Medications - Allergies Allergies/Adverse Reactions: Allergies Allergy/AdvReac Type Severity Reaction Status Date / Time hydromorphone [From Dilaudid] Allergy Unknown Verified 05/17/20 09:53 acetaminophen [From Tylenol] Allergy Swelling Verified 05/17/20 09:53 chlorhexidine Allergy Verified 05/17/20 09:53 [From Hibiclens] gentamicin Allergy Verified 05/17/20 09:53 heparin Allergy Verified 05/17/20 09:53 ibuprofen [From Motrin] Allergy Swelling Verified 05/17/20 09:53 morphine Allergy Verified 05/17/20 09:53 - Home Medications Home Medications: Ambulatory Orders Lancets 1 each MC DAILY #1 box 11/20/19 Amlodipine Besylate [Norvasc -] 5 mg PO DAILY #30 tablet 01/10/20 Insulin Pump [Insulin Pump - (Nf)] 0 units SQ ASDIR 01/10/20 Insulin Lispro [Humalog] 100 unit SQ DAILY #1 ml 01/11/20 Family Medical History Family History: Denies Family Hx Respiratory Disorders: Mother (asthma), Brother (asthma/bronchitis) Review of Systems - Review of Systems Constitutional: reports: Loss of Appetite, Malaise, Weakness Eyes: reports: No Symptoms HENT: reports: No Symptoms Neck: reports: No Symptoms Cardiovascular: reports: No Symptoms Respiratory: reports: No Symptoms Gastrointestinal: reports: Nausea, Vomiting Genitourinary: reports: No Symptoms Musculoskeletal: reports: No Symptoms Integumentary: reports: No Symptoms Neurological: reports: No Symptoms Endocrine: reports: No Symptoms Hematology/Lymphatic: reports: No Symptoms Psychiatric: reports: No Symptoms Physical Exam Vital Signs: Vital Signs Temperature 98.3 F 05/19/20 11:37 Pulse Rate 113 H 05/19/20 13:00 Respiratory Rate 32 H 05/19/20 13:00 Blood Pressure 112/93 05/19/20 13:00 O2 Sat by Pulse Oximetry (%) 100 05/19/20 13:00 Constitutional: Yes: Calm Eyes: Yes: Conjunctiva Clear Cardiovascular: Yes: S1, S2 Respiratory: Yes: CTA Bilaterally, On Nasal O2 Gastrointestinal: Yes: Soft Renal/: Yes: Escobar Present Musculoskeletal: Yes: WNL Edema: No Integumentary: Yes: WNL Neurological: Yes: Oriented Psychiatric: Yes: Oriented Labs: CBC, BMP 05/19/20 07:30 05/19/20 07:30 Laboratory Tests 05/17/20 05/17/20 05/17/20 10:40 13:04 13:04 WBC 30.9 H* Sodium Potassium Chloride Carbon Dioxide 3 L 4 L Creatinine 3.0 H 2.9 H Random Glucose 05/18/20 05/18/20 05/18/20 05:00 05:00 09:21 WBC 13.5 H Sodium Potassium Chloride Carbon Dioxide 18 L 17 L Creatinine 1.2 1.6 H Random Glucose 05/18/20 05/19/20 05/19/20 15:44 07:30 07:30 WBC 14.4 H Sodium 138 Potassium 5.2 H Chloride 107 Carbon Dioxide 16 L 5 L Creatinine 1.5 H 2.0 H Random Glucose 513 H* Imaging - Results Chest X-ray: Report Reviewed Problem List - Problems (1) DKA (diabetic ketoacidosis) Code(s): E13.10 - OTH DIABETES MELLITUS WITH KETOACIDOSIS WITHOUT COMA Qualifiers: Diabetes mellitus type: type 1 Diabetes mellitus complication detail: without coma Qualified Code(s): E10.10 - Type 1 diabetes mellitus with ketoacidosis without coma (2) JOSE ANGEL (acute kidney injury) Code(s): N17.9 - ACUTE KIDNEY FAILURE, UNSPECIFIED Assessment/Plan Current Medications Generic Name Dose Route Start Last Admin Trade Name Manishq PRN Reason Stop Dose Admin Amlodipine Besylate 5 mg 05/19/20 10:00 05/19/20 09:49 Norvasc - PO Not Given DAILY SAYDA Lactated Ringer's 1,000 ml in 1,000 mls @ 100 mls/hr 05/18/20 15:00 05/18/20 16:32 Lactated Ringers Solution IV 100 mls/hr ASDIR SAYDA Administration Insulin Human Regular 100 100 mls @ 5.534 mls/hr 05/19/20 10:45 05/19/20 14:37 units/ Sodium Chloride IVPB 0.05 units/kg/hr TITR SAYDA 2.767 mls/hr Titration Protocol 0.1 UNITS/KG/HR Dextrose/Lactated Ringer's 1,000 mls @ 150 mls/hr 05/19/20 14:45 D5-Lr - IV ASDIR SAYDA Insulin Aspart 1 vial 05/18/20 16:30 05/19/20 11:06 Novolog Vial Sliding Scale - SQ Not Given ACHS [facility] Protocol Insulin Detemir 10 units 05/18/20 22:00 05/18/20 22:42 Levemir Vial SQ Not Given BID@0700,2200 [facility] Pantoprazole Sodium 40 mg 05/19/20 10:00 05/19/20 09:42 Protonix Iv IVPUSH 40 mg DAILY SAYDA Administration Impression 1. JOSE ANGEL 2. DM uncontrolled 3. DKA 4. jose angel 5. metabolic acidosis secondary to dka 6. non compliance 7. cva 8. htn 9. hyperkalemia Plan - cont insulin drip - monitor cmp and AG - monitor bicarb levels - cont fluids - cont ICU monitoring - jose angel likely secondary to dehydration caused by dka - monitor output - discussed with ICU team - repeat bicarb levels, should improve with insulin - monitor potassium, should improve with insulin
[2020-05-19] MEDS: LACTATED RINGERS SOLUTION 1,000 ML/1,000 ML INFUS.BAG IV SCH (15:34)
[2020-05-19 17:18] LABS: ALBUMIN 2.6 g/dl (3.4-5.0); BILIRUBIN,TOTAL 0.3 mg/dL (0.2-1); BLOOD UREA NITROGEN 10.2 mg/dL (7-18); CALCIUM 7.9 mg/dL (8.5-10.1); CREATININE 1.6 mg/dL (0.55-1.3); POTASSIUM 3.6 mmol/L (3.5-5.1); TOT PROT 5.7 g/dl (6.4-8.2)
[2020-05-19] MEDS: INSULIN (LEVEMIR) 100 UNITS/ML UNITS SQ SCH ×2 (17:49→17:50)
--- NOTE | 2020-05-19 18:26 | PN ---
Physical Exam: SUBJECTIVE: 30 yo female with pmh w/ poorly controlled DM c/b recurrent admits for DKA, HTN, CVA (2013), hx/o heart murmur, & hepatomegaly who was in ICU transferred to telemetry. Nurses made us aware that pt glucose was elevated and was denying over night medication. Pt was found to be tachycardic and nauseous and suspected DKA. Pt DKA labs were drawn and found glucose to be >500 and pt was back in DKA. Will continue to monitor until gap closes and transfer back to telemetry. OBJECTIVE: GENERAL: The patient is awake, alert, and fully oriented, in distress. HEAD: Normal with no signs of trauma. EYES: PERRL, extraocular movements intact, sclera anicteric, conjunctiva clear. No ptosis. ENT: Ears normal, nares patent, oropharynx clear without exudates, NECK: Trachea midline, full range of motion, supple. LUNGS: Breath sounds equal, clear to auscultation bilaterally, no wheezes, no crackles, no accessory muscle use. HEART: Tachycardic regular rhythm, S1, S2 without murmur, rub or gallop. ABDOMEN: Tender to palpation diffusely in all four quadrants EXTREMITIES: 2+ pulses, warm, well-perfused, no edema. NEUROLOGICAL: Normal speech, gait not observed. PSYCH: Normal mood, normal affect. Vital Signs Period Temp Pulse Resp BP Sys/Quinn Pulse Ox Last 24 Hr 98.2 F-98.3 F 106-144 17-345 112-162/72-93 100-106 Laboratory Results - last 24 hr 05/17/20 05/18/20 05/18/20 15:50 14:00 21:49 WBC RBC Hgb Hct MCV MCH MCHC RDW Plt Count MPV Absolute Neuts (auto) Neutrophils % Lymphocytes % Monocytes % Eosinophils % Basophils % Nucleated RBC % Anticoagulation Therapy Puncture Site Patient Temperature ABG pH ABG pCO2 ABG pO2 ABG HCO3 ABG O2 Sat (Measured) ABG O2 Content ABG Base Excess Ronny Test Patient On Oxygen O2 Delivery Device Oxygen Flow Rate Vent Mode Vent Rate Mechanical Rate PEEP Pressure Support Vent Sodium Potassium Chloride Carbon Dioxide Anion Gap BUN Creatinine Est GFR (CKD-EPI)AfAm Est GFR (CKD-EPI)NonAf POC Glucometer 132 Random Glucose Calcium Total Bilirubin AST ALT Alkaline Phosphatase Total Protein Albumin Triglycerides Cholesterol Total LDL Cholesterol HDL Cholesterol Beta-Hydroxybutyrate TSH Opiates Screen Negative Methadone Screen Negative Barbiturate Screen Negative Phencyclidine Screen Negative Ur Amphetamines Screen Negative MDMA (Ecstasy) Screen Negative Benzodiazepines Screen Negative Cocaine Screen Negative U Marijuana (THC) Screen Negative COVID-19 (SHAD) Not detected 05/19/20 05/19/20 05/19/20 06:39 07:30 07:30 WBC RBC Hgb Hct MCV MCH MCHC RDW Plt Count MPV Absolute Neuts (auto) Neutrophils % Lymphocytes % Monocytes % Eosinophils % Basophils % Nucleated RBC % Anticoagulation Therapy No Result Required. Puncture Site No Result Required. Patient Temperature No Result Required. ABG pH 7.107 L* ABG pCO2 < 16.70 L ABG pO2 121.3 H ABG HCO3 No Result Required. ABG O2 Sat (Measured) No Result Required. ABG O2 Content No Result Required. ABG Base Excess No Result Required. Ronny Test No Result Required. Patient On Oxygen No Result Required. O2 Delivery Device No Result Required. Oxygen Flow Rate No Result Required. Vent Mode No Result Required. Vent Rate No Result Required. Mechanical Rate No Result Required. PEEP No Result Required. Pressure Support Vent No Result Required. Sodium Potassium Chloride Carbon Dioxide Anion Gap BUN Creatinine Est GFR (CKD-EPI)AfAm Est GFR (CKD-EPI)NonAf POC Glucometer 502 Random Glucose Calcium Total Bilirubin AST ALT Alkaline Phosphatase Total Protein Albumin Triglycerides 149 Cholesterol 242 H Total LDL Cholesterol 161 H HDL Cholesterol 55 Beta-Hydroxybutyrate TSH Opiates Screen Methadone Screen Barbiturate Screen Phencyclidine Screen Ur Amphetamines Screen MDMA (Ecstasy) Screen Benzodiazepines Screen Cocaine Screen U Marijuana (THC) Screen COVID-19 (SHAD) 05/19/20 05/19/20 05/19/20 07:30 07:30 10:30 WBC 14.4 H RBC 3.71 Hgb 11.4 Hct 35.9 MCV 96.6 H MCH 30.7 MCHC 31.7 L RDW 15.2 D Plt Count 313 MPV 9.6 D Absolute Neuts (auto) 12.6 H Neutrophils % 87.6 H D Lymphocytes % 8.8 D Monocytes % 2.9 L Eosinophils % 0.1 Basophils % 0.6 Nucleated RBC % 0 Anticoagulation Therapy Puncture Site Patient Temperature ABG pH ABG pCO2 ABG pO2 ABG HCO3 ABG O2 Sat (Measured) ABG O2 Content ABG Base Excess Ronny Test Patient On Oxygen O2 Delivery Device Oxygen Flow Rate Vent Mode Vent Rate Mechanical Rate PEEP Pressure Support Vent Sodium 138 Potassium 5.2 H Chloride 107 Carbon Dioxide 5 L Anion Gap 26 H BUN 16.7 Creatinine 2.0 H Est GFR (CKD-EPI)AfAm 38.41 Est GFR (CKD-EPI)NonAf 33.14 POC Glucometer 254 Random Glucose 513 H* Calcium 8.4 L Total Bilirubin 0.6 AST 37 ALT 18 Alkaline Phosphatase 133 H Total Protein 6.7 Albumin 3.1 L Triglycerides Cholesterol Total LDL Cholesterol HDL Cholesterol Beta-Hydroxybutyrate 126.6 H TSH 0.77 Opiates Screen Methadone Screen Barbiturate Screen Phencyclidine Screen Ur Amphetamines Screen MDMA (Ecstasy) Screen Benzodiazepines Screen Cocaine Screen U Marijuana (THC) Screen COVID-19 (SHAD) 05/19/20 05/19/20 05/19/20 11:09 12:03 13:01 WBC RBC Hgb Hct MCV MCH MCHC RDW Plt Count MPV Absolute Neuts (auto) Neutrophils % Lymphocytes % Monocytes % Eosinophils % Basophils % Nucleated RBC % Anticoagulation Therapy Puncture Site Patient Temperature ABG pH ABG pCO2 ABG pO2 ABG HCO3 ABG O2 Sat (Measured) ABG O2 Content ABG Base Excess Ronny Test Patient On Oxygen O2 Delivery Device Oxygen Flow Rate Vent Mode Vent Rate Mechanical Rate PEEP Pressure Support Vent Sodium Potassium Chloride Carbon Dioxide Anion Gap BUN Creatinine Est GFR (CKD-EPI)AfAm Est GFR (CKD-EPI)NonAf POC Glucometer 217 232 256 Random Glucose Calcium Total Bilirubin AST ALT Alkaline Phosphatase Total Protein Albumin Triglycerides Cholesterol Total LDL Cholesterol HDL Cholesterol Beta-Hydroxybutyrate TSH Opiates Screen Methadone Screen Barbiturate Screen Phencyclidine Screen Ur Amphetamines Screen MDMA (Ecstasy) Screen Benzodiazepines Screen Cocaine Screen U Marijuana (THC) Screen COVID-19 (SHAD) 05/19/20 05/19/20 05/19/20 14:06 14:54 15:50 WBC RBC Hgb Hct MCV MCH MCHC RDW Plt Count MPV Absolute Neuts (auto) Neutrophils % Lymphocytes % Monocytes % Eosinophils % Basophils % Nucleated RBC % Anticoagulation Therapy Puncture Site Patient Temperature ABG pH ABG pCO2 ABG pO2 ABG HCO3 ABG O2 Sat (Measured) ABG O2 Content ABG Base Excess Ronny Test Patient On Oxygen O2 Delivery Device Oxygen Flow Rate Vent Mode Vent Rate Mechanical Rate PEEP Pressure Support Vent Sodium 145 Potassium 3.6 Chloride 118 H Carbon Dioxide 17 L Anion Gap 10 BUN 10.2 Creatinine 1.6 H Est GFR (CKD-EPI)AfAm 50.30 Est GFR (CKD-EPI)NonAf 43.40 POC Glucometer 213 182 Random Glucose 187 H Calcium 7.9 L Total Bilirubin 0.3 AST 11 L ALT 13 Alkaline Phosphatase 116 Total Protein 5.7 L Albumin 2.6 L Triglycerides Cholesterol Total LDL Cholesterol HDL Cholesterol Beta-Hydroxybutyrate TSH Opiates Screen Methadone Screen Barbiturate Screen Phencyclidine Screen Ur Amphetamines Screen MDMA (Ecstasy) Screen Benzodiazepines Screen Cocaine Screen U Marijuana (THC) Screen COVID-19 (SHAD) 05/19/20 05/19/20 05/19/20 15:52 16:58 18:02 WBC RBC Hgb Hct MCV MCH MCHC RDW Plt Count MPV Absolute Neuts (auto) Neutrophils % Lymphocytes % Monocytes % Eosinophils % Basophils % Nucleated RBC % Anticoagulation Therapy Puncture Site Patient Temperature ABG pH ABG pCO2 ABG pO2 ABG HCO3 ABG O2 Sat (Measured) ABG O2 Content ABG Base Excess Ronny Test Patient On Oxygen O2 Delivery Device Oxygen Flow Rate Vent Mode Vent Rate Mechanical Rate PEEP Pressure Support Vent Sodium Potassium Chloride Carbon Dioxide Anion Gap BUN Creatinine Est GFR (CKD-EPI)AfAm Est GFR (CKD-EPI)NonAf POC Glucometer 168 136 122 Random Glucose Calcium Total Bilirubin AST ALT Alkaline Phosphatase Total Protein Albumin Triglycerides Cholesterol Total LDL Cholesterol HDL Cholesterol Beta-Hydroxybutyrate TSH Opiates Screen Methadone Screen Barbiturate Screen Phencyclidine Screen Ur Amphetamines Screen MDMA (Ecstasy) Screen Benzodiazepines Screen Cocaine Screen U Marijuana (THC) Screen COVID-19 (SHAD) Active Medications Generic Name Dose Route Start Last Admin Trade Name Freq PRN Reason Stop Dose Admin Amlodipine Besylate 5 mg 05/19/20 10:00 05/19/20 09:49 Norvasc - PO Not Given DAILY SAYDA Lactated Ringer's 1,000 ml in 1,000 mls @ 100 mls/hr 05/18/20 15:00 05/19/20 15:34 Lactated Ringers Solution IV Not Given ASDIR SAYDA Insulin Human Regular 100 100 mls @ 5.534 mls/hr 05/19/20 10:45 05/19/20 14:37 units/ Sodium Chloride IVPB 0.05 units/kg/hr TITR SAYDA 2.767 mls/hr Titration Protocol 0.1 UNITS/KG/HR Dextrose/Lactated Ringer's 1,000 mls @ 150 mls/hr 05/19/20 14:45 05/19/20 15:33 D5-Lr - IV 150 mls/hr ASDIR SAYDA Administration Insulin Aspart 1 vial 05/18/20 16:30 05/19/20 16:49 Novolog Vial Sliding Scale - SQ Not Given ACHS SAYDA Protocol Insulin Detemir 10 units 05/19/20 18:00 Levemir Vial SQ BID@0700,1800 SAYDA Pantoprazole Sodium 40 mg 05/19/20 10:00 05/19/20 09:42 Protonix Iv IVPUSH 40 mg DAILY SAYDA Administration ASSESSMENT/PLAN: 30 yo female with multiple DKA history presenting to ICU for recurring DKA. Cardiac: Htn- will maintain amlodipine Endocrine -insulin drip to close gap -montoring K -will switch to SQ insulin once gap closed -D5 LR when glucose is <200 - will transfer to tele when gap closes - According to pharmacy pt at home uses novolog pump titrates use no long acting. ID - will monitor wbc - most likely not an infectious source PPX - DVT: allergic to heparin products so will continue SCDs Visit type - Emergency Visit Emergency Visit: Yes ED Registration Date: 05/17/20 Care time: The patient presented to the Emergency Department on the above date and was hospitalized for further evaluation of their emergent condition. - New Patient This patient is new to me today: No - Critical Care Critical Care patient: Yes Total Critical Care Time (in minutes): 36 Critical Care Statement: The care of this patient involved high complexity decision making to prevent further life threatening deterioration of the patient's condition and/or to evaluate & treat vital organ system(s) failure or risk of failure. ATTENDING PHYSICIAN STATEMENT I saw and evaluated the patient. I reviewed the resident's note and discussed the case with the resident. I agree with the resident's findings and plan as documented. SUBJECTIVE: OBJECTIVE: ASSESSMENT AND PLAN:
[2020-05-19] MEDS ORDERED: INSULIN (LEVEMIR) 100 UNITS/ML UNITS SQ SCH (19:00)
--- NOTE | 2020-05-19 22:15 | CONSULT ---
Consult Consult Specialty:: Endocrine Reason for Consultation:: dka - History of Present Illness Chief Complaint: nausea vomiting History of Present Illness: 30 year old female with pmhx of uncontrolled DM, DKA, htn, cva, valvular heart disease, and non compliance who was brought in for shortness of breath. She was found to be in jose angel hyperglycemia weak,lethargic,has not been taking insulin sates she ran out of insulin,deies fever cough or chills. 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 Right sided weakness), Migraine, Peripheral Neuropathy Cardio/Vascular: Yes: HTN (has been on meds in past, not currently), Murmur Pulmonary: Yes: Asthma (well controlled with ventolin) Gastrointestinal: Yes: Gastritis, Other (H PYLORI, h/o c difficile) Hepatobiliary: Yes: Other (FOCAL NODULAR HYPERPLASIA) Renal/: Yes: UTI ...LMP: 04/30/20 ...: No Infectious Disease: Yes: STD's (h/o HPV infection . Condyloma ) Musculoskeletal: Yes: Other (scoliosis) Endocrine: Yes: Diabetes Mellitus (type 1 with frequent admissions for DKA .h/o diabetes since age 8 yrs) - Past Surgical History Past Surgical History: Yes: Appendectomy (2009 laparoscopic), Colonoscopy, C- Section (x2, last 6 months ago), Upper Endoscopy - Alcohol/Substance Use Hx Alcohol Use: No History of Substance Use: reports: None - Smoking History Smoking history: Never smoked Have you smoked in the past 12 months: No Aproximately how many cigarettes per day: 0 - Social History Usual Living Arrangement: Alone ADL: Independent Occupation: unemployed History of Recent Travel: No Home Medications - Allergies Allergies/Adverse Reactions: Allergies Allergy/AdvReac Type Severity Reaction Status Date / Time hydromorphone [From Dilaudid] Allergy Unknown Verified 05/17/20 09:53 acetaminophen [From Tylenol] Allergy Swelling Verified 05/17/20 09:53 chlorhexidine Allergy Verified 05/17/20 09:53 [From Hibiclens] gentamicin Allergy Verified 05/17/20 09:53 heparin Allergy Verified 05/17/20 09:53 ibuprofen [From Motrin] Allergy Swelling Verified 05/17/20 09:53 morphine Allergy Verified 05/17/20 09:53 - Home Medications Home Medications: Ambulatory Orders Lancets 1 each MC DAILY #1 box 11/20/19 Amlodipine Besylate [Norvasc -] 5 mg PO DAILY #30 tablet 01/10/20 Insulin Pump [Insulin Pump - (Nf)] 0 units SQ ASDIR 01/10/20 Insulin Lispro [Humalog] 100 unit SQ DAILY #1 ml 01/11/20 Family Medical History Family History: Denies Family Hx Respiratory Disorders: Mother (asthma), Brother (asthma/bronchitis) Review of Systems - Review of Systems Constitutional: reports: Lethargy, Malaise, Unintentional Wgt. Loss Eyes: reports: No Symptoms HENT: reports: No Symptoms Neck: reports: No Symptoms Cardiovascular: reports: Shortness of Breath Respiratory: reports: Exercise Intolerance, SOB, SOB on Exertion Gastrointestinal: reports: Abdominal Pain, Bloating, Nausea Genitourinary: reports: No Symptoms Breasts: reports: No Symptoms Reported Musculoskeletal: reports: Muscle Cramps, Muscle Weakness Integumentary: reports: No Symptoms Neurological: reports: Numbness, Pre-Existing Deficit, Weakness Endocrine: reports: Unexplained Weight Loss Physical Exam Vital Signs: Vital Signs Temperature 98.6 F 05/19/20 17:00 Pulse Rate 111 H 05/19/20 17:00 Respiratory Rate 17 05/19/20 17:00 Blood Pressure 122/73 05/19/20 17:00 O2 Sat by Pulse Oximetry (%) 100 05/19/20 17:00 Labs: CBC, BMP 05/19/20 07:30 05/19/20 15:50 Problem List - Problems (1) DKA (diabetic ketoacidosis) Problems reviewed: Yes Code(s): E13.10 - OTH DIABETES MELLITUS WITH KETOACIDOSIS WITHOUT COMA Qualifiers: Diabetes mellitus type: type 1 Diabetes mellitus complication detail: without coma Qualified Code(s): E10.10 - Type 1 diabetes mellitus with ketoacidosis without coma (2) JOSE ANGEL (acute kidney injury) Code(s): N17.9 - ACUTE KIDNEY FAILURE, UNSPECIFIED (3) Abscess of perineum Code(s): L02.215 - CUTANEOUS ABSCESS OF PERINEUM (4) Aftercare following surgery of the skin or subcutaneous tissue Code(s): Z48.817 - ENCNTR FOR SURGICAL AFTCR FOL SURGERY ON THE SKIN, SUBCU Assessment/Plan Current Active Problems DKA (diabetic ketoacidosis) (Acute) Laboratory Results - last 24 hr 05/17/20 05/19/20 05/19/20 15:50 06:39 07:30 WBC RBC Hgb Hct MCV MCH MCHC RDW Plt Count MPV Absolute Neuts (auto) Neutrophils % Lymphocytes % Monocytes % Eosinophils % Basophils % Nucleated RBC % Anticoagulation Therapy Puncture Site Patient Temperature ABG pH ABG pCO2 ABG pO2 ABG HCO3 ABG O2 Sat (Measured) ABG O2 Content ABG Base Excess Ronny Test Patient On Oxygen O2 Delivery Device Oxygen Flow Rate Vent Mode Vent Rate Mechanical Rate PEEP Pressure Support Vent Sodium Potassium Chloride Carbon Dioxide Anion Gap BUN Creatinine Est GFR (CKD-EPI)AfAm Est GFR (CKD-EPI)NonAf POC Glucometer 502 Random Glucose Calcium Total Bilirubin AST ALT Alkaline Phosphatase Total Protein Albumin Triglycerides 149 Cholesterol 242 H Total LDL Cholesterol 161 H HDL Cholesterol 55 Beta-Hydroxybutyrate TSH COVID-19 (SHAD) Not detected 05/19/20 05/19/20 05/19/20 07:30 07:30 07:30 WBC 14.4 H RBC 3.71 Hgb 11.4 Hct 35.9 MCV 96.6 H MCH 30.7 MCHC 31.7 L RDW 15.2 D Plt Count 313 MPV 9.6 D Absolute Neuts (auto) 12.6 H Neutrophils % 87.6 H D Lymphocytes % 8.8 D Monocytes % 2.9 L Eosinophils % 0.1 Basophils % 0.6 Nucleated RBC % 0 Anticoagulation Therapy No Result Required. Puncture Site No Result Required. Patient Temperature No Result Required. ABG pH 7.107 L* ABG pCO2 < 16.70 L ABG pO2 121.3 H ABG HCO3 No Result Required. ABG O2 Sat (Measured) No Result Required. ABG O2 Content No Result Required. ABG Base Excess No Result Required. Ronny Test No Result Required. Patient On Oxygen No Result Required. O2 Delivery Device No Result Required. Oxygen Flow Rate No Result Required. Vent Mode No Result Required. Vent Rate No Result Required. Mechanical Rate No Result Required. PEEP No Result Required. Pressure Support Vent No Result Required. Sodium 138 Potassium 5.2 H Chloride 107 Carbon Dioxide 5 L Anion Gap 26 H BUN 16.7 Creatinine 2.0 H Est GFR (CKD-EPI)AfAm 38.41 Est GFR (CKD-EPI)NonAf 33.14 POC Glucometer Random Glucose 513 H* Calcium 8.4 L Total Bilirubin 0.6 AST 37 ALT 18 Alkaline Phosphatase 133 H Total Protein 6.7 Albumin 3.1 L Triglycerides Cholesterol Total LDL Cholesterol HDL Cholesterol Beta-Hydroxybutyrate 126.6 H TSH 0.77 COVID-19 (SHAD) 05/19/20 05/19/20 05/19/20 10:30 11:09 12:03 WBC RBC Hgb Hct MCV MCH MCHC RDW Plt Count MPV Absolute Neuts (auto) Neutrophils % Lymphocytes % Monocytes % Eosinophils % Basophils % Nucleated RBC % Anticoagulation Therapy Puncture Site Patient Temperature ABG pH ABG pCO2 ABG pO2 ABG HCO3 ABG O2 Sat (Measured) ABG O2 Content ABG Base Excess Ronny Test Patient On Oxygen O2 Delivery Device Oxygen Flow Rate Vent Mode Vent Rate Mechanical Rate PEEP Pressure Support Vent Sodium Potassium Chloride Carbon Dioxide Anion Gap BUN Creatinine Est GFR (CKD-EPI)AfAm Est GFR (CKD-EPI)NonAf POC Glucometer 254 217 232 Random Glucose Calcium Total Bilirubin AST ALT Alkaline Phosphatase Total Protein Albumin Triglycerides Cholesterol Total LDL Cholesterol HDL Cholesterol Beta-Hydroxybutyrate TSH COVID-19 (SHAD) 05/19/20 05/19/20 05/19/20 13:01 14:06 14:54 WBC RBC Hgb Hct MCV MCH MCHC RDW Plt Count MPV Absolute Neuts (auto) Neutrophils % Lymphocytes % Monocytes % Eosinophils % Basophils % Nucleated RBC % Anticoagulation Therapy Puncture Site Patient Temperature ABG pH ABG pCO2 ABG pO2 ABG HCO3 ABG O2 Sat (Measured) ABG O2 Content ABG Base Excess Ronny Test Patient On Oxygen O2 Delivery Device Oxygen Flow Rate Vent Mode Vent Rate Mechanical Rate PEEP Pressure Support Vent Sodium Potassium Chloride Carbon Dioxide Anion Gap BUN Creatinine Est GFR (CKD-EPI)AfAm Est GFR (CKD-EPI)NonAf POC Glucometer 256 213 182 Random Glucose Calcium Total Bilirubin AST ALT Alkaline Phosphatase Total Protein Albumin Triglycerides Cholesterol Total LDL Cholesterol HDL Cholesterol Beta-Hydroxybutyrate TSH COVID-19 (SHAD) 05/19/20 05/19/20 05/19/20 15:50 15:52 16:58 WBC RBC Hgb Hct MCV MCH MCHC RDW Plt Count MPV Absolute Neuts (auto) Neutrophils % Lymphocytes % Monocytes % Eosinophils % Basophils % Nucleated RBC % Anticoagulation Therapy Puncture Site Patient Temperature ABG pH ABG pCO2 ABG pO2 ABG HCO3 ABG O2 Sat (Measured) ABG O2 Content ABG Base Excess Ronny Test Patient On Oxygen O2 Delivery Device Oxygen Flow Rate Vent Mode Vent Rate Mechanical Rate PEEP Pressure Support Vent Sodium 145 Potassium 3.6 Chloride 118 H Carbon Dioxide 17 L Anion Gap 10 BUN 10.2 Creatinine 1.6 H Est GFR (CKD-EPI)AfAm 50.30 Est GFR (CKD-EPI)NonAf 43.40 POC Glucometer 168 136 Random Glucose 187 H Calcium 7.9 L Total Bilirubin 0.3 AST 11 L ALT 13 Alkaline Phosphatase 116 Total Protein 5.7 L Albumin 2.6 L Triglycerides Cholesterol Total LDL Cholesterol HDL Cholesterol Beta-Hydroxybutyrate TSH COVID-19 (SHAD) 05/19/20 05/19/20 05/19/20 18:02 20:09 22:06 WBC RBC Hgb Hct MCV MCH MCHC RDW Plt Count MPV Absolute Neuts (auto) Neutrophils % Lymphocytes % Monocytes % Eosinophils % Basophils % Nucleated RBC % Anticoagulation Therapy Puncture Site Patient Temperature ABG pH ABG pCO2 ABG pO2 ABG HCO3 ABG O2 Sat (Measured) ABG O2 Content ABG Base Excess Ronny Test Patient On Oxygen O2 Delivery Device Oxygen Flow Rate Vent Mode Vent Rate Mechanical Rate PEEP Pressure Support Vent Sodium Potassium Chloride Carbon Dioxide Anion Gap BUN Creatinine Est GFR (CKD-EPI)AfAm Est GFR (CKD-EPI)NonAf POC Glucometer 122 192 236 Random Glucose Calcium Total Bilirubin AST ALT Alkaline Phosphatase Total Protein Albumin Triglycerides Cholesterol Total LDL Cholesterol HDL Cholesterol Beta-Hydroxybutyrate TSH COVID-19 (SHAD) plan:bgm q1hr then once cleared dka bgm qid novolog scale levemir 12 units daily follow up nutrition consult
[2020-05-20] MEDS: INSULIN SLIDING SCALE (NOVOLOG) 1 VIAL SQ SCH ×4 (06:53→22:28)
[2020-05-20] MEDS: INSULIN (LEVEMIR) 100 UNITS/ML UNITS SQ SCH (06:56)
[2020-05-20] MEDS: amLODIPine BESYLATE 5 MG TABLET (FP) PO SCH (09:10)
[2020-05-20] MEDS: PANTOPRAZOLE SODIUM 40 MG VIAL IVPUSH SCH (09:15)
[2020-05-20 11:25] LABS: BASO % 0.3 % (0-2.0); EOS % 1.4 % (0-4.5); HEMATOCRIT 28.6 % (32.4-45.2); HEMOGLOBIN 9.9 GM/dL (10.7-15.3); LYMPH % 41.4 % (8-40); MCH 31.9 pg (25.7-33.7); MCHC 34.6 g/dl (32.0-36.0); MEAN CELL VOLUME 92.1 fl (80-96); MEAN PLT VOLUME 7.9 fl (7.5-11.1); MONO % 5.2 % (3.8-10.2); NEUT % 51.7 % (42.8-82.8); PLATELET COUNT 240 K/MM3 (134-434); RDW 13.7 % (11.6-15.6); WHITE BLOOD COUNT 7.8 K/mm3 (4.0-10.0)
[2020-05-20 12:17] LABS: ALBUMIN 2.5 g/dl (3.4-5.0); BILIRUBIN,TOTAL 0.5 mg/dL (0.2-1); BLOOD UREA NITROGEN 7.2 mg/dL (7-18); CALCIUM 7.8 mg/dL (8.5-10.1); CREATININE 1.1 mg/dL (0.55-1.3); MAGNESIUM 1.2 mg/dL (1.8-2.4); PHOSPHOROUS 1.8 mg/dL (2.5-4.9); POTASSIUM 3.1 mmol/L (3.5-5.1); TOT PROT 5.3 g/dl (6.4-8.2)
--- NOTE | 2020-05-20 12:30 | PN ---
Teaching Attending Note Name of Resident: Andrews Sanders ATTENDING PHYSICIAN STATEMENT I saw and evaluated the patient. I reviewed the resident's note and discussed the case with the resident. I agree with the resident's findings and plan as documented. SUBJECTIVE: Pt seen and examined in the ICU. Anion gap closed. Reports chronic abdominal pain. Did not eat breakfast this AM. OBJECTIVE: Vital Signs Period Temp Pulse Resp BP Sys/Quinn Pulse Ox Last 24 Hr 98.2 F-98.6 F 87-116 14-32 112-162/73-109 100-100 Intake & Output 05/17/20 05/18/20 05/19/20 05/20/20 23:59 23:59 23:59 23:59 Intake Total 2410 1500 1700 Output Total 2350 2700 3440 Balance 60 -1200 -1740 Weight 55.338 kg 55.338 kg Gen: NAD at rest Heart: RRR Lung: decreased breath sounds at the bases Abd: soft, nontender Ext: no edema CBC, BMP 05/20/20 06:00 05/20/20 11:00 Active Medications Amlodipine Besylate (Norvasc -) 5 mg PO DAILY [facility] Last Admin: 05/20/20 09:10 Dose: Not Given Documented by: Lactated Ringer's (Lactated Ringers Solution) 1,000 ml in 1,000 mls @ 100 mls/hr IV ASDIR [facility] Last Admin: 05/19/20 15:34 Dose: Not Given Documented by: Insulin Human Regular 100 (units/ Sodium Chloride) 100 mls @ 5.534 mls/hr IVPB TITR [facility]; Protocol Last Titration: 05/19/20 14:37 Dose: 0.05 units/kg/hr, 2.767 mls/hr Documented by: Dextrose/Lactated Ringer's (D5-Lr -) 1,000 mls @ 150 mls/hr IV ASDIR SAYDA Last Admin: 05/19/20 15:33 Dose: 150 mls/hr Documented by: Insulin Aspart (Novolog Vial Sliding Scale -) 1 vial SQ ACHS [facility]; Protocol Last Admin: 05/20/20 12:27 Dose: 4 units Documented by: Insulin Detemir (Levemir Vial) 10 units SQ BID@0700,1800 [facility] Last Admin: 05/20/20 06:56 Dose: Not Given Documented by: Pantoprazole Sodium (Protonix Iv) 40 mg IVPUSH DAILY SAYDA Last Admin: 05/20/20 09:15 Dose: 40 mg Documented by: ASSESSMENT AND PLAN: Diabetic Ketoacidosis resolved Lactic Acidosis Acute Kidney injury h/o CVA HTN Noncompliance - continue levemir - PO as tolerated - antiemetics - decrease IVF rate - replete lytes - DVT prophylaxis - can monitor on floor
[2020-05-20] MEDS ORDERED: METOCLOPRAMIDE HCL INJECTION 10 MG/2 ML VIAL IM ONE (12:57)
[2020-05-20] MEDS ORDERED: INSULIN (LEVEMIR) 100 UNITS/ML UNITS SQ ONE (13:01)
[2020-05-20] MEDS: INSULIN REGULAR 100 UNITS in SODIUM CHLORIDE 99 ML IVPB SCH (13:23)
[2020-05-20] MEDS ORDERED: POTASSIUM CHLORIDE ORAL LIQUID 20 MEQ/15 ML PO ONE (14:32)
[2020-05-20] MEDS ORDERED: NAPH,MB-DB/K PH,MBDB POWDER PACKET PO ONE (14:33)
[2020-05-20] MEDS ORDERED: MAGNESIUM 2GM/50ML STERILE WATER IVPB IVPB ONE (14:33)
--- NOTE | 2020-05-20 14:43 | PN ---
Progress Note (short form) - Note Progress Note: 30 year old female with pmhx of uncontrolled DM, DKA, htn, cva, valvular heart disease, and non compliance who was brought in for shortness of breath was found to be in DKA with JOSE ANGEL as well. patient started on insulin gtt then gap closed however it re-opened and patient needed to be placed back on gtt- patient has now been off insulin gtt since last night. 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
--- NOTE | 2020-05-20 18:14 | PN ---
Progress Note, Physician History of Present Illness: Pt seen and examined at bedside. She is awake and alert. She denies shortness of breath. - Current Medication List Current Medications: Active Medications Amlodipine Besylate (Norvasc -) 5 mg PO DAILY [facility] Last Admin: 05/20/20 09:10 Dose: Not Given Documented by: Lactated Ringer's (Lactated Ringers Solution) 1,000 ml in 1,000 mls @ 100 mls/hr IV ASDIR [facility] Last Admin: 05/19/20 15:34 Dose: Not Given Documented by: Dextrose/Lactated Ringer's (D5-Lr -) 1,000 mls @ 150 mls/hr IV ASDIR [facility] Last Admin: 05/19/20 15:33 Dose: 150 mls/hr Documented by: Insulin Aspart (Novolog Vial Sliding Scale -) 1 vial SQ [facility]; Protocol Last Admin: 05/20/20 18:02 Dose: 2 units Documented by: Insulin Detemir (Levemir Vial) 12 units SQ HS [facility] Pantoprazole Sodium (Protonix Iv) 40 mg IVPUSH DAILY [facility] Last Admin: 05/20/20 09:15 Dose: 40 mg Documented by: - Objective Vital Signs: Vital Signs Temperature 98.3 F 05/20/20 13:00 Pulse Rate 91 H 05/20/20 13:00 Respiratory Rate 19 05/20/20 13:00 Blood Pressure 150/96 05/20/20 13:00 O2 Sat by Pulse Oximetry (%) 100 05/20/20 09:00 Constitutional: Yes: Calm Eyes: Yes: Conjunctiva Clear Cardiovascular: Yes: S1, S2 Respiratory: Yes: CTA Bilaterally Gastrointestinal: Yes: Soft Genitourinary: Yes: WNL Musculoskeletal: Yes: WNL Edema: No Neurological: Yes: Oriented Psychiatric: Yes: Oriented Labs: CBC, BMP 05/20/20 06:00 05/20/20 11:00 INR, PTT INR 0.91 (0.83-1.09) 05/17/20 13:04 Problem List - Problems (1) DKA (diabetic ketoacidosis) Code(s): E13.10 - OTH DIABETES MELLITUS WITH KETOACIDOSIS WITHOUT COMA Qualifiers: Diabetes mellitus type: type 1 Diabetes mellitus complication detail: without coma Qualified Code(s): E10.10 - Type 1 diabetes mellitus with ketoacidosis without coma (2) MICHELLE (acute kidney injury) Code(s): N17.9 - ACUTE KIDNEY FAILURE, UNSPECIFIED Assessment/Plan Current Medications Generic Name Dose Route Start Last Admin Trade Name Dayanara PRN Reason Stop Dose Admin Amlodipine Besylate 5 mg 05/19/20 10:00 05/20/20 09:10 Norvasc - PO Not Given DAILY SAYDA Lactated Ringer's 1,000 ml in 1,000 mls @ 100 mls/hr 05/18/20 15:00 05/19/20 15:34 Lactated Ringers Solution IV Not Given ASDIR SAYDA Dextrose/Lactated Ringer's 1,000 mls @ 150 mls/hr 05/19/20 14:45 05/19/20 15:33 D5-Lr - IV 150 mls/hr ASDIR SAYDA Administration Insulin Aspart 1 vial 05/18/20 16:30 05/20/20 18:02 Novolog Vial Sliding Scale - SQ 2 units ACHS SAYDA Administration Protocol Insulin Detemir 12 units 05/20/20 22:00 Levemir Vial SQ HS SAYDA Pantoprazole Sodium 40 mg 05/19/20 10:00 05/20/20 09:15 Protonix Iv IVPUSH 40 mg DAILY SAYDA Administration Impression 1. MICHELLE 2. DM uncontrolled 3. DKA 4. michelle 5. metabolic acidosis secondary to dka 6. non compliance 7. cva 8. htn 9. hyperkalemia Plan - renal function improved - acidosis improved - replace lytes - michelle likely from dka - monitor renal function
[2020-05-20] MEDS ORDERED: DEXTROSE 5%-LACTATED RINGERS 1,000 ML IV SCH (18:32)
--- NOTE | 2020-05-20 19:46 | PN ---
Progress Note (short form) - Note Progress Note: 30 yo female with pmh w/ poorly controlled DM c/b recurrent admits for DKA, HTN, CVA (2012), hx/o heart murmur, & hepatomegaly who was in ICU for DKA. In the ICU pt was given fluid insulin and K supplementation. Pt gap has closed, drip has stopped and started on SQ insulin. Pt has no emesis today, is able to eat, and now taking long acting levemir. Pt is stable for telemetry PE: GENERAL: The patient is awake, alert, and fully oriented HEAD: Normal with no signs of trauma. EYES: PERRL, ENT: Ears normal, nares patent, oropharynx clear without exudates, NECK: Trachea midline, full range of motion, supple. LUNGS: Breath sounds equal, clear to auscultation bilaterally, no wheezes, no crackles, no accessory muscle use. HEART: regular rate rhythm, S1, S2 without murmur, rub or gallop. EXTREMITIES: 2+ pulses, warm, well-perfused, no edema. NEUROLOGICAL: Normal speech, gait not observed. PSYCH: Normal mood, normal affect.
[2020-05-20] MEDS ORDERED: INSULIN (LEVEMIR) 100 UNITS/ML UNITS SQ SCH (22:00)
[2020-05-20 22:11] LABS: BLOOD UREA NITROGEN 9.3 mg/dL (7-18); CALCIUM 8.5 mg/dL (8.5-10.1); CREATININE 1.3 mg/dL (0.55-1.3); POTASSIUM 3.9 mmol/L (3.5-5.1)
--- NOTE | 2020-05-20 22:25 | PN ---
Teaching Attending Note Name of Resident: Christina Feldman ATTENDING PHYSICIAN STATEMENT I saw and evaluated the patient. I reviewed the resident's note and discussed the case with the resident. I agree with the resident's findings and plan as documented. SUBJECTIVE: Patient seen and examined at bedside, admitted for DKA 2/2 med-non adherence, was downgraded days prior then gap re-opened, now closed, has extensive h/o bipolar, med noncompliance,malingering/factitious disorder w/ multiple DKA episodes. OBJECTIVE: GA tired appearance, lethargic, AAox3 HEENT NC/AT, no oral thrush, dry MM, neck supple Chest CTAB, poor inspiratory effort CVs s1, S2+, Sinus tachycardia Abd Soft, mildly tender in epigastrum, no guarding, BS+ Ext no LE edema PSych flat affect, intermittingly crying Vital Signs (72 hours) 05/18/20 05/18/20 05/18/20 00:00 02:00 04:00 Temperature Pulse Rate 122 H 119 H 114 H Respiratory 20 20 20 Rate Blood Pressure 112/73 129/88 132/88 O2 Sat by Pulse 100 100 100 Oximetry (%) 05/18/20 05/18/20 05/18/20 06:00 08:00 09:00 Temperature Pulse Rate 120 H 120 H Respiratory 23 H 35 H 22 H Rate Blood Pressure 129/84 127/94 O2 Sat by Pulse 100 100 Oximetry (%) 05/18/20 05/18/20 05/18/20 10:00 12:00 14:00 Temperature 98.2 F 98.3 F Pulse Rate 117 H 107 H 107 H Respiratory 26 H 23 H 24 H Rate Blood Pressure 118/87 118/83 121/92 O2 Sat by Pulse 100 100 Oximetry (%) 05/18/20 05/18/20 05/18/20 16:00 18:00 18:50 Temperature 98.3 F Pulse Rate 122 H 117 H Respiratory 26 H 26 H Rate Blood Pressure 112/76 117/80 O2 Sat by Pulse 100 Oximetry (%) 05/18/20 05/18/20 05/19/20 20:00 20:32 00:00 Temperature Pulse Rate 106 H 112 H Respiratory 21 H 21 H Rate Blood Pressure 116/81 123/84 O2 Sat by Pulse 100 106 H 100 Oximetry (%) 09/04/3005/19/20 05/19/20 02:00 04:00 06:00 Temperature 98.2 F Pulse Rate 117 H 120 H 140 H Respiratory 25 H 25 H 345 H Rate Blood Pressure 127/87 120/74 119/72 O2 Sat by Pulse 100 100 100 Oximetry (%) 05/19/20 05/19/20 05/19/20 08:00 08:20 08:23 Temperature Pulse Rate 144 H 138 H Respiratory 24 H 24 H 24 H Rate Blood Pressure 149/89 162/88 O2 Sat by Pulse 100 100 100 Oximetry (%) 05/19/20 05/19/20 05/19/20 11:37 13:00 15:00 Temperature 98.3 F Pulse Rate 117 H 113 H 116 H Respiratory 20 32 H 18 Rate Blood Pressure 125/84 112/93 126/75 O2 Sat by Pulse 100 100 100 Oximetry (%) 05/19/20 05/19/20 05/19/20 17:00 19:25 21:00 Temperature 98.6 F 98.2 F Pulse Rate 111 H 106 H 96 H Respiratory 17 14 24 H Rate Blood Pressure 122/73 162/84 150/88 O2 Sat by Pulse 100 100 100 Oximetry (%) 05/20/20 05/20/20 05/20/20 01:00 03:00 05:00 Temperature 98.4 F Pulse Rate 97 H 96 H 97 H Respiratory 22 H 24 H 17 Rate Blood Pressure 161/92 162/86 160/109 H O2 Sat by Pulse 100 100 100 Oximetry (%) 05/20/20 05/20/20 05/20/20 07:00 09:00 11:00 Temperature Pulse Rate 87 94 H 88 Respiratory 22 H 20 22 H Rate Blood Pressure 155/98 151/77 158/89 O2 Sat by Pulse 100 100 Oximetry (%) 05/20/20 05/20/20 05/20/20 13:00 19:00 21:00 Temperature 98.3 F 98.1 F Pulse Rate 91 H 90 Respiratory 19 20 Rate Blood Pressure 150/96 132/80 O2 Sat by Pulse 100 100 Oximetry (%) Microbiology 05/17/20 14:20 Urine - Urine Clean Catch Urine Culture - Final Normal Urogenital Em Laboratory Results - last 24 hr 05/19/20 05/20/20 05/20/20 06:00 00:20 03:28 WBC RBC Hgb Hct MCV MCH MCHC RDW Plt Count MPV Absolute Neuts (auto) Neutrophils % Lymphocytes % Monocytes % Eosinophils % Basophils % Nucleated RBC % Sodium Potassium Chloride Carbon Dioxide Anion Gap BUN Creatinine Est GFR (CKD-EPI)AfAm Est GFR (CKD-EPI)NonAf POC Glucometer 161 129 Random Glucose Hemoglobin A1c % 11.8 H Calcium Phosphorus Magnesium Total Bilirubin AST ALT Alkaline Phosphatase Total Protein Albumin 05/20/20 05/20/20 05/20/20 05:27 06:00 06:36 WBC 7.8 RBC 3.10 L Hgb 9.9 L Hct 28.6 L D MCV 92.1 MCH 31.9 MCHC 34.6 RDW 13.7 Plt Count 240 D MPV 7.9 D Absolute Neuts (auto) 4.0 Neutrophils % 51.7 D Lymphocytes % 41.4 H D Monocytes % 5.2 Eosinophils % 1.4 D Basophils % 0.3 Nucleated RBC % 0 Sodium Potassium Chloride Carbon Dioxide Anion Gap BUN Creatinine Est GFR (CKD-EPI)AfAm Est GFR (CKD-EPI)NonAf POC Glucometer 134 124 Random Glucose Hemoglobin A1c % Calcium Phosphorus Magnesium Total Bilirubin AST ALT Alkaline Phosphatase Total Protein Albumin 05/20/20 05/20/20 05/20/20 09:18 11:00 12:21 WBC RBC Hgb Hct MCV MCH MCHC RDW Plt Count MPV Absolute Neuts (auto) Neutrophils % Lymphocytes % Monocytes % Eosinophils % Basophils % Nucleated RBC % Sodium 141 Potassium 3.1 L Chloride 111 H Carbon Dioxide 22 Anion Gap 8 BUN 7.2 Creatinine 1.1 Est GFR (CKD-EPI)AfAm 79.12 Est GFR (CKD-EPI)NonAf 68.27 POC Glucometer 169 214 Random Glucose 222 H Hemoglobin A1c % Calcium 7.8 L Phosphorus 1.8 L Magnesium 1.2 L Total Bilirubin 0.5 AST 15 ALT 12 L Alkaline Phosphatase 102 Total Protein 5.3 L Albumin 2.5 L 05/20/20 05/20/20 05/20/20 16:50 19:58 21:20 WBC RBC Hgb Hct MCV MCH MCHC RDW Plt Count MPV Absolute Neuts (auto) Neutrophils % Lymphocytes % Monocytes % Eosinophils % Basophils % Nucleated RBC % Sodium 141 Potassium 3.9 Chloride 110 H Carbon Dioxide 25 Anion Gap 6 L BUN 9.3 Creatinine 1.3 Est GFR (CKD-EPI)AfAm 64.65 Est GFR (CKD-EPI)NonAf 55.78 POC Glucometer 184 239 Random Glucose 296 H Hemoglobin A1c % Calcium 8.5 Phosphorus Magnesium Total Bilirubin AST ALT Alkaline Phosphatase Total Protein Albumin Home Medications Medication Instructions Recorded Lancets 1 each MC DAILY #1 box 11/20/19 Amlodipine Besylate [Norvasc -] 5 mg PO DAILY #30 tablet 01/10/20 Insulin Pump [Insulin Pump - (Nf)] 0 units SQ ASDIR 01/10/20 Insulin Lispro [Humalog] 100 unit SQ DAILY #1 ml 01/11/20 Current Medications Generic Name Dose Route Start Last Admin Trade Name Manishq PRN Reason Stop Dose Admin Amlodipine Besylate 5 mg 05/19/20 10:00 05/20/20 09:10 Norvasc - PO Not Given DAILY SAYDA Lactated Ringer's 1,000 ml in 1,000 mls @ 75 mls/hr 05/20/20 18:45 Lactated Ringers Solution IV ASDIR SAYDA Insulin Aspart 1 vial 05/18/20 16:30 05/20/20 18:02 Novolog Vial Sliding Scale - SQ 2 units ACHS SAYDA Administration Protocol Insulin Detemir 12 units 05/20/20 22:00 Levemir Vial SQ HS SAYDA Pantoprazole Sodium 40 mg 05/19/20 10:00 05/20/20 09:15 Protonix Iv IVPUSH 40 mg DAILY SAYDA Administration ASSESSMENT/PLAN: 30 F T1DM with DKA Tachycardia HTN DM nephropathy Multiple allergies Bipolar disorder H/o medication non-adherence Plan: GAP closed x2, electrolytes stable, patient bridged with Levemir SQ Monitor CMP BID, patient low threshold for DKA (sometimes within just hours of not receiving insulin) Re-inforce compliance in medications Endo evaluation needs Psych evaluation Medsurg DVT ppx: allergic to Heparin products, SCD
[2020-05-20] MEDS: LACTATED RINGERS SOLUTION 1,000 ML/1,000 ML INFUS.BAG IV SCH (22:27)
[2020-05-21] MEDS: INSULIN SLIDING SCALE (NOVOLOG) 1 VIAL SQ SCH ×5 (06:29→23:30)
[2020-05-21] MEDS: amLODIPine BESYLATE 5 MG TABLET (FP) PO SCH (11:04)
[2020-05-21] MEDS: PANTOPRAZOLE SODIUM 40 MG VIAL IVPUSH SCH (11:07)
--- NOTE | 2020-05-21 11:36 | PN ---
Physical Exam: SUBJECTIVE: Patient seen and examined at bedside. Endorses diffuse body pain. OBJECTIVE: Vital Signs Period Temp Pulse Resp BP Sys/Quinn Pulse Ox Last 24 Hr 97.8 F-98.3 F 86-96 16-22 132-170/66-124 100-126 GENERAL: The patient is awake, alert, and fully oriented, in mild distress. HEAD: Normocephalic, atraumatic. EYES: PERRL, extraocular movements intact, sclera anicteric. ENT: Oropharynx clear, without erythema or exudates. Dry mucous membranes. NECK: Trachea midline, full range of motion. Supple without lymphadenopathy. LUNGS: Breath sounds equal, clear to auscultation bilaterally. No wheezes, no crackles. No accessory muscle use. HEART: Regular rate and rhythm. S1, S2 without murmur, rub or gallop. ABDOMEN: Soft, nondistended, tender to light and deep palpation x4 quadrants. No rebound tenderness, no guarding. Normoactive bowel sounds x4 quadrants. No hepatosplenomegaly, no masses appreciated. EXTREMITIES: 2+ radial, dorsalis pedis pulses bilaterally. Warm, well-perfused. No lower extremity edema bilaterally. NEUROLOGICAL: Cranial nerves II through XII grossly intact. Normal speech. No gross focal deficits. PSYCH: Normal mood, normal affect upon my encounter. SKIN: Warm, dry. Laboratory Results - last 24 hr 05/20/20 05/20/20 05/20/20 11:00 12:21 16:50 Sodium 141 Potassium 3.1 L Chloride 111 H Carbon Dioxide 22 Anion Gap 8 BUN 7.2 Creatinine 1.1 Est GFR (CKD-EPI)AfAm 79.12 Est GFR (CKD-EPI)NonAf 68.27 POC Glucometer 214 184 Random Glucose 222 H Calcium 7.8 L Phosphorus 1.8 L Magnesium 1.2 L Total Bilirubin 0.5 AST 15 ALT 12 L Alkaline Phosphatase 102 Total Protein 5.3 L Albumin 2.5 L 05/20/20 05/20/20 05/20/20 19:58 21:20 22:25 Sodium 141 Potassium 3.9 Chloride 110 H Carbon Dioxide 25 Anion Gap 6 L BUN 9.3 Creatinine 1.3 Est GFR (CKD-EPI)AfAm 64.65 Est GFR (CKD-EPI)NonAf 55.78 POC Glucometer 239 349 Random Glucose 296 H Calcium 8.5 Phosphorus Magnesium Total Bilirubin AST ALT Alkaline Phosphatase Total Protein Albumin 05/21/20 05/21/20 05/21/20 02:57 04:55 06:25 Sodium Potassium Chloride Carbon Dioxide Anion Gap BUN Creatinine Est GFR (CKD-EPI)AfAm Est GFR (CKD-EPI)NonAf POC Glucometer 123 141 149 Random Glucose Calcium Phosphorus Magnesium Total Bilirubin AST ALT Alkaline Phosphatase Total Protein Albumin 05/21/20 05/21/20 08:22 10:43 Sodium Potassium Chloride Carbon Dioxide Anion Gap BUN Creatinine Est GFR (CKD-EPI)AfAm Est GFR (CKD-EPI)NonAf POC Glucometer 113 132 Random Glucose Calcium Phosphorus Magnesium Total Bilirubin AST ALT Alkaline Phosphatase Total Protein Albumin Active Medications Generic Name Dose Route Start Last Admin Trade Name Freq PRN Reason Stop Dose Admin Amlodipine Besylate 5 mg 05/19/20 10:00 05/21/20 11:04 Norvasc - PO Not Given DAILY SAYDA Diphenhydramine HCl 25 mg 05/20/20 23:41 05/21/20 00:05 Benadryl Injection - IVPUSH 05/21/20 23:40 25 mg ONCE PRN Administration INSOMNIA Lactated Ringer's 1,000 ml in 1,000 mls @ 75 mls/hr 05/20/20 18:45 05/20/20 22:27 Lactated Ringers Solution IV 75 mls/hr ASDIR SAYDA Administration Insulin Aspart 1 vial 05/18/20 16:30 05/21/20 11:04 Novolog Vial Sliding Scale - SQ Not Given ACHS [facility] Protocol Insulin Detemir 12 units 05/20/20 22:00 05/20/20 22:27 Levemir Vial SQ 12 units HS SAYDA Administration Pantoprazole Sodium 40 mg 05/19/20 10:00 05/21/20 11:07 Protonix Iv IVPUSH 40 mg DAILY SAYDA Administration ASSESSMENT/PLAN: Patient is a 30 year old female with history of type 1 diabetes (on insulin pump) with numerous presentations for DKA, hypertension, prior CVA, admitted for diabetic ketoacidosis. Type 1 Diabetes, resolved DKA -Currently maintained on Insulin Levemir 9 units BID (per insulin pump- basal requirements approx 17.2 units per 24 hours). -Insulin Lispro 3 units TID before meals -Insulin sliding scale ACHS -Fingerstick bood glucose monitoring ACHS -Patient will require endocrinology follow up as outpatient Acute Kidney Injury -pre renal secondary to dehydration due to DKA -Resolved. Continue gentle fluid hydration until tolerating oral intake. Hypertension -Patient states she does not take home medications for her blood pressure. She endorses her pressure is elevated when she is in pain. -Continue Amlodipine -Discontinue IV fluids once patient tolerating oral intake Chronic pain -Potentially component of fibromyalgia -Will discontinue IV Benadryl tomorrow. Gastro-esophageal reflux -Continue Pantoprazole Hypokalemia -Repleted. Follow BMP FEN -IV normal saline at 75mL. hour -Follow BMP -Diabetic diet Prophylaxis -SCDs bilateral lower extremities. Early ambulation Disposition -Patient has been accepted to Medical- Surgical floor. Pending bed assignment Anticipate discharge within 24 hours once patient tolerating oral intake. Visit type - Emergency Visit Emergency Visit: Yes ED Registration Date: 05/17/20 Care time: The patient presented to the Emergency Department on the above date and was hospitalized for further evaluation of their emergent condition. - New Patient This patient is new to me today: Yes Date on this admission: 05/21/20 - Critical Care Critical Care patient: No - Discharge Referral Referred to [facility] No ATTENDING PHYSICIAN STATEMENT I saw and evaluated the patient. I reviewed the resident's note and discussed the case with the resident. I agree with the resident's findings and plan as documented. SUBJECTIVE: OBJECTIVE: ASSESSMENT AND PLAN:
--- NOTE | 2020-05-21 12:19 | PN ---
Teaching Attending Note Name of Resident: Mckinley Greer ATTENDING PHYSICIAN STATEMENT I saw and evaluated the patient. I reviewed the resident's note and discussed the case with the resident. I agree with the resident's findings and plan as documented. SUBJECTIVE: Seen and examined at bedside. Patient hypertensive, complaining of diffuse body pain, states that "only IV Benadryl works" and says she is has trouble swallowing pills. On exam patient grimaces to very light touch but does not react to blood pressure cuff. Labs were not drawn this morning, no AM long acting insulin ordered. Spoke to nursing team. Will give stat levemir dose and get stat labs. 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 Patient was was admitted to the ICU with closure of the gap and downgraded to the floor but gap opened up apparently after patient refused dose of insulin. Gap once again closed and patient now downgraded to the floor #Uncontrolled diabetes/DKA Per insulin pump basal rate is 17.2 units daily Levemir 9 units twice daily for basal rate Mealtime insulin to be restarted once patient starts taking p.o. -trend BMP -cont fluids for now #HTN per patient increases whenever she has pain, currently being measured on leg -cont amlodipine -consider stopping fluids depending on BMP results #chronic pain -IV benedryl prn for today. Starting tomorrow no further IV pain meds #GERD Continue home pantoprazole
[2020-05-21 12:42] LABS: BASO % 0.4 % (0-2.0); EOS % 1.5 % (0-4.5); HEMATOCRIT 30.2 % (32.4-45.2); HEMOGLOBIN 10.3 GM/dL (10.7-15.3); LYMPH % 38.9 % (8-40); MCHC 34.2 g/dl (32.0-36.0); MEAN CELL VOLUME 90.7 fl (80-96); MEAN PLT VOLUME 7.9 fl (7.5-11.1); MONO % 5.4 % (3.8-10.2); NEUT % 53.8 % (42.8-82.8); PLATELET COUNT 228 K/MM3 (134-434); RBC 3.33 M/mm3 (3.60-5.2); RDW 13.3 % (11.6-15.6); WHITE BLOOD COUNT 5.4 K/mm3 (4.0-10.0)
[2020-05-21 13:16] LABS: BLOOD UREA NITROGEN 11.3 mg/dL (7-18); CALCIUM 8.5 mg/dL (8.5-10.1); CREATININE 0.9 mg/dL (0.55-1.3); POTASSIUM 3.2 mmol/L (3.5-5.1)
[2020-05-21] MEDS: INSULIN (LEVEMIR) 100 UNITS/ML UNITS SQ SCH ×2 (13:24→22:14)
[2020-05-21] MEDS ORDERED: POTASSIUM CHLORIDE ORAL LIQUID 20 MEQ/15 ML PO ONE (13:40)
--- NOTE | 2020-05-21 15:10 | PN ---
Progress Note, Physician History of Present Illness: Pt seen and examined at bedside. SHe is awake and alert. She denies shortness of breath. - Current Medication List Current Medications: Active Medications Amlodipine Besylate (Norvasc -) 5 mg PO DAILY [facility] Last Admin: 05/21/20 11:04 Dose: Not Given Documented by: Diphenhydramine HCl (Benadryl Injection -) 25 mg IVPUSH ONCE PRN PRN Reason: INSOMNIA Stop: 05/21/20 23:40 Last Admin: 05/21/20 00:05 Dose: 25 mg Documented by: Lactated Ringer's (Lactated Ringers Solution) 1,000 ml in 1,000 mls @ 75 mls/hr IV ASDIR [facility] Last Admin: 05/20/20 22:27 Dose: 75 mls/hr Documented by: Insulin Aspart (Novolog Vial Sliding Scale -) 1 vial SQ ACHS [facility]; Protocol Last Admin: 05/21/20 11:04 Dose: Not Given Documented by: Insulin Aspart (Novolog) 3 units SQ TIDAC [facility] Insulin Detemir (Levemir Vial) 9 units SQ BID@0700,2200 [facility] Last Admin: 05/21/20 13:24 Dose: 9 units Documented by: Pantoprazole Sodium (Protonix Iv) 40 mg IVPUSH DAILY [facility] Last Admin: 05/21/20 11:07 Dose: 40 mg Documented by: - Objective Vital Signs: Vital Signs Temperature 98.1 F 05/21/20 14:00 Pulse Rate 89 05/21/20 14:00 Respiratory Rate 23 H 05/21/20 14:00 Blood Pressure 162/88 05/21/20 14:00 O2 Sat by Pulse Oximetry (%) 100 05/21/20 14:00 Constitutional: Yes: Calm Eyes: Yes: Conjunctiva Clear HENT: Yes: Atraumatic Neck: Yes: Supple Cardiovascular: Yes: S1, S2 Respiratory: Yes: CTA Bilaterally Gastrointestinal: Yes: Normal Bowel Sounds, Soft Genitourinary: Yes: WNL Musculoskeletal: Yes: WNL Edema: No Neurological: Yes: Oriented Psychiatric: Yes: Oriented Labs: CBC, BMP 05/21/20 12:20 05/21/20 12:20 INR, PTT INR 0.91 (0.83-1.09) 05/17/20 13:04 Problem List - Problems (1) DKA (diabetic ketoacidosis) Code(s): E13.10 - OTH DIABETES MELLITUS WITH KETOACIDOSIS WITHOUT COMA Qualifiers: Diabetes mellitus type: type 1 Diabetes mellitus complication detail: without coma Qualified Code(s): E10.10 - Type 1 diabetes mellitus with ketoacidosis without coma (2) JOSE ANGEL (acute kidney injury) Code(s): N17.9 - ACUTE KIDNEY FAILURE, UNSPECIFIED Assessment/Plan Current Medications Generic Name Dose Route Start Last Admin Trade Name Freq PRN Reason Stop Dose Admin Amlodipine Besylate 5 mg 05/19/20 10:00 05/21/20 11:04 Norvasc - PO Not Given DAILY SAYDA Diphenhydramine HCl 25 mg 05/20/20 23:41 05/21/20 00:05 Benadryl Injection - IVPUSH 05/21/20 23:40 25 mg ONCE PRN Administration INSOMNIA Lactated Ringer's 1,000 ml in 1,000 mls @ 75 mls/hr 05/20/20 18:45 05/20/20 22:27 Lactated Ringers Solution IV 75 mls/hr ASDIR SAYDA Administration Insulin Aspart 1 vial 05/18/20 16:30 05/21/20 11:04 Novolog Vial Sliding Scale - SQ Not Given ACHS SAYDA Protocol Insulin Aspart 3 units 05/21/20 16:30 Novolog SQ TIDAC SAYDA Insulin Detemir 9 units 05/21/20 12:15 05/21/20 13:24 Levemir Vial SQ 9 units BID@0700,2200 SAYDA Administration Pantoprazole Sodium 40 mg 05/19/20 10:00 05/21/20 11:07 Protonix Iv IVPUSH 40 mg DAILY SAYDA Administration Impression 1. JOSE ANGEL 2. DM uncontrolled 3. DKA 4. jose angel 5. metabolic acidosis secondary to dka 6. non compliance 7. cva 8. htn 9. hyperkalemia Plan - renal function stable - replace potassium - monitor lytes - monitor glucose - jose angel likely from dka - monitor renal function
[2020-05-21] MEDS: Insulin (LOG) Aspart 100 UNITS/ML VIAL SQ SCH (16:00)
[2020-05-21] MEDS: LACTATED RINGERS SOLUTION 1,000 ML/1,000 ML INFUS.BAG IV SCH (19:00)
[2020-05-21] MEDS ORDERED: INSULIN (NOVOLOG) ASPART 100 UNITS/ML 10ML VIAL SQ ONE (23:19)
[2020-05-22] MEDS ORDERED: diphenhydrAMINE HCL 25 MG CAPSULE (FP) PO ONE (01:30)
[2020-05-22] MEDS: INSULIN SLIDING SCALE (NOVOLOG) 1 VIAL SQ SCH ×6 (01:36→11:30)
[2020-05-22] MEDS: INSULIN (LEVEMIR) 100 UNITS/ML UNITS SQ SCH ×2 (07:42→08:01)
[2020-05-22] MEDS: Insulin (LOG) Aspart 100 UNITS/ML VIAL SQ SCH ×2 (07:42→11:18)
[2020-05-22] MEDS: PANTOPRAZOLE 40 MG TABLET PO SCH ×2 (08:36→11:12)
[2020-05-22 11:05] LABS: HEMATOCRIT 32.8 % (32.4-45.2); MCH 30.4 pg (25.7-33.7); MCHC 33.5 g/dl (32.0-36.0); MEAN CELL VOLUME 90.8 fl (80-96); MEAN PLT VOLUME 8.3 fl (7.5-11.1); PLATELET COUNT 236 K/MM3 (134-434); RBC 3.62 M/mm3 (3.60-5.2); WHITE BLOOD COUNT 8.5 K/mm3 (4.0-10.0)
[2020-05-22] MEDS: amLODIPine BESYLATE 5 MG TABLET (FP) PO SCH (11:10)
[2020-05-22 11:34] LABS: BILIRUBIN,TOTAL 0.7 mg/dL (0.2-1); CALCIUM 8.9 mg/dL (8.5-10.1); CREATININE 0.9 mg/dL (0.55-1.3); MAGNESIUM 1.7 mg/dL (1.8-2.4); PHOSPHOROUS 2.7 mg/dL (2.5-4.9); POTASSIUM 3.6 mmol/L (3.5-5.1); TOT PROT 6.5 g/dl (6.4-8.2)
[2020-05-22] MEDS ORDERED: MAGNESIUM SULF 50% (8.12 MEQ/2 ML-1 GM VIAL) ONE (11:42)
[2020-05-22] MEDS ORDERED: MAGNESIUM 1GM/D5W 100ML - 100 ML IVPB IVPB ONE (11:45)
--- NOTE | 2020-05-22 12:13 | PN ---
Teaching Attending Note Name of Resident: Mckinley Greer ATTENDING PHYSICIAN STATEMENT I saw and evaluated the patient. I reviewed the resident's note and discussed the case with the resident. I agree with the resident's findings and plan as documented. SUBJECTIVE: Seen and examined at bedside. Sugars have been controlled. Fluids discontin ued. Labs are within normal limits. Patient continues to request IV Benadryl and refuse any oral medications. States that her high blood pressure is caused by pain and only IV Benadryl will treat it. Refuses other methods of pain and BP control. Attempted to start patient on her insulin pump but the tubing is at home and her boyfriend is unable to bring into the hospital. 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 Patient was was admitted to the ICU with closure of the gap and downgraded to the floor but gap opened up apparently after patient refused dose of insulin. Gap once again closed and patient now downgraded to the floor. Patient has had stable blood sugar and vital signs other than high blood pressure for 24 hours. There is no specific physical exam finding or laboratory value that would explain her pain, and no reason that only IV Benadryl would work. Will ensure patient is tolerating a p.o. diet off fluids and if so she may be discharged #Uncontrolled diabetes/DKA: resolved -cont 9U levemir BID -3U lispro TIDAC -sliding scale -stop fluids #HTN pt refusing any PO pain medications, will only accept IV benadryl -stop fluids and reassess #chronic pain Patient insisting on IV Benadryl. This appears to be drug-seeking behavior. Patient is not to be given any further IV Benadryl. If patient will not accept oral medications either Toradol or IV tylenol may be used for pain #GERD Continue home pantoprazole Dispo: may discharge this afternoon/evening if tolerating PO
--- NOTE | 2020-05-22 14:14 | PN ---
Progress Note, Physician History of Present Illness: Pt seen and examined at bedside. She is awake and alert. She is tolerating diet. - Current Medication List Current Medications: Active Medications Amlodipine Besylate (Norvasc -) 5 mg PO DAILY [facility] Last Admin: 05/22/20 11:10 Dose: Not Given Documented by: Insulin Aspart (Novolog) 3 units SQ TIDAC [facility] Last Admin: 05/22/20 11:18 Dose: Not Given Documented by: Insulin Aspart (Novolog Vial Sliding Scale -) 1 vial SQ Q2H [facility]; Protocol Last Admin: 05/22/20 11:30 Dose: Not Given Documented by: Insulin Detemir (Levemir Vial) 9 units SQ BID@0700,2200 [facility] Last Admin: 05/22/20 08:01 Dose: 9 units Documented by: Pantoprazole Sodium (Protonix -) 40 mg PO ACBK [facility] Last Admin: 05/22/20 11:12 Dose: Not Given Documented by: - Objective Vital Signs: Vital Signs Temperature 97.7 F 05/22/20 06:00 Pulse Rate 86 05/22/20 12:00 Respiratory Rate 19 05/22/20 12:00 Blood Pressure 144/81 05/22/20 12:00 O2 Sat by Pulse Oximetry (%) 98 05/22/20 12:00 Constitutional: Yes: Calm Eyes: Yes: Conjunctiva Clear HENT: Yes: Atraumatic Neck: Yes: Supple Cardiovascular: Yes: S1, S2 Respiratory: Yes: CTA Bilaterally Gastrointestinal: Yes: Soft Genitourinary: Yes: WNL Musculoskeletal: Yes: WNL Edema: No Neurological: Yes: Oriented Psychiatric: Yes: Oriented Labs: CBC, BMP 05/22/20 10:15 05/22/20 10:15 INR, PTT INR 0.91 (0.83-1.09) 05/17/20 13:04 Problem List - Problems (1) DKA (diabetic ketoacidosis) Code(s): E13.10 - OTH DIABETES MELLITUS WITH KETOACIDOSIS WITHOUT COMA Qualifiers: Diabetes mellitus type: type 1 Diabetes mellitus complication detail: without coma Qualified Code(s): E10.10 - Type 1 diabetes mellitus with ketoacidosis without coma (2) JOSE ANGEL (acute kidney injury) Code(s): N17.9 - ACUTE KIDNEY FAILURE, UNSPECIFIED Assessment/Plan Current Medications Generic Name Dose Route Start Last Admin Trade Name Freq PRN Reason Stop Dose Admin Amlodipine Besylate 5 mg 05/19/20 10:00 05/22/20 11:10 Norvasc - PO Not Given DAILY [facility] Insulin Aspart 3 units 05/21/20 16:30 05/22/20 11:18 Novolog SQ Not Given TIDAC [facility] Insulin Aspart 1 vial 05/21/20 23:30 05/22/20 11:30 Novolog Vial Sliding Scale - SQ Not Given Q2H [facility] Protocol Insulin Detemir 9 units 05/21/20 12:15 05/22/20 08:01 Levemir Vial SQ 9 units BID@0700,2200 [facility] Administration Pantoprazole Sodium 40 mg 05/22/20 08:15 05/22/20 11:12 Protonix - PO Not Given ACBK [facility] Impression 1. JOSE ANGEL 2. DM uncontrolled 3. DKA 4. jose angel 5. metabolic acidosis secondary to dka 6. non compliance 7. cva 8. htn 9. hyperkalemia Plan - renal function stable - monitor blood sugar - lytes stabilizing - compliance is a problem - jose angel likely from dka - monitor renal function
--- NOTE | 2020-05-22 14:22 | DS ---
Physical Exam: SUBJECTIVE: Patient seen and examined at bedside. Anio gap is closed, blood glucse has remained less than 200mg. Tolerating oral intake. She does not have her tubing for the insulin pump, and is unable to have it brought in from home. OBJECTIVE: Vital Signs Period Temp Pulse Resp BP Sys/Quinn Pulse Ox Last 24 Hr 97.7 F-98.8 F 86-103 19-22 135-169/81-110 98-100 PHYSICAL EXAM GENERAL: The patient is awake, alert, and fully oriented, in no acute distress. HEAD: Normal with no signs of trauma. EYES: PERRL, extraocular movements intact, sclera anicteric, conjunctiva clear. ENT: Ears normal, nares patent, oropharynx clear without exudates, moist mucous membranes. NECK: Trachea midline, full range of motion, supple. LUNGS: Breath sounds equal, clear to auscultation bilaterally, no wheezes, no crackles, no accessory muscle use. HEART: Regular rate and rhythm, S1, S2 without murmur, rub or gallop. ABDOMEN: Soft, nontender, nondistended, normoactive bowel sounds, no guarding, no rebound, no hepatosplenomegaly, no masses. EXTREMITIES: 2+ pulses, warm, well-perfused, no edema. NEUROLOGICAL: Cranial nerves II through XII grossly intact. Normal speech, gait not observed. PSYCH: Normal mood, normal affect. SKIN: Warm, dry, normal turgor, no rashes or lesions noted. LABS Laboratory Results - last 24 hr 05/21/20 05/21/20 05/21/20 15:23 18:26 18:46 WBC RBC Hgb Hct MCV MCH MCHC RDW Plt Count MPV Sodium Potassium Chloride Carbon Dioxide Anion Gap BUN Creatinine Est GFR (CKD-EPI)AfAm Est GFR (CKD-EPI)NonAf POC Glucometer 294 64 79 Random Glucose Calcium Phosphorus Magnesium Total Bilirubin AST ALT Alkaline Phosphatase Total Protein Albumin 05/21/20 05/21/20 05/22/20 21:07 23:08 01:33 WBC RBC Hgb Hct MCV MCH MCHC RDW Plt Count MPV Sodium Potassium Chloride Carbon Dioxide Anion Gap BUN Creatinine Est GFR (CKD-EPI)AfAm Est GFR (CKD-EPI)NonAf POC Glucometer 211 296 149 Random Glucose Calcium Phosphorus Magnesium Total Bilirubin AST ALT Alkaline Phosphatase Total Protein Albumin 05/22/20 05/22/20 05/22/20 03:42 05:37 07:38 WBC RBC Hgb Hct MCV MCH MCHC RDW Plt Count MPV Sodium Potassium Chloride Carbon Dioxide Anion Gap BUN Creatinine Est GFR (CKD-EPI)AfAm Est GFR (CKD-EPI)NonAf POC Glucometer 106 88 111 Random Glucose Calcium Phosphorus Magnesium Total Bilirubin AST ALT Alkaline Phosphatase Total Protein Albumin 05/22/20 05/22/20 05/22/20 10:15 10:15 11:15 WBC 8.5 RBC 3.62 Hgb 11.0 Hct 32.8 MCV 90.8 MCH 30.4 MCHC 33.5 RDW 13.0 Plt Count 236 MPV 8.3 Sodium 138 Potassium 3.6 Chloride 104 Carbon Dioxide 28 Anion Gap 7 L BUN 14.0 Creatinine 0.9 Est GFR (CKD-EPI)AfAm 100.85 Est GFR (CKD-EPI)NonAf 87.01 POC Glucometer 106 Random Glucose 120 H Calcium 8.9 Phosphorus 2.7 Magnesium 1.7 L Total Bilirubin 0.7 AST 11 L ALT 13 Alkaline Phosphatase 114 Total Protein 6.5 Albumin 3.0 L HOSPITAL COURSE: Date of Admission:05/17/20 Date of Discharge: 05/22/20 Patient is a 30 year old female with history of type 1 diabetes (on insulin pump) with numerous presentations for DKA, hypertension, prior CVA, admitted for diabetic ketoacidosis. Patient was admitted to ICU, and initiated on insulin drip, aggressive IV fluid hydration. Anion gap had closed and patient was switched to long acting insulin. Tolerating oral intake, and blood glucose has remained well controlled. Patient unable to have insulin pump tubing brought in from home. Discharged home with insulin Levemir (matched to her basal insulin requirement from insulin pump), and Novolog sliding scale. Counselled to follow up with botanical technical officer, and primary care physician. All concerns, questions addressed and answered. Minutes to complete discharge: 36 Discharge Summary Problems reviewed: Yes Reason For Visit: LEUKOCYTOSIS, UNCONTROLLED DIABETES MELLITUS Current Active Problems DKA (diabetic ketoacidosis) (Acute) Condition: Stable - Instructions Diet, Activity, Other Instructions: You were admitted to the hospital for dangerously elevated blood sugar (Diabetic Keto-Acidosis). You were treated with Insulin. You are tolerating diet, with stable blood sugars. You are discharged home. Continue taking your home medications as directed. As you do not have the appropriate tubing to continue your insulin pump, you MUST follow up with your botanical technical officer to reinstate use of the pump. Until you are able to resume your insulin pump, you will take Insulin Levemir 9 units in the morning, and 9 units in the evening. This is the same basal dose as your insulin pump. Continue checking your blood sugar before meals and at bedtime. Use the Insulin sliding scale below prior to breakfast, lunch, and dinner: Blood sugar 100-150 - 3 units insulin novolog Blood sugar 150-200 - 5 units insulin novolog Blood sugar 201-250 - 6 units insulin novolog Blood sugar 251-300 - 7 units insulin novolog Blood sugar 301-350 - 8 units insulin novolog Blood sugar 351-400 - 9 units insulin novolog Blood sugar > 400 - 10 units insulin novolog, and call your doctor IMMEDIATELY Follow up with your primary care physician within one -two days after discharge. A referral has been provided. Follow up with your botanical technical officer. A referral has been provided. Return to the nearest emergency department if you experience worsening symptoms, subjective fevers, chills, shortness of breath, chest pain, palpitations, abdominal pain, nausea, vomiting, any trauma or loss of consciousness. Referrals: Yancy Zeng MD [Non Staff, Medical] - Kay Dickinson MD [Staff Physician] - Disposition: HOME - Home Medications Comprehensive Discharge Medication List: Ambulatory Orders Lancets 1 each MC DAILY #1 box 11/20/19 Insulin Pump [Insulin Pump - (Nf)] 0 units SQ ASDIR 01/10/20 Insulin Aspart [Novolog] See Protocol SQ TID 30 Days #3 cartridge 05/22/20 Insulin Detemir [Levemir Flextouch] 9 unit SQ BID 30 Days #3 insuln.pen 05/22/20 Pen Needle, Diabetic [Pen Needle] 1 each MC ASDIR 30 Days #1 box 05/22/20 This patient is new to me today: No Emergency Visit: Yes ED Registration Date: 05/17/20 Care time: The patient presented to the Emergency Department on the above date and was hospitalized for further evaluation of their emergent condition. Critical Care patient: No - Discharge Referral Referred to [facility] Med P.C.: No ATTENDING PHYSICIAN STATEMENT I saw and evaluated the patient. I reviewed the resident's note and discussed the case with the resident. I agree with the resident's findings and plan as documented. SUBJECTIVE: OBJECTIVE: ASSESSMENT AND PLAN:
[2020-05-22 16:51] VITALS: BP 140/80; PULSE 98; TEMP 98
== END 2020-05-22 17:05 | disposition home or self-care (01) | DRG 469 ==
LOC: JER 09:51 → JERBED 13:43 → JICU 15:53 → UNDODISIN 05-21 03:14
PROVIDERS: ADMIT Internal Medicine Pulmonary Disease; ATTEND Internal Medicine
DX: N17.9 Acute kidney failure, unspecified (principal); E10.10 Type 1 diabetes mellitus with ketoacidosis without coma; E87.5 Hyperkalemia; R16.0 Hepatomegaly, not elsewhere classified; I69.351 Hemiplegia and hemiparesis following cerebral infarction affecting right dominant side; E10.21 Type 1 diabetes mellitus with diabetic nephropathy; E10.42 Type 1 diabetes mellitus with diabetic polyneuropathy; I10 Essential (primary) hypertension; Z79.4 Long term (current) use of insulin; R00.0 Tachycardia, unspecified; F31.9 Bipolar disorder, unspecified; Z91.14 Patient's other noncompliance with medication regimen; E86.0 Dehydration; K21.9 Gastro-esophageal reflux disease without esophagitis; G89.29 Other chronic pain
CPT/HCPCS: 36415; 36600; 71045-TC-FY; 80048; 80053; 80061; 80307; 81003; 82010; 82803; 82962; 83036; 83605; 83721; 83735; 84100; 84443; 84484; 84703; 85025; 85027; 85610; 85730; 87086; 93005; 93010; 99285-25; U0003

== ENCOUNTER 2020-09-09 12:40 | Inpatient (IN) | payer OTHER ==
[2020-09-09 12:56] VITALS: BMI 29.2
[2020-09-09] MEDS ORDERED: LACTATED RINGERS SOLUTION 1000 ML INFUS.BAG IV ONE ×2 (14:18→14:19)
[2020-09-09] MEDS ORDERED: SODIUM CHLORIDE 1,000 ML IV STA ×2 (14:22→16:11)
[2020-09-09] MEDS ORDERED: SODIUM CHLORIDE 0.9% 500 ML INFUS.BAG IV ONE (14:22)
[2020-09-09 14:28] LABS: VENOUS BASE EXCESS -22.2 mmol/L (-2-2); VENOUS O2 SATURATION 22.1 % (70-80); VENOUS PCO2 26.2 mmHg (38-52)
[2020-09-09 14:29] LABS: BASO % 0.6 % (0-2.0); HEMATOCRIT 46.8 % (32.4-45.2); HEMOGLOBIN 15.1 GM/dL (10.7-15.3); LYMPH % 12.4 % (8-40); MCH 32.4 pg (25.7-33.7); MCHC 32.2 g/dl (32.0-36.0); MEAN CELL VOLUME 100.7 fl (80-96); MEAN PLT VOLUME 8.3 fl (7.5-11.1); PLATELET COUNT 486 K/MM3 (134-434); RBC 4.65 M/mm3 (3.60-5.2); RDW 13.9 % (11.6-15.6); WHITE BLOOD COUNT 14.6 K/mm3 (4.0-10.0)
[2020-09-09 14:31] LABS: VENOUS PH 7.045 (7.310-7.410)
[2020-09-09 14:54] LABS: CALCIUM 9.8 mg/dL (8.5-10.1)
[2020-09-09 14:55] LABS: ALBUMIN 4.6 g/dl (3.4-5.0); BLOOD UREA NITROGEN 28.2 mg/dL (7-18)
[2020-09-09 14:58] LABS: CREATININE 2.6 mg/dL (0.55-1.3)
[2020-09-09 15:00] LABS: BILIRUBIN,TOTAL 0.5 mg/dL (0.2-1); TOT PROT 9.4 g/dl (6.4-8.2)
[2020-09-09] MEDS ORDERED: ONDANSETRON 4 MG/2 ML VIAL IVPUSH ONE (16:03)
[2020-09-09] MEDS ORDERED: INSULIN REGULAR 100 UNITS in SODIUM CHLORIDE 99 ML IVPB SCH (16:15)
[2020-09-09] MEDS ORDERED: ONDANSETRON 4 MG/2 ML VIAL ONE (16:17)
[2020-09-09 16:34] LABS: EPI CELLS 20 /uL (0-25.1); HYALINE CASTS 1 /uL (0-3.1); URINE APPEARANCE CLEAR; URINE BACTERIA 395 /uL (0-1359); URINE BILIRUBIN NEGATIVE (NEGATIVE); URINE COLOR YELLOW; URINE GLUCOSE (UA) 3+ (NEGATIVE); URINE KETONE 4+ (NEGATIVE); URINE LEUK ESTERASE NEGATIVE (NEGATIVE); URINE NITRITE NEGATIVE (NEGATIVE); URINE PROTEIN 2+ (NEGATIVE); URINE RBC 16 /uL (0-23.9); URINE UROBILINOGEN 0.2 mg/dL (0.2-1.0); URINE WBC 37 /uL (0-25.8)
[2020-09-09 20:52] LABS: POTASSIUM 4.4 mmol/L (3.5-5.1)
[2020-09-09 20:53] LABS: CALCIUM 8.4 mg/dL (8.5-10.1)
[2020-09-09 20:54] LABS: BLOOD UREA NITROGEN 24.9 mg/dL (7-18)
[2020-09-09 20:57] LABS: CREATININE 2.3 mg/dL (0.55-1.3)
[2020-09-09] MEDS ORDERED: SODIUM CHLORIDE 0.9%/KCL 20 MEQ/1,000 ML INFUS.BAG IV SCH (21:00)
[2020-09-09] MEDS ORDERED: D5-NS + 20 MEQ KCL - 20 MEQ/1,000 ML INFUS.BAG IV SCH ×3 (22:45)
[2020-09-09] MEDS ORDERED: DEXTROSE 50%-WATER - 25 GM/50 ML VIAL IVPUSH ONE (23:12)
[2020-09-09] MEDS ORDERED: DEXTROSE 50%-WATER 25 GM/50 ML DISP.SYRIN ONE (23:14)
[2020-09-10] MEDS: MUPIROCIN 2% TOPICAL OINTMENT FOR DECOLONIZATION NS SCH ×3 (00:13→22:32)
[2020-09-10 01:01] LABS: POTASSIUM 4.5 mmol/L (3.5-5.1)
[2020-09-10 01:02] LABS: CALCIUM 8.1 mg/dL (8.5-10.1)
[2020-09-10 01:03] LABS: BLOOD UREA NITROGEN 21.2 mg/dL (7-18)
[2020-09-10] MEDS: INSULIN (LEVEMIR) 100 UNITS/ML UNITS SQ SCH ×3 (01:36→22:41)
[2020-09-10] MEDS ORDERED: D5-NS + 20 MEQ KCL - 20 MEQ/1,000 ML INFUS.BAG IV SCH (02:16)
[2020-09-10] MEDS ORDERED: DEXTROSE 5%-0.45% SALINE 1,000 ML IV SCH (03:00)
[2020-09-10] MEDS ORDERED: diphenhydrAMINE HCL 25 MG CAPSULE (FP) PO ONE (09:26)
[2020-09-10 09:39] LABS: POTASSIUM 3.7 mmol/L (3.5-5.1)
[2020-09-10 09:46] LABS: BLOOD UREA NITROGEN 16.1 mg/dL (7-18); CALCIUM 8.2 mg/dL (8.5-10.1)
[2020-09-10 09:50] LABS: CREATININE 1.7 mg/dL (0.55-1.3)
[2020-09-10] MEDS: INSULIN SLIDING SCALE (NOVOLOG) 1 VIAL SQ SCH ×3 (10:37→22:41)
[2020-09-10] MEDS ORDERED: DEXTROSE 5%-LACTATED RINGERS 990 ML with POTASSIUM CHLORIDE 20 MEQ IV SCH (11:45)
[2020-09-10 11:49] LABS: BASO % 0.9 % (0-2.0); EOS % 0.5 % (0-4.5); HEMATOCRIT 34.9 % (32.4-45.2); HEMOGLOBIN 11.5 GM/dL (10.7-15.3); MCH 32.2 pg (25.7-33.7); MCHC 33.1 g/dl (32.0-36.0); MEAN CELL VOLUME 97.5 fl (80-96); MEAN PLT VOLUME 8.2 fl (7.5-11.1); MONO % 5.9 % (3.8-10.2); NEUT % 58.7 % (42.8-82.8); PLATELET COUNT 336 K/MM3 (134-434); RBC 3.58 M/mm3 (3.60-5.2); RDW 13.6 % (11.6-15.6); WHITE BLOOD COUNT 10.4 K/mm3 (4.0-10.0)
[2020-09-10] MEDS: POTASSIUM CHLORIDE 20 MEQ in DEXTROSE 5%-LACTATED RINGERS 990 ML IV SCH ×2 (12:27→22:41)
[2020-09-11] MEDS: INSULIN SLIDING SCALE (NOVOLOG) 1 VIAL SQ SCH ×4 (06:05→22:58)
[2020-09-11 08:02] LABS: BASO % 0.4 % (0-2.0); EOS % 1.9 % (0-4.5); HEMATOCRIT 31.2 % (32.4-45.2); HEMOGLOBIN 10.9 GM/dL (10.7-15.3); LYMPH % 50.5 % (8-40); MCH 32.7 pg (25.7-33.7); MCHC 34.7 g/dl (32.0-36.0); MEAN PLT VOLUME 8.6 fl (7.5-11.1); MONO % 4.5 % (3.8-10.2); NEUT % 42.7 % (42.8-82.8); PLATELET COUNT 260 K/MM3 (134-434); RBC 3.32 M/mm3 (3.60-5.2); RDW 13.1 % (11.6-15.6)
[2020-09-11] MEDS: INSULIN (LEVEMIR) 100 UNITS/ML UNITS SQ SCH ×2 (10:26→23:00)
[2020-09-11] MEDS: MUPIROCIN 2% TOPICAL OINTMENT FOR DECOLONIZATION NS SCH ×2 (10:27→22:59)
[2020-09-11 16:19] LABS: POTASSIUM 3.7 mmol/L (3.5-5.1)
[2020-09-11 16:21] LABS: CALCIUM 7.9 mg/dL (8.5-10.1)
[2020-09-11 16:22] LABS: ALBUMIN 2.8 g/dl (3.4-5.0); BLOOD UREA NITROGEN 9.6 mg/dL (7-18)
[2020-09-11 16:25] LABS: CREATININE 1.2 mg/dL (0.55-1.3)
[2020-09-11 16:27] LABS: BILIRUBIN,TOTAL 0.2 mg/dL (0.2-1)
[2020-09-11 16:39] LABS: TOT PROT 5.8 g/dl (6.4-8.2)
[2020-09-11] MEDS: POTASSIUM CHLORIDE 20 MEQ in DEXTROSE 5%-LACTATED RINGERS 990 ML IV SCH (16:47)
[2020-09-11] MEDS ORDERED: INSULIN (NOVOLOG) ASPART 100 UNITS/ML 10ML VIAL ONE (16:53)
[2020-09-11] MEDS ORDERED: SODIUM CHLORIDE 500 ML IV STA (17:30)
[2020-09-12] MEDS: INSULIN SLIDING SCALE (NOVOLOG) 1 VIAL SQ SCH ×4 (06:31→21:52)
[2020-09-12] MEDS ORDERED: DEXTROSE 50%-WATER - 25 GM/50 ML VIAL IVPUSH ONE (06:49)
[2020-09-12] MEDS: INSULIN (LEVEMIR) 100 UNITS/ML UNITS SQ SCH ×2 (07:11→21:49)
[2020-09-12 08:26] LABS: BASO % 0.5 % (0-2.0); EOS % 1.9 % (0-4.5); HEMATOCRIT 32.7 % (32.4-45.2); HEMOGLOBIN 11.3 GM/dL (10.7-15.3); LYMPH % 55.6 % (8-40); MCH 32.3 pg (25.7-33.7); MCHC 34.6 g/dl (32.0-36.0); MEAN CELL VOLUME 93.4 fl (80-96); MEAN PLT VOLUME 8.8 fl (7.5-11.1); MONO % 5.3 % (3.8-10.2); NEUT % 36.7 % (42.8-82.8); PLATELET COUNT 307 K/MM3 (134-434); RBC 3.51 M/mm3 (3.60-5.2); RDW 12.7 % (11.6-15.6); WHITE BLOOD COUNT 7.5 K/mm3 (4.0-10.0)
[2020-09-12 08:35] LABS: POTASSIUM 3.3 mmol/L (3.5-5.1)
[2020-09-12 08:37] LABS: BLOOD UREA NITROGEN 13.3 mg/dL (7-18); CALCIUM 8.4 mg/dL (8.5-10.1)
[2020-09-12 08:38] LABS: ALBUMIN 3.2 g/dl (3.4-5.0)
[2020-09-12 08:41] LABS: CREATININE 1.1 mg/dL (0.55-1.3)
[2020-09-12 08:43] LABS: BILIRUBIN,TOTAL 0.2 mg/dL (0.2-1); TOT PROT 6.5 g/dl (6.4-8.2)
[2020-09-12] MEDS ORDERED: POTASSIUM CHLORIDE TABS 20 MEQ TABLET.ER (FP) PO ONE (10:00)
[2020-09-12] MEDS: MUPIROCIN 2% TOPICAL OINTMENT FOR DECOLONIZATION NS SCH (10:08)
[2020-09-12] MEDS ORDERED: Insulin (LOG) Aspart 100 UNITS/ML VIAL SQ ONE (11:55)
[2020-09-12] MEDS ORDERED: MAGNESIUM SULF 50% (8.12 MEQ/2 ML-1 GM VIAL) IVPB ONE (18:33)
[2020-09-13] MEDS: MUPIROCIN 2% TOPICAL OINTMENT FOR DECOLONIZATION NS SCH ×3 (00:01→21:03)
[2020-09-13] MEDS: INSULIN (LEVEMIR) 100 UNITS/ML UNITS SQ SCH ×2 (06:51→21:01)
[2020-09-13] MEDS: INSULIN SLIDING SCALE (NOVOLOG) 1 VIAL SQ SCH ×4 (06:52→21:00)
[2020-09-13 14:03] LABS: POTASSIUM 3.8 mmol/L (3.5-5.1)
[2020-09-13 14:08] LABS: BLOOD UREA NITROGEN 23.1 mg/dL (7-18)
[2020-09-13 14:10] LABS: CALCIUM 8.4 mg/dL (8.5-10.1); MAGNESIUM 1.8 mg/dL (1.8-2.4)
[2020-09-13 14:12] LABS: CREATININE 1.1 mg/dL (0.55-1.3)
[2020-09-14] MEDS: INSULIN SLIDING SCALE (NOVOLOG) 1 VIAL SQ SCH ×4 (06:17→21:02)
[2020-09-14] MEDS: INSULIN (LEVEMIR) 100 UNITS/ML UNITS SQ SCH ×2 (06:18→21:02)
[2020-09-14] MEDS ORDERED: diphenhydrAMINE HCL 25 MG CAPSULE (FP) PO PRN (08:05)
[2020-09-14] MEDS ORDERED: MUPIROCIN 2% TOPICAL OINTMENT FOR DECOLONIZATION NS SCH (10:00)
[2020-09-14] MEDS ORDERED: INSULIN (NOVOLOG) ASPART 100 UNITS/ML 10ML VIAL ONE ×2 (11:54→20:55)
[2020-09-14 12:28] LABS: BASO % 0.7 % (0-2.0); EOS % 1.8 % (0-4.5); HEMOGLOBIN 10.4 GM/dL (10.7-15.3); LYMPH % 41.1 % (8-40); MCH 32.2 pg (25.7-33.7); MCHC 33.6 g/dl (32.0-36.0); MEAN CELL VOLUME 95.7 fl (80-96); MEAN PLT VOLUME 9.3 fl (7.5-11.1); MONO % 6.1 % (3.8-10.2); NEUT % 50.3 % (42.8-82.8); PLATELET COUNT 291 K/MM3 (134-434); RBC 3.24 M/mm3 (3.60-5.2); RDW 12.8 % (11.6-15.6); WHITE BLOOD COUNT 5.8 K/mm3 (4.0-10.0)
[2020-09-14 12:42] LABS: POTASSIUM 4.6 mmol/L (3.5-5.1)
[2020-09-14 12:45] LABS: BLOOD UREA NITROGEN 27.6 mg/dL (7-18); CALCIUM 8.6 mg/dL (8.5-10.1)
[2020-09-14 12:46] LABS: ALBUMIN 3.1 g/dl (3.4-5.0)
[2020-09-14 12:48] LABS: CREATININE 1.4 mg/dL (0.55-1.3)
[2020-09-14 12:50] LABS: BILIRUBIN,TOTAL 0.2 mg/dL (0.2-1); TOT PROT 6.5 g/dl (6.4-8.2)
[2020-09-15] MEDS: INSULIN SLIDING SCALE (NOVOLOG) 1 VIAL SQ SCH ×4 (07:04→21:23)
[2020-09-15] MEDS: INSULIN (LEVEMIR) 100 UNITS/ML UNITS SQ SCH ×2 (07:05→21:21)
[2020-09-15] MEDS ORDERED: LIDOCAINE 5% TOPICAL PATCH TP ONE (16:16)
[2020-09-15] MEDS: AMINO ACIDS/PROTEIN HYDROLYS 30 ML LIQUID.PKT PO SCH (16:55)
[2020-09-15] MEDS ORDERED: ALPRAZolam 2 MG TABLET PO ONE (17:48)
[2020-09-15] MEDS ORDERED: LORazepam 2 MG/ML SDV VIAL IVPUSH ONE (17:52)
[2020-09-15 20:45] LABS: POTASSIUM 5.3 mmol/L (3.5-5.1)
[2020-09-15 20:46] LABS: CALCIUM 8.9 mg/dL (8.5-10.1)
[2020-09-15 20:47] LABS: BLOOD UREA NITROGEN 33.8 mg/dL (7-18)
[2020-09-15 20:50] LABS: CREATININE 1.3 mg/dL (0.55-1.3)
[2020-09-15] MEDS: LIDOCAINE PATCH REMOVAL MC SCH (21:23)
[2020-09-16] MEDS ORDERED: LORazepam 1 MG TABLET PO ONE (01:45)
[2020-09-16] MEDS ORDERED: LORazepam 2 MG/ML SDV VIAL IVPUSH ONE ×2 (01:48→15:11)
[2020-09-16] MEDS: INSULIN (LEVEMIR) 100 UNITS/ML UNITS SQ SCH ×2 (05:59→21:19)
[2020-09-16] MEDS: INSULIN SLIDING SCALE (NOVOLOG) 1 VIAL SQ SCH ×4 (05:59→21:19)
[2020-09-16] MEDS ORDERED: INSULIN (NOVOLOG) ASPART 100 UNITS/ML 10ML VIAL ONE ×2 (06:02→21:06)
[2020-09-16] MEDS: AMINO ACIDS/PROTEIN HYDROLYS 30 ML LIQUID.PKT PO SCH (09:55)
[2020-09-16] MEDS: LIDOCAINE PATCH REMOVAL MC SCH (21:22)
[2020-09-17] MEDS: INSULIN SLIDING SCALE (NOVOLOG) 1 VIAL SQ SCH ×2 (07:01→10:49)
[2020-09-17] MEDS ORDERED: INSULIN (NOVOLOG) ASPART 100 UNITS/ML 10ML VIAL ONE (07:41)
[2020-09-17] MEDS: INSULIN (LEVEMIR) 100 UNITS/ML UNITS SQ SCH (09:15)
[2020-09-17] MEDS ORDERED: INSULIN PUMP - PATIENTS OWN MED NR SCH (09:15)
[2020-09-17] MEDS: AMINO ACIDS/PROTEIN HYDROLYS 30 ML LIQUID.PKT PO SCH ×2 (09:15→09:16)
[2020-09-17 11:01] VITALS: BP 148/60; PULSE 100; TEMP 98
[2020-09-17] MEDS ORDERED: ONDANSETRON 4 MG/2 ML VIAL IVPUSH ONE (11:12)
== END 2020-09-17 12:56 | disposition home or self-care (01) | DRG 420 ==
LOC: JER 12:40 → JERBED 16:24 → JICU 20:02 → J7W 09-10 20:49
PROVIDERS: ADMIT Internal Medicine Pulmonary Disease; ATTEND Internal Medicine
DX: E10.10 Type 1 diabetes mellitus with ketoacidosis without coma (principal); E10.319 Type 1 diabetes mellitus with unspecified diabetic retinopathy without macular edema; N17.9 Acute kidney failure, unspecified; Z96.41 Presence of insulin pump (external) (internal); E10.65 Type 1 diabetes mellitus with hyperglycemia; J45.20 Mild intermittent asthma, uncomplicated; D72.829 Elevated white blood cell count, unspecified; R11.2 Nausea with vomiting, unspecified; I10 Essential (primary) hypertension; M41.9 Scoliosis, unspecified; K76.89 Other specified diseases of liver; E10.43 Type 1 diabetes mellitus with diabetic autonomic (poly)neuropathy; Z76.5 Malingerer [conscious simulation]; F31.9 Bipolar disorder, unspecified; H33.8 Other retinal detachments; E10.40 Type 1 diabetes mellitus with diabetic neuropathy, unspecified; E87.2 Acidosis; K31.84 Gastroparesis; Z91.14 Patient's other noncompliance with medication regimen; E86.0 Dehydration; E87.0 Hyperosmolality and hypernatremia; E87.5 Hyperkalemia
CPT/HCPCS: 36415; 71046-TC-FY; 80048; 80053; 81003; 82010; 82607; 82746; 82803; 82962; 83036; 83605; 83735; 84484; 84703; 85025; 93005; 93010; 99291; C9803; U0003

== ENCOUNTER 2021-08-11 10:38 | Inpatient (IN) | payer OTHER ==
[2021-08-11] MEDS ORDERED: diazePAM CARPU-JECT 10 MG/2 ML DISP.SYRIN IVPUSH ONE (11:31)
[2021-08-11] MEDS ORDERED: DEXAMETHASONE SOD PHOSPHATE 10 MG/1 ML VIAL IVPUSH ONE (11:31)
[2021-08-11] MEDS ORDERED: SODIUM CHLORIDE 1,000 ML IV STA (11:31)
[2021-08-11] MEDS ORDERED: LIDOCAINE 5% TOPICAL PATCH TP ONE (11:31)
[2021-08-11] MEDS ORDERED: LIDOCAINE 5% TOPICAL PATCH ONE (11:49)
[2021-08-11] MEDS ORDERED: DEXAMETHASONE SOD PHOSPHATE 10 MG/1 ML VIAL ONE (11:51)
[2021-08-11] MEDS ORDERED: diazePAM CARPU-JECT 10 MG/2 ML DISP.SYRIN ONE (12:05)
[2021-08-11] MEDS ORDERED: HYDROmorphone HCL CARPU-JECT 2 MG/1 ML DISP.SYRIN IVPUSH ONE ×3 (13:55→20:13)
[2021-08-11] MEDS ORDERED: HYDROmorphone HCl 2 MG/ML VIAL ONE ×3 (13:58→21:09)
[2021-08-11 18:52] LABS: BASO % 0.3 % (0-2.0); HEMATOCRIT 32.7 % (32.4-45.2); HEMOGLOBIN 11.4 GM/dL (10.7-15.3); LYMPH % 9.5 % (8-40); MCH 32.1 pg (25.7-33.7); MCHC 34.8 g/dl (32.0-36.0); MEAN CELL VOLUME 92.2 fl (80-96); MEAN PLT VOLUME 7.2 fl (7.5-11.1); MONO % 0.8 % (3.8-10.2); NEUT % 89.4 % (42.8-82.8); PLATELET COUNT 432 10^3/uL (134-434); RBC 3.54 M/mm3 (3.60-5.2); RDW 13.1 % (11.6-15.6); WHITE BLOOD COUNT 6.4 K/mm3 (4.0-10.0)
[2021-08-11 19:26] LABS: ALBUMIN 3.3 g/dl (3.4-5.0); BLOOD UREA NITROGEN 12.1 mg/dL (7-18); CALCIUM 8.7 mg/dL (8.5-10.1)
[2021-08-11 19:29] LABS: CREATININE 1.4 mg/dL (0.55-1.3)
[2021-08-11 19:31] LABS: BILIRUBIN,TOTAL 0.2 mg/dL (0.2-1); TOT PROT 7.3 g/dl (6.4-8.2)
[2021-08-11] MEDS ORDERED: SODIUM CHLORIDE 0.9% 500 ML INFUS.BAG IV ONE (19:51)
[2021-08-11] MEDS ORDERED: LIDOCAINE PATCH REMOVAL MC ONE (22:00)
[2021-08-11] MEDS ORDERED: diphenhydrAMINE HCL 50 MG CAPSULE PO PRN (23:30)
[2021-08-12] MEDS ORDERED: HYDROmorphone HCl 2 MG/ML VIAL ONE (00:09)
[2021-08-12] MEDS: HYDROmorphone HCl 2 MG/ML VIAL IVPUSH SCH ×3 (00:45→07:37)
[2021-08-12] MEDS ORDERED: diphenhydrAMINE HCL 25 MG CAPSULE (FP) PO PRN (02:27)
[2021-08-12] MEDS ORDERED: HEPARIN NA (PORCINE) 5,000 UNITS/ML 1ML VIAL SQ SCH (06:00)
[2021-08-12] MEDS ORDERED: INSULIN SLIDING SCALE (NOVOLOG) 1 VIAL SQ SCH (07:00)
[2021-08-12] MEDS ORDERED: Insulin (LOG) Aspart 100 UNITS/ML VIAL SQ ONE (07:00)
[2021-08-12 08:34] LABS: HCG,QUALITATIVE URINE Negative
[2021-08-12 08:39] LABS: EPI CELLS >36 /uL (0-25.1); HYALINE CASTS 2 /uL (0-3.1); URINE APPEARANCE CLOUDY; URINE BACTERIA >9,000 /uL (0-1359); URINE BILIRUBIN NEGATIVE (NEGATIVE); URINE COLOR YELLOW; URINE GLUCOSE (UA) 3+ (NEGATIVE); URINE KETONE TRACE (NEGATIVE); URINE LEUK ESTERASE NEGATIVE (NEGATIVE); URINE NITRITE NEGATIVE (NEGATIVE); URINE PROTEIN 2+ (NEGATIVE); URINE RBC 4 /uL (0-23.9); URINE UROBILINOGEN 0.2 mg/dL (0.2-1.0)
[2021-08-12] MEDS ORDERED: oxyCODONE HCL 5 MG TABLET PO PRN ×2 (09:08)
[2021-08-12] MEDS ORDERED: HYDROmorphone HCl 2 MG/ML VIAL IVPUSH PRN (09:11)
[2021-08-12 09:14] LABS: BASO % 0.6 % (0-2.0); EOS % 0.5 % (0-4.5); HEMATOCRIT 31.6 % (32.4-45.2); HEMOGLOBIN 10.9 GM/dL (10.7-15.3); LYMPH % 36.6 % (8-40); MCH 32.2 pg (25.7-33.7); MCHC 34.4 g/dl (32.0-36.0); MEAN CELL VOLUME 93.5 fl (80-96); MEAN PLT VOLUME 8.2 fl (7.5-11.1); MONO % 6.4 % (3.8-10.2); NEUT % 55.9 % (42.8-82.8); PLATELET COUNT 390 10^3/uL (134-434); RBC 3.38 M/mm3 (3.60-5.2); RDW 13.2 % (11.6-15.6); WHITE BLOOD COUNT 9.5 K/mm3 (4.0-10.0)
[2021-08-12] MEDS ORDERED: GABAPENTIN 100 MG CAPSULE PO SCH (09:45)
[2021-08-12 10:25] LABS: ALBUMIN 3.1 g/dl (3.4-5.0); CALCIUM 9.1 mg/dL (8.5-10.1)
[2021-08-12 10:26] LABS: BLOOD UREA NITROGEN 10.6 mg/dL (7-18); MAGNESIUM 2.1 mg/dL (1.8-2.4)
[2021-08-12 10:28] LABS: CREATININE 1.1 mg/dL (0.55-1.3)
[2021-08-12 10:30] LABS: BILIRUBIN,TOTAL 0.4 mg/dL (0.2-1); PHOSPHOROUS 2.9 mg/dL (2.5-4.9)
[2021-08-12] MEDS ORDERED: diazePAM CARPU-JECT 10 MG/2 ML DISP.SYRIN IVPUSH PRN (10:37)
[2021-08-12] MEDS: LIDOCAINE 5% TOPICAL PATCH TP SCH (10:50)
[2021-08-12] MEDS: PANTOPRAZOLE SODIUM 40 MG VIAL IVPUSH SCH ×3 (10:50→21:44)
[2021-08-12] MEDS: HYDROmorphone HCl 2 MG/ML VIAL IVPUSH PRN ×4 (11:52→23:57)
[2021-08-12] MEDS: LIDOCAINE PATCH REMOVAL MC SCH (21:44)
[2021-08-12] MEDS ORDERED: INSULIN (LEVEMIR) 100 UNITS/ML UNITS SQ SCH (22:00)
[2021-08-12] MEDS ORDERED: DOCUSATE SODIUM 100 MG CAPSULE (FP) PO SCH (22:00)
[2021-08-13] MEDS: HYDROmorphone HCl 2 MG/ML VIAL IVPUSH PRN ×5 (06:00→22:00)
[2021-08-13] MEDS: LIDOCAINE 5% TOPICAL PATCH TP SCH (09:30)
[2021-08-13] MEDS: PANTOPRAZOLE SODIUM 40 MG VIAL IVPUSH SCH (10:11)
[2021-08-13 14:59] LABS: BASO % 0.5 % (0-2.0); EOS % 1.6 % (0-4.5); HEMATOCRIT 34.2 % (32.4-45.2); HEMOGLOBIN 11.7 GM/dL (10.7-15.3); LYMPH % 52.7 % (8-40); MCHC 34.1 g/dl (32.0-36.0); MEAN CELL VOLUME 93.6 fl (80-96); MEAN PLT VOLUME 8.8 fl (7.5-11.1); MONO % 5.2 % (3.8-10.2); PLATELET COUNT 318 10^3/uL (134-434); RBC 3.66 M/mm3 (3.60-5.2); RDW 13.2 % (11.6-15.6); WHITE BLOOD COUNT 7.2 K/mm3 (4.0-10.0)
[2021-08-13 15:18] LABS: ALBUMIN 3.4 g/dl (3.4-5.0); BLOOD UREA NITROGEN 23.2 mg/dL (7-18); CALCIUM 9.4 mg/dL (8.5-10.1); MAGNESIUM 2.2 mg/dL (1.8-2.4)
[2021-08-13 15:21] LABS: CREATININE 1.4 mg/dL (0.55-1.3)
[2021-08-13 15:23] LABS: BILIRUBIN,TOTAL 0.3 mg/dL (0.2-1); TOT PROT 7.3 g/dl (6.4-8.2)
[2021-08-13] MEDS ORDERED: diphenhydrAMINE HCL 25 MG CAPSULE (FP) PO PRN (16:39)
[2021-08-13] MEDS ORDERED: BISACODYL 10 MG SUPP.RECT PR PRN (19:35)
[2021-08-13] MEDS ORDERED: PT OWN MED DRAWER 7, Y5N ONE (21:09)
[2021-08-13] MEDS ORDERED: DOCUSATE SODIUM 100 MG CAPSULE (FP) PO SCH (22:00)
[2021-08-13] MEDS: GABAPENTIN 300 MG CAPSULE PO SCH (22:13)
[2021-08-13] MEDS: LIDOCAINE PATCH REMOVAL MC SCH (22:13)
[2021-08-13] MEDS: INSULIN SLIDING SCALE (NOVOLOG) 1 VIAL SQ SCH (22:14)
[2021-08-13] MEDS: PANTOPRAZOLE 40 MG TABLET PO SCH (22:14)
[2021-08-14] MEDS: HYDROmorphone HCl 2 MG/ML VIAL IVPUSH PRN ×2 (02:16→06:09)
[2021-08-14] MEDS: GABAPENTIN 300 MG CAPSULE PO SCH ×3 (05:49→23:11)
[2021-08-14] MEDS: INSULIN SLIDING SCALE (NOVOLOG) 1 VIAL SQ SCH ×3 (06:14→18:02)
[2021-08-14] MEDS ORDERED: HYDROmorphone HCL 2 MG TABLET PO PRN (08:05)
[2021-08-14] MEDS ORDERED: ONDANSETRON 4 MG/2 ML VIAL IVPUSH PRN ×2 (08:08→21:19)
[2021-08-14] MEDS ORDERED: ONDANSETRON *ODT* 4 MG TABLET SL PRN ×2 (08:08→21:19)
[2021-08-14] MEDS ORDERED: DULoxetine HCL 20 MG CAPSULE.DR PO SCH (10:00)
[2021-08-14 10:25] LABS: BASO % 0.9 % (0-2.0); EOS % 1.3 % (0-4.5); HEMATOCRIT 31.7 % (32.4-45.2); HEMOGLOBIN 10.7 GM/dL (10.7-15.3); LYMPH % 39.1 % (8-40); MCHC 33.6 g/dl (32.0-36.0); MEAN PLT VOLUME 8.1 fl (7.5-11.1); MONO % 5.5 % (3.8-10.2); NEUT % 53.2 % (42.8-82.8); PLATELET COUNT 378 10^3/uL (134-434); RBC 3.34 M/mm3 (3.60-5.2); RDW 12.9 % (11.6-15.6)
[2021-08-14 10:47] LABS: CHLORIDE 98 mmol/L (98-107); SODIUM 130 mmol/L (136-145)
[2021-08-14] MEDS: PANTOPRAZOLE 40 MG TABLET PO SCH ×2 (10:50→23:10)
[2021-08-14] MEDS: LIDOCAINE 5% TOPICAL PATCH TP SCH (10:50)
[2021-08-14 11:13] LABS: CALCIUM 9.5 mg/dL (8.5-10.1)
[2021-08-14 11:14] LABS: ANION GAP 14 MMOL/L (8-16); BLOOD UREA NITROGEN 35.7 mg/dL (7-18); CO2 17 mmol/L (21-32); MAGNESIUM 2.1 mg/dL (1.8-2.4)
[2021-08-14] MEDS ORDERED: LACTATED RINGERS SOLUTION 1,000 ML/1,000 ML INFUS.BAG IV SCH ×2 (11:15→11:45)
[2021-08-14 11:17] LABS: CREATININE 1.8 mg/dL (0.55-1.3); SGOT/AST 11 U/L (15-37); SGPT/ALT 14 U/L (13-61)
[2021-08-14 11:19] LABS: TOT PROT 6.9 g/dl (6.4-8.2)
[2021-08-14 11:20] LABS: ALK PHOS 160 U/L (45-117)
[2021-08-14 11:21] LABS: BILIRUBIN,TOTAL 0.3 mg/dL (0.2-1)
[2021-08-14 12:08] LABS: GLUCOSE,RANDOM 548 mg/dL (74-106)
[2021-08-14] MEDS ORDERED: SODIUM ZIRCONIUM CYCLOSILICATE (LOKELMA) 5 GM PACKET PO SCH (12:30)
[2021-08-14] MEDS: LACTATED RINGERS SOLUTION 1,000 ML/1,000 ML INFUS.BAG IV SCH ×2 (14:15→15:15)
[2021-08-14 16:51] LABS: ARTERIAL BLOOD GAS PO2 93.4 mmHg (80-100); ARTERIAL BLOOD GAS pH 7.236 (7.350-7.450)
[2021-08-14 16:53] LABS: ALLENS TEST POSITIVE
[2021-08-14 17:18] LABS: CHLORIDE 96 mmol/L (98-107); SODIUM 131 mmol/L (136-145)
[2021-08-14 17:19] LABS: CALCIUM 9.8 mg/dL (8.5-10.1)
[2021-08-14 17:20] LABS: ANION GAP 22 MMOL/L (8-16); BLOOD UREA NITROGEN 40.6 mg/dL (7-18); CO2 13 mmol/L (21-32)
[2021-08-14 17:23] LABS: CREATININE 1.8 mg/dL (0.55-1.3)
[2021-08-14 17:44] LABS: GLUCOSE,RANDOM 594 mg/dL (74-106)
[2021-08-14] MEDS ORDERED: INSULIN REGULAR HUMAN 100 UNITS/ML *VIAL* (FOR IVP) IVPUSH ONE (19:06)
[2021-08-14] MEDS ORDERED: INSULIN REGULAR 100 UNITS in SODIUM CHLORIDE 99 ML IVPB SCH ×2 (19:15→22:45)
[2021-08-14] MEDS ORDERED: BISACODYL 10 MG SUPP.RECT PR PRN (21:19)
[2021-08-14] MEDS ORDERED: diphenhydrAMINE HCL 25 MG CAPSULE (FP) PO PRN (21:19)
[2021-08-14] MEDS ORDERED: CHLORHEXIDINE GLUCONATE 4% CLEANSER FOR DECOLONIZATION TP SCH (22:00)
[2021-08-14] MEDS ORDERED: LIDOCAINE PATCH REMOVAL MC SCH ×2 (22:00→23:10)
[2021-08-14] MEDS ORDERED: LIDOCAINE 5% TOPICAL PATCH TP PRN (23:04)
[2021-08-14] MEDS: DOCUSATE SODIUM 100 MG CAPSULE (FP) PO SCH (23:10)
[2021-08-14] MEDS: MUPIROCIN 2% TOPICAL OINTMENT FOR DECOLONIZATION NS SCH (23:11)
[2021-08-14 23:16] LABS: CALCIUM 9.7 mg/dL (8.5-10.1)
[2021-08-14 23:17] LABS: BLOOD UREA NITROGEN 42.6 mg/dL (7-18)
[2021-08-15] MEDS: DOCUSATE SODIUM 100 MG CAPSULE (FP) PO SCH ×2 (00:25→22:01)
[2021-08-15] MEDS: PANTOPRAZOLE 40 MG TABLET PO SCH ×4 (00:26→22:01)
[2021-08-15] MEDS: GABAPENTIN 300 MG CAPSULE PO SCH ×4 (00:26→22:01)
[2021-08-15] MEDS ORDERED: DEXTROSE 50%-WATER - 25 GM/50 ML VIAL IVPUSH ONE (00:32)
[2021-08-15] MEDS: LACTATED RINGERS SOLUTION 1,000 ML/1,000 ML INFUS.BAG IV SCH ×2 (01:06→06:53)
[2021-08-15] MEDS: INSULIN SLIDING SCALE (NOVOLOG) 1 VIAL SQ SCH ×5 (01:13→22:25)
[2021-08-15 07:42] LABS: BASO % 0.5 % (0-2.0); EOS % 0.4 % (0-4.5); HEMOGLOBIN 10.3 GM/dL (10.7-15.3); LYMPH % 27.5 % (8-40); MCH 32.1 pg (25.7-33.7); MCHC 34.3 g/dl (32.0-36.0); MEAN CELL VOLUME 93.8 fl (80-96); MEAN PLT VOLUME 8.3 fl (7.5-11.1); MONO % 7.3 % (3.8-10.2); NEUT % 64.3 % (42.8-82.8); PLATELET COUNT 398 10^3/uL (134-434)
[2021-08-15 08:13] LABS: ALBUMIN 2.8 g/dl (3.4-5.0); BLOOD UREA NITROGEN 42.9 mg/dL (7-18); CALCIUM 9.1 mg/dL (8.5-10.1); MAGNESIUM 2.6 mg/dL (1.8-2.4)
[2021-08-15 08:16] LABS: CREATININE 1.7 mg/dL (0.55-1.3); PHOSPHOROUS 4.6 mg/dL (2.5-4.9)
[2021-08-15 08:18] LABS: BILIRUBIN,TOTAL 0.3 mg/dL (0.2-1); TOT PROT 6.4 g/dl (6.4-8.2)
[2021-08-15] MEDS ORDERED: HYDROmorphone HCl 2 MG/ML VIAL IVPUSH STA ×2 (08:55→17:02)
[2021-08-15] MEDS: DULoxetine HCL 20 MG CAPSULE.DR PO SCH ×2 (09:15→09:27)
[2021-08-15] MEDS: MUPIROCIN 2% TOPICAL OINTMENT FOR DECOLONIZATION NS SCH ×2 (09:38→23:06)
[2021-08-15] MEDS ORDERED: SODIUM ZIRCONIUM CYCLOSILICATE (LOKELMA) 5 GM PACKET PO SCH (10:00)
[2021-08-15] MEDS ORDERED: LIDOCAINE 5% TOPICAL PATCH TP SCH (10:00)
[2021-08-15] MEDS ORDERED: ONDANSETRON *ODT* 4 MG TABLET SL PRN (10:06)
[2021-08-15] MEDS ORDERED: LIDOCAINE 5% TOPICAL PATCH TP PRN (10:06)
[2021-08-15] MEDS ORDERED: BISACODYL 10 MG SUPP.RECT PR PRN (10:06)
[2021-08-15] MEDS ORDERED: diphenhydrAMINE HCL 25 MG CAPSULE (FP) PO PRN (10:06)
[2021-08-15 13:11] LABS: CALCIUM 9.6 mg/dL (8.5-10.1)
[2021-08-15 13:12] LABS: BLOOD UREA NITROGEN 37.8 mg/dL (7-18)
[2021-08-15 13:15] LABS: CREATININE 1.5 mg/dL (0.55-1.3)
[2021-08-15] MEDS ORDERED: CHLORHEXIDINE GLUCONATE 4% CLEANSER FOR DECOLONIZATION TP SCH (22:00)
[2021-08-15] MEDS: LIDOCAINE PATCH REMOVAL MC SCH (22:24)
[2021-08-15] MEDS ORDERED: HYDROmorphone HCl 2 MG/ML VIAL IVPB ONE (22:35)
[2021-08-16] MEDS: GABAPENTIN 300 MG CAPSULE PO SCH ×3 (06:08→21:44)
[2021-08-16] MEDS: INSULIN SLIDING SCALE (NOVOLOG) 1 VIAL SQ SCH ×3 (06:25→17:11)
[2021-08-16] MEDS ORDERED: INSULIN (LEVEMIR) 100 UNITS/ML UNITS SQ SCH (07:00)
[2021-08-16 07:12] LABS: BASO % 0.5 % (0-2.0); EOS % 1.3 % (0-4.5); HEMATOCRIT 28.5 % (32.4-45.2); HEMOGLOBIN 9.8 GM/dL (10.7-15.3); MCH 32.4 pg (25.7-33.7); MCHC 34.6 g/dl (32.0-36.0); MEAN CELL VOLUME 93.6 fl (80-96); MEAN PLT VOLUME 7.9 fl (7.5-11.1); MONO % 5.6 % (3.8-10.2); NEUT % 57.6 % (42.8-82.8); PLATELET COUNT 349 10^3/uL (134-434); RBC 3.04 M/mm3 (3.60-5.2); RDW 13.1 % (11.6-15.6); WHITE BLOOD COUNT 9.4 K/mm3 (4.0-10.0)
[2021-08-16 07:21] LABS: ALBUMIN 2.6 g/dl (3.4-5.0); BLOOD UREA NITROGEN 36.1 mg/dL (7-18); CALCIUM 9.1 mg/dL (8.5-10.1); MAGNESIUM 2.2 mg/dL (1.8-2.4)
[2021-08-16 07:24] LABS: CREATININE 1.6 mg/dL (0.55-1.3)
[2021-08-16 07:26] LABS: BILIRUBIN,TOTAL 0.2 mg/dL (0.2-1); TOT PROT 6.2 g/dl (6.4-8.2)
[2021-08-16] MEDS: MUPIROCIN 2% TOPICAL OINTMENT FOR DECOLONIZATION NS SCH ×2 (11:09→21:44)
[2021-08-16] MEDS: PANTOPRAZOLE 40 MG TABLET PO SCH ×2 (11:09→21:45)
[2021-08-16] MEDS: DULoxetine HCL 20 MG CAPSULE.DR PO SCH (11:09)
[2021-08-16 11:46] VITALS: BMI 25.7
[2021-08-16] MEDS ORDERED: MELATONIN 5 MG TABLETS PO ONE (18:50)
[2021-08-16] MEDS: LIDOCAINE PATCH REMOVAL MC SCH (21:44)
[2021-08-16] MEDS: DOCUSATE SODIUM 100 MG CAPSULE (FP) PO SCH (21:44)
[2021-08-17] MEDS: INSULIN SLIDING SCALE (NOVOLOG) 1 VIAL SQ SCH ×5 (00:27→21:41)
[2021-08-17] MEDS ORDERED: INSULIN (LEVEMIR) 100 UNITS/ML UNITS SQ SCH (07:00)
[2021-08-17] MEDS: GABAPENTIN 300 MG CAPSULE PO SCH ×4 (07:28→22:56)
[2021-08-17] MEDS: INSULIN (NOVOLOG) ASPART 100 UNITS/ML 10ML VIAL SQ SCH ×3 (11:45→20:30)
[2021-08-17] MEDS: DULoxetine HCL 20 MG CAPSULE.DR PO SCH (11:51)
[2021-08-17] MEDS: PANTOPRAZOLE 40 MG TABLET PO SCH ×3 (11:53→22:56)
[2021-08-17] MEDS: MUPIROCIN 2% TOPICAL OINTMENT FOR DECOLONIZATION NS SCH ×2 (13:25→20:59)
[2021-08-17] MEDS: DOCUSATE SODIUM 100 MG CAPSULE (FP) PO SCH ×2 (20:59→22:55)
[2021-08-17] MEDS: LIDOCAINE PATCH REMOVAL MC SCH ×2 (21:00→22:56)
[2021-08-17] MEDS: INSULIN (LEVEMIR) 100 UNITS/ML UNITS SQ SCH (21:40)
[2021-08-17] MEDS ORDERED: diphenhydrAMINE HCL 25 MG CAPSULE (FP) PO PRN (21:50)
[2021-08-17] MEDS ORDERED: LIDOCAINE 5% TOPICAL PATCH TP PRN (21:50)
[2021-08-17] MEDS ORDERED: ONDANSETRON *ODT* 4 MG TABLET SL PRN (21:50)
[2021-08-17] MEDS ORDERED: BISACODYL 10 MG SUPP.RECT PR PRN (21:50)
[2021-08-17] MEDS ORDERED: CHLORHEXIDINE GLUCONATE 4% CLEANSER FOR DECOLONIZATION TP SCH (22:00)
[2021-08-17] MEDS ORDERED: MUPIROCIN 2% TOPICAL OINTMENT FOR DECOLONIZATION NS SCH (22:00)
[2021-08-18] MEDS: INSULIN SLIDING SCALE (NOVOLOG) 1 VIAL SQ SCH ×4 (06:40→21:10)
[2021-08-18] MEDS: INSULIN (NOVOLOG) ASPART 100 UNITS/ML 10ML VIAL SQ SCH ×3 (06:47→17:11)
[2021-08-18] MEDS: GABAPENTIN 300 MG CAPSULE PO SCH ×3 (06:49→21:14)
[2021-08-18] MEDS ORDERED: INSULIN (LEVEMIR) 100 UNITS/ML UNITS SQ SCH (07:00)
[2021-08-18 08:30] LABS: BASO % 0.5 % (0-2.0); EOS % 1.4 % (0-4.5); HEMATOCRIT 33.2 % (32.4-45.2); HEMOGLOBIN 11.3 GM/dL (10.7-15.3); LYMPH % 40.2 % (8-40); MCH 32.3 pg (25.7-33.7); MCHC 34.1 g/dl (32.0-36.0); MEAN CELL VOLUME 94.6 fl (80-96); MEAN PLT VOLUME 8.3 fl (7.5-11.1); MONO % 6.4 % (3.8-10.2); NEUT % 51.5 % (42.8-82.8); PLATELET COUNT 364 10^3/uL (134-434); RBC 3.51 M/mm3 (3.60-5.2); RDW 12.8 % (11.6-15.6); WHITE BLOOD COUNT 9.6 K/mm3 (4.0-10.0)
[2021-08-18 09:07] LABS: ALBUMIN 2.8 g/dl (3.4-5.0); BLOOD UREA NITROGEN 37.5 mg/dL (7-18); CALCIUM 8.6 mg/dL (8.5-10.1); MAGNESIUM 2.3 mg/dL (1.8-2.4)
[2021-08-18 09:09] LABS: BILIRUBIN,TOTAL 0.2 mg/dL (0.2-1)
[2021-08-18 09:10] LABS: CREATININE 1.7 mg/dL (0.55-1.3)
[2021-08-18] MEDS: DULoxetine HCL 20 MG CAPSULE.DR PO SCH (10:55)
[2021-08-18] MEDS: PANTOPRAZOLE 40 MG TABLET PO SCH ×2 (10:57→21:14)
[2021-08-18] MEDS ORDERED: INSULIN (NOVOLOG) ASPART 100 UNITS/ML 10ML VIAL ONE (17:34)
[2021-08-18] MEDS: SODIUM CHLORIDE 1,000 ML IV SCH (19:43)
[2021-08-18] MEDS: INSULIN (LEVEMIR) 100 UNITS/ML UNITS SQ SCH (21:10)
[2021-08-18] MEDS: DOCUSATE SODIUM 100 MG CAPSULE (FP) PO SCH (21:13)
[2021-08-18] MEDS: LIDOCAINE PATCH REMOVAL MC SCH (21:13)
[2021-08-19] MEDS: INSULIN (LEVEMIR) 100 UNITS/ML UNITS SQ SCH ×2 (06:54→21:08)
[2021-08-19] MEDS: INSULIN SLIDING SCALE (NOVOLOG) 1 VIAL SQ SCH ×4 (06:54→21:06)
[2021-08-19] MEDS: INSULIN (NOVOLOG) ASPART 100 UNITS/ML 10ML VIAL SQ SCH ×3 (06:55→17:09)
[2021-08-19] MEDS: GABAPENTIN 300 MG CAPSULE PO SCH ×3 (06:59→21:14)
[2021-08-19] MEDS ORDERED: INSULIN (LEVEMIR) 100 UNITS/ML UNITS SQ SCH (07:00)
[2021-08-19] MEDS: PANTOPRAZOLE 40 MG TABLET PO SCH ×2 (09:02→21:14)
[2021-08-19] MEDS: DULoxetine HCL 20 MG CAPSULE.DR PO SCH (09:02)
[2021-08-19 09:24] LABS: HEMOGLOBIN 10.7 GM/dL (10.7-15.3); MCH 32.1 pg (25.7-33.7); MCHC 34.6 g/dl (32.0-36.0); MEAN CELL VOLUME 92.9 fl (80-96); MEAN PLT VOLUME 7.7 fl (7.5-11.1); PLATELET COUNT 343 10^3/uL (134-434); RBC 3.33 M/mm3 (3.60-5.2); RDW 12.9 % (11.6-15.6); WHITE BLOOD COUNT 8.9 K/mm3 (4.0-10.0)
[2021-08-19 09:54] LABS: CALCIUM 8.8 mg/dL (8.5-10.1)
[2021-08-19 09:55] LABS: BLOOD UREA NITROGEN 35.9 mg/dL (7-18)
[2021-08-19 09:58] LABS: CREATININE 1.6 mg/dL (0.55-1.3)
[2021-08-19] MEDS: SODIUM CHLORIDE 1,000 ML IV SCH (17:52)
[2021-08-19] MEDS: DOCUSATE SODIUM 100 MG CAPSULE (FP) PO SCH (21:13)
[2021-08-19] MEDS: LIDOCAINE PATCH REMOVAL MC SCH (21:14)
[2021-08-20] MEDS: SODIUM CHLORIDE 1,000 ML IV SCH (06:15)
[2021-08-20] MEDS: GABAPENTIN 300 MG CAPSULE PO SCH ×2 (06:51→14:31)
[2021-08-20] MEDS: INSULIN (LEVEMIR) 100 UNITS/ML UNITS SQ SCH (09:08)
[2021-08-20] MEDS: INSULIN (NOVOLOG) ASPART 100 UNITS/ML 10ML VIAL SQ SCH ×2 (09:09→11:25)
[2021-08-20] MEDS: PANTOPRAZOLE 40 MG TABLET PO SCH (09:09)
[2021-08-20] MEDS: INSULIN SLIDING SCALE (NOVOLOG) 1 VIAL SQ SCH ×2 (09:09→11:25)
[2021-08-20] MEDS: DULoxetine HCL 20 MG CAPSULE.DR PO SCH (09:09)
[2021-08-20 11:19] LABS: HEMATOCRIT 29.6 % (32.4-45.2); HEMOGLOBIN 10.2 GM/dL (10.7-15.3); MCH 32.1 pg (25.7-33.7); MCHC 34.6 g/dl (32.0-36.0); MEAN PLT VOLUME 7.4 fl (7.5-11.1); PLATELET COUNT 330 10^3/uL (134-434); RBC 3.19 M/mm3 (3.60-5.2); RDW 12.8 % (11.6-15.6); WHITE BLOOD COUNT 8.3 K/mm3 (4.0-10.0)
[2021-08-20 11:45] LABS: CALCIUM 8.5 mg/dL (8.5-10.1)
[2021-08-20 11:46] LABS: ALBUMIN 2.7 g/dl (3.4-5.0); BLOOD UREA NITROGEN 27.5 mg/dL (7-18)
[2021-08-20 11:49] LABS: CREATININE 1.2 mg/dL (0.55-1.3)
[2021-08-20 11:50] LABS: BILIRUBIN,TOTAL 0.2 mg/dL (0.2-1); TOT PROT 6.5 g/dl (6.4-8.2)
[2021-08-20 14:30] VITALS: BP 151/90; PULSE 104; TEMP 98.8
== END 2021-08-20 15:42 | disposition home or self-care (01) | DRG 420 ==
LOC: JERFT 10:38 → INTOOBSV 20:23 → UNDOADMOB 20:23 → JERBED 20:23 → J6S 08-12 02:37 → JERBED 08-12 08:13 → JICU 08-14 21:10 → OBSVTOIN 08-15 14:16 → J7W 08-17 21:54
PROVIDERS: ADMIT Internal Medicine; ATTEND Internal Medicine
DX: E10.10 Type 1 diabetes mellitus with ketoacidosis without coma (principal); N17.9 Acute kidney failure, unspecified; G81.91 Hemiplegia, unspecified affecting right dominant side; M51.26 Other intervertebral disc displacement, lumbar region; M54.9 Dorsalgia, unspecified; M54.32 Sciatica, left side; J45.909 Unspecified asthma, uncomplicated; D64.9 Anemia, unspecified; R16.0 Hepatomegaly, not elsewhere classified; K21.9 Gastro-esophageal reflux disease without esophagitis; E10.42 Type 1 diabetes mellitus with diabetic polyneuropathy; G43.909 Migraine, unspecified, not intractable, without status migrainosus; G89.29 Other chronic pain; E87.5 Hyperkalemia; R11.2 Nausea with vomiting, unspecified; M41.9 Scoliosis, unspecified; E10.65 Type 1 diabetes mellitus with hyperglycemia; H53.8 Other visual disturbances; Z76.5 Malingerer [conscious simulation]; Z53.29 Procedure and treatment not carried out because of patient's decision for other reasons; Z79.4 Long term (current) use of insulin; Z72.89 Other problems related to lifestyle; Z87.11 Personal history of peptic ulcer disease
CPT/HCPCS: 36415; 36600; 72100-TC-FY; 72148-TC; 73610-TC-LT-FY; 73630-TC-LT; 80048; 80053; 81003; 82010; 82803; 82962; 83036; 83735; 84100; 84703; 85025; 85027; 87077; 87086; 93005; 93010; 97116-GP; 97161-GP; 99285-25; C9803; G0378; J1100; U0003; U0005

== ENCOUNTER 2022-03-04 13:15 | Inpatient (IN) | payer OTHER ==
[2022-03-04] MEDS ORDERED: ONDANSETRON 4 MG/2 ML VIAL IVPUSH ONE (15:20)
[2022-03-04] MEDS ORDERED: HYDROmorphone HCL CARPU-JECT 2 MG/1 ML DISP.SYRIN IVPUSH ONE ×2 (15:20→19:45)
[2022-03-04] MEDS ORDERED: ONDANSETRON 4 MG/2 ML VIAL ONE (15:32)
[2022-03-04] MEDS ORDERED: HYDROmorphone HCl 2 MG/ML VIAL ONE ×3 (15:32→23:25)
[2022-03-04 17:58] LABS: BASO % 0.5 % (0-2.0); EOS % 1.4 % (0-4.5); HEMATOCRIT 30.7 % (32.4-45.2); MCH 32.6 pg (25.7-33.7); MCHC 35.9 g/dl (32.0-36.0); MEAN CELL VOLUME 90.7 fl (80-96); MONO % 6.6 % (3.8-10.2); NEUT % 73.5 % (42.8-82.8); PLATELET COUNT 430 10^3/uL (134-434); RBC 3.38 M/mm3 (3.60-5.2); RDW 12.5 % (11.6-15.6); WHITE BLOOD COUNT 8.8 K/mm3 (4.0-10.0)
[2022-03-04 18:15] LABS: VENOUS BASE EXCESS -6.5 mmol/L (-2-2); VENOUS O2 SATURATION 65.3 % (70-80); VENOUS PCO2 37.1 mmHg (38-52); VENOUS PH 7.325 (7.310-7.410)
[2022-03-04 18:19] LABS: ALBUMIN 3.2 g/dl (3.4-5.0); BLOOD UREA NITROGEN 12.7 mg/dL (7-18)
[2022-03-04 18:22] LABS: CREATININE 1.1 mg/dL (0.55-1.3)
[2022-03-04 18:23] LABS: BILIRUBIN,TOTAL 0.3 mg/dL (0.2-1); TOT PROT 7.1 g/dl (6.4-8.2)
[2022-03-04] MEDS ORDERED: SODIUM CHLORIDE 0.9% 1000 ML INFUS.BAG IV ONE (19:28)
[2022-03-04 22:15] LABS: EPI CELLS >36 /uL (0-25.1); HYALINE CASTS 2 /uL (0-3.1); URINE APPEARANCE CLOUDY; URINE BACTERIA >9,000 /uL (0-1359); URINE BILIRUBIN NEGATIVE (NEGATIVE); URINE COLOR YELLOW; URINE GLUCOSE (UA) 3+ (NEGATIVE); URINE KETONE 1+ (NEGATIVE); URINE LEUK ESTERASE TRACE (NEGATIVE); URINE NITRITE NEGATIVE (NEGATIVE); URINE PROTEIN 2+ (NEGATIVE); URINE RBC 12 /uL (0-23.9); URINE UROBILINOGEN 0.2 mg/dL (0.2-1.0); URINE WBC 454 /uL (0-25.8)
[2022-03-04] MEDS ORDERED: GABAPENTIN 100 MG CAPSULE PO ONE (22:55)
[2022-03-04] MEDS ORDERED: HYDROmorphone HCl 2 MG/ML VIAL IVPUSH ONE (22:55)
[2022-03-04] MEDS ORDERED: ONDANSETRON 4 MG/2 ML VIAL IVPUSH PRN (23:48)
[2022-03-05] MEDS ORDERED: CEFTRIAXONE 1 GM/50 ML BAG ONE ×2 (00:05→09:44)
[2022-03-05] MEDS: diphenhydrAMINE HCL 25 MG CAPSULE (FP) PO PRN ×2 (00:12→03:43)
[2022-03-05] MEDS: CEFTRIAXONE 1 GM in DEXTROSE 5%-WATER - 50 ML IVPB SCH ×2 (01:45→09:48)
[2022-03-05] MEDS ORDERED: HYDROmorphone HCl 2 MG/ML VIAL ONE ×3 (03:33→11:54)
[2022-03-05] MEDS: HYDROmorphone HCl 2 MG/ML VIAL IVPUSH PRN ×3 (03:43→11:55)
[2022-03-05] MEDS ORDERED: INSULIN SLIDING SCALE (NOVOLOG) 1 VIAL SQ SCH (07:00)
[2022-03-05] MEDS ORDERED: diphenhydrAMINE HCL 25 MG CAPSULE (FP) PO ONE (07:36)
[2022-03-05] MEDS ORDERED: ONDANSETRON 4 MG/2 ML VIAL ONE (07:51)
[2022-03-05 08:39] LABS: CHLORIDE 104 mmol/L (98-107); SODIUM 135 mmol/L (136-145)
[2022-03-05 08:43] LABS: ALBUMIN 3.1 g/dl (3.4-5.0); ANION GAP 25 MMOL/L (8-16); BLOOD UREA NITROGEN 19.1 mg/dL (7-18); CALCIUM 8.9 mg/dL (8.5-10.1); CO2 6 mmol/L (21-32); MAGNESIUM 2.1 mg/dL (1.8-2.4)
[2022-03-05 08:45] LABS: SGPT/ALT 15 U/L (13-61)
[2022-03-05 08:46] LABS: CREATININE 1.8 mg/dL (0.55-1.3); PHOSPHOROUS 7.3 mg/dL (2.5-4.9); SGOT/AST 11 U/L (15-37)
[2022-03-05 08:47] LABS: BILIRUBIN,TOTAL 0.5 mg/dL (0.2-1)
[2022-03-05 08:48] LABS: ALK PHOS 136 U/L (45-117)
[2022-03-05 08:51] LABS: GLUCOSE,RANDOM 623 mg/dL (74-106)
[2022-03-05] MEDS ORDERED: DEXTROSE 50%-WATER - 25 GM/50 ML VIAL IVPUSH PRN (10:49)
[2022-03-05] MEDS ORDERED: ERTAPENEM SODIUM 1 GM in SODIUM CHLORIDE 50 ML IVPB SCH (11:00)
[2022-03-05] MEDS ORDERED: LACTATED RINGERS SOLUTION 1,000 ML/1,000 ML INFUS.BAG IV SCH ×2 (11:00→22:15)
[2022-03-05] MEDS ORDERED: INSULIN REGULAR 100 UNITS in SODIUM CHLORIDE 99 ML IVPB SCH (11:00)
[2022-03-05] MEDS ORDERED: ERTAPENEM SODIUM 1 GM VIAL ONE (11:09)
[2022-03-05] MEDS ORDERED: INSULIN REGULAR HUMAN 100 UNITS/ML *VIAL* (FOR IVP) IVPUSH ONE (11:15)
[2022-03-05] MEDS ORDERED: DEXTROSE 50%-WATER 25 GM/50 ML DISP.SYRIN ONE (11:29)
[2022-03-05] MEDS ORDERED: LACTATED RINGERS SOLUTION 1000 ML INFUS.BAG IV ONE (12:57)
[2022-03-05] MEDS: GABAPENTIN 100 MG CAPSULE PO SCH ×2 (13:17→21:41)
[2022-03-05] MEDS ORDERED: LABETALOL HCL 5 MG/1 ML (100MG/20 ML VIAL) IVPUSH ONE (14:38)
[2022-03-05] MEDS ORDERED: DEXTROSE 5%-0.45% SALINE 1,000 ML IV SCH ×2 (15:00→18:41)
[2022-03-05 15:41] LABS: CALCIUM 8.2 mg/dL (8.5-10.1)
[2022-03-05 15:42] LABS: BLOOD UREA NITROGEN 21.2 mg/dL (7-18); MAGNESIUM 2.1 mg/dL (1.8-2.4)
[2022-03-05 15:46] LABS: BILIRUBIN,TOTAL 0.2 mg/dL (0.2-1); CREATININE 2.1 mg/dL (0.55-1.3); PHOSPHOROUS 5.8 mg/dL (2.5-4.9)
[2022-03-05 15:47] LABS: TOT PROT 7.5 g/dl (6.4-8.2)
[2022-03-05] MEDS ORDERED: SODIUM CHLORIDE 0.9% 500 ML INFUS.BAG IV ONE (15:52)
[2022-03-05] MEDS: MUPIROCIN 2% TOPICAL OINTMENT FOR DECOLONIZATION NS SCH ×2 (18:06→21:30)
[2022-03-05] MEDS ORDERED: DEXTROSE 5%-0.45% SALINE 990 ML with POTASSIUM CHLORIDE 20 MEQ IV SCH (18:59)
[2022-03-05 21:10] LABS: HEMATOCRIT 26.4 % (32.4-45.2); HEMOGLOBIN 8.9 GM/dL (10.7-15.3); MCH 31.1 pg (25.7-33.7); MCHC 33.8 g/dl (32.0-36.0); MEAN PLT VOLUME 6.8 fl (7.5-11.1); PLATELET COUNT 324 10^3/uL (134-434); RBC 2.86 M/mm3 (3.60-5.2); RDW 12.6 % (11.6-15.6); WHITE BLOOD COUNT 12.7 K/mm3 (4.0-10.0)
[2022-03-05 21:15] LABS: INR 0.92 (0.83-1.09); PROTHROMBIN TIME (PATIENT) 10.6 SEC (9.7-13.0)
[2022-03-05 21:17] LABS: ACTIVATED PTT 23.4 SECONDS (25.2-36.5)
[2022-03-05] MEDS: INSULIN (LEVEMIR) 100 UNITS/ML UNITS SQ SCH ×2 (21:29→21:42)
[2022-03-05 21:50] LABS: CALCIUM 7.9 mg/dL (8.5-10.1)
[2022-03-05 21:51] LABS: BLOOD UREA NITROGEN 16.9 mg/dL (7-18)
[2022-03-05 21:53] LABS: CREATININE 1.7 mg/dL (0.55-1.3)
[2022-03-05 21:55] LABS: BILIRUBIN,TOTAL 0.2 mg/dL (0.2-1); TOT PROT 5.7 g/dl (6.4-8.2)
[2022-03-05 21:56] LABS: ALBUMIN 2.4 g/dl (3.4-5.0)
[2022-03-06] MEDS: INSULIN (LEVEMIR) 100 UNITS/ML UNITS SQ SCH ×3 (00:05→17:42)
[2022-03-06] MEDS: INSULIN SLIDING SCALE (NOVOLOG) 1 VIAL SQ SCH ×5 (00:07→21:35)
[2022-03-06] MEDS ORDERED: INSULIN (NOVOLOG) ASPART 100 UNITS/ML 10ML VIAL SQ ONE ×2 (00:17)
[2022-03-06] MEDS ORDERED: LACTATED RINGERS SOLUTION 1,000 ML/1,000 ML INFUS.BAG IV SCH (00:20)
[2022-03-06] MEDS: GABAPENTIN 100 MG CAPSULE PO SCH ×3 (06:15→21:24)
[2022-03-06 06:58] LABS: RBC 2.92 M/mm3 (3.60-5.2); WHITE BLOOD COUNT 12.9 K/mm3 (4.0-10.0)
[2022-03-06 06:59] LABS: BASO % 0.2 % (0-2.0); EOS % 0.1 % (0-4.5); HEMATOCRIT 27.2 % (32.4-45.2); HEMOGLOBIN 9.3 GM/dL (10.7-15.3); LYMPH % 13.6 % (8-40); MCH 31.8 pg (25.7-33.7); MCHC 34.1 g/dl (32.0-36.0); MEAN CELL VOLUME 93.1 fl (80-96); MONO % 10.9 % (3.8-10.2); NEUT % 75.2 % (42.8-82.8); PLATELET COUNT 325 10^3/uL (134-434); RDW 12.7 % (11.6-15.6)
[2022-03-06 07:24] LABS: CALCIUM 8.4 mg/dL (8.5-10.1)
[2022-03-06 07:25] LABS: ALBUMIN 2.3 g/dl (3.4-5.0); BLOOD UREA NITROGEN 17.6 mg/dL (7-18); MAGNESIUM 1.7 mg/dL (1.8-2.4)
[2022-03-06 07:28] LABS: CREATININE 1.6 mg/dL (0.55-1.3); PHOSPHOROUS 4.2 mg/dL (2.5-4.9)
[2022-03-06 07:29] LABS: BILIRUBIN,TOTAL 0.3 mg/dL (0.2-1); TOT PROT 5.7 g/dl (6.4-8.2)
[2022-03-06] MEDS ORDERED: SODIUM CHLORIDE 0.45% 1,000 ML IV SCH (08:45)
[2022-03-06] MEDS ORDERED: INSULIN (LEVEMIR) 100 UNITS/ML UNITS SQ ONE (09:30)
[2022-03-06] MEDS ORDERED: DEXTROSE 5%-WATER - 50 ML IVPB ONE (09:39)
[2022-03-06] MEDS ORDERED: cefTRIAXone SODIUM 1 GM VIAL ONE (09:39)
[2022-03-06] MEDS: SODIUM CHLORIDE 0.45% 1,000 ML IV SCH ×2 (10:07→22:14)
[2022-03-06] MEDS: MUPIROCIN 2% TOPICAL OINTMENT FOR DECOLONIZATION NS SCH (10:09)
[2022-03-06] MEDS: CEFTRIAXONE 1 GM in DEXTROSE 5%-WATER - 50 ML IVPB SCH (10:09)
[2022-03-06 11:23] VITALS: BMI 26.3
[2022-03-06] MEDS: LIDOCAINE 5% TOPICAL PATCH TP SCH (21:15)
[2022-03-07] MEDS: INSULIN SLIDING SCALE (NOVOLOG) 1 VIAL SQ SCH ×4 (06:19→21:12)
[2022-03-07] MEDS: INSULIN (LEVEMIR) 100 UNITS/ML UNITS SQ SCH ×2 (06:19→17:38)
[2022-03-07] MEDS: GABAPENTIN 100 MG CAPSULE PO SCH ×3 (06:19→21:08)
[2022-03-07] MEDS: SODIUM CHLORIDE 0.45% 1,000 ML IV SCH ×4 (06:22→21:09)
[2022-03-07] MEDS ORDERED: cefTRIAXone SODIUM 1 GM VIAL ONE (09:02)
[2022-03-07] MEDS ORDERED: DEXTROSE 5%-WATER - 50 ML IVPB ONE (09:02)
[2022-03-07] MEDS: CEFTRIAXONE 1 GM in DEXTROSE 5%-WATER - 50 ML IVPB SCH (10:24)
[2022-03-07] MEDS: LIDOCAINE PATCH REMOVAL MC SCH (10:25)
[2022-03-07] MEDS: LIDOCAINE 5% TOPICAL PATCH TP SCH (21:08)
[2022-03-07] MEDS ORDERED: DEXTROSE 50%-WATER - 25 GM/50 ML VIAL IVPUSH PRN (22:41)
[2022-03-07] MEDS ORDERED: ONDANSETRON 4 MG/2 ML VIAL IVPUSH PRN (22:41)
[2022-03-08] MEDS: SODIUM CHLORIDE 0.45% 1,000 ML IV SCH ×2 (00:20→06:37)
[2022-03-08] MEDS: GABAPENTIN 100 MG CAPSULE PO SCH ×3 (05:37→22:05)
[2022-03-08] MEDS: INSULIN SLIDING SCALE (NOVOLOG) 1 VIAL SQ SCH ×4 (06:51→22:06)
[2022-03-08] MEDS: INSULIN (LEVEMIR) 100 UNITS/ML UNITS SQ SCH ×2 (06:51→17:53)
[2022-03-08] MEDS ORDERED: INSULIN (LEVEMIR) 100 UNITS/ML UNITS SQ ONE (07:11)
[2022-03-08] MEDS ORDERED: INSULIN SLIDING SCALE (NOVOLOG) 1 VIAL SQ ONE (07:11)
[2022-03-08 08:41] LABS: BASO % 0.4 % (0-2.0); EOS % 2.3 % (0-4.5); HEMATOCRIT 25.2 % (32.4-45.2); HEMOGLOBIN 8.8 GM/dL (10.7-15.3); LYMPH % 31.8 % (8-40); MCH 31.9 pg (25.7-33.7); MCHC 34.8 g/dl (32.0-36.0); MEAN CELL VOLUME 91.5 fl (80-96); MEAN PLT VOLUME 7.4 fl (7.5-11.1); MONO % 8.6 % (3.8-10.2); NEUT % 56.9 % (42.8-82.8); PLATELET COUNT 280 10^3/uL (134-434); RBC 2.75 M/mm3 (3.60-5.2); RDW 12.5 % (11.6-15.6); WHITE BLOOD COUNT 6.2 K/mm3 (4.0-10.0)
[2022-03-08 09:02] LABS: ALBUMIN 2.1 g/dl (3.4-5.0); BLOOD UREA NITROGEN 15.8 mg/dL (7-18); CALCIUM 7.7 mg/dL (8.5-10.1)
[2022-03-08] MEDS ORDERED: DEXTROSE 5%-WATER - 50 ML IVPB ONE (09:04)
[2022-03-08] MEDS ORDERED: cefTRIAXone SODIUM 1 GM VIAL ONE (09:04)
[2022-03-08 09:05] LABS: CREATININE 1.3 mg/dL (0.55-1.3); PHOSPHOROUS 2.8 mg/dL (2.5-4.9)
[2022-03-08 09:07] LABS: BILIRUBIN,TOTAL 0.3 mg/dL (0.2-1); TOT PROT 5.4 g/dl (6.4-8.2)
[2022-03-08] MEDS: CEFTRIAXONE 1 GM in DEXTROSE 5%-WATER - 50 ML IVPB SCH (09:46)
[2022-03-08] MEDS: LIDOCAINE PATCH REMOVAL MC SCH (09:50)
[2022-03-08] MEDS: LACTATED RINGERS SOLUTION 1,000 ML/1,000 ML INFUS.BAG IV SCH (14:47)
[2022-03-08] MEDS ORDERED: HYDROmorphone HCl 2 MG/ML VIAL IVPUSH ONE (21:42)
[2022-03-08] MEDS: LIDOCAINE 5% TOPICAL PATCH TP SCH (22:04)
[2022-03-09] MEDS ORDERED: ALPRAZolam 1 MG TABLET PO PRN ×2 (01:55→01:57)
[2022-03-09] MEDS ORDERED: HYDROmorphone HCl 2 MG/ML VIAL IVPUSH ONE (01:59)
[2022-03-09] MEDS ORDERED: MELATONIN 5 MG TABLETS PO ONE (02:00)
[2022-03-09 02:42] LABS: BASO % 0.3 % (0-2.0); EOS % 1.9 % (0-4.5); HEMATOCRIT 27.1 % (32.4-45.2); HEMOGLOBIN 9.7 GM/dL (10.7-15.3); INR 0.86 (0.83-1.09); LYMPH % 37.6 % (8-40); MCH 32.2 pg (25.7-33.7); MCHC 35.7 g/dl (32.0-36.0); MEAN CELL VOLUME 90.3 fl (80-96); MEAN PLT VOLUME 7.5 fl (7.5-11.1); MONO % 8.7 % (3.8-10.2); NEUT % 51.5 % (42.8-82.8); PLATELET COUNT 300 10^3/uL (134-434); PROTHROMBIN TIME (PATIENT) 9.9 SEC (9.7-13.0); RDW 12.3 % (11.6-15.6); WHITE BLOOD COUNT 7.3 K/mm3 (4.0-10.0)
[2022-03-09 02:45] LABS: ACTIVATED PTT 34.5 SECONDS (25.2-36.5)
[2022-03-09 02:46] LABS: ALBUMIN 2.4 g/dl (3.4-5.0); BLOOD UREA NITROGEN 17.3 mg/dL (7-18); CALCIUM 8.6 mg/dL (8.5-10.1)
[2022-03-09 02:49] LABS: CREATININE 1.1 mg/dL (0.55-1.3)
[2022-03-09 02:51] LABS: BILIRUBIN,TOTAL 0.2 mg/dL (0.2-1); TOT PROT 6.1 g/dl (6.4-8.2)
[2022-03-09] MEDS: GABAPENTIN 100 MG CAPSULE PO SCH ×3 (06:18→21:13)
[2022-03-09] MEDS: INSULIN (LEVEMIR) 100 UNITS/ML UNITS SQ SCH ×2 (06:20→16:26)
[2022-03-09] MEDS: INSULIN SLIDING SCALE (NOVOLOG) 1 VIAL SQ SCH ×4 (06:20→21:14)
[2022-03-09 07:40] LABS: HEMATOCRIT 25.5 % (32.4-45.2); HEMOGLOBIN 9.1 GM/dL (10.7-15.3); MCH 32.1 pg (25.7-33.7); MCHC 35.7 g/dl (32.0-36.0); MEAN CELL VOLUME 90.1 fl (80-96); MEAN PLT VOLUME 7.7 fl (7.5-11.1); PLATELET COUNT 287 10^3/uL (134-434); RBC 2.83 M/mm3 (3.60-5.2); RDW 12.2 % (11.6-15.6); WHITE BLOOD COUNT 7.9 K/mm3 (4.0-10.0)
[2022-03-09 07:57] LABS: CALCIUM 8.2 mg/dL (8.5-10.1)
[2022-03-09 07:58] LABS: ALBUMIN 2.2 g/dl (3.4-5.0); MAGNESIUM 1.7 mg/dL (1.8-2.4)
[2022-03-09 08:01] LABS: PHOSPHOROUS 3.4 mg/dL (2.5-4.9)
[2022-03-09 08:02] LABS: TOT PROT 5.6 g/dl (6.4-8.2)
[2022-03-09 08:03] LABS: BILIRUBIN,TOTAL 0.2 mg/dL (0.2-1)
[2022-03-09] MEDS ORDERED: MAGNESIUM SULF 50% (8.12 MEQ/2 ML-1 GM VIAL) IVPB ONE (08:09)
[2022-03-09] MEDS ORDERED: cefTRIAXone SODIUM 1 GM VIAL ONE (08:52)
[2022-03-09] MEDS ORDERED: DEXTROSE 5%-WATER - 50 ML IVPB ONE (08:52)
[2022-03-09] MEDS: CEFTRIAXONE 1 GM in DEXTROSE 5%-WATER - 50 ML IVPB SCH (09:03)
[2022-03-09] MEDS: LIDOCAINE PATCH REMOVAL MC SCH (09:04)
[2022-03-09] MEDS ORDERED: HYDROmorphone HCL 2 MG TABLET PO PRN (11:09)
[2022-03-09] MEDS ORDERED: HYDROmorphone HCL CARPU-JECT 2 MG/1 ML DISP.SYRIN IVPUSH SCH (11:45)
[2022-03-09] MEDS ORDERED: HYDROmorphone HCl 2 MG/ML VIAL IVPB PRN (12:11)
[2022-03-09] MEDS ORDERED: POTASSIUM CHLORIDE TABS 20 MEQ TABLET.ER (FP) PO ONE (16:13)
[2022-03-09] MEDS: LACTATED RINGERS SOLUTION 1,000 ML/1,000 ML INFUS.BAG IV SCH (16:22)
[2022-03-09] MEDS: HYDROmorphone HCl 2 MG/ML VIAL IVPB PRN ×2 (16:55→21:01)
[2022-03-09] MEDS: LIDOCAINE 5% TOPICAL PATCH TP SCH (21:13)
[2022-03-10] MEDS: HYDROmorphone HCl 2 MG/ML VIAL IVPB PRN ×6 (01:04→21:08)
[2022-03-10] MEDS: LACTATED RINGERS SOLUTION 1,000 ML/1,000 ML INFUS.BAG IV SCH ×2 (01:06→21:09)
[2022-03-10] MEDS: GABAPENTIN 100 MG CAPSULE PO SCH ×3 (06:16→21:09)
[2022-03-10] MEDS: INSULIN (LEVEMIR) 100 UNITS/ML UNITS SQ SCH ×2 (06:19→16:58)
[2022-03-10] MEDS: INSULIN SLIDING SCALE (NOVOLOG) 1 VIAL SQ SCH ×4 (06:19→21:15)
[2022-03-10] MEDS ORDERED: INSULIN (LEVEMIR) 100 UNITS/ML UNITS SQ ONE (06:51)
[2022-03-10] MEDS ORDERED: INSULIN SLIDING SCALE (NOVOLOG) 1 VIAL SQ ONE (06:52)
[2022-03-10 07:40] LABS: HEMATOCRIT 24.7 % (32.4-45.2); HEMOGLOBIN 8.8 GM/dL (10.7-15.3); MCH 32.3 pg (25.7-33.7); MCHC 35.7 g/dl (32.0-36.0); MEAN CELL VOLUME 90.7 fl (80-96); MEAN PLT VOLUME 7.7 fl (7.5-11.1); PLATELET COUNT 298 10^3/uL (134-434); RBC 2.73 M/mm3 (3.60-5.2); WHITE BLOOD COUNT 8.7 K/mm3 (4.0-10.0)
[2022-03-10 08:00] LABS: CALCIUM 8.4 mg/dL (8.5-10.1)
[2022-03-10 08:02] LABS: BLOOD UREA NITROGEN 12.1 mg/dL (7-18)
[2022-03-10 08:04] LABS: CREATININE 1.1 mg/dL (0.55-1.3); PHOSPHOROUS 5.3 mg/dL (2.5-4.9)
[2022-03-10] MEDS ORDERED: DEXTROSE 5%-WATER - 50 ML IVPB ONE (09:02)
[2022-03-10] MEDS ORDERED: cefTRIAXone SODIUM 1 GM VIAL ONE (09:02)
[2022-03-10] MEDS: CEFTRIAXONE 1 GM in DEXTROSE 5%-WATER - 50 ML IVPB SCH (09:03)
[2022-03-10] MEDS: DOCUSATE SODIUM 100 MG CAPSULE (FP) PO SCH (11:25)
[2022-03-10] MEDS: LIDOCAINE PATCH REMOVAL MC SCH (12:50)
[2022-03-10] MEDS: LIDOCAINE 5% TOPICAL PATCH TP SCH (21:09)
[2022-03-11] MEDS: HYDROmorphone HCl 2 MG/ML VIAL IVPB PRN ×2 (01:12→05:12)
[2022-03-11] MEDS: LACTATED RINGERS SOLUTION 1,000 ML/1,000 ML INFUS.BAG IV SCH ×2 (01:57→13:26)
[2022-03-11] MEDS: GABAPENTIN 100 MG CAPSULE PO SCH ×3 (05:12→22:00)
[2022-03-11] MEDS: INSULIN SLIDING SCALE (NOVOLOG) 1 VIAL SQ SCH ×4 (06:02→22:00)
[2022-03-11] MEDS: INSULIN (LEVEMIR) 100 UNITS/ML UNITS SQ SCH ×2 (06:02→17:26)
[2022-03-11 06:34] LABS: HEMATOCRIT 24.6 % (32.4-45.2); HEMOGLOBIN 8.6 GM/dL (10.7-15.3); MCH 32.1 pg (25.7-33.7); MCHC 35.1 g/dl (32.0-36.0); MEAN CELL VOLUME 91.4 fl (80-96); MEAN PLT VOLUME 7.5 fl (7.5-11.1); PLATELET COUNT 310 10^3/uL (134-434); RBC 2.69 M/mm3 (3.60-5.2); WHITE BLOOD COUNT 8.7 K/mm3 (4.0-10.0)
[2022-03-11 06:46] LABS: CALCIUM 8.3 mg/dL (8.5-10.1)
[2022-03-11 06:47] LABS: BLOOD UREA NITROGEN 13.7 mg/dL (7-18); MAGNESIUM 1.8 mg/dL (1.8-2.4)
[2022-03-11 06:50] LABS: CREATININE 1.1 mg/dL (0.55-1.3); PHOSPHOROUS 4.4 mg/dL (2.5-4.9)
[2022-03-11] MEDS ORDERED: HYDROmorphone HCl 2 MG/ML VIAL IVPB PRN ×2 (08:00→08:06)
[2022-03-11] MEDS ORDERED: cefTRIAXone SODIUM 1 GM VIAL ONE (09:14)
[2022-03-11] MEDS ORDERED: DEXTROSE 5%-WATER - 50 ML IVPB ONE (09:15)
[2022-03-11] MEDS: CEFTRIAXONE 1 GM in DEXTROSE 5%-WATER - 50 ML IVPB SCH (09:41)
[2022-03-11] MEDS: LIDOCAINE PATCH REMOVAL MC SCH (09:42)
[2022-03-11] MEDS: DOCUSATE SODIUM 100 MG CAPSULE (FP) PO SCH (13:22)
[2022-03-11] MEDS: LIDOCAINE 5% TOPICAL PATCH TP SCH (22:00)
[2022-03-12] MEDS: GABAPENTIN 100 MG CAPSULE PO SCH ×3 (06:52→22:27)
[2022-03-12] MEDS: INSULIN (LEVEMIR) 100 UNITS/ML UNITS SQ SCH ×2 (07:20→17:19)
[2022-03-12] MEDS: INSULIN SLIDING SCALE (NOVOLOG) 1 VIAL SQ SCH ×4 (07:21→22:29)
[2022-03-12] MEDS: LIDOCAINE PATCH REMOVAL MC SCH (10:11)
[2022-03-12] MEDS: DOCUSATE SODIUM 100 MG CAPSULE (FP) PO SCH (10:12)
[2022-03-12] MEDS: LIDOCAINE 5% TOPICAL PATCH TP SCH (22:27)
[2022-03-13] MEDS: GABAPENTIN 100 MG CAPSULE PO SCH ×3 (06:10→21:46)
[2022-03-13] MEDS: INSULIN SLIDING SCALE (NOVOLOG) 1 VIAL SQ SCH ×4 (06:19→21:34)
[2022-03-13] MEDS: INSULIN (LEVEMIR) 100 UNITS/ML UNITS SQ SCH ×2 (06:19→17:18)
[2022-03-13 09:07] LABS: HEMATOCRIT 25.4 % (32.4-45.2); HEMOGLOBIN 9.2 GM/dL (10.7-15.3); MCH 32.8 pg (25.7-33.7); MCHC 36.3 g/dl (32.0-36.0); MEAN CELL VOLUME 90.4 fl (80-96); PLATELET COUNT 458 10^3/uL (134-434); RBC 2.81 M/mm3 (3.60-5.2); RDW 11.9 % (11.6-15.6); WHITE BLOOD COUNT 9.2 K/mm3 (4.0-10.0)
[2022-03-13 09:29] LABS: CALCIUM 9.1 mg/dL (8.5-10.1); MAGNESIUM 2.4 mg/dL (1.8-2.4)
[2022-03-13 09:30] LABS: BLOOD UREA NITROGEN 28.6 mg/dL (7-18)
[2022-03-13 09:33] LABS: CREATININE 1.4 mg/dL (0.55-1.3)
[2022-03-13] MEDS: LIDOCAINE PATCH REMOVAL MC SCH (10:35)
[2022-03-13] MEDS: DOCUSATE SODIUM 100 MG CAPSULE (FP) PO SCH (10:35)
[2022-03-13] MEDS: INSULIN (NOVOLOG) ASPART 100 UNITS/ML 10ML VIAL SQ SCH (17:18)
[2022-03-13] MEDS ORDERED: FLUCONAZOLE 40 MG/ML SUSPENSION PO ONE (19:00)
[2022-03-13] MEDS: LIDOCAINE 5% TOPICAL PATCH TP SCH (21:46)
[2022-03-13] MEDS: NYSTATIN POWDER 100,000 UNITS/GM - 15 GM TOPICAL POWDER TP SCH (21:46)
[2022-03-14] MEDS: GABAPENTIN 100 MG CAPSULE PO SCH ×3 (06:14→22:05)
[2022-03-14] MEDS: INSULIN (LEVEMIR) 100 UNITS/ML UNITS SQ SCH ×2 (06:18→17:20)
[2022-03-14] MEDS: INSULIN SLIDING SCALE (NOVOLOG) 1 VIAL SQ SCH ×4 (06:18→22:11)
[2022-03-14] MEDS: INSULIN (NOVOLOG) ASPART 100 UNITS/ML 10ML VIAL SQ SCH ×3 (06:19→17:06)
[2022-03-14 08:36] LABS: HEMATOCRIT 23.8 % (32.4-45.2); HEMOGLOBIN 8.3 GM/dL (10.7-15.3); MCH 32.6 pg (25.7-33.7); MEAN PLT VOLUME 7.4 fl (7.5-11.1); PLATELET COUNT 436 10^3/uL (134-434); RBC 2.56 M/mm3 (3.60-5.2); RDW 12.1 % (11.6-15.6); WHITE BLOOD COUNT 8.4 K/mm3 (4.0-10.0)
[2022-03-14 08:52] LABS: CHLORIDE 101 mmol/L (98-107); SODIUM 134 mmol/L (136-145)
[2022-03-14 09:11] LABS: CALCIUM 8.5 mg/dL (8.5-10.1)
[2022-03-14 09:12] LABS: ANION GAP 10 MMOL/L (8-16); BLOOD UREA NITROGEN 39.8 mg/dL (7-18); CO2 23 mmol/L (21-32); MAGNESIUM 2.4 mg/dL (1.8-2.4)
[2022-03-14 09:13] LABS: CREATININE 1.7 mg/dL (0.55-1.3); PHOSPHOROUS 5.1 mg/dL (2.5-4.9)
[2022-03-14 09:15] LABS: GLUCOSE,RANDOM 449 mg/dL (74-106)
[2022-03-14] MEDS: DOCUSATE SODIUM 100 MG CAPSULE (FP) PO SCH (10:23)
[2022-03-14] MEDS: LIDOCAINE PATCH REMOVAL MC SCH (10:23)
[2022-03-14] MEDS: SODIUM CHLORIDE 1,000 ML IV SCH (10:23)
[2022-03-14] MEDS: NYSTATIN POWDER 100,000 UNITS/GM - 15 GM TOPICAL POWDER TP SCH ×2 (10:24→22:11)
[2022-03-14] MEDS: FLUCONAZOLE 40 MG/ML SUSPENSION PO SCH (11:55)
[2022-03-14] MEDS ORDERED: MISOPROSTOL 200 MCG TABLET PV ONE (16:56)
[2022-03-14] MEDS: LIDOCAINE 5% TOPICAL PATCH TP SCH (22:05)
[2022-03-15] MEDS: GABAPENTIN 100 MG CAPSULE PO SCH ×3 (05:21→22:38)
[2022-03-15] MEDS: INSULIN (LEVEMIR) 100 UNITS/ML UNITS SQ SCH ×2 (06:35→16:49)
[2022-03-15] MEDS: INSULIN (NOVOLOG) ASPART 100 UNITS/ML 10ML VIAL SQ SCH ×3 (06:35→16:50)
[2022-03-15] MEDS: INSULIN SLIDING SCALE (NOVOLOG) 1 VIAL SQ SCH ×4 (06:36→22:38)
[2022-03-15 08:25] LABS: BASO % 0.3 % (0-2.0); EOS % 1.9 % (0-4.5); HEMATOCRIT 24.1 % (32.4-45.2); HEMOGLOBIN 8.3 GM/dL (10.7-15.3); MCH 31.8 pg (25.7-33.7); MCHC 34.5 g/dl (32.0-36.0); MEAN CELL VOLUME 92.3 fl (80-96); MEAN PLT VOLUME 7.2 fl (7.5-11.1); MONO % 8.6 % (3.8-10.2); NEUT % 52.2 % (42.8-82.8); PLATELET COUNT 475 10^3/uL (134-434); RBC 2.61 M/mm3 (3.60-5.2); RDW 12.2 % (11.6-15.6); WHITE BLOOD COUNT 10.3 K/mm3 (4.0-10.0)
[2022-03-15] MEDS: SODIUM CHLORIDE 1,000 ML IV SCH (09:58)
[2022-03-15] MEDS: NYSTATIN POWDER 100,000 UNITS/GM - 15 GM TOPICAL POWDER TP SCH ×2 (10:07→23:10)
[2022-03-15] MEDS: DOCUSATE SODIUM 100 MG CAPSULE (FP) PO SCH (10:07)
[2022-03-15] MEDS: LIDOCAINE PATCH REMOVAL MC SCH (10:07)
[2022-03-15] MEDS: FLUCONAZOLE 40 MG/ML SUSPENSION PO SCH (12:05)
[2022-03-15] MEDS: LIDOCAINE 5% TOPICAL PATCH TP SCH (22:38)
[2022-03-16] MEDS: GABAPENTIN 100 MG CAPSULE PO SCH ×2 (05:52→15:06)
[2022-03-16] MEDS: INSULIN (LEVEMIR) 100 UNITS/ML UNITS SQ SCH (06:32)
[2022-03-16] MEDS: INSULIN (NOVOLOG) ASPART 100 UNITS/ML 10ML VIAL SQ SCH ×2 (06:33→11:19)
[2022-03-16] MEDS: INSULIN SLIDING SCALE (NOVOLOG) 1 VIAL SQ SCH ×2 (06:34→11:20)
[2022-03-16 07:46] LABS: ALBUMIN 2.3 g/dl (3.4-5.0); BLOOD UREA NITROGEN 39.8 mg/dL (7-18); CALCIUM 8.4 mg/dL (8.5-10.1)
[2022-03-16 07:50] LABS: CREATININE 1.7 mg/dL (0.55-1.3)
[2022-03-16 07:51] LABS: BILIRUBIN,TOTAL 0.1 mg/dL (0.2-1)
[2022-03-16] MEDS: LIDOCAINE PATCH REMOVAL MC SCH (10:24)
[2022-03-16] MEDS: SODIUM CHLORIDE 1,000 ML IV SCH (10:24)
[2022-03-16] MEDS: NYSTATIN POWDER 100,000 UNITS/GM - 15 GM TOPICAL POWDER TP SCH (10:25)
[2022-03-16] MEDS: DOCUSATE SODIUM 100 MG CAPSULE (FP) PO SCH (10:25)
[2022-03-16] MEDS: FLUCONAZOLE 40 MG/ML SUSPENSION PO SCH (11:13)
[2022-03-16 14:20] VITALS: BP 150/80; PULSE 102; TEMP 98.5
== END 2022-03-16 16:05 | disposition home or self-care (01) | DRG 566 ==
LOC: JER 13:15 → JERFT 13:15 → JERBED 22:39 → JICU 03-05 12:42 → J4S 03-06 16:10
PROVIDERS: ADMIT Hospitalist; ATTEND Nurse Practitioner Acute Care
PROC: 05HM33Z Insertion of Infusion Device into Right Internal Jugular Vein, Percutaneous Approach (ICD-10-PCS; principal; 2022-03-05)
PROC: B543ZZA Ultrasonography of Right Jugular Veins, Guidance (ICD-10-PCS; 2022-03-05)
DX: O98.511 Other viral diseases complicating pregnancy, first trimester (principal); U07.1 COVID-19; E10.10 Type 1 diabetes mellitus with ketoacidosis without coma; N17.9 Acute kidney failure, unspecified; E10.42 Type 1 diabetes mellitus with diabetic polyneuropathy; E10.43 Type 1 diabetes mellitus with diabetic autonomic (poly)neuropathy; E10.65 Type 1 diabetes mellitus with hyperglycemia; O23.41 Unspecified infection of urinary tract in pregnancy, first trimester; O24.011 Pre-existing type 1 diabetes mellitus, in pregnancy, first trimester; G43.909 Migraine, unspecified, not intractable, without status migrainosus; G89.29 Other chronic pain; I69.351 Hemiplegia and hemiparesis following cerebral infarction affecting right dominant side; J45.20 Mild intermittent asthma, uncomplicated; O20.0 Threatened abortion; Z91.19 Patient's noncompliance with other medical treatment and regimen; O10.911 Unspecified pre-existing hypertension complicating pregnancy, first trimester; Z3A.12 12 weeks gestation of pregnancy
CPT/HCPCS: 0241U-QW; 36415; 71045-TC-FY; 71046-TC-FY; 76817-TC; 76830-TC; 80048; 80053; 81003; 82010; 82803; 82962; 83036; 83605; 83735; 84100; 84702; 84703; 85025; 85027; 85610; 85730; 87086; 87186; 88300-TC; 93005; 93010; 97116-GP; 97161-GP; 99285-25; C9803-CS; U0003; U0005

== ENCOUNTER 2022-06-17 04:07 | Day surgery (SDC) | payer OTHER ==
[2022-06-15 17:17] VITALS: BMI 26.6
[2022-06-17] MEDS ORDERED: BUPIVACAINE HCL/PF 0.5% (5MG/ML) 10 ML VIAL ONE (09:06)
[2022-06-17] MEDS ORDERED: LIDOCAINE 1%/EPI 1:100000 (20 ML MULTI DOSE VIAL) ONE (09:06)
[2022-06-17] MEDS ORDERED: PROPOFOL 40 ML ONE (09:32)
[2022-06-17] MEDS ORDERED: DEXAMETHASONE SOD PHOSPHATE 4 MG/1 ML VIAL ONE (09:32)
[2022-06-17] MEDS ORDERED: ONDANSETRON 4 MG/2 ML VIAL ONE (09:32)
[2022-06-17] MEDS ORDERED: ceFAZolin SODIUM 1 GM VIAL IVPB ONE (09:51)
[2022-06-17] MEDS ORDERED: BUPIVACAINE HCL/PF 0.5% (5MG/ML) 10 ML VIAL IJ ONE (10:02)
[2022-06-17] MEDS ORDERED: LIDOCAINE 1%/EPI 1:100000 (20 ML MULTI DOSE VIAL) IJ ONE (10:03)
[2022-06-17] MEDS ORDERED: oxyCODONE HCL 5 MG TABLET PO PRN (10:29)
[2022-06-17] MEDS: HYDROmorphone HCL CARPU-JECT 2 MG/1 ML DISP.SYRIN IVPUSH ONE ×2 (10:45→11:00)
[2022-06-17] MEDS ORDERED: HYDROmorphone HCl 2 MG/ML VIAL ONE (10:47)
[2022-06-17 13:55] VITALS: RESP 18
[2022-06-17 14:48] VITALS: BP 155/96; PULSE 100; TEMP 98.6
== END 2022-06-17 15:20 | disposition home or self-care (01) ==
LOC: JASU-SURG 04:07
PROVIDERS: ATTEND Orthopaedic Surgery
PROC: 0SBD4ZZ Excision of Left Knee Joint, Percutaneous Endoscopic Approach (ICD-10-PCS; principal; 2022-06-17 08:45)
DX: M23.92 Unspecified internal derangement of left knee (principal)
CPT/HCPCS: 81025; 82962; 94760

== ENCOUNTER 2022-06-17 21:16 | Observation (INO) | payer OTHER ==
[2022-06-17 21:26] VITALS: BMI 26.6
[2022-06-17] MEDS ORDERED: HYDROmorphone HCL CARPU-JECT 2 MG/1 ML DISP.SYRIN IVPUSH ONE ×2 (23:25)
[2022-06-17] MEDS ORDERED: SODIUM CHLORIDE 0.9% 500 ML INFUS.BAG IV ONE (23:25)
[2022-06-17] MEDS ORDERED: HYDROmorphone HCl 2 MG/ML VIAL ONE (23:41)
[2022-06-18] MEDS ORDERED: HYDROmorphone HCL CARPU-JECT 2 MG/1 ML DISP.SYRIN IVPUSH ONE (01:40)
[2022-06-18] MEDS ORDERED: SENNOSIDES 8.6MG TABLET (FP) PO PRN (02:44)
[2022-06-18 03:29] LABS: BASO % 0.6 % (0-2.0); EOS % 0.4 % (0-4.5); HEMATOCRIT 34.2 % (32.4-45.2); HEMOGLOBIN 11.6 GM/dL (10.7-15.3); LYMPH % 28.6 % (8-40); MCH 31.6 pg (25.7-33.7); MEAN CELL VOLUME 92.7 fl (80-96); MEAN PLT VOLUME 7.2 fl (7.5-11.1); MONO % 8.4 % (3.8-10.2); PLATELET COUNT 383 10^3/uL (134-434); RBC 3.69 M/mm3 (3.60-5.2); RDW 12.1 % (11.6-15.6); WHITE BLOOD COUNT 9.3 K/mm3 (4.0-10.0)
[2022-06-18] MEDS ORDERED: HYDROmorphone HCl 2 MG/ML VIAL IVPB PRN ×3 (03:43→08:01)
[2022-06-18 03:46] LABS: CALCIUM 8.7 mg/dL (8.5-10.1)
[2022-06-18 03:48] LABS: ALBUMIN 3.2 g/dl (3.4-5.0); BLOOD UREA NITROGEN 15.9 mg/dL (7-18)
[2022-06-18 03:50] LABS: CREATININE 1.3 mg/dL (0.55-1.3)
[2022-06-18 03:51] LABS: TOT PROT 6.7 g/dl (6.4-8.2)
[2022-06-18 03:53] LABS: BILIRUBIN,TOTAL 0.3 mg/dL (0.2-1)
[2022-06-18] MEDS ORDERED: HYDROmorphone HCl 2 MG/ML VIAL ONE ×2 (05:08→09:49)
[2022-06-18] MEDS: INSULIN SLIDING SCALE (NOVOLOG) 1 VIAL SQ SCH ×3 (07:20→16:50)
[2022-06-18] MEDS ORDERED: HYDROmorphone HCl 2 MG/ML VIAL IVPUSH ONE (09:24)
[2022-06-18] MEDS ORDERED: DOCUSATE SODIUM 100 MG CAPSULE (FP) PO ONE (09:48)
[2022-06-18] MEDS ORDERED: ENOXAPARIN NA (PORCINE) 40 MG/0.4 ML DISP.SYRIN SQ ONE (09:50)
[2022-06-18] MEDS: ENOXAPARIN NA (PORCINE) 40 MG/0.4 ML DISP.SYRIN SQ SCH (10:11)
[2022-06-18] MEDS: DOCUSATE SODIUM 100 MG CAPSULE (FP) PO SCH (10:11)
[2022-06-18] MEDS: HYDROmorphone HCl 2 MG/ML VIAL IVPUSH SCH ×3 (12:28→20:42)
[2022-06-18] MEDS: LORazepam 2 MG/ML SDV VIAL IVPUSH ONE ×2 (20:45→20:56)
[2022-06-18] MEDS: hydrALAZINE HCL 20 MG/ML VIAL IVPUSH PRN (21:37)
[2022-06-19] MEDS: HYDROmorphone HCl 2 MG/ML VIAL IVPB PRN ×6 (00:43→21:14)
[2022-06-19] MEDS ORDERED: LORazepam 2 MG/ML SDV VIAL IVPUSH PRN (03:52)
[2022-06-19] MEDS: hydrALAZINE HCL 20 MG/ML VIAL IVPUSH PRN (06:56)
[2022-06-19] MEDS: ENOXAPARIN NA (PORCINE) 40 MG/0.4 ML DISP.SYRIN SQ SCH (09:00)
[2022-06-19] MEDS: DOCUSATE SODIUM 100 MG CAPSULE (FP) PO SCH (09:01)
[2022-06-19] MEDS: LOSARTAN POTASSIUM 25 MG TABLET PO SCH (09:03)
[2022-06-19] MEDS ORDERED: METOPROLOL TARTRATE 25 MG TABLET (FP) PO SCH (10:00)
[2022-06-19 10:39] LABS: CALCIUM 9.2 mg/dL (8.5-10.1)
[2022-06-19 10:40] LABS: ALBUMIN 3.1 g/dl (3.4-5.0); BLOOD UREA NITROGEN 10.4 mg/dL (7-18)
[2022-06-19 10:43] LABS: CREATININE 1.3 mg/dL (0.55-1.3)
[2022-06-19 10:44] LABS: BILIRUBIN,TOTAL 0.4 mg/dL (0.2-1); TOT PROT 6.9 g/dl (6.4-8.2)
[2022-06-19] MEDS: hydrALAZINE HCL 20 MG/ML VIAL IVPB PRN ×2 (15:01→23:31)
[2022-06-20] MEDS: HYDROmorphone HCl 2 MG/ML VIAL IVPB PRN ×6 (01:18→22:34)
[2022-06-20] MEDS: DOCUSATE SODIUM 100 MG CAPSULE (FP) PO SCH (11:25)
[2022-06-20] MEDS: LOSARTAN POTASSIUM 25 MG TABLET PO SCH (11:25)
[2022-06-20] MEDS: ENOXAPARIN NA (PORCINE) 40 MG/0.4 ML DISP.SYRIN SQ SCH (11:26)
[2022-06-20 13:26] LABS: MAGNESIUM 2.1 mg/dL (1.8-2.4)
[2022-06-20 13:30] LABS: PHOSPHOROUS 3.9 mg/dL (2.5-4.9)
[2022-06-21] MEDS: HYDROmorphone HCl 2 MG/ML VIAL IVPB PRN ×2 (02:36→06:36)
[2022-06-21] MEDS ORDERED: oxyCODONE HCL 5 MG TABLET PO PRN (09:00)
[2022-06-21] MEDS: DOCUSATE SODIUM 100 MG CAPSULE (FP) PO SCH (12:09)
[2022-06-21] MEDS: LOSARTAN POTASSIUM 25 MG TABLET PO SCH (12:09)
[2022-06-21] MEDS: ENOXAPARIN NA (PORCINE) 40 MG/0.4 ML DISP.SYRIN SQ SCH (12:09)
[2022-06-21] MEDS: INSULIN SLIDING SCALE (NOVOLOG) 1 VIAL SQ SCH ×2 (12:10→22:11)
[2022-06-22 07:13] VITALS: TEMP 98.6
[2022-06-22] MEDS: INSULIN SLIDING SCALE (NOVOLOG) 1 VIAL SQ SCH ×5 (07:26→21:34)
[2022-06-22] MEDS: ENOXAPARIN NA (PORCINE) 40 MG/0.4 ML DISP.SYRIN SQ SCH (10:05)
[2022-06-22] MEDS: LOSARTAN POTASSIUM 25 MG TABLET PO SCH (10:05)
[2022-06-22] MEDS: DOCUSATE SODIUM 100 MG CAPSULE (FP) PO SCH (10:05)
[2022-06-22 23:41] VITALS: BP 151/99; PULSE 108; RESP 18
[2022-06-23] MEDS: INSULIN SLIDING SCALE (NOVOLOG) 1 VIAL SQ SCH ×2 (06:04→12:26)
[2022-06-23] MEDS: LOSARTAN POTASSIUM 25 MG TABLET PO SCH (10:55)
[2022-06-23] MEDS: DOCUSATE SODIUM 100 MG CAPSULE (FP) PO SCH (10:55)
[2022-06-23] MEDS: ENOXAPARIN NA (PORCINE) 40 MG/0.4 ML DISP.SYRIN SQ SCH (10:55)
== END 2022-06-23 15:51 | disposition home or self-care (01) ==
LOC: JER 21:16 → UNDOADMOB 06-18 01:39 → INTOOBSV 06-18 01:39 → JERBED 06-18 01:39 → J7W 06-18 11:19
PROVIDERS: ADMIT Internal Medicine; ATTEND Internal Medicine
DX: Z53.29 Procedure and treatment not carried out because of patient's decision for other reasons (principal); Z96.41 Presence of insulin pump (external) (internal); E10.10 Type 1 diabetes mellitus with ketoacidosis without coma; K31.84 Gastroparesis; M62.81 Muscle weakness (generalized); G89.29 Other chronic pain; M54.9 Dorsalgia, unspecified; Z88.8 Allergy status to other drugs, medicaments and biological substances
CPT/HCPCS: 36415; 73560-TC-LT-FY; 80053; 82962; 83735; 84100; 85025; 93005; 93010; 97116-GP; 97161-GP; 99285-25; C9803-CS; G0378; U0003; U0005

== ENCOUNTER 2023-02-17 22:23 | Inpatient (IN) | payer OTHER ==
[2023-02-17] MEDS ORDERED: SODIUM CHLORIDE 0.9% 500 ML INFUS.BAG IV ONE (23:14)
[2023-02-17 23:34] LABS: BASO % 0.4 % (0-2.0); EOS % 0.8 % (0-4.5); HEMATOCRIT 34.6 % (32.4-45.2); LYMPH % 18.7 % (8-40); MCH 30.7 pg (25.7-33.7); MCHC 34.7 g/dl (32.0-36.0); MEAN CELL VOLUME 88.5 fl (80-96); MEAN PLT VOLUME 6.7 fl (7.5-11.1); MONO % 5.6 % (3.8-10.2); NEUT % 74.5 % (42.8-82.8); PLATELET COUNT 488 10^3/uL (134-434); RBC 3.92 M/mm3 (3.60-5.2); WHITE BLOOD COUNT 12.1 K/mm3 (4.0-10.0)
[2023-02-17 23:54] LABS: CHLORIDE 110 mmol/L (98-107); POTASSIUM 4.1 mmol/L (3.5-5.1); SODIUM 138 mmol/L (136-145)
[2023-02-17 23:58] LABS: ALBUMIN 3.1 g/dl (3.4-5.0); ANION GAP 7 MMOL/L (8-16); BLOOD UREA NITROGEN 18.5 mg/dL (7-18); CALCIUM 8.6 mg/dL (8.5-10.1); CO2 21 mmol/L (21-32); GLUCOSE,RANDOM 109 mg/dL (74-106)
[2023-02-18 00:02] LABS: CREATININE 1.6 mg/dL (0.55-1.3); SGOT/AST 15 U/L (15-37); SGPT/ALT 19 U/L (13-61)
[2023-02-18 00:04] LABS: BILIRUBIN,TOTAL 0.3 mg/dL (0.2-1); TOT PROT 7.7 g/dl (6.4-8.2)
[2023-02-18 00:05] LABS: ALK PHOS 167 U/L (45-117)
[2023-02-18] MEDS ORDERED: SODIUM CHLORIDE 0.9% 500 ML INFUS.BAG IV ONE (04:30)
[2023-02-18] MEDS ORDERED: DEXTROSE 50%-WATER - 25 GM/50 ML VIAL IVPUSH ONE (04:34)
[2023-02-18] MEDS ORDERED: DEXTROSE 50%-WATER 25 GM/50 ML DISP.SYRIN ONE ×2 (04:35→10:05)
[2023-02-18] MEDS ORDERED: SODIUM CHLORIDE 1,000 ML IV SCH ×2 (05:15→05:30)
[2023-02-18] MEDS ORDERED: PYRIDOXINE HCL (B-6) 50 MG TABLET (FP) PO SCH (05:45)
[2023-02-18] MEDS ORDERED: INSULIN REGULAR HUMAN 100 UNITS/ML *VIAL SQ SCH ×2 (06:00→07:45)
[2023-02-18] MEDS ORDERED: INSULIN SLIDING SCALE (NOVOLOG) 1 VIAL SQ SCH (07:00)
[2023-02-18] MEDS ORDERED: LIDOCAINE 5% TOPICAL PATCH TP SCH ×2 (10:00)
[2023-02-18] MEDS ORDERED: DEXTROSE 50%-WATER 25 GM/50 ML DISP.SYRIN IVPUSH ONE (10:03)
[2023-02-18 10:08] LABS: EPI CELLS >36 /uL (0-25.1); HYALINE CASTS 1 /uL (0-3.1); PH,URINE 6.5 (5.0-8.0); URINE APPEARANCE CLEAR; URINE BACTERIA 98 /uL (0-1359); URINE BILIRUBIN NEGATIVE (NEGATIVE); URINE COLOR YELLOW; URINE GLUCOSE (UA) 2+ (NEGATIVE); URINE KETONE TRACE (NEGATIVE); URINE LEUK ESTERASE NEGATIVE (NEGATIVE); URINE NITRITE NEGATIVE (NEGATIVE); URINE PROTEIN 4+ (NEGATIVE); URINE RBC 33 /uL (0-23.9); URINE UROBILINOGEN 0.2 mg/dL (0.2-1.0); URINE WBC 19 /uL (0-25.8)
[2023-02-18] MEDS: PRENATAL VITAMINS W/ FOLIC ACID TABLET (FP) PO SCH (10:30)
[2023-02-18] MEDS: AMINO ACIDS 4.25%/D5W 1,000 ML IV SCH (11:12)
[2023-02-18] MEDS: PYRIDOXINE HCL (B-6) 50 MG TABLET (FP) PO SCH ×2 (11:37→18:30)
[2023-02-18] MEDS: LIDOCAINE 5% TOPICAL PATCH TP SCH (11:37)
[2023-02-18] MEDS ORDERED: SODIUM CHLORIDE 0.45% 1,000 ML IV SCH (13:30)
[2023-02-18] MEDS: SODIUM CHLORIDE 0.45% 1,000 ML IV SCH (13:49)
[2023-02-18] MEDS: LIDOCAINE PATCH REMOVAL MC SCH (21:48)
[2023-02-19] MEDS: PYRIDOXINE HCL (B-6) 50 MG TABLET (FP) PO SCH ×4 (01:04→18:00)
[2023-02-19] MEDS: NIFEdipine E.R 60 MG TABLET PO SCH ×3 (01:04→11:34)
[2023-02-19] MEDS: LIDOCAINE 5% TOPICAL PATCH TP SCH (09:30)
[2023-02-19] MEDS: SODIUM CHLORIDE 0.45% 1,000 ML IV SCH (10:33)
[2023-02-19] MEDS: PRENATAL VITAMINS W/ FOLIC ACID TABLET (FP) PO SCH (11:34)
[2023-02-19] MEDS: AMINO ACIDS 4.25%/D5W 1,000 ML IV SCH (12:33)
[2023-02-19 17:57] LABS: HEMATOCRIT 30.7 % (32.4-45.2); HEMOGLOBIN 10.6 GM/dL (10.7-15.3); MCH 30.7 pg (25.7-33.7); MCHC 34.4 g/dl (32.0-36.0); MEAN PLT VOLUME 7.3 fl (7.5-11.1); PLATELET COUNT 394 10^3/uL (134-434); RBC 3.45 M/mm3 (3.60-5.2); RDW 12.7 % (11.6-15.6); WHITE BLOOD COUNT 10.7 K/mm3 (4.0-10.0)
[2023-02-19 18:15] LABS: POTASSIUM 4.2 mmol/L (3.5-5.1)
[2023-02-19 18:17] LABS: CALCIUM 8.5 mg/dL (8.5-10.1)
[2023-02-19 18:19] LABS: ALBUMIN 2.5 g/dl (3.4-5.0); BLOOD UREA NITROGEN 19.2 mg/dL (7-18); MAGNESIUM 1.9 mg/dL (1.8-2.4)
[2023-02-19 18:21] LABS: CREATININE 1.6 mg/dL (0.55-1.3); PHOSPHOROUS 3.8 mg/dL (2.5-4.9)
[2023-02-19 18:22] LABS: TOT PROT 6.5 g/dl (6.4-8.2)
[2023-02-19 18:23] LABS: BILIRUBIN,TOTAL 0.3 mg/dL (0.2-1)
[2023-02-19] MEDS: LIDOCAINE PATCH REMOVAL MC SCH (22:00)
[2023-02-20] MEDS: PYRIDOXINE HCL (B-6) 50 MG TABLET (FP) PO SCH ×4 (00:42→18:24)
[2023-02-20] MEDS ORDERED: DEXTROSE 50%-WATER - 25 GM/50 ML VIAL IVPUSH ONE ×2 (00:44→06:09)
[2023-02-20] MEDS ORDERED: DEXTROSE 50%-WATER 25 GM/50 ML DISP.SYRIN ONE (00:46)
[2023-02-20] MEDS: SODIUM CHLORIDE 0.45% 1,000 ML IV SCH ×2 (05:27→16:58)
[2023-02-20] MEDS: AMINO ACIDS 4.25%/D5W 1,000 ML IV SCH ×2 (05:28→13:01)
[2023-02-20] MEDS ORDERED: DEXTROSE 50%-WATER 25 GM/50 ML DISP.SYRIN IVPUSH ONE (06:30)
[2023-02-20] MEDS: LIDOCAINE 5% TOPICAL PATCH TP SCH (09:28)
[2023-02-20] MEDS: PRENATAL VITAMINS W/ FOLIC ACID TABLET (FP) PO SCH (09:42)
[2023-02-20] MEDS: NIFEdipine E.R 60 MG TABLET PO SCH (10:00)
[2023-02-20 11:43] LABS: BASO % 0.2 % (0-2.0); EOS % 1.2 % (0-4.5); HEMATOCRIT 24.7 % (32.4-45.2); HEMOGLOBIN 8.8 GM/dL (10.7-15.3); MCH 31.7 pg (25.7-33.7); MCHC 35.7 g/dl (32.0-36.0); MEAN CELL VOLUME 88.9 fl (80-96); MEAN PLT VOLUME 6.8 fl (7.5-11.1); NEUT % 67.6 % (42.8-82.8); PLATELET COUNT 301 10^3/uL (134-434); RBC 2.78 M/mm3 (3.60-5.2); RDW 12.5 % (11.6-15.6); WHITE BLOOD COUNT 8.6 K/mm3 (4.0-10.0)
[2023-02-20 11:59] LABS: POTASSIUM 3.7 mmol/L (3.5-5.1)
[2023-02-20 12:09] LABS: BLOOD UREA NITROGEN 19.8 mg/dL (7-18); MAGNESIUM 1.5 mg/dL (1.8-2.4)
[2023-02-20 12:12] LABS: CREATININE 1.3 mg/dL (0.55-1.3)
[2023-02-20 12:16] LABS: BILIRUBIN,TOTAL 0.5 mg/dL (0.2-1); CALCIUM 7.2 mg/dL (8.5-10.1)
[2023-02-20] MEDS ORDERED: POTASSIUM CHLORIDE 10 MEQ in AMINO ACIDS 4.25%/D5W 1,000 ML IV SCH (15:15)
[2023-02-20] MEDS ORDERED: MAGNESIUM SULF 50% (8.12 MEQ/2 ML-1 GM VIAL) IVPB ONE ×2 (15:30→17:47)
[2023-02-20] MEDS ORDERED: MAGNESIUM 2GM/50ML STERILE WATER IVPB IVPB ONE (17:00)
[2023-02-20] MEDS: LIDOCAINE PATCH REMOVAL MC SCH (21:12)
[2023-02-21] MEDS: PYRIDOXINE HCL (B-6) 50 MG TABLET (FP) PO SCH ×4 (00:27→18:55)
[2023-02-21] MEDS: SODIUM CHLORIDE 0.45% 1,000 ML IV SCH ×2 (05:34→16:03)
[2023-02-21 08:56] LABS: BASO % 0.5 % (0-2.0); EOS % 1.3 % (0-4.5); HEMATOCRIT 28.2 % (32.4-45.2); HEMOGLOBIN 9.7 GM/dL (10.7-15.3); LYMPH % 26.1 % (8-40); MCH 30.6 pg (25.7-33.7); MCHC 34.5 g/dl (32.0-36.0); MEAN CELL VOLUME 88.6 fl (80-96); MEAN PLT VOLUME 7.5 fl (7.5-11.1); MONO % 7.5 % (3.8-10.2); NEUT % 64.6 % (42.8-82.8); PLATELET COUNT 349 10^3/uL (134-434); RBC 3.19 M/mm3 (3.60-5.2); RDW 12.8 % (11.6-15.6)
[2023-02-21] MEDS: LIDOCAINE 5% TOPICAL PATCH TP SCH (09:21)
[2023-02-21 09:24] LABS: CALCIUM 8.1 mg/dL (8.5-10.1)
[2023-02-21 09:25] LABS: ALBUMIN 2.3 g/dl (3.4-5.0); BLOOD UREA NITROGEN 20.6 mg/dL (7-18); MAGNESIUM 2.2 mg/dL (1.8-2.4)
[2023-02-21] MEDS: NIFEdipine E.R 60 MG TABLET PO SCH (09:25)
[2023-02-21] MEDS: PRENATAL VITAMINS W/ FOLIC ACID TABLET (FP) PO SCH (09:25)
[2023-02-21 09:28] LABS: CREATININE 1.5 mg/dL (0.55-1.3)
[2023-02-21 09:29] LABS: BILIRUBIN,TOTAL 0.2 mg/dL (0.2-1)
[2023-02-21 11:57] LABS: RETICULOCYTES 1.66 % (0.5-1.5)
[2023-02-21] MEDS: POTASSIUM CHLORIDE 10 MEQ in AMINO ACIDS 4.25%/D5W 1,000 ML IV SCH ×2 (13:14→16:03)
[2023-02-21 17:20] LABS: EPI CELLS >36 /uL (0-25.1); HYALINE CASTS 0 /uL (0-3.1); URINE APPEARANCE CLEAR; URINE BACTERIA 806 /uL (0-1359); URINE BILIRUBIN NEGATIVE (NEGATIVE); URINE COLOR YELLOW; URINE GLUCOSE (UA) 2+ (NEGATIVE); URINE KETONE NEGATIVE (NEGATIVE); URINE LEUK ESTERASE NEGATIVE (NEGATIVE); URINE NITRITE NEGATIVE (NEGATIVE); URINE PROTEIN 3+ (NEGATIVE); URINE RBC 36 /uL (0-23.9); URINE UROBILINOGEN 0.2 mg/dL (0.2-1.0); URINE WBC 45 /uL (0-25.8)
[2023-02-21 17:41] LABS: COCAINE, UR NEGATIVE (NEGATIVE); METHADONE, UR NEGATIVE (NEGATIVE); OPIATES, URI NEGATIVE (NEGATIVE); PHENCYCLIDINE,URINE NEGATIVE (NEGATIVE); URINE AMPHETAMINES NEGATIVE (NEGATIVE); URINE BARBITURATES NEGATIVE (NEGATIVE); URINE BENZODIAZEPINES NEGATIVE (NEGATIVE)
[2023-02-21] MEDS: LIDOCAINE PATCH REMOVAL MC SCH (21:13)
[2023-02-21 23:12] VITALS: BMI 29.6
[2023-02-22] MEDS: PYRIDOXINE HCL (B-6) 50 MG TABLET (FP) PO SCH ×4 (00:27→18:23)
[2023-02-22] MEDS: POTASSIUM CHLORIDE 10 MEQ in AMINO ACIDS 4.25%/D5W 1,000 ML IV SCH ×2 (04:24→14:04)
[2023-02-22] MEDS ORDERED: hydrALAZINE HCL 20 MG/ML VIAL IVPB PRN (08:12)
[2023-02-22 08:58] LABS: BASO % 0.4 % (0-2.0); EOS % 1.5 % (0-4.5); HEMATOCRIT 27.8 % (32.4-45.2); HEMOGLOBIN 9.8 GM/dL (10.7-15.3); LYMPH % 25.6 % (8-40); MCH 31.1 pg (25.7-33.7); MCHC 35.4 g/dl (32.0-36.0); MEAN CELL VOLUME 87.9 fl (80-96); MEAN PLT VOLUME 7.6 fl (7.5-11.1); NEUT % 64.5 % (42.8-82.8); PLATELET COUNT 328 10^3/uL (134-434); RBC 3.16 M/mm3 (3.60-5.2); RDW 12.6 % (11.6-15.6); WHITE BLOOD COUNT 9.6 K/mm3 (4.0-10.0)
[2023-02-22 09:14] LABS: POTASSIUM 4.2 mmol/L (3.5-5.1)
[2023-02-22 09:18] LABS: ALBUMIN 2.3 g/dl (3.4-5.0); CALCIUM 8.3 mg/dL (8.5-10.1); MAGNESIUM 1.9 mg/dL (1.8-2.4)
[2023-02-22 09:19] LABS: BLOOD UREA NITROGEN 25.1 mg/dL (7-18)
[2023-02-22 09:22] LABS: CREATININE 1.5 mg/dL (0.55-1.3)
[2023-02-22 09:23] LABS: BILIRUBIN,TOTAL 0.6 mg/dL (0.2-1); TOT PROT 6.1 g/dl (6.4-8.2)
[2023-02-22] MEDS: LIDOCAINE 5% TOPICAL PATCH TP SCH (09:30)
[2023-02-22] MEDS: PRENATAL VITAMINS W/ FOLIC ACID TABLET (FP) PO SCH (09:30)
[2023-02-22] MEDS: POLYETHYLENE GLYCOL (HEALTHYLAX) 3350 17 GM PACKET PO SCH (21:50)
[2023-02-22] MEDS: LIDOCAINE PATCH REMOVAL MC SCH (21:50)
[2023-02-23] MEDS: PYRIDOXINE HCL (B-6) 50 MG TABLET (FP) PO SCH (00:11)
[2023-02-23] MEDS ORDERED: PYRIDOXINE HCL (B-6) 50 MG TABLET (FP) PO SCH (06:00)
[2023-02-23] MEDS: POTASSIUM CHLORIDE 10 MEQ in AMINO ACIDS 4.25%/D5W 1,000 ML IV SCH ×2 (06:32→21:22)
[2023-02-23 09:28] LABS: BASO % 0.5 % (0-2.0); EOS % 1.7 % (0-4.5); HEMOGLOBIN 10.5 GM/dL (10.7-15.3); LYMPH % 26.8 % (8-40); MCH 31.3 pg (25.7-33.7); MCHC 34.9 g/dl (32.0-36.0); MEAN CELL VOLUME 89.7 fl (80-96); MONO % 6.9 % (3.8-10.2); NEUT % 64.1 % (42.8-82.8); PLATELET COUNT 382 10^3/uL (134-434); RBC 3.35 M/mm3 (3.60-5.2); RDW 12.4 % (11.6-15.6); WHITE BLOOD COUNT 9.8 K/mm3 (4.0-10.0)
[2023-02-23 09:36] LABS: POTASSIUM 4.3 mmol/L (3.5-5.1)
[2023-02-23 09:41] LABS: ALBUMIN 2.5 g/dl (3.4-5.0); CALCIUM 8.6 mg/dL (8.5-10.1)
[2023-02-23 09:43] LABS: BLOOD UREA NITROGEN 34.1 mg/dL (7-18); MAGNESIUM 1.9 mg/dL (1.8-2.4)
[2023-02-23 09:45] LABS: CREATININE 1.6 mg/dL (0.55-1.3)
[2023-02-23 09:46] LABS: BILIRUBIN,TOTAL 0.2 mg/dL (0.2-1); TOT PROT 6.5 g/dl (6.4-8.2)
[2023-02-23] MEDS: POLYETHYLENE GLYCOL (HEALTHYLAX) 3350 17 GM PACKET PO SCH ×2 (10:11→21:23)
[2023-02-23] MEDS: LIDOCAINE 5% TOPICAL PATCH TP SCH (10:12)
[2023-02-23] MEDS: PRENATAL VITAMINS W/ FOLIC ACID TABLET (FP) PO SCH (10:12)
[2023-02-23] MEDS: SODIUM CHLORIDE 0.45% 1,000 ML IV SCH (15:58)
[2023-02-23] MEDS: PYRIDOXINE HCL 100 MG/1 ML VIAL IVPB SCH ×2 (15:59→21:22)
[2023-02-23] MEDS ORDERED: INSULIN SLIDING SCALE (NOVOLOG) 1 VIAL SQ SCH (16:30)
[2023-02-23] MEDS: LIDOCAINE PATCH REMOVAL MC SCH (21:23)
[2023-02-24] MEDS: PYRIDOXINE HCL 100 MG/1 ML VIAL IVPB SCH ×3 (05:38→22:35)
[2023-02-24] MEDS: LIDOCAINE 5% TOPICAL PATCH TP SCH (09:31)
[2023-02-24] MEDS: PRENATAL VITAMINS W/ FOLIC ACID TABLET (FP) PO SCH (09:31)
[2023-02-24] MEDS: POLYETHYLENE GLYCOL (HEALTHYLAX) 3350 17 GM PACKET PO SCH ×2 (09:31→21:22)
[2023-02-24 10:11] LABS: HEMATOCRIT 28.3 % (32.4-45.2); HEMOGLOBIN 9.6 GM/dL (10.7-15.3); MCH 30.9 pg (25.7-33.7); MCHC 34.1 g/dl (32.0-36.0); MEAN CELL VOLUME 90.7 fl (80-96); MEAN PLT VOLUME 8.1 fl (7.5-11.1); PLATELET COUNT 349 10^3/uL (134-434); RBC 3.12 M/mm3 (3.60-5.2); RDW 12.5 % (11.6-15.6)
[2023-02-24 10:29] LABS: POTASSIUM 4.2 mmol/L (3.5-5.1)
[2023-02-24 10:33] LABS: ALBUMIN 2.2 g/dl (3.4-5.0); BLOOD UREA NITROGEN 39.3 mg/dL (7-18); CALCIUM 8.2 mg/dL (8.5-10.1)
[2023-02-24 10:36] LABS: CREATININE 1.7 mg/dL (0.55-1.3)
[2023-02-24 10:38] LABS: BILIRUBIN,TOTAL 0.3 mg/dL (0.2-1)
[2023-02-24] MEDS: POTASSIUM CHLORIDE 10 MEQ in AMINO ACIDS 4.25%/D5W 1,000 ML IV SCH ×2 (17:31→22:34)
[2023-02-24] MEDS: SODIUM CHLORIDE 0.45% 1,000 ML IV SCH (17:36)
[2023-02-24] MEDS: LIDOCAINE PATCH REMOVAL MC SCH (22:35)
[2023-02-25] MEDS: PYRIDOXINE HCL 100 MG/1 ML VIAL IVPB SCH ×3 (06:48→21:29)
[2023-02-25 08:57] LABS: HEMATOCRIT 27.1 % (32.4-45.2); HEMOGLOBIN 9.3 GM/dL (10.7-15.3); MCH 30.9 pg (25.7-33.7); MCHC 34.3 g/dl (32.0-36.0); MEAN CELL VOLUME 89.9 fl (80-96); MEAN PLT VOLUME 8.2 fl (7.5-11.1); PLATELET COUNT 341 10^3/uL (134-434); RBC 3.01 M/mm3 (3.60-5.2); RDW 12.4 % (11.6-15.6); WHITE BLOOD COUNT 8.9 K/mm3 (4.0-10.0)
[2023-02-25] MEDS: LIDOCAINE 5% TOPICAL PATCH TP SCH (09:13)
[2023-02-25 09:14] LABS: POTASSIUM 4.3 mmol/L (3.5-5.1)
[2023-02-25 09:16] LABS: BLOOD UREA NITROGEN 40.5 mg/dL (7-18); CALCIUM 8.2 mg/dL (8.5-10.1)
[2023-02-25 09:20] LABS: CREATININE 1.6 mg/dL (0.55-1.3)
[2023-02-25] MEDS: POLYETHYLENE GLYCOL (HEALTHYLAX) 3350 17 GM PACKET PO SCH (09:54)
[2023-02-25] MEDS: PRENATAL VITAMINS W/ FOLIC ACID TABLET (FP) PO SCH (09:54)
[2023-02-25] MEDS: POTASSIUM CHLORIDE 10 MEQ in AMINO ACIDS 4.25%/D5W 1,000 ML IV SCH ×2 (10:27→15:01)
[2023-02-25] MEDS: SODIUM CHLORIDE 0.45% 1,000 ML IV SCH (15:04)
[2023-02-25] MEDS ORDERED: INSULIN SLIDING SCALE (NOVOLOG) 1 VIAL SQ SCH (16:30)
[2023-02-25] MEDS: INSULIN (NOVOLOG) ASPART 100 UNITS/ML 10ML VIAL SQ ONE ×2 (17:43→18:02)
[2023-02-25] MEDS ORDERED: INSULIN (NOVOLOG) ASPART 100 UNITS/ML 10ML VIAL SQ ONE (18:00)
[2023-02-25 18:23] LABS: CHLORIDE 104 mmol/L (98-107); POTASSIUM 3.8 mmol/L (3.5-5.1); SODIUM 131 mmol/L (136-145)
[2023-02-25 18:24] LABS: CALCIUM 8.5 mg/dL (8.5-10.1)
[2023-02-25 18:25] LABS: ANION GAP 11 MMOL/L (8-16); BLOOD UREA NITROGEN 40.8 mg/dL (7-18); CO2 15 mmol/L (21-32)
[2023-02-25 18:28] LABS: CREATININE 1.7 mg/dL (0.55-1.3)
[2023-02-25 20:01] LABS: GLUCOSE,RANDOM 406 mg/dL (74-106)
[2023-02-25] MEDS: LIDOCAINE PATCH REMOVAL MC SCH (21:29)
[2023-02-25] MEDS: INSULIN SLIDING SCALE (NOVOLOG) 1 VIAL SQ SCH (21:29)
[2023-02-26] MEDS: POTASSIUM CHLORIDE 10 MEQ in AMINO ACIDS 4.25%/D5W 1,000 ML IV SCH ×2 (01:22→13:21)
[2023-02-26] MEDS: PYRIDOXINE HCL 100 MG/1 ML VIAL IVPB SCH ×3 (05:35→21:02)
[2023-02-26] MEDS: INSULIN SLIDING SCALE (NOVOLOG) 1 VIAL SQ SCH ×4 (06:00→21:00)
[2023-02-26 08:11] LABS: CHLORIDE 104 mmol/L (98-107); POTASSIUM 4.1 mmol/L (3.5-5.1); SODIUM 130 mmol/L (136-145)
[2023-02-26 08:14] LABS: ALBUMIN 2.2 g/dl (3.4-5.0); ANION GAP 11 MMOL/L (8-16); BLOOD UREA NITROGEN 44.7 mg/dL (7-18); CALCIUM 8.2 mg/dL (8.5-10.1); CO2 16 mmol/L (21-32)
[2023-02-26 08:17] LABS: CREATININE 1.9 mg/dL (0.55-1.3); SGOT/AST 11 U/L (15-37); SGPT/ALT 11 U/L (13-61)
[2023-02-26 08:19] LABS: BILIRUBIN,TOTAL 0.2 mg/dL (0.2-1); TOT PROT 5.9 g/dl (6.4-8.2)
[2023-02-26 08:20] LABS: ALK PHOS 136 U/L (45-117)
[2023-02-26 08:26] LABS: GLUCOSE,RANDOM 450 mg/dL (74-106)
[2023-02-26] MEDS: LIDOCAINE 5% TOPICAL PATCH TP SCH (09:24)
[2023-02-26] MEDS: PRENATAL VITAMINS W/ FOLIC ACID TABLET (FP) PO SCH (09:24)
[2023-02-26] MEDS ORDERED: INSULIN (NOVOLOG) ASPART 100 UNITS/ML 10ML VIAL ONE ×2 (11:09→20:45)
[2023-02-26 15:51] LABS: LIPASE 63 U/L (73-393)
[2023-02-26] MEDS: SODIUM CHLORIDE 0.45% 1,000 ML IV SCH (16:47)
[2023-02-26] MEDS ORDERED: INSULIN (LEVEMIR) 100 UNITS/ML UNITS SQ ONE (20:44)
[2023-02-26] MEDS ORDERED: INSULIN (LEVEMIR) 100 UNITS/ML UNITS SQ SCH (22:00)
[2023-02-26] MEDS: LIDOCAINE PATCH REMOVAL MC SCH (22:16)
[2023-02-27] MEDS: POTASSIUM CHLORIDE 10 MEQ in AMINO ACIDS 4.25%/D5W 1,000 ML IV SCH ×3 (04:15→17:17)
[2023-02-27] MEDS: PYRIDOXINE HCL 100 MG/1 ML VIAL IVPB SCH ×3 (06:14→22:14)
[2023-02-27] MEDS: INSULIN SLIDING SCALE (NOVOLOG) 1 VIAL SQ SCH ×4 (06:14→22:28)
[2023-02-27] MEDS: PRENATAL VITAMINS W/ FOLIC ACID TABLET (FP) PO SCH (09:24)
[2023-02-27] MEDS: LIDOCAINE 5% TOPICAL PATCH TP SCH (09:34)
[2023-02-27 10:14] LABS: POTASSIUM 4.2 mmol/L (3.5-5.1)
[2023-02-27 10:16] LABS: BLOOD UREA NITROGEN 42.1 mg/dL (7-18); CALCIUM 8.1 mg/dL (8.5-10.1)
[2023-02-27 10:20] LABS: CREATININE 1.7 mg/dL (0.55-1.3)
[2023-02-27] MEDS: LACTATED RINGERS SOLUTION 1,000 ML/1,000 ML INFUS.BAG IV SCH (14:23)
[2023-02-27] MEDS ORDERED: AMINO ACIDS IV SCH (16:19)
[2023-02-27] MEDS ORDERED: [UNRECOGNIZED DRUG - OTHER] IV SCH (16:19)
[2023-02-27] MEDS ORDERED: POTASSIUM CHLORIDE IV SCH (16:19)
[2023-02-27] MEDS ORDERED: INSULIN (LEVEMIR) 100 UNITS/ML UNITS SQ SCH (19:27)
[2023-02-27] MEDS: LIDOCAINE PATCH REMOVAL MC SCH (22:19)
[2023-02-28] MEDS ORDERED: INSULIN (NOVOLOG) ASPART 100 UNITS/ML 10ML VIAL SQ ONE ×2 (02:21→03:44)
[2023-02-28] MEDS ORDERED: INSULIN (LEVEMIR) 100 UNITS/ML UNITS SQ ONE ×4 (02:21→03:44)
[2023-02-28 03:28] LABS: CHLORIDE 102 mmol/L (98-107); POTASSIUM 4.6 mmol/L (3.5-5.1); SODIUM 129 mmol/L (136-145)
[2023-02-28 03:30] LABS: ANION GAP 16 MMOL/L (8-16); BLOOD UREA NITROGEN 46.2 mg/dL (7-18); CALCIUM 8.3 mg/dL (8.5-10.1); CO2 11 mmol/L (21-32)
[2023-02-28 03:34] LABS: CREATININE 1.9 mg/dL (0.55-1.3)
[2023-02-28 03:44] LABS: GLUCOSE,RANDOM 607 mg/dL (74-106)
[2023-02-28] MEDS: PYRIDOXINE HCL 100 MG/1 ML VIAL IVPB SCH ×2 (05:39→14:04)
[2023-02-28] MEDS: LACTATED RINGERS SOLUTION 1,000 ML/1,000 ML INFUS.BAG IV SCH (06:18)
[2023-02-28] MEDS: POTASSIUM CHLORIDE 10 MEQ in AMINO ACIDS 4.25%/D5W 1,000 ML IV SCH (06:18)
[2023-02-28] MEDS: INSULIN SLIDING SCALE (NOVOLOG) 1 VIAL SQ SCH ×2 (06:31→11:04)
[2023-02-28] MEDS: LIDOCAINE 5% TOPICAL PATCH TP SCH (10:25)
[2023-02-28] MEDS: PRENATAL VITAMINS W/ FOLIC ACID TABLET (FP) PO SCH ×2 (10:26→10:31)
[2023-02-28 10:54] LABS: POTASSIUM 3.9 mmol/L (3.5-5.1)
[2023-02-28 10:55] LABS: CALCIUM 8.5 mg/dL (8.5-10.1)
[2023-02-28 10:56] LABS: BLOOD UREA NITROGEN 45.5 mg/dL (7-18)
[2023-02-28 10:59] LABS: CREATININE 1.9 mg/dL (0.55-1.3)
[2023-02-28 11:09] LABS: LACTIC ACID 2.7 mmol/L (0.4-2.0)
[2023-02-28] MEDS ORDERED: DEXTROSE 5%-0.45% SALINE 1,000 ML IV SCH ×5 (11:30→15:30)
[2023-02-28] MEDS ORDERED: INSULIN SLIDING SCALE (NOVOLOG) 1 VIAL SQ SCH ×2 (12:30→18:42)
[2023-02-28] MEDS ORDERED: SODIUM CHLORIDE 0.45% 1,000 ML IV SCH (13:15)
[2023-02-28] MEDS ORDERED: INSULIN (LEVEMIR) 100 UNITS/ML UNITS SQ SCH ×2 (14:00→16:03)
[2023-02-28] MEDS ORDERED: DEXTROSE 50%-WATER 25 GM/50 ML DISP.SYRIN IVPUSH ONE (14:04)
[2023-02-28 14:50] VITALS: RESP 18
[2023-02-28 15:06] LABS: CALCIUM 8.8 mg/dL (8.5-10.1)
[2023-02-28 15:07] LABS: BLOOD UREA NITROGEN 41.1 mg/dL (7-18)
[2023-02-28 15:10] LABS: CREATININE 1.7 mg/dL (0.55-1.3)
[2023-02-28 17:58] VITALS: BP 143/92; PULSE 112; TEMP 98.1
[2023-03-01] MEDS ORDERED: INSULIN (LEVEMIR) 100 UNITS/ML UNITS SQ SCH ×2 (02:30)
[2023-03-01 17:09] LABS: THYROID STIM IMMUNOGLOBULIN 0.22 IU/L (0.00-0.55)
== END 2023-02-28 18:42 | disposition short-term general hospital (02) | DRG 566 ==
LOC: JER 22:23 → JERBED 02-18 05:07 → J6S 02-18 06:48 → OBSVTOIN 02-20 15:36
PROVIDERS: ADMIT Internal Medicine; ATTEND Internal Medicine
PROC: 05HN33Z Insertion of Infusion Device into Left Internal Jugular Vein, Percutaneous Approach (ICD-10-PCS; principal; 2023-02-19)
PROC: B544ZZA Ultrasonography of Left Jugular Veins, Guidance (ICD-10-PCS; 2023-02-19)
DX: O21.0 Mild hyperemesis gravidarum (principal); E10.10 Type 1 diabetes mellitus with ketoacidosis without coma; O24.011 Pre-existing type 1 diabetes mellitus, in pregnancy, first trimester; Z3A.08 8 weeks gestation of pregnancy; N17.9 Acute kidney failure, unspecified; I10 Essential (primary) hypertension; M41.80 Other forms of scoliosis, site unspecified; E10.42 Type 1 diabetes mellitus with diabetic polyneuropathy; R80.9 Proteinuria, unspecified; E10.43 Type 1 diabetes mellitus with diabetic autonomic (poly)neuropathy; K31.84 Gastroparesis; I69.351 Hemiplegia and hemiparesis following cerebral infarction affecting right dominant side; D64.9 Anemia, unspecified; M25.562 Pain in left knee; Z91.198 Patient's noncompliance with other medical treatment and regimen for other reason
CPT/HCPCS: 36415; 71045-TC-FY; 76700-TC; 76801-TC; 76817-TC; 80048; 80053; 80307; 81003; 82010; 82607; 82728; 82746; 82962; 83010; 83036; 83540; 83550; 83605; 83615; 83690; 83735; 84100; 84439; 84443; 84445; 84466; 84481; 84702; 85025; 85027; 85045; 87635; 93005; 93010; 99285-25; G0378

== ENCOUNTER 2023-06-18 21:00 | Observation (INO) | payer OTHER ==
[2023-06-18] MEDS ORDERED: LABETALOL HCL 200 MG TABLET (FP) ONE (21:56)
[2023-06-18] MEDS ORDERED: LABETALOL HCL 200 MG TABLET (FP) PO ONE (22:15)
[2023-06-18] MEDS ORDERED: LABETALOL HCL 20 MG/4 ML VIAL IVPUSH ONE (22:21)
[2023-06-18] MEDS ORDERED: LABETALOL HCL 20 MG/4 ML VIAL ONE ×2 (22:28→23:19)
[2023-06-18] MEDS ORDERED: hydrALAZINE HCL 20 MG/ML VIAL IM STA (23:00)
[2023-06-18] MEDS ORDERED: MAGNESIUM 4GM/H20 - 4 GM/100 ML IVPB IVPB SCH (23:15)
[2023-06-18 23:35] LABS: BASO % 0.4 % (0-2.0); EOS % 1.7 % (0-4.5); HEMATOCRIT 26.4 % (32.4-45.2); HEMOGLOBIN 9.3 GM/dL (10.7-15.3); MCH 32.3 pg (25.7-33.7); MCHC 35.1 g/dl (32.0-36.0); MEAN CELL VOLUME 91.9 fl (80-96); MEAN PLT VOLUME 7.4 fl (7.5-11.1); NEUT % 61.9 % (42.8-82.8); PLATELET COUNT 421 10^3/uL (134-434); RBC 2.87 M/mm3 (3.60-5.2); RDW 13.5 % (11.6-15.6); RETICULOCYTES 2.69 % (0.5-1.5); WHITE BLOOD COUNT 11.8 K/mm3 (4.0-10.0)
[2023-06-18] MEDS ORDERED: MAGNESIUM 4GM/H20 - 4 GM/100 ML IVPB IVPB ONE (23:35)
[2023-06-18] MEDS ORDERED: MAGNESIUM SULFATE 20GM/500ML - 20 GM/500 ML INFUS.BAG ONE (23:35)
[2023-06-18 23:42] LABS: INR 0.94 (0.83-1.09); PROTHROMBIN TIME (PATIENT) 10.9 SEC (9.7-13.0)
[2023-06-18] MEDS ORDERED: LABETALOL HCL 5 MG/1 ML (100MG/20 ML VIAL) IVPUSH STA (23:43)
[2023-06-18 23:45] LABS: ACTIVATED PTT 33.1 SECONDS (25.2-36.5)
[2023-06-18] MEDS ORDERED: MAGNESIUM SULFATE 20GM/500ML - 20 GM/500 ML INFUS.BAG IVPB SCH (23:45)
[2023-06-18 23:58] LABS: CHLORIDE 111 mmol/L (98-107); POTASSIUM 4.1 mmol/L (3.5-5.1); SODIUM 138 mmol/L (136-145)
[2023-06-19] LABS: ALBUMIN 1.9 g/dl (3.4-5.0); ANION GAP 7 MMOL/L (8-16); CO2 20 mmol/L (21-32)
[2023-06-19 00:01] LABS: BLOOD UREA NITROGEN 18.4 mg/dL (7-18); GLUCOSE,RANDOM 141 mg/dL (74-106)
[2023-06-19 00:03] LABS: SGPT/ALT 16 U/L (13-61); URIC ACID 4.6 mg/dL (2.6-7.2)
[2023-06-19 00:04] LABS: CREATININE 2.1 mg/dL (0.55-1.3); SGOT/AST 18 U/L (15-37)
[2023-06-19 00:04] LABS: METHADONE, UR NEGATIVE (NEGATIVE); PH,URINE 7.5 (5.0-8.0); URINE APPEARANCE Clear; URINE BENZODIAZEPINES NEGATIVE (NEGATIVE); URINE BILIRUBIN Negative (NEGATIVE); URINE COLOR Yellow; URINE GLUCOSE (UA) 1+ (NEGATIVE); URINE KETONE Negative (NEGATIVE); URINE LEUK ESTERASE Negative (NEGATIVE); URINE NITRITE Positive (NEGATIVE); URINE PROTEIN 3+ (NEGATIVE); URINE UROBILINOGEN 0.2 mg/dL (0.2-1.0)
[2023-06-19] MEDS ORDERED: LABETALOL HCL 5 MG/1 ML (100MG/20 ML VIAL) IVPUSH STA (00:04)
[2023-06-19 00:05] LABS: BILIRUBIN,TOTAL < 0.1 mg/dL (0.2-1)
[2023-06-19 00:05] LABS: OPIATES, URI NEGATIVE (NEGATIVE); PHENCYCLIDINE,URINE NEGATIVE (NEGATIVE); URINE BARBITURATES NEGATIVE (NEGATIVE)
[2023-06-19 00:06] LABS: ALK PHOS 120 U/L (45-117)
[2023-06-19] MEDS ORDERED: ONDANSETRON 4 MG/2 ML VIAL IM SCH (00:15)
[2023-06-19] MEDS ORDERED: CEFAZOLIN SODIUM 2 GM VIAL IM SCH (00:30)
[2023-06-19 00:39] LABS: COCAINE, UR NEGATIVE (NEGATIVE); URINE AMPHETAMINES NEGATIVE (NEGATIVE)
[2023-06-19 00:46] VITALS: RESP 20; BMI 32.3
[2023-06-19] MEDS ORDERED: ELECTROLYTE-148 SOLN 1,000 ML IV SCH (01:00)
[2023-06-19] MEDS ORDERED: ONDANSETRON 4 MG/2 ML VIAL IM STA (01:09)
[2023-06-19] MEDS ORDERED: ONDANSETRON 4 MG/2 ML VIAL ONE (01:13)
[2023-06-19] MEDS ORDERED: ceFAZolin SODIUM 1 GM VIAL ONE (01:13)
[2023-06-19] MEDS ORDERED: SODIUM CHLORIDE 100 ML IVPB ONE (01:13)
[2023-06-19] MEDS ORDERED: CEFAZOLIN SODIUM 2 GM VIAL IVPB SCH (01:15)
[2023-06-19] MEDS ORDERED: ONDANSETRON 4 MG/2 ML VIAL IVPB PRN (01:29)
[2023-06-19] MEDS ORDERED: LABETALOL HCL 200 MG TABLET (FP) PO PRN (01:47)
[2023-06-19 02:17] LABS: EPI CELLS 14.4 /uL (0-25.1); HYALINE CASTS 0.43 /uL (0-3.1); URINE BACTERIA 157.9 /uL (0-1359); URINE RBC 16.5 /uL (0-23.9); URINE WBC 11.1 /uL (0-25.8)
[2023-06-19] MEDS ORDERED: LABETALOL HCL 200 MG TABLET (FP) ONE (04:56)
[2023-06-19 07:06] VITALS: BP 132/84; PULSE 83; TEMP 97.7
[2023-06-19] MEDS ORDERED: LABETALOL HCL 200 MG TABLET (FP) PO SCH (10:00)
== END 2023-06-19 05:50 | disposition home or self-care (01) ==
LOC: JDEL 21:00 → JLDR 23:20
PROVIDERS: ADMIT Obstetrics & Gynecology; ATTEND Obstetrics & Gynecology
PROC: 3E03329 Introduction of Other Anti-infective into Peripheral Vein, Percutaneous Approach (ICD-10-PCS; principal; 2023-06-18)
PROC: 3E033GC Introduction of Other Therapeutic Substance into Peripheral Vein, Percutaneous Approach (ICD-10-PCS; 2023-06-18)
PROC: 3E033GC Introduction of Other Therapeutic Substance into Peripheral Vein, Percutaneous Approach (ICD-10-PCS; 2023-06-18)
DX: E10.8 Type 1 diabetes mellitus with unspecified complications (principal); O09.892 Supervision of other high risk pregnancies, second trimester; O26.892 Other specified pregnancy related conditions, second trimester; O99.891 Other specified diseases and conditions complicating pregnancy; O13.4 Gestational [pregnancy-induced] hypertension without significant proteinuria, complicating childbirth; V43.62XA Car passenger injured in collision with other type car in traffic accident, initial encounter; Z3A.27 27 weeks gestation of pregnancy; Y93.89 Activity, other specified; D64.9 Anemia, unspecified; Y92.410 Unspecified street and highway as the place of occurrence of the external cause; Z96.41 Presence of insulin pump (external) (internal); Z86.19 Personal history of other infectious and parasitic diseases; M41.9 Scoliosis, unspecified; G62.9 Polyneuropathy, unspecified; Z91.199 Patient's noncompliance with other medical treatment and regimen due to unspecified reason; I69.951 Hemiplegia and hemiparesis following unspecified cerebrovascular disease affecting right dominant side; Z90.49 Acquired absence of other specified parts of digestive tract; K29.70 Gastritis, unspecified, without bleeding; Z88.8 Allergy status to other drugs, medicaments and biological substances
CPT/HCPCS: 36415; 76801-TC; 80053; 80307; 81003; 83010; 84550; 85025; 85045; 85610; 85730; 86850; 86900; 86901; 87086; 87635; 96365; 96366; 96367; 96375; 96376; G0378

== ENCOUNTER 2023-06-20 14:15 | Inpatient (IN) | payer OTHER ==
[2023-06-20 14:38] VITALS: BMI 31.8
[2023-06-20] MEDS ORDERED: SODIUM CHLORIDE 0.9% 500 ML INFUS.BAG IV ONE (15:04)
[2023-06-20] MEDS ORDERED: ONDANSETRON 4 MG/2 ML VIAL IVPUSH ONE ×2 (15:04→16:43)
[2023-06-20] MEDS ORDERED: LABETALOL HCL 5 MG/1 ML (100MG/20 ML VIAL) IVPUSH ONE ×2 (15:07→23:43)
[2023-06-20] MEDS ORDERED: ONDANSETRON 4 MG/2 ML VIAL ONE ×2 (15:38→17:43)
[2023-06-20] MEDS ORDERED: LABETALOL HCL 20 MG/4 ML VIAL ONE ×3 (15:38→21:04)
[2023-06-20 16:43] LABS: BASO % 0.9 % (0-2.0); EOS % 1.4 % (0-4.5); HEMATOCRIT 25.6 % (32.4-45.2); LYMPH % 27.4 % (8-40); MCH 32.4 pg (25.7-33.7); MEAN CELL VOLUME 92.6 fl (80-96); MEAN PLT VOLUME 7.8 fl (7.5-11.1); MONO % 5.5 % (3.8-10.2); NEUT % 64.8 % (42.8-82.8); PLATELET COUNT 395 10^3/uL (134-434); RBC 2.77 M/mm3 (3.60-5.2); RDW 13.3 % (11.6-15.6); WHITE BLOOD COUNT 10.4 K/mm3 (4.0-10.0)
[2023-06-20 17:05] LABS: CHLORIDE 107 mmol/L (98-107); EPI CELLS 26 /uL (0-25.1); HYALINE CASTS 1 /uL (0-3.1); PH,URINE 7.5 (5.0-8.0); POTASSIUM 4.8 mmol/L (3.5-5.1); SODIUM 136 mmol/L (136-145); URINE APPEARANCE CLEAR; URINE BACTERIA 35 /uL (0-1359); URINE BILIRUBIN NEGATIVE (NEGATIVE); URINE COLOR YELLOW; URINE GLUCOSE (UA) 1+ (NEGATIVE); URINE KETONE NEGATIVE (NEGATIVE); URINE LEUK ESTERASE NEGATIVE (NEGATIVE); URINE NITRITE NEGATIVE (NEGATIVE); URINE PROTEIN 3+ (NEGATIVE); URINE RBC 36 /uL (0-23.9); URINE UROBILINOGEN 0.2 mg/dL (0.2-1.0); URINE WBC 20 /uL (0-25.8)
[2023-06-20 17:06] LABS: CALCIUM 7.9 mg/dL (8.5-10.1)
[2023-06-20 17:07] LABS: ALBUMIN 1.8 g/dl (3.4-5.0); ANION GAP 9 MMOL/L (8-16); BLOOD UREA NITROGEN 22.8 mg/dL (7-18); CO2 20 mmol/L (21-32); GLUCOSE,RANDOM 184 mg/dL (74-106); MAGNESIUM 2.6 mg/dL (1.8-2.4)
[2023-06-20 17:10] LABS: CREATININE 2.4 mg/dL (0.55-1.3); SGOT/AST 22 U/L (15-37); SGPT/ALT 14 U/L (13-61)
[2023-06-20 17:12] LABS: BILIRUBIN,TOTAL < 0.1 mg/dL (0.2-1); TOT PROT 5.9 g/dl (6.4-8.2)
[2023-06-20 17:13] LABS: ALK PHOS 121 U/L (45-117)
[2023-06-20] MEDS ORDERED: MAGNESIUM SULF 50% (8.12 MEQ/2 ML-1 GM VIAL) IVPB ONE (17:17)
[2023-06-20] MEDS ORDERED: MAGNESIUM SULFATE 4GM/100CC IN STERILE WATER IVPB ONE (17:45)
[2023-06-20 19:04] VITALS: RESP 20
[2023-06-20] MEDS ORDERED: LABETALOL HCL 20 MG/4 ML VIAL IVPUSH ONE ×2 (20:00→21:00)
[2023-06-20] MEDS ORDERED: MAGNESIUM SULFATE 20GM/500ML - 20 GM/500 ML INFUS.BAG ONE (22:20)
[2023-06-20] MEDS ORDERED: ELECTROLYTE-148 SOLN 1,000 ML IV SCH (22:30)
[2023-06-20] MEDS ORDERED: MAGNESIUM SULFATE 20GM/500ML - 20 GM/500 ML INFUS.BAG IVPB SCH (22:45)
[2023-06-20] MEDS ORDERED: BETAMET ACET/BETAMET NA PH 30 MG/5 ML VIAL ONE (23:04)
[2023-06-20] MEDS ORDERED: BETAMET ACET/BETAMET NA PH 30 MG/5 ML VIAL IM ONE (23:05)
[2023-06-21 01:42] VITALS: TEMP 98.2
[2023-06-21 01:51] VITALS: BP 170/104; PULSE 88
== END 2023-06-21 | disposition short-term general hospital (02) | DRG 566 ==
LOC: JER 14:15 → JERBED 17:53 → OBSVTOIN 17:53 → JLDR 19:42
PROVIDERS: ADMIT Obstetrics & Gynecology; ATTEND Obstetrics & Gynecology
DX: O14.12 Severe pre-eclampsia, second trimester (principal); Z3A.25 25 weeks gestation of pregnancy; O24.912 Unspecified diabetes mellitus in pregnancy, second trimester; O26.832 Pregnancy related renal disease, second trimester; E11.21 Type 2 diabetes mellitus with diabetic nephropathy
CPT/HCPCS: 36415; 80053; 81003; 82570; 82962; 83735; 84156; 85025; 87086; 93005; 93010; 96372; 99285-25

== ENCOUNTER 2024-04-01 16:49 | Inpatient (IN) | payer OTHER ==
[2024-04-01] MEDS ORDERED: ONDANSETRON 4 MG/2 ML VIAL ONE (21:10)
[2024-04-01] MEDS: LACTATED RINGERS SOLUTION 1000 ML INFUS.BAG IV ONE ×2 (21:14→23:55)
[2024-04-01] MEDS: ONDANSETRON 4 MG/2 ML VIAL IVPUSH ONE (21:14)
[2024-04-01 21:16] LABS: BASO % 0.4 % (0-2.0); EOS % 0.8 % (0-4.5); HEMATOCRIT 33.3 % (32.4-45.2); HEMOGLOBIN 11.3 GM/dL (10.7-15.3); LYMPH % 23.5 % (8-40); MCH 31.1 pg (25.7-33.7); MEAN CELL VOLUME 91.5 fl (80-96); MEAN PLT VOLUME 7.4 fl (7.5-11.1); MONO % 5.5 % (3.8-10.2); NEUT % 69.8 % (42.8-82.8); PLATELET COUNT 418 10^3/uL (134-434); RBC 3.64 M/mm3 (3.60-5.2); WHITE BLOOD COUNT 8.6 K/mm3 (4.0-10.0)
[2024-04-01 21:20] LABS: VENOUS BASE EXCESS -6.5 mmol/L (-2-2); VENOUS PCO2 39.6 mmHg (38-52); VENOUS PH 7.306 (7.310-7.410)
[2024-04-01] MEDS ORDERED: HYDROmorphone HCL CARPU-JECT 2 MG/1 ML DISP.SYRIN ONE ×2 (21:43→23:44)
[2024-04-01] MEDS: HYDROmorphone HCL 2 MG TABLET PO ONE (21:45)
[2024-04-01 21:49] LABS: POTASSIUM 4.6 mmol/L (3.5-5.1)
[2024-04-01 21:50] LABS: CALCIUM 8.2 mg/dL (8.5-10.1)
[2024-04-01 21:51] LABS: BLOOD UREA NITROGEN 27.9 mg/dL (7-18)
[2024-04-01 21:52] LABS: ALBUMIN 2.8 g/dl (3.4-5.0)
[2024-04-01] MEDS: HYDROmorphone HCl 2 MG/ML VIAL IVPUSH ONE ×2 (21:52→23:54)
[2024-04-01 21:54] LABS: CREATININE 3.1 mg/dL (0.55-1.3)
[2024-04-01 21:55] LABS: TOT PROT 6.8 g/dl (6.4-8.2)
[2024-04-01 21:56] LABS: BILIRUBIN,TOTAL 0.4 mg/dL (0.2-1)
[2024-04-01 22:21] LABS: MAGNESIUM 1.8 mg/dL (1.8-2.4)
[2024-04-01] MEDS: INSULIN REGULAR HUMAN 100 UNITS/ML *VIAL SQ ONE (23:27)
[2024-04-02 00:06] LABS: EPI CELLS 23 /uL (0-25.1); HYALINE CASTS 1 /uL (0-3.1); PH,URINE 6.5 (5.0-8.0); URINE APPEARANCE CLEAR; URINE BACTERIA 616 /uL (0-1359); URINE BILIRUBIN NEGATIVE (NEGATIVE); URINE COLOR YELLOW; URINE GLUCOSE (UA) 3+ (NEGATIVE); URINE KETONE 1+ (NEGATIVE); URINE LEUK ESTERASE NEGATIVE (NEGATIVE); URINE NITRITE NEGATIVE (NEGATIVE); URINE PROTEIN 3+ (NEGATIVE); URINE RBC 11 /uL (0-23.9); URINE UROBILINOGEN 0.2 mg/dL (0.2-1.0); URINE WBC 28 /uL (0-25.8)
[2024-04-02] MEDS ORDERED: HYDROmorphone HCL CARPU-JECT 2 MG/1 ML DISP.SYRIN ONE (02:09)
[2024-04-02] MEDS: HYDROmorphone HCl 2 MG/ML VIAL IVPUSH ONE (02:15)
[2024-04-02] MEDS: hydrOXYzine PAMOATE 25 MG CAPSULE (FP) PO ONE (02:22)
[2024-04-02] MEDS: INSULIN (NOVOLOG) ASPART 100 UNITS/ML 10ML VIAL SQ ONE (02:29)
[2024-04-02 03:39] VITALS: BMI 26.9
[2024-04-02] MEDS: hydrALAZINE HCL 20 MG/ML VIAL IVPB ONE (05:37)
[2024-04-02] MEDS: SODIUM CHLORIDE 1,000 ML IV SCH (05:50)
[2024-04-02] MEDS: SODIUM CHLORIDE 1,000 ML IV STA (05:52)
[2024-04-02] MEDS: INSULIN (LEVEMIR) 100 UNITS/ML UNITS SQ ONE ×2 (05:54→05:55)
[2024-04-02] MEDS: METOCLOPRAMIDE HCL INJECTION 10 MG/2 ML VIAL IVPUSH ONE (05:54)
[2024-04-02] MEDS ORDERED: HEPARIN NA (PORCINE) 5,000 UNITS/ML 1ML VIAL SQ SCH (06:00)
[2024-04-02] MEDS ORDERED: INSULIN (LEVEMIR) 100 UNITS/ML UNITS SQ SCH ×2 (07:00→08:00)
[2024-04-02] MEDS: INSULIN ASPART SLIDING SCALE (NOVOLOG) 1 VIAL SQ SCH (07:00)
[2024-04-02] MEDS: LABETALOL HCL 200 MG TABLET (FP) PO SCH (08:51)
[2024-04-02] MEDS: HYDROmorphone HCL CARPU-JECT 2 MG/1 ML DISP.SYRIN IVPB ONE ×2 (12:50→23:29)
[2024-04-02] MEDS: hydrALAZINE HCL 20 MG/ML VIAL IVPB PRN (13:25)
[2024-04-02] MEDS: INSULIN (LEVEMIR) 100 UNITS/ML UNITS SQ SCH (22:03)
[2024-04-02] MEDS: amLODIPine BESYLATE 5 MG TABLET (FP) PO SCH (22:03)
[2024-04-03] MEDS ORDERED: MELATONIN 5 MG TABLETS PO PRN (01:40)
[2024-04-03] MEDS: LABETALOL HCL 5 MG/1 ML (100MG/20 ML VIAL) IVPUSH ONE (02:39)
[2024-04-03 09:59] LABS: BASO % 0.3 % (0-2.0); EOS % 0.7 % (0-4.5); HEMATOCRIT 32.8 % (32.4-45.2); HEMOGLOBIN 10.5 GM/dL (10.7-15.3); LYMPH % 16.3 % (8-40); MCH 30.7 pg (25.7-33.7); MCHC 32.1 g/dl (32.0-36.0); MEAN CELL VOLUME 95.6 fl (80-96); MEAN PLT VOLUME 8.4 fl (7.5-11.1); MONO % 3.9 % (3.8-10.2); NEUT % 78.8 % (42.8-82.8); PLATELET COUNT 440 10^3/uL (134-434); RBC 3.43 M/mm3 (3.60-5.2); RDW 13.4 % (11.6-15.6); WHITE BLOOD COUNT 11.5 K/mm3 (4.0-10.0)
[2024-04-03 10:19] LABS: CHLORIDE 110 mmol/L (98-107); POTASSIUM 4.8 mmol/L (3.5-5.1); SODIUM 137 mmol/L (136-145)
[2024-04-03 10:22] LABS: ALBUMIN 2.5 g/dl (3.4-5.0)
[2024-04-03 10:23] LABS: ANION GAP 16 mmol/L (4-13); BLOOD UREA NITROGEN 23.2 mg/dL (7-18); CO2 12 mmol/L (21-32)
[2024-04-03 10:24] LABS: CALCIUM 7.8 mg/dL (8.5-10.1); GLUCOSE,RANDOM 411 mg/dL (74-106); MAGNESIUM 1.7 mg/dL (1.8-2.4)
[2024-04-03 10:25] LABS: SGPT/ALT 16 U/L (13-61)
[2024-04-03 10:26] LABS: CREATININE 3.1 mg/dL (0.55-1.3); PHOSPHOROUS 4.1 mg/dL (2.5-4.9); SGOT/AST 13 U/L (15-37)
[2024-04-03 10:27] LABS: BILIRUBIN,TOTAL 0.4 mg/dL (0.2-1); TOT PROT 6.1 g/dl (6.4-8.2)
[2024-04-03 10:28] LABS: ALK PHOS 178 U/L (45-117)
[2024-04-03] MEDS ORDERED: INSULIN ASPART SLIDING SCALE (NOVOLOG) 1 VIAL SQ ONE (11:46)
[2024-04-03] MEDS: INSULIN (NOVOLOG) ASPART 100 UNITS/ML 10ML VIAL SQ ONE (12:09)
[2024-04-03] MEDS: SODIUM CHLORIDE 1,000 ML IV STA ×2 (12:22→13:15)
[2024-04-03] MEDS: SODIUM CHLORIDE 1,000 ML IV SCH (14:16)
[2024-04-03 15:18] LABS: POTASSIUM 4.2 mmol/L (3.5-5.1)
[2024-04-03 15:20] LABS: CALCIUM 8.3 mg/dL (8.5-10.1)
[2024-04-03 15:21] LABS: BLOOD UREA NITROGEN 21.7 mg/dL (7-18)
[2024-04-03 15:24] LABS: CREATININE 3.1 mg/dL (0.55-1.3)
[2024-04-03] MEDS ORDERED: METOCLOPRAMIDE HCL INJECTION 10 MG/2 ML VIAL IVPUSH PRN (16:19)
[2024-04-03] MEDS ORDERED: hydrOXYzine PAMOATE 25 MG CAPSULE (FP) PO PRN (16:22)
[2024-04-03] MEDS: PANTOPRAZOLE SODIUM 40 MG VIAL IVPUSH SCH (16:51)
[2024-04-03] MEDS: INSULIN ASPART SLIDING SCALE (NOVOLOG) 1 VIAL SQ SCH (16:55)
[2024-04-03] MEDS ORDERED: LABETALOL HCL 20 MG/4 ML VIAL IVPUSH SCH ×2 (20:00→20:30)
[2024-04-03] MEDS: INSULIN (LEVEMIR) 100 UNITS/ML UNITS SQ SCH (22:10)
[2024-04-04 07:53] LABS: POTASSIUM 4.6 mmol/L (3.5-5.1)
[2024-04-04 07:56] LABS: BASO % 0.9 % (0-2.0); EOS % 1.8 % (0-4.5); HEMATOCRIT 30.7 % (32.4-45.2); HEMOGLOBIN 10.3 GM/dL (10.7-15.3); LYMPH % 30.5 % (8-40); MCH 31.6 pg (25.7-33.7); MCHC 33.4 g/dl (32.0-36.0); MEAN CELL VOLUME 94.7 fl (80-96); MONO % 4.9 % (3.8-10.2); NEUT % 61.9 % (42.8-82.8); PLATELET COUNT 382 10^3/uL (134-434); RBC 3.25 M/mm3 (3.60-5.2); RDW 13.5 % (11.6-15.6)
[2024-04-04 07:59] LABS: CALCIUM 8.6 mg/dL (8.5-10.1)
[2024-04-04 08:00] LABS: ALBUMIN 2.4 g/dl (3.4-5.0)
[2024-04-04 08:01] LABS: BLOOD UREA NITROGEN 21.7 mg/dL (7-18)
[2024-04-04 08:02] LABS: MAGNESIUM 1.7 mg/dL (1.8-2.4)
[2024-04-04 08:04] LABS: BILIRUBIN,TOTAL 0.4 mg/dL (0.2-1); CREATININE 3.2 mg/dL (0.55-1.3); PHOSPHOROUS 3.7 mg/dL (2.5-4.9)
[2024-04-04 08:05] LABS: TOT PROT 5.8 g/dl (6.4-8.2)
[2024-04-04] MEDS: hydrALAZINE HCL 20 MG/ML VIAL IVPUSH ONE (10:47)
[2024-04-04] MEDS: hydrALAZINE HCL 20 MG/ML VIAL IVPUSH SCH ×2 (14:26→14:48)
[2024-04-04] MEDS: SUMATRIPTAN SUCCINATE 6 MG/0.5 ML VIAL SQ ONE (16:51)
[2024-04-04] MEDS: AMINO ACIDS 4.25%/D5W 1,000 ML IV SCH (16:51)
[2024-04-04] MEDS: INSULIN (LEVEMIR) 100 UNITS/ML UNITS SQ SCH (22:01)
[2024-04-05 08:39] LABS: BASO % 0.7 % (0-2.0); EOS % 1.6 % (0-4.5); HEMATOCRIT 31.8 % (32.4-45.2); HEMOGLOBIN 10.6 GM/dL (10.7-15.3); LYMPH % 31.7 % (8-40); MCHC 33.3 g/dl (32.0-36.0); MEAN CELL VOLUME 93.3 fl (80-96); MEAN PLT VOLUME 7.9 fl (7.5-11.1); MONO % 5.6 % (3.8-10.2); NEUT % 60.4 % (42.8-82.8); PLATELET COUNT 427 10^3/uL (134-434); RBC 3.41 M/mm3 (3.60-5.2); RDW 13.4 % (11.6-15.6); WHITE BLOOD COUNT 9.5 K/mm3 (4.0-10.0)
[2024-04-05 09:01] LABS: POTASSIUM 4.5 mmol/L (3.5-5.1)
[2024-04-05 09:04] LABS: CALCIUM 8.6 mg/dL (8.5-10.1)
[2024-04-05 09:05] LABS: ALBUMIN 2.6 g/dl (3.4-5.0); BLOOD UREA NITROGEN 22.2 mg/dL (7-18)
[2024-04-05 09:08] LABS: CREATININE 3.3 mg/dL (0.55-1.3)
[2024-04-05 09:09] LABS: BILIRUBIN,TOTAL 0.7 mg/dL (0.2-1)
[2024-04-05 09:10] LABS: TOT PROT 6.2 g/dl (6.4-8.2)
[2024-04-05] MEDS: cloNIDine-TTS 0.1 MG/24 HRS PATCH.TDWK TD SCH (11:22)
[2024-04-05 11:56] LABS: COCAINE, UR NEGATIVE (NEGATIVE); METHADONE, UR NEGATIVE (NEGATIVE); OPIATES, URI NEGATIVE (NEGATIVE); PHENCYCLIDINE,URINE NEGATIVE (NEGATIVE); URINE AMPHETAMINES NEGATIVE (NEGATIVE); URINE BENZODIAZEPINES NEGATIVE (NEGATIVE)
[2024-04-05 11:57] LABS: URINE BARBITURATES NEGATIVE (NEGATIVE)
[2024-04-05] MEDS: SUMATRIPTAN SUCCINATE 6 MG/0.5 ML VIAL SQ ONE (16:22)
[2024-04-05] MEDS ORDERED: PROCHLORPERAZINE INJECTION 10 MG/2 ML VIAL IVPB SCH (17:00)
[2024-04-06] MEDS: INSULIN (NOVOLOG) ASPART 100 UNITS/ML 10ML VIAL SQ ONE ×2 (00:14→12:40)
[2024-04-06] MEDS ORDERED: cloNIDine-TTS 0.1 MG/24 HRS PATCH.TDWK TD SCH (11:37)
[2024-04-06] MEDS ORDERED: INSULIN ASPART SLIDING SCALE (NOVOLOG) 1 VIAL SQ SCH (12:02)
[2024-04-06 12:03] LABS: POTASSIUM 5.2 mmol/L (3.5-5.1)
[2024-04-06 12:05] LABS: CALCIUM 8.4 mg/dL (8.5-10.1)
[2024-04-06 12:06] LABS: ALBUMIN 2.5 g/dl (3.4-5.0); BLOOD UREA NITROGEN 28.3 mg/dL (7-18); MAGNESIUM 1.9 mg/dL (1.8-2.4)
[2024-04-06] MEDS: cloNIDine-TTS 0.1 MG/24 HRS PATCH.TDWK TD SCH (12:06)
[2024-04-06 12:09] LABS: CREATININE 3.3 mg/dL (0.55-1.3); PHOSPHOROUS 4.4 mg/dL (2.5-4.9)
[2024-04-06 12:10] LABS: BILIRUBIN,TOTAL 0.3 mg/dL (0.2-1)
[2024-04-06 12:11] LABS: TOT PROT 5.8 g/dl (6.4-8.2)
[2024-04-06] MEDS: SODIUM ZIRCONIUM CYCLOSILICATE (LOKELMA) 5 GM PACKET PO SCH (14:17)
[2024-04-06] MEDS: amLODIPine BESYLATE 5 MG TABLET (FP) PO ONE (16:10)
[2024-04-06] MEDS: INSULIN ASPART SLIDING SCALE (NOVOLOG) 1 VIAL SQ SCH (17:07)
[2024-04-06] MEDS: INSULIN (LEVEMIR) 100 UNITS/ML UNITS SQ SCH (21:51)
[2024-04-06] MEDS: LABETALOL HCL 100 MG TABLET (FP) PO SCH (21:52)
[2024-04-07] MEDS: INSULIN (LEVEMIR) 100 UNITS/ML UNITS SQ SCH (06:12)
[2024-04-07] MEDS ORDERED: DEXTROSE 50%-WATER 25 GM/50 ML DISP.SYRIN ONE (08:53)
[2024-04-07 09:30] LABS: POTASSIUM 4.1 mmol/L (3.5-5.1)
[2024-04-07 09:34] LABS: CALCIUM 8.8 mg/dL (8.5-10.1)
[2024-04-07 09:36] LABS: CREATININE 4.1 mg/dL (0.55-1.3)
[2024-04-07] MEDS: amLODIPine BESYLATE 10 MG TABLET (FP) PO SCH (10:01)
[2024-04-07] MEDS: hydrALAZINE HCL 20 MG/ML VIAL IVPUSH PRN (14:04)
[2024-04-07] MEDS: INSULIN ASPART SLIDING SCALE (NOVOLOG) 1 VIAL SQ PRN (17:13)
[2024-04-07] MEDS ORDERED: LABETALOL HCL 100 MG TABLET (FP) PO SCH (19:17)
[2024-04-08] MEDS: INSULIN (LEVEMIR) 100 UNITS/ML UNITS SQ SCH (06:02)
[2024-04-08] MEDS: LABETALOL HCL 100 MG TABLET (FP) PO SCH (08:49)
[2024-04-08 12:01] LABS: BASO % 0.6 % (0-2.0); HEMATOCRIT 29.8 % (32.4-45.2); MCH 31.1 pg (25.7-33.7); MCHC 33.5 g/dl (32.0-36.0); MEAN CELL VOLUME 92.9 fl (80-96); MEAN PLT VOLUME 7.2 fl (7.5-11.1); MONO % 6.8 % (3.8-10.2); NEUT % 55.6 % (42.8-82.8); PLATELET COUNT 376 10^3/uL (134-434); RBC 3.21 M/mm3 (3.60-5.2); RDW 13.3 % (11.6-15.6); WHITE BLOOD COUNT 7.3 K/mm3 (4.0-10.0)
[2024-04-08 12:19] LABS: POTASSIUM 4.9 mmol/L (3.5-5.1)
[2024-04-08 12:21] LABS: CALCIUM 8.3 mg/dL (8.5-10.1)
[2024-04-08 12:22] LABS: BLOOD UREA NITROGEN 44.9 mg/dL (7-18)
[2024-04-08 12:25] LABS: CREATININE 3.9 mg/dL (0.55-1.3)
[2024-04-08] MEDS: diphenhydrAMINE HCL 25 MG CAPSULE (FP) PO ONE (12:25)
[2024-04-08] MEDS ORDERED: GABAPENTIN 100 MG CAPSULE PO PRN (13:22)
[2024-04-08] MEDS: LIDOCAINE 5% TOPICAL PATCH TP SCH (13:52)
[2024-04-08] MEDS: LIDOCAINE PATCH REMOVAL MC SCH (22:42)
[2024-04-09] MEDS: ONDANSETRON 4 MG/2 ML VIAL IVPUSH PRN (17:00)
[2024-04-10 22:06] VITALS: RESP 20
[2024-04-10] MEDS: INSULIN (NOVOLOG) ASPART 100 UNITS/ML 10ML VIAL SQ ONE (23:09)
[2024-04-11 02:58] VITALS: BP 170/100; PULSE 96; TEMP 98
[2024-04-13] MEDS ORDERED: cloNIDine-TTS 0.1 MG/24 HRS PATCH.TDWK TD SCH (10:00)
== END 2024-04-11 02:15 | disposition short-term general hospital (02) | DRG 74 ==
LOC: JER 16:49 → JERBED 23:18 → J6S 04-02 03:17
PROVIDERS: ADMIT Internal Medicine
DX: E10.42 Type 1 diabetes mellitus with diabetic polyneuropathy (principal); N17.9 Acute kidney failure, unspecified; H33.22 Serous retinal detachment, left eye; I16.0 Hypertensive urgency; E10.43 Type 1 diabetes mellitus with diabetic autonomic (poly)neuropathy; K31.84 Gastroparesis; G43.909 Migraine, unspecified, not intractable, without status migrainosus; E10.10 Type 1 diabetes mellitus with ketoacidosis without coma; E10.22 Type 1 diabetes mellitus with diabetic chronic kidney disease; N18.9 Chronic kidney disease, unspecified; H54.40 Blindness, one eye, unspecified eye; E86.0 Dehydration; F32.A Depression, unspecified; R11.2 Nausea with vomiting, unspecified; R16.2 Hepatomegaly with splenomegaly, not elsewhere classified; R80.9 Proteinuria, unspecified; M41.9 Scoliosis, unspecified; E10.65 Type 1 diabetes mellitus with hyperglycemia; Z86.73 Personal history of transient ischemic attack (TIA), and cerebral infarction without residual deficits; Z72.89 Other problems related to lifestyle; Z91.199 Patient's noncompliance with other medical treatment and regimen due to unspecified reason
CPT/HCPCS: 36415; 70450-TC; 74150-TC; 76775-TC; 80048; 80053; 80307; 81003; 82010; 82436; 82570; 82803; 82962; 83036; 83605; 83690; 83735; 83930; 83935; 84100; 84133; 84156; 84300; 84540; 84703; 85025; 87086; 87635; 93005; 93010; 97116-GP; 97162-GP; 99285-25

== ENCOUNTER 2024-09-11 04:13 | Inpatient (IN) | payer OTHER ==
[2024-09-11 05:55] LABS: VENOUS BASE EXCESS -10.5 mmol/L (-2-2); VENOUS O2 SATURATION 60.1 % (70-80); VENOUS PCO2 41.3 mmHg (38-52); VENOUS PH 7.222 (7.310-7.410)
[2024-09-11 05:56] LABS: MCH 30.6 pg (25.7-33.7); MCHC 31.7 g/dl (32.0-36.0)
[2024-09-11] MEDS: SODIUM CHLORIDE 0.9% 500 ML INFUS.BAG IV ONE ×3 (05:57→13:33)
[2024-09-11 05:59] LABS: BASO % 0.6 % (0-2.0); HEMATOCRIT 33.2 % (32.4-45.2); HEMOGLOBIN 10.5 GM/dL (10.7-15.3); LYMPH % 23.8 % (8-40); MEAN CELL VOLUME 96.8 fl (80-96); MEAN PLT VOLUME 7.6 fl (7.5-11.1); MONO % 4.4 % (3.8-10.2); NEUT % 70.2 % (42.8-82.8); PLATELET COUNT 393 10^3/uL (134-434); RBC 3.42 M/mm3 (3.60-5.2); RDW 13.4 % (11.6-15.6); WHITE BLOOD COUNT 8.5 K/mm3 (4.0-10.0)
[2024-09-11 06:11] LABS: CHLORIDE 104 mmol/L (98-107); POTASSIUM 5.3 mmol/L (3.5-5.1); SODIUM 132 mmol/L (136-145)
[2024-09-11 06:13] LABS: CALCIUM 7.3 mg/dL (8.5-10.1)
[2024-09-11 06:14] LABS: ALBUMIN 2.8 g/dl (3.4-5.0); ANION GAP 13 mmol/L (4-13); BLOOD UREA NITROGEN 49.1 mg/dL (7-18); CO2 15 mmol/L (21-32); MAGNESIUM 1.6 mg/dL (1.8-2.4)
[2024-09-11 06:17] LABS: CREATININE 4.4 mg/dL (0.55-1.3); PHOSPHOROUS 5.5 mg/dL (2.5-4.9); SGOT/AST 25 U/L (15-37); SGPT/ALT 23 U/L (13-61)
[2024-09-11 06:18] LABS: ALK PHOS 219 U/L (45-117); BILIRUBIN,TOTAL 0.4 mg/dL (0.2-1); TOT PROT 6.7 g/dl (6.4-8.2)
[2024-09-11 06:20] LABS: GLUCOSE,RANDOM 785 mg/dL (74-106)
[2024-09-11] MEDS ORDERED: HYDROmorphone HCL CARPU-JECT 2 MG/1 ML DISP.SYRIN ONE ×2 (06:56→14:35)
[2024-09-11] MEDS: HYDROmorphone HCl 2 MG/ML VIAL IVPUSH ONE (07:02)
[2024-09-11 07:38] LABS: CHLORIDE 106 mmol/L (98-107); POTASSIUM 5.3 mmol/L (3.5-5.1); SODIUM 134 mmol/L (136-145)
[2024-09-11 07:42] LABS: ALBUMIN 2.6 g/dl (3.4-5.0); ANION GAP 13 mmol/L (4-13); CO2 14 mmol/L (21-32)
[2024-09-11 07:45] LABS: CREATININE 4.3 mg/dL (0.55-1.3); SGOT/AST 21 U/L (15-37); SGPT/ALT 20 U/L (13-61)
[2024-09-11 07:46] LABS: BILIRUBIN,TOTAL 0.3 mg/dL (0.2-1); TOT PROT 6.1 g/dl (6.4-8.2)
[2024-09-11 07:48] LABS: ALK PHOS 198 U/L (45-117)
[2024-09-11 07:50] LABS: CALCIUM 6.9 mg/dL (8.5-10.1); GLUCOSE,RANDOM 773 mg/dL (74-106)
[2024-09-11] MEDS ORDERED: LACTATED RINGERS SOLUTION 1000 ML INFUS.BAG IV ONE (08:06)
[2024-09-11] MEDS ORDERED: MAGNESIUM SULFATE IN WATER 2 GM/50 ML IVPB IVPB ONE (08:20)
[2024-09-11] MEDS: MAGNESIUM SULFATE IN WATER 2 GM/50 ML IVPB IVPB ONE (08:41)
[2024-09-11] MEDS ORDERED: ONDANSETRON 4 MG/2 ML VIAL ONE (08:45)
[2024-09-11] MEDS: ONDANSETRON 4 MG/2 ML VIAL IVPUSH ONE (08:50)
[2024-09-11 08:51] LABS: HCG,QUALITATIVE URINE Negative
[2024-09-11 09:06] LABS: EPI CELLS 27 /uL (0-25.1); HYALINE CASTS 0 /uL (0-3.1); URINE APPEARANCE CLEAR; URINE BACTERIA 463 /uL (0-1359); URINE BILIRUBIN NEGATIVE (NEGATIVE); URINE COLOR YELLOW; URINE GLUCOSE (UA) 3+ (NEGATIVE); URINE KETONE 1+ (NEGATIVE); URINE LEUK ESTERASE NEGATIVE (NEGATIVE); URINE NITRITE NEGATIVE (NEGATIVE); URINE PROTEIN 3+ (NEGATIVE); URINE UROBILINOGEN 0.2 mg/dL (0.2-1.0); URINE WBC 21 /uL (0-25.8)
[2024-09-11 09:45] LABS: URINE RBC 639 /uL (0-23.9); YEAST NONE SEEN (NEGATIVE)
[2024-09-11] MEDS ORDERED: diphenhydrAMINE HCL 25 MG CAPSULE (FP) PO ONE ×2 (10:30→23:00)
[2024-09-11] MEDS: diphenhydrAMINE HCL 25 MG CAPSULE (FP) PO ONE (10:32)
[2024-09-11 11:30] LABS: ANION GAP 16 mmol/L (4-13); CALCIUM 7.5 mg/dL (8.5-10.1); CHLORIDE 108 mmol/L (98-107); CO2 12 mmol/L (21-32); POTASSIUM 5.3 mmol/L (3.5-5.1); SODIUM 135 mmol/L (136-145)
[2024-09-11 11:32] LABS: BLOOD UREA NITROGEN 48.2 mg/dL (7-18)
[2024-09-11 11:35] LABS: CREATININE 4.3 mg/dL (0.55-1.3)
[2024-09-11 11:43] LABS: GLUCOSE,RANDOM 729 mg/dL (74-106)
[2024-09-11] MEDS: INSULIN (NOVOLOG) ASPART 100 UNITS/ML 10ML VIAL SQ ONE (12:04)
[2024-09-11] MEDS: LACTATED RINGERS SOLUTION 1000 ML INFUS.BAG IV ONE (12:32)
[2024-09-11] MEDS ORDERED: ALBUTEROL SO4 0.083% IH SOL 2.5 MG/3 ML VIAL.NEB. NEB PRN (13:27)
[2024-09-11] MEDS ORDERED: INSULIN (LEVEMIR) 100 UNITS/ML UNITS SQ ONE (13:48)
[2024-09-11] MEDS: INSULIN (LEVEMIR) 100 UNITS/ML UNITS SQ SCH ×2 (13:51→21:29)
[2024-09-11] MEDS ORDERED: INSULIN REGULAR HUMAN 100 UNITS/ML *VIAL IVPUSH ONE (14:30)
[2024-09-11] MEDS: INSULIN REGULAR HUMAN 100 UNITS/ML *VIAL IVPUSH ONE (14:42)
[2024-09-11] MEDS: HYDROmorphone HCL CARPU-JECT 2 MG/1 ML DISP.SYRIN IVPUSH PRN (14:50)
[2024-09-11] MEDS: LACTATED RINGERS SOLUTION 1,000 ML/1,000 ML INFUS.BAG IV SCH (14:51)
[2024-09-11 18:17] LABS: CHLORIDE 114 mmol/L (98-107); SODIUM 142 mmol/L (136-145)
[2024-09-11 18:18] LABS: CALCIUM 7.4 mg/dL (8.5-10.1)
[2024-09-11 18:19] LABS: ANION GAP 13 mmol/L (4-13); BLOOD UREA NITROGEN 52.8 mg/dL (7-18); CO2 15 mmol/L (21-32)
[2024-09-11 18:20] LABS: GLUCOSE,RANDOM 407 mg/dL (74-106)
[2024-09-11 18:21] LABS: CREATININE 4.6 mg/dL (0.55-1.3)
[2024-09-11] MEDS: ONDANSETRON 4 MG/2 ML VIAL IVPUSH PRN (20:51)
[2024-09-11] MEDS: INSULIN ASPART SLIDING SCALE (NOVOLOG) 1 VIAL SQ SCH (21:30)
[2024-09-11] MEDS ORDERED: HEPARIN NA (PORCINE) 5,000 UNITS/ML 1ML VIAL SQ SCH (22:00)
[2024-09-11] MEDS ORDERED: INSULIN ASPART SLIDING SCALE (NOVOLOG) 1 VIAL SQ SCH (22:00)
[2024-09-12] MEDS ORDERED: DEXTROSE 50%-WATER 25 GM/50 ML DISP.SYRIN ONE (03:39)
[2024-09-12] MEDS: DEXTROSE 50%-WATER 25 GM/50 ML DISP.SYRIN IVPUSH ONE (04:00)
[2024-09-12 08:06] LABS: BASO % 0.7 % (0-2.0); EOS % 0.8 % (0-4.5); HEMATOCRIT 30.9 % (32.4-45.2); HEMOGLOBIN 9.9 GM/dL (10.7-15.3); LYMPH % 31.5 % (8-40); MCH 30.1 pg (25.7-33.7); MCHC 32.2 g/dl (32.0-36.0); MEAN CELL VOLUME 93.7 fl (80-96); MEAN PLT VOLUME 7.6 fl (7.5-11.1); MONO % 7.4 % (3.8-10.2); NEUT % 59.6 % (42.8-82.8); PLATELET COUNT 423 10^3/uL (134-434); RDW 13.3 % (11.6-15.6); WHITE BLOOD COUNT 15.6 K/mm3 (4.0-10.0)
[2024-09-12 08:08] LABS: POTASSIUM 4.4 mmol/L (3.5-5.1)
[2024-09-12 08:13] LABS: BLOOD UREA NITROGEN 42.7 mg/dL (7-18); CALCIUM 8.1 mg/dL (8.5-10.1)
[2024-09-12 08:15] LABS: CREATININE 4.4 mg/dL (0.55-1.3)
[2024-09-12] MEDS ORDERED: DEXTROSE 50%-WATER - 25 GM/50 ML VIAL IVPUSH PRN (09:46)
[2024-09-12] MEDS: NIFEdipine E.R. 30 MG TABLET PO SCH (10:25)
[2024-09-12] MEDS: INSULIN ASPART SLIDING SCALE (NOVOLOG) 1 VIAL SQ SCH ×2 (12:21→22:53)
[2024-09-12] MEDS: LACTATED RINGERS SOLUTION 1,000 ML/1,000 ML INFUS.BAG IV SCH (12:22)
[2024-09-12] MEDS ORDERED: METOCLOPRAMIDE HCL INJECTION 10 MG/2 ML VIAL IVPUSH PRN (13:29)
[2024-09-12] MEDS ORDERED: DEXTROSE 50%-WATER 25 GM/50 ML DISP.SYRIN IVPUSH PRN (13:42)
[2024-09-12] MEDS: NIFEdipine E.R. 30 MG TABLET PO ONE (17:06)
[2024-09-12] MEDS ORDERED: hydrALAZINE HCL 20 MG/ML VIAL IVPUSH PRN (17:44)
[2024-09-12] MEDS: INSULIN (LEVEMIR) 100 UNITS/ML UNITS SQ SCH (23:02)
[2024-09-13 07:45] LABS: HEMATOCRIT 29.9 % (32.4-45.2); MCH 31.4 pg (25.7-33.7); MCHC 33.5 g/dl (32.0-36.0); MEAN CELL VOLUME 93.9 fl (80-96); MEAN PLT VOLUME 7.8 fl (7.5-11.1); PLATELET COUNT 355 10^3/uL (134-434); RBC 3.18 M/mm3 (3.60-5.2); RDW 13.5 % (11.6-15.6); WHITE BLOOD COUNT 7.2 K/mm3 (4.0-10.0)
[2024-09-13 07:57] LABS: CHLORIDE 106 mmol/L (98-107); POTASSIUM 5.4 mmol/L (3.5-5.1); SODIUM 137 mmol/L (136-145)
[2024-09-13 08:03] LABS: SGPT/ALT 17 U/L (13-61)
[2024-09-13 08:04] LABS: ALBUMIN 2.4 g/dl (3.4-5.0); BLOOD UREA NITROGEN 31.9 mg/dL (7-18); SGOT/AST 15 U/L (15-37)
[2024-09-13 08:05] LABS: BILIRUBIN,TOTAL 0.5 mg/dL (0.2-1); TOT PROT 5.7 g/dl (6.4-8.2)
[2024-09-13 08:06] LABS: ALK PHOS 171 U/L (45-117); ANION GAP 11 mmol/L (4-13); CALCIUM 8.1 mg/dL (8.5-10.1); CO2 20 mmol/L (21-32); MAGNESIUM 1.8 mg/dL (1.8-2.4)
[2024-09-13 08:07] LABS: CREATININE 4.6 mg/dL (0.55-1.3); PHOSPHOROUS 4.9 mg/dL (2.5-4.9)
[2024-09-13 08:16] LABS: GLUCOSE,RANDOM 540 mg/dL (74-106)
[2024-09-13] MEDS: INSULIN (LEVEMIR) 100 UNITS/ML UNITS SQ ONE ×2 (09:48→13:13)
[2024-09-13] MEDS: SODIUM CHLORIDE 1,000 ML IV SCH (13:20)
[2024-09-13] MEDS ORDERED: SODIUM ZIRCONIUM CYCLOSILICATE (LOKELMA) 5 GM PACKET PO SCH ×3 (14:35→22:00)
[2024-09-13 15:20] VITALS: RESP 19
[2024-09-13 16:30] LABS: POTASSIUM 4.5 mmol/L (3.5-5.1)
[2024-09-13 16:32] VITALS: BMI 24.8
[2024-09-13 16:32] LABS: BLOOD UREA NITROGEN 32.6 mg/dL (7-18); CALCIUM 8.5 mg/dL (8.5-10.1)
[2024-09-13 16:35] LABS: CREATININE 4.8 mg/dL (0.55-1.3)
[2024-09-13] MEDS ORDERED: ALBUTEROL SO4 0.083% IH SOL 2.5 MG/3 ML VIAL.NEB. NEB PRN (16:53)
[2024-09-13] MEDS: INSULIN (LEVEMIR) 100 UNITS/ML UNITS SQ SCH (22:29)
[2024-09-13] MEDS: INSULIN ASPART SLIDING SCALE (NOVOLOG) 1 VIAL SQ SCH (22:29)
[2024-09-13 22:52] VITALS: BP 149/113; PULSE 101; TEMP 98.4
[2024-09-14] MEDS ORDERED: INSULIN ASPART SLIDING SCALE (NOVOLOG) 1 VIAL SQ SCH (07:00)
[2024-09-14] MEDS ORDERED: NIFEdipine E.R. 30 MG TABLET PO SCH (10:00)
[2024-09-14] MEDS ORDERED: SODIUM ZIRCONIUM CYCLOSILICATE (LOKELMA) 5 GM PACKET PO SCH (10:00)
== END 2024-09-13 22:40 | disposition left against medical advice (07) | DRG 638 ==
LOC: JER 04:13 → JERBED 12:57 → J4W 20:28 → J6S 09-13 15:04
PROVIDERS: ADMIT Internal Medicine; ATTEND Internal Medicine
DX: E11.10 Type 2 diabetes mellitus with ketoacidosis without coma (principal); N17.9 Acute kidney failure, unspecified; T85.694A Other mechanical complication of insulin pump, initial encounter; E11.65 Type 2 diabetes mellitus with hyperglycemia; E11.319 Type 2 diabetes mellitus with unspecified diabetic retinopathy without macular edema; E11.43 Type 2 diabetes mellitus with diabetic autonomic (poly)neuropathy; N18.9 Chronic kidney disease, unspecified; I12.9 Hypertensive chronic kidney disease with stage 1 through stage 4 chronic kidney disease, or unspecified chronic kidney disease; Y83.9 Surgical procedure, unspecified as the cause of abnormal reaction of the patient, or of later complication, without mention of misadventure at the time of the procedure
CPT/HCPCS: 0241U-QW; 36415; 71045-TC-FY; 80048; 80053; 81003; 82010; 82803; 82962; 83605; 83690; 83735; 84100; 84484; 84703; 85025; 85027; 87086; 93005; 93010; 99285-25